=== PATIENT | female | born 1980 | race Caucasian/White ===

== ENCOUNTER 2021-11-05 00:31 | Day surgery (SDC) | payer BC, OTHER, SELFPAY ==
[2021-10-30 09:58] VITALS: BMI 38.4
--- NOTE | 2021-10-30 10:03 | PC.NURSE ---
Report to the Outpatient Waiting Room, entrance under the green pavilion located off [facility], at time 0700 on date 11/05/21. OR Time: 0900. - You and your visitor will be asked a series of questions to screen for COVID 19 for your protection. - A mask is required within the hospital. One visitor will be allowed to accompany the patient into the hospital. Patients visitor will be instructed to remain with patient at all times or leave the building. We will allow the visitor to come back to the postoperative area when patient is ready. Preoperative COVID Testing Requirements: No COVID Test needed if: (proof is required; if not received patient will have Rapid Test prior to entry) - Patient has received COVID Vaccine at least 14 days prior to procedure date or - Patient has positive COVID test result within last 90 days of surgery date. COVID Test needed if above criteria is not met Patients may have clear liquids (water, carbonated beverages, clear teas, apple juice) until 3 hours prior to surgery with a maximum of 20 ounces. - No food from midnight until time of surgery Take the following medications with a SIP of water the morning of surgery: CARVEDILOL Medications to discontinue per physician: N/A Date to take last dose: N/A Please no make-up, nail french, hairspray, perfume, deodorant, or body powder the day of surgery. No jewelry (including any body piercings) or valuables the day of surgery, leave them at home. Please take a shower or bath the night before, or the morning of, surgery with an antibacterial soap. Wear comfortable, loose fitting clothing. - Jewelry must be removed prior to entering the operating room. Rings and piercings that are not removed may be cut off. - The hospital will not accept responsibility for valuables. - Please leave all valuables, including medications, at home the day of surgery. If you are going home after surgery, a licensed coach driver must drive you home. - NO public transportation without another adult. - We recommend that an adult stay with you for 24 hours following discharge. - We also recommend that you do not drive, make important decision, drink alcoholic beverages, or take any drugs that were not prescribed by your health care provider for at least 24 hours after your discharge time. Follow any additional instructions given to you from your surgeon. Telephone instructions given to MICHAEL MILLER and asked if any additional questions and then verbalized understanding. Patient advised to call surgeon office or pre surgery nurse liaison [phone] if any additional questions.
[2021-11-05 07:15] VITALS: BP 144/86; PULSE 72; RESP 20; TEMP 36.4; O2SAT 98
--- NOTE | 2021-11-05 07:26 | PM.IMHP ---
H&P: HPI History of Present Illness Date/Time: 11/05/21 07:25 Winnie is a 41yo P0010, who presented for WWE in June; normal pap 02/2019. She is on BCP's and reports normal menses. She does have h/o HTN on meds and occasional tobacco use. She is sexually active (her has MS and is on meds that would be teratogenic). She has multiple cysts on her labia and even above her clitoris that are growing and becoming more annoying-- no infection/drainage/bleeding/pain, but presents for scheduled surgery to remove them. Chief Complaint: vulvar cysts Review of Systems Review of Systems: All systems reviewed & are unremarkable except as noted in HPI and below (HPI) [facility] Family History Family History Other Family history of alcoholism Family history of arthritis Family history of malignant neoplasm Social History Social History Smoking status: Current some day smoker Tobacco type: cigarettes Additional smoking assessment comments: OFF AND ON 15 YEARS Alcohol intake: never Substance use: never Substance use type: does not use Living arrangements: with family Spiritual care concerns: No Meds Home Medications and Allergies Home Medications Medication Instructions Recorded Confirmed Type carvedilol 12.5 mg PO BID 10/30/21 10/30/21 History norgestimate-ethinyl estradiol 1 tablet PO DAILY 10/30/21 10/30/21 History [Eeo-Ap-Tjqjfugi] Allergies Allergy/AdvReac Type Severity Reaction Status Date / Time No Known Allergies Allergy Unknown Unverified 10/30/21 09:54 Exam Const: General: cooperative, comfortable and no acute distress Resp: Effort & Inspection: normal respiratory effort Cardio: Rate: regular rate GI: GI Palp: No abdominal tenderness and Yes Soft to palpation : Other: large epidermoid cyst above clitorus, two cysts in the left labia, 1 in the right labia Skin: General skin exam: normal color Neuro: General: patient oriented x3 Extrem: General: normal to inspection Psych: Appearance: grossly normal Affect: normal affect Attitude: cooperative Assessment and Plan Assessment and plan (1) Labial cyst: Code(s): N90.7 - Vulvar cyst Status: Acute Additional Plan - Proceed with excision of vulvar/labial cysts in the OR - Risks/benefits explained in detail
--- NOTE | 2021-11-05 07:26 | WPDHPUPDATE1 ---
History and Physical Update Update Date/Time: 11/05/21 07:26 History and Physical has been reviewed, including an updated exam of the patient. There are NO changes in the patient's condition. Risks, benefits, and alternatives have been discussed and questions answered. Patient agrees to proceed with procedure.
[2021-11-05] MEDS: LACTATED RINGERS 1,000 ML 30 ML IV CONT ×2 (07:40→12:05)
--- NOTE | 2021-11-05 08:17 | WPDANESEPPF ---
Anes - Initial Pre Proc Eval Procedure: Operation Date: 11/05/21 09:00 Proposed Procedures p Excision of Vulvar Cyst Times Two - Heidy Orozco MD Date/Time: 11/05/21 08:17 Surgeon: Heidy Orozco MD Pre Op Diagnosis: vulvar cyst Patient Data Age: 41 Gender: F Height: 1.63 m Weight: 102.3 kg Last Vital Signs Temp 36.4 C L 11/05/21 07:15 Pulse 72 11/05/21 07:15 Resp 20 11/05/21 07:15 BP 144/86 H 11/05/21 07:15 Pulse Ox 98 11/05/21 07:15 Allergies Allergy/AdvReac Type Severity Reaction Status Date / Time No Known Allergies Allergy Unknown Unverified 11/05/21 07:34 Home Medications Medication Instructions Recorded Confirmed Type carvedilol 12.5 mg PO BID 10/30/21 11/05/21 History norgestimate-ethinyl estradiol 1 tablet PO DAILY 10/30/21 11/05/21 History [Mju-Im-Hxeezkoi] Patient hx anesthesia problems: none Family hx anesthesia problems: none Results Review: All pre-operative results and documents have been reviewed as part of the pre-operative evaluation. [facility] Past Medical History Medical History Asthma HTN (hypertension) Obesity Smoker Family History Family History Other Family history of alcoholism Family history of arthritis Family history of malignant neoplasm Social History Social History Smoking status: Current some day smoker Tobacco type: cigarettes Additional smoking assessment comments: OFF AND ON 15 YEARS Alcohol intake: never Substance use: never Substance use type: does not use Living arrangements: with family Spiritual care concerns: No Anes - Eval Final PreProcedure Day of Procedure 11/05/21 08:17 Patient weight: obese Heart: regular rate and rhythm Lungs: clear to auscultation and normal air movement Airway: Mallampati scale class II Neurological: alert and oriented Last oral intake: >/= 8 hours ASA classification: III Emergent: no Anesthetic plan: proceed Anesthesia type and monitoring: general GIVS and LMA Results Review: All pre-operative results and documents have been reviewed as part of the pre-operative evaluation. Informed Consent: The patient's anesthetic plan and its attendant risks and benefits were discussed with the patient/family/POA. Questions were solicited and answers provided to the satisfaction of the patient/family/POA.
--- NOTE | 2021-11-05 09:45 | SUR.PREOP ---
0940-PT AND FAMILY AWARE SURGEON DELAYS SELF ADDITIONAL 1HR FROM NOW.
[2021-11-05] MEDS: LIDO 1%/EPINEPHRINE 1:100,000 50 ML VIAL 10 ML INFILTRATE (11:13)
[2021-11-05 12:05] VITALS: BP 126/73; PULSE 78; RESP 16; O2SAT 100
--- NOTE | 2021-11-05 12:11 | W.PM.PROC2 ---
Procedure Note - Detailed Date of Procedure 11/05/21 Pre-op Diagnosis vulvar cysts Post-op Diagnosis Same Procedure Performed Vulvar cyst excision x4 Surgeon Heidy Orozco MD Anesthesia General and Local Indications Winnie is a 41 yo who has multiple vulvar/labial cysts that have been growing in size. They will get irritated, painful and swell. She has no signs of active infection. Findings 4 epidermoid cysts noted; one above the clitoris (largest in size), two in the left labia, one in the right labia; all removed w/o issue good hemostasis at end of case Description of Procedure Winnie was taken operating room where she was placed under anesthesia without complications. She was then prepped and draped in the usual sterile fashion in the dorsal lithotomy position with her legs in low Colby stirrups. A time-out was performed and no preoperative antibiotics were indicated. The overlying skin was then infiltrated with 0.25% xylocaine with epinephrine. The skin was then incised and the epidermoid cyst was removed in whole. Good hemostasis was noted. A deep stitch was placed to reapproximate the tissue, and the overlying skin was reapproximated using 4-0 Vicryl in a subcuticular fashion. This procedure was performed 3 other times on the other 3 cyst without any complications. Additional local anesthesia was used at the incision sites to allow for better pain control. Good hemostasis was noted and the procedure was complete. Sponge, lap, instrument, and needle counts were correct at the end the procedure. Patient was awoken from general anesthesia and taken recovery in a stable condition with plans of same-day discharge home. Estimated Blood Loss 10 Pathology Yes Complications No immediate complications Condition Stable Disposition Same day
[2021-11-05 12:35] VITALS: BP 126/73; PULSE 79; RESP 16; O2SAT 100
[2021-11-05 12:56] VITALS: BP 139/88; PULSE 83; RESP 16
== END 2021-11-05 13:00 | disposition home or self-care (01) ==
PROVIDERS: PCP Internal Medicine; Visit Provider Obstetrics & Gynecology
PROC: (CPT 11422; principal; 2021-11-05 09:00)
DX: N90.7 Vulvar cyst (principal); I10 Essential (primary) hypertension; F17.210 Nicotine dependence, cigarettes, uncomplicated; E66.9 Obesity, unspecified; Z68.38 Body mass index [BMI] 38.0-38.9, adult
CPT/HCPCS: 11422; 11420; 11421; 12042; 88305; J1100; J2250; J2405; J2704; J3010; J7120

== ENCOUNTER 2024-10-25 07:53 | Outpatient (CLI) | payer BC, OTHER, SELFPAY ==
--- NOTE | 2024-10-25 07:59 | ECG_ITS ---
Test Date: 2024-10-25 08:13:53 Measurements Intervals Christine Rate: 80 P: 27 OH: 148 QRS: 37 QRSD: 84 T: 46 QT: 362 QTc: 418 Interpretive Statements SINUS RHYTHM DELAYED PRECORDIAL R/S TRANSITION LOW QRS VOLTAGE IN PRECORDIAL LEADS BASELINE ARTIFACT- I, II, III, AVR, AVL, AVF, V1-V6 BORDERLINE ECG No previous ECG available for comparison Electronically Signed On 10-25-2024 08:15:31 CDT by hSekhar Esparza D.O.
--- OUTSIDE RECORDS SUMMARY | 2024-10-25 08:04 | XMS_ITS | Encounter Summary ---
Author Organization [facility] Address [address] [place] [address] Care Team Providers Care Respiratory Technician Name Role Phone Elli Stewart MD Primary Care Provider [phone] Encounter Details Date Type Department Care Team (Late st Contact Info) Description 11/06/2007 Outpatient Historical [address] [place] [address] Raúl Wright MD [address] [facility] [address] [place] [address] Social History Tobacco Use Types Packs/Day Years Used Date Smoking Tobacco: Never Assessed Comments Unknown Sex and Gender Information Value Date Recorded Sex Assigned at Not on file Legal 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 COLON AND RECTAL SURGEON Gender Identity Not on file Sexual Orientation Not on file documented as of this encounter Plan of Treatment Upcoming Encounters Date Type Department Care Team (Late st Contact Info) Description 12/29/2024 1:00 PM CDT Office Visit [facility] [address] [place] [address] [address] [place] [address] Elli Stewart MD [address] [place] [address] [address] [place] [address] 06/30/2025 9:00 AM COLON AND RECTAL SURGEON Office Visit [facility] [address] [place] [address] [address] [place] [address] Elli Stewart MD [address] [place] [address] documented as of this encounter Visit Diagnoses Not on filedocumented in this encounter Care Teams Respiratory Technician Relationship Specialty Start Date End Date Elli Stewart MD [address] [place] [address] PCP - General Internal Medicine 12/21/10 documented as of this encounter
--- OUTSIDE RECORDS SUMMARY | 2024-10-25 08:04 | XMS_ITS | Encounter Summary ---
Author Organization [facility] Address [address] [place] [address] Care Team Providers Care Senior Sas Programmer Name Role Phone Elli Stewart MD Primary Care Provider [phone] Encounter Details Date Type Department Care Team (Late st Contact Info) Description 11/25/2007 Orders Only [address] [place] [address] Raúl Wright MD [address] [facility] [address] [place] [address] Social History Tobacco Use Types Packs/Day Years Used Date Smoking Tobacco: Never Assessed Comments Unknown Sex and Gender Information Value Date Recorded Sex Assigned at Not on file Legal 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 TECHNOLOGY CONSULTANT Gender Identity Not on file Sexual Orientation Not on file documented as of this encounter Plan of Treatment Upcoming Encounters Date Type Department Care Team (Late st Contact Info) Description 12/29/2024 1:00 PM CDT Office Visit [facility] [address] [place] [address] [address] [place] [address] Elli Stewart MD [address] [place] [address] [address] [place] [address] 06/30/2025 9:00 AM TECHNOLOGY CONSULTANT Office Visit [facility] [address] [place] [address] [address] [place] [address] Elli Stewart MD [address] [place] [address] documented as of this encounter Visit Diagnoses Not on filedocumented in this encounter Care Teams Senior Sas Programmer Relationship Specialty Start Date End Date Elli Stewart MD [address] [place] [address] PCP - General Internal Medicine 12/21/10 documented as of this encounter
--- OUTSIDE RECORDS SUMMARY | 2024-10-25 08:04 | XMS_ITS | Clinical Summary ---
Author Organization [facility] Address [address] [place] [address] Care Team Providers Care Carbide Tool Die Maker Name Role Phone Elli Stewart MD Primary Care Provider [phone] Source Comments [facility],non-owned Affiliates and Associated Physician Practices is amultiple site organization consisting of ambulatory clinics and hospital sitesin [place], [place], [place] and [place]. This disclosure is being madepursuant to the Care Everywhere program and may not contain all information available regarding this patient. Last updated 18.[facility] Allergies No known active allergies Medications * Be aware that medications may not be up to date on this document. Alwaysverify current medications with the patient. Medication Sig Dispensed Refills Start Date End Date Status predniSONE (DELTASONE) 10 MG tablet 5 tabs po x2 days, 4 tabs po x2 days, 3 tabs po x2 days, 2 tabs po x2 days, 1 tab po x2 days 30 Tab 03/26/2017 Active Social History Tobacco Use Types Packs/Day Years Used Date Smoking Tobacco: Every Day Smokeless Tobacco: Never Sex and Gender Information Value Date Recorded Sex Assigned at Not on file Gender Identity Not on file Sexual Orientation Not on file Last Filed Vital Signs Vital Sign Reading Time Taken Comments Blood Pressure 114/78 03/26/2017 11:05 AM CDT Pulse 98 03/26/2017 11:05 AM CDT Temperature 36.9 C (98.4 F) 03/26/2017 11:05 AM CDT Respiratory Rate 16 03/26/2017 11:05 AM CDT Oxygen Saturation 98% 03/26/2017 11:05 AM CDT Inhaled Oxygen Concentration - - Weight 113.4 kg (250 lb) 03/26/2017 11:05 AM CDT Height 162.6 cm (5' 4 ) 03/26/2017 11:05 AM CDT Body Mass Index 42.91 03/26/2017 11:05 AM CDT Plan of Treatment Health Maintenance Due Date Last Done Comments LIPID TESTING 1981 MAMMOGRAM 1981 PAP SMEAR 1981 HIV SCREENING 02/06/1996 HEPATITIS C SCREENING 02/01/1999 DTAP/TDAP/TD VACCINES (1 - Tdap) 02/06/2000 HEPATITIS B VACCINE (1 of 3 - 19+ 3-dose series) 02/06/2000 PNEUMOCOCCAL VACCINE (1 of 2 - PCV) 02/06/2000 COVID-19 VACCINE (1 - 2023-2 5 season) 2024 DEPRESSION SCREENING 07/21/2024 INFLUENZA VACCINE (Season Ended) 2025 ZOSTER VACCINE (1 of 2) 2031 HIB VACCINE Aged Out No longer eligi ble based on patient's age to complete this topic HPV VACCINE Aged Out No longer eligi ble based on patient's age to complete this topic MENINGOCOCCAL (Group B) VACC INE SHARED DECISION-MAKING Aged Out No longer eligibl e based on patient's age to complete this topic MENINGOCOCCAL GROUPS A/C/Y/W VACCINE Aged Out No longer eligible b ased on patient's age to complete this topic Care Teams Carbide Tool Die Maker Relationship Specialty Start Date End Date Elli Stewart MD [address] [facility] [address] [place] [address] PCP - General 11/07/21
--- OUTSIDE RECORDS SUMMARY | 2024-10-25 08:04 | XMS_ITS | Encounter Summary ---
Author Organization [facility] Address [address] [place] [address] Care Team Providers Care Odd Job Worker Name Role Phone Elli Stewart MD Primary Care Provider [phone] Encounter Details Date Type Department Care Team (Late st Contact Info) Description 12/26/2005 Outpatient Historical [facility] - [address] [place] [address] Rogers Arnold MD [address] [facility] [address] [id number] Social History Tobacco Use Types Packs/Day Years Used Date Smoking Tobacco: Never Assessed Comments Unknown Sex and Gender Information Value Date Recorded Sex Assigned at Not on file Legal 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 CEO AND FOUNDER Gender Identity Not on file Sexual Orientation Not on file documented as of this encounter Last Filed Vital Signs Vital Sign Reading Time Taken Comments Blood Pressure 128/80 12/26/2005 11:30 AM CDT Pulse - - Temperature 36.4 C (97.5 F) 12/26/2005 11:30 AM CDT Respiratory Rate - - Oxygen Saturation - - Inhaled Oxygen Concentration - - Weight 78.9 kg (174 lb) 12/26/2005 11:30 AM CDT Height - - Body Mass Index - - documented in this encounter Plan of Treatment Upcoming Encounters Date Type Department Care Team (Late st Contact Info) Description 12/29/2024 1:00 PM CDT Office Visit [address] [place] [address] Elli Stewart MD [address] [place] [phone] 06/30/2025 9:00 AM CEO AND FOUNDER Office Visit [facility] Primary Care - [facility] [address] [place] [address] Elli Stewart MD [address] [place] [address] documented as of this encounter Visit Diagnoses Not on filedocumented in this encounter Care Teams Odd Job Worker Relationship Specialty Start Date End Date Elli Stewart MD [address] [place] [address] PCP - General Internal Medicine 12/21/10 documented as of this encounter
--- OUTSIDE RECORDS SUMMARY | 2024-10-25 08:04 | XMS_ITS | Encounter Summary ---
Author Organization [facility] Address [address] [place] [address] Care Team Providers Care Stump Shooter Name Role Phone Elli Stewart MD Primary Care Provider [phone] Encounter Details Date Type Department Care Team (Late st Contact Info) Description 08/29/2006 Orders Only [facility] Primary Care - [address] [place] [address] Raúl Wright MD [address] [facility] [address] [place] [address] Social History Tobacco Use Types Packs/Day Years Used Date Smoking Tobacco: Never Assessed Comments Unknown Sex and Gender Information Value Date Recorded Sex Assigned at Not on file Legal 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 ANNEALER HELPER Gender Identity Not on file Sexual Orientation Not on file documented as of this encounter Progress Notes * Raúl Wright MD - 12/11/2007 6:08 PM CDT WEIGHT: 187lbs BLOOD PRESSURE: 118/68 Right Arm Sitting TEMPERATURE: 97.6??f Oral NURSE NAME: Kenrick Rosales J ALLERGIES: No known drug allergies. MEDICATIONS: Medication list current. CHIEF COMPLAINT Patient complains of cough, chest congestion, chest pain, headache. HISTORY: HISTORY: 466.0-BRONCHITIS ACUTE The acute bronchitis has worsened. The patient has chest congestion, an increasing severity of cough, has nasal congestion, has nasal discharge, has sinus congestion, has an increase in shortness of breath, has had an increase in sputum production, has wheezing. PHYSICAL EXAMINATION: CONSTITUTIONAL: GENERAL APPEARANCE: MODERATELY DISTRESSED. NECK/THYROID: Trachea midline. No thyroid enlargement, tenderness, or mass. No supraclavicular or cervical adenopathy. RESPIRATORY: DECREASED BREATH SOUNDS BILATERALLY, MILD EXPIRATORY WHEEZE HEARD THROUGHOUT BOTH LUNGFIELDS. CARDIOVASCULAR: CARDIAC: Regular rhythm. No murmurs, rubs, or gallops. ARTERIAL: No aortic bruits. EDEMA/VARICOSITIES OF EXTREMITIES: No edema or varicosities. GASTROINTESTINAL: ABDOMEN: Soft, non-tender, without masses. Bowel sounds active. LIVER/SPLEEN/KIDNEY: No hepatosplenomegaly, tenderness or nodularity. Kidneys not palpable. ASSESSMENT/PLAN: 466.0-BRONCHITIS ACUTE ASSESSMENT: Will start medication for better control. MEDICATIONS: PREDNISONE ORAL TABLET 20 MG, 3 po qday for 4 days 2 po qday for 4 days 1 po qday for 4 days, 24 Dispensed, status: NEW PRESCRIPTION, 08/29/2006. ALBUTEROL SULFATE HFA INHALATION AEROSOL SOLUTION 108 MCG/ACT, 2-4 puffs qid prn for wheezing or shortness of breath or cough, 1 Dispensed, 11 Fills, status: NEW PRESCRIPTION, 08/29/2006. ZITHROMAX Z-FEMI ORAL TABLET 250 MG, DIRECTED, 1 Dispensed, status: CONTINUED, 08/29/2006. Electronically Signed by: Raúl Wright MD on Tuesday, August 29, 2006 documented in this encounter Plan of Treatment Upcoming Encounters Date Type Department Care Team (Late st Contact Info) Description 12/29/2024 1:00 PM CDT Office Visit [address] [place] [phone] [facility] [address] [place] [phone] 06/30/2025 9:00 AM ANNEALER HELPER Office Visit [address] [place] [phone] Elli Stewart MD [address] [place] [address] [address] [place] [phone] documented as of this encounter Visit Diagnoses Not on filedocumented in this encounter Care Teams Stump Shooter Relationship Specialty Start Date End Date Elli Stewart MD [address] [facility] [address] [place] [phone] PCP - General Internal Medicine 12/21/10 documented as of this encounter
--- OUTSIDE RECORDS SUMMARY | 2024-10-25 08:04 | XMS_ITS | Encounter Summary ---
Author Organization [facility] Address [address] [place] [address] Care Team Providers Care Novelty Chain Maker Name Role Phone Elli Stewart MD Primary Care Provider [phone] Encounter Details Date Type Department Care Team (Late st Contact Info) Description 12/26/2005 Orders Only [facility] Primary Care - [facility] [address] [place] [address] [address] [place] [address] Rogers Arnold MD [address] [facility] [address] [address] Social History Tobacco Use Types Packs/Day Years Used Date Smoking Tobacco: Never Assessed Comments Unknown Sex and Gender Information Value Date Recorded Sex Assigned at Not on file Legal 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 GRAVEL WEIGHER Gender Identity Not on file Sexual Orientation Not on file documented as of this encounter Progress Notes * Rogers Arnold MD - 04/29/2008 7:14 AM CDT TEMPERATURE: 97.5??f Oral WEIGHT: 174lbs BLOOD PRESSURE: 128/80 Right Arm Sitting NURSE NAME: Abby Boothe ALLERGIES: No known drug allergies. MEDICATIONS: Patient is taking no medications at present. CHIEF COMPLAINT Here for follow up evaluation. ER visit ([facility]) for chest pain. RC HISTORY: chest pain with deep breath, developed after rent URI ROS: RESPIRATORY: No shortness of breath, no wheezing. PHYSICAL EXAMINATION: RESPIRATORY: Clear to auscultation and percussion. Normal respiratory effort. CARDIOVASCULAR: CARDIAC: Regular rhythm. No murmurs, rubs, or gallops. ARTERIAL: Aortic pulses of normal amplitude with no bruits. EDEMA/VARICOSITIES OF EXTREMITIES: No edema or varicosities. ASSESSMENT/PLAN: 305.1-TOBACCO ABUSE ASSESSMENT: The patient continues to smoke and was strongly advised to discontinue tobacco productscompletely. 786.50-UNSPECIFIED CHEST PAIN ASSESSMENT: The chest pain has worsened. Will start medication for better control. No laboratory work is necessary at this time. STATUS: New. 511.0-PLEURISY ASSESSMENT: try meds, reassurance given, call for update as needed MEDICATIONS: MOBIC ORAL TABLET 7.5 MG, 1 Two Times A Day, 14 Dispensed, status: NEW PRESCRIPTION, 12/26/2005. VICODIN ORAL TABLET 5-500 MG, 1 Every Six Hours, As Needed, 20 Dispensed, status: NEW PRESCRIPTION,12/26/2005. RETURN VISIT : Patient instructed to call in 1 week if not improving. Electronically Signed by: Rogers Arnold MD on December documented in this encounter Plan of Treatment Upcoming Encounters Date Type Department Care Team (Late st Contact Info) Description 12/29/2024 1:00 PM CDT Office Visit [address] [place] [phone] Elli Stewart MD [address] [place] [address] [place] [phone] 06/30/2025 9:00 AM GRAVEL WEIGHER Office Visit [facility] [address] [facility] [address] [place] [phone] Elli Stewart MD [address] [place] [address] [place] [phone] documented as of this encounter Visit Diagnoses Not on filedocumented in this encounter Care Teams Novelty Chain Maker Relationship Specialty Start Date End Date Elli Stewart MD [address] [place] [address] [place] [phone] PCP - General Internal Medicine 12/21/10 documented as of this encounter
--- OUTSIDE RECORDS SUMMARY | 2024-10-25 08:04 | XMS_ITS | Clinical Summary ---
Author Organization [facility] Address [address] [place] [address] Care Team Providers Care Regulatory Compliance Specialist Name Role Phone Elli Stewart MD Primary Care Provider [phone] Allergies Active Allergy Reactions Criticality Noted Date Comments Tramadol Hcl Itching Low 12/09/2018 Medications norgestimate 0.18 mg/0.215 mg/0.25 mg-ethinyl estradioL 25 mcg tablet Ttq-Oa-Fxxcxrzk 0.18 mg/0.215 mg/0.25 mg-25 mcg tablet TK 1 T PO QD Active loratadine/pseu doephedrine (CLARITIN-D 12 HOUR ORAL) Active dicyclomine (BENTYL) 20 mg tablet dicyclomine 20 mg tablet TAKE 1 TABLET BY MOUTH EVERY 6 HOURS 07/12/20 21 Active cyclobenzaprine (FLEXERIL) 10 mg tabletIndicatio ns:Spasm of back muscles TAKE 1 TABLET(10 MG) BY MOUTH THREE TIMES DAILY NEEDED FOR SPASM 40 Tablet 11 03/23/20 24 Active tirzepatide, weight loss, (Zepbound) 2.5 mg/0.5 mL Pen InjectorIndicat ions:Severe obesity (BMI 35.0-39.9) with comorbidity (CMS/HCC),RAHUL (obstructive sleep apnea),Prediabe jose david,Benign hypertension,Mi ld intermittent asthma without complication Inject 2.5 mg by subcutaneous injection every 7 days. 2 mL 1 06/30/20 24 Active lisinopriL (PRINIVIL) 10 mg tabletIndicatio ns:Benign hypertension Take 1 Tablet (10 mg) by mouth daily. 100 Tablet 3 06/30/20 24 Active carvediloL (COREG) 12.5 mg tabletIndicatio ns:Benign hypertension TAKE 1 TABLET(12.5 MG) BY MOUTH TWICE DAILY WITH MEALS 180 Tablet 3 06/30/20 24 Active albuterol sulfate HFA 90 mcg/actuation aerosol inhalerIndicati ons:Mild intermittent asthma without complication Take 2 Puffs by inhalation every 6 hours as needed for Shortness of Breath. 8.5 Gram 11 06/30/20 24 Active diazePAM (VALIUM) 5 mg tabletIndicatio ns:Muscle cramping TAKE 1 TABLET(5 MG) BY MOUTH DAILY NEEDED FOR ANXIETY 30 Tablet 10/05/19 25 Active gabapentin (NEURONTIN) 100 mg capsuleIndicati ons:Neck pain,Radiculopa thy, cervical TAKE 1 TO 2 CAPSULES(100 TO 200 MG) BY MOUTH THREE TIMES DAILY 90 Capsule 1 10/05/19 25 Active diazePAM (VALIUM) 5 mg tabletIndicatio ns:Muscle cramping TAKE 1 TABLET(5 MG) BY MOUTH EVERY 6 HOURS NEEDED FOR ANXIETY 30 Tablet 10/05/19 25 Active gabapentin (NEURONTIN) 100 mg capsuleIndicati ons:Neck pain,Radiculopa thy, cervical Take 1-2 Capsules (100-200 mg) by mouth 3 times daily. 60 Capsule 11 06/25/20 23 2024 Discontinued diazePAM (VALIUM) 5 mg tabletIndicatio ns:Muscle cramping Take 1 Tablet (5 mg) by mouth 1 time daily as needed for Anxiety. 30 Tablet 08/30/19 25 2024 Discontinued Active Problems Patient Care Coordination No te Formatting of this note migh t be different from the original. District Administrator [facility] Problem Noted Date Diagnosed Date Anterolisthesis of lumbar spine 06/25/2023 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 06/25/2023 Benign hypertension 03/06/2020 Vitamin D deficiency 11/26/2015 RAHUL (obstructive sleep apnea) 06/28/2014 Overview (11/15/2015): Mild - on wt loss program Tension type headache 09/25/2012 Asthma 04/02/2012 Prediabetes 11/25/2007 Migraine with aura 05/30/2005 Resolved Problems Problem Noted Date Diagnosed Date Resolved Date Lymphocytosis 05/12/2021 12/05/2022 Neck pain on left side 05/01/202112/05 Left atrial mass 06/08/2020 05/01/2021 Tobacco abuse counseling 06/08/202006/2021 Sinus tachycardia 06/08/2020 05/01/2021 Morbid obesity with body mas s index of 40.0-49.9 12/09/2018 05/01/2021 Spasm of back muscles 09/25/20122022 Abnormal weight gain 11/06/2007 016 Chest pain, unspecified 12/26/200508/21 Pleurisy without mention of effusion or current tuberculosis 12/26/2005 09/08/2008 Acute bronchitis 12/12/2005 09/08/2008 Headache(784.0) 11/12/2005 09/08/2008 Cervicalgia 11/12/2005 09/08/2008 Routine general medical exam ination at a health care facility 05/30/2005 09/08/2008 Tobacco use disorder 05/30/2005 016 Sprain of deltoid (ligament), ankle 05/30/2005 09/08/2008 Encounters Date Type Department Care Team Description 10/19/2024 External Device Data ST[facility] ABSTRACTION Provider, Abstract 10/04/[address] [place] [address] Elli Stewart MD Muscle cramping 10/03/[address] [place] [address] Elli Stewart MD Neck pain; Radiculopathy, cervical 10/03/[address] [place] [address] Jai Bond MD Muscle cramping 09/08/2024 External Device Data [facility] ABSTRACTION Provider, Abstract 08/28/[address] [place] [address] Elli Stewart MD Muscle cramping 08/24/2024 External Device Data [facility] ABSTRACTION Provider, Abstract 08/11/2024 External Device Data ST[facility] ABSTRACTION Provider, Abstract from Last 3 Months Immunizations Immunization Administration Dates Next Due (ADACEL/BOOSTRIX)(10 YR UP) TDAP VACCINE, 0.5ML, IM 11/06/2010 (PFIZER)(12 YR UP) COVID-19 VACCINE - EMERGENCY USE AUTHORIZATION, MRNA, [id number](PF) 30 MCG/0.3 ML IM SUSP 04/20/2021,08/18/2020,07/30/2020,07/09 (PNEUMOVAX 23)(50 YRS UP) PN EUMOCOCCAL POLYSACCHARIDE (PPV23) 0.5 ML, IM 06/25/2023 (TDVAX)(7 YRS UP) TETANUS AN D DIPHTHERIA TOXOIDS, ADSORBED (2 LF OF TETANUS TOXOID AND 2 LF OF DIPHTHERIA TOXOID), 0.5ML (PF), IM 04/20/2004 INFLUENZA VACCINE QUADRIVALE NT 6 MOS UP PF IM 04/03/2023,05/07/2022,04/18/2019 Influenza Seasonal Unspecifi ed Formulation IM 04/19/2019,04/18/2014 Influenza Seasonal Unspecifi ed Formulation PF IM 04/25/2024 Skin Test TB 11/26/2011,11/20/2010,11/06/2010 Family History Medical History Relation Name Comments High Cholesterol Brother Hypertension Brother Other Brother SPINAL STENOSIS Other Father SPINAL STENOSIS Hypertension Maternal Aunt Cancer Maternal Grandfather Dionte Heart Disease Maternal Grandfather Dionte Heart Failure Maternal Grandfather Dionte Cancer Maternal Grandmother [place] Heart Disease Maternal Grandmother [place] Heart Failure Maternal Grandmother [place] Hypertension Maternal Grandmother [place] Blood Clots Mother Andreina Heart Disease Mother Andreina High Cholesterol Mother Andreina Hypertension Mother Andreina Osteoporosis Mother Andreina Other Mother Andreina SPINAL STENOSIS Cancer Paternal Grandfather Flavio Lung Cancer Paternal Grandfather Flavio Cancer Paternal Grandmother Asthma Neg Hx Bronchitis Neg Hx Diabetes Neg Hx Emphysema Neg Hx Mesothelioma Neg Hx Tuberculosis Neg Hx Relation Name Status Comments Brother Father Maternal Aunt Maternal Grandfather Dionte Maternal Grandmother [place] Mother Andreina Paternal Grandfather Flavio Paternal Grandmother Social History Tobacco Use Types Packs/Day Years Used Date Smoking Tobacco: Former Cigarettes Smokeless Tobacco: Never Tobacco Cessation:Counseling Given: No Alcohol Use Standard Drinks/Week Comments Yes 0 (1 standard drink = 0.6 oz pur e alcohol) Comments No Sex and Gender Information Value Date Recorded Sex Assigned at Not on file Legal 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 CORE ASSEMBLY SUPERVISOR Gender Identity Not on file Sexual Orientation Not on file Occupation Industry Job Start Date Job End Date Not on file Not on file Not on file Not on file Last Filed Vital Signs Vital Sign Reading Time Taken Comments Blood Pressure 124/82 06/30/2024 8:46 AM CORE ASSEMBLY SUPERVISOR Pulse 93 06/30/2024 8:46 AM CORE ASSEMBLY SUPERVISOR Temperature 36.5 C (97.7 F) 09/19/2023 2:29 PM CORE ASSEMBLY SUPERVISOR Respiratory Rate 18 06/30/2024 8:46 AM CORE ASSEMBLY SUPERVISOR Oxygen Saturation 97% 06/30/2024 8:46 AM CORE ASSEMBLY SUPERVISOR Inhaled Oxygen Concentration - - Weight 93.9 kg (207 lb) 06/30/2024 8:46 AM CORE ASSEMBLY SUPERVISOR Height 162.6 cm (5' 4 ) 06/30/2024 8:46 AM CORE ASSEMBLY SUPERVISOR Body Mass Index 35.53 06/30/2024 8:46 AM CORE ASSEMBLY SUPERVISOR Plan of Treatment Upcoming Encounters Date Type Department Care Team (Late st Contact Info) Description 12/29/2024 1:00 PM CDT Office Visit [address] [place] [phone] Elli Stewart MD [facility] [address] [place] [phone] 06/30/2025 9:00 AM CORE ASSEMBLY SUPERVISOR Office Visit [facility] [address] [place] [address] Elli Stewart MD [facility] [address] [place] [address] Health Maintenance Due Date Last Done Comments HEPATITIS B VACCINES (1 of 3 - 19+ 3-dose series) 02/06/2000 HPV/Cotest (21-29) 2002 HPV/Cotest (30-65) 2011 CERVICAL CANCER SCREENING 04/22/2014 PAP SMEAR 04/22/2014 04/22/2011, 02/18/2010 DTAP/TDAP/TD VACCINES (2 - Td or Tdap) 11/06/2020 11/06/2010, 04/20/2004 COVID-19 Vaccine ( season) 2024 04/20/2021, 08/18/2020, 07/30/2020, Additional history exists Preventative Visit- Commercial 07/21/2024 06/30/2024, 06/25/2023, 06/25/2022, Additional history exists BREAST CANCER SCREENING 07/22/2025 07/22/2024 Pre-Diabetes and Diabetes Screening 06/02/2027 06/02/2024, 07/18/2022, 05/09/2021, Additional history exists INFLUENZA VACCINE Completed 04/25/2024, , 05/07/2022, Additional history exists HPV VACCINES Aged Out No longer eligi ble based on patient's age to complete this topic Procedures Procedure Name Priority Date/Time Associated Diagnosis Comments MAMMO SCREENING BILAT Routine 07/22/2024 9:52 AM CORE ASSEMBLY SUPERVISOR HEMOGLOBIN A1C Routine 06/02/2024 8:13 AM CORE ASSEMBLY SUPERVISOR Wellness examination from Last 3 Months or Most Recently Relevant to Health Maintenance Results * MAMMO SCREENING BILAT (07/22/2024 9:52 AM CORE ASSEMBLY SUPERVISOR) Anatomical Region Laterality Modality Breast Bilateral Mammography us Abstract Provider MAMMO ORDERABLES Edited Result - Final * (ABNORMAL) HEMOGLOBIN A1C (06/02/2024 8:13 AM CORE ASSEMBLY SUPERVISOR) HEMOGLOBIN A1C 6.1(H) <5.7 % of total Hgb [facility] Comment: For someone without known diabetes, a hemoglobin A1c value between 5.7% and 6.4% is consistent with prediabetes and should be confirmed with a follow-up test. For someone with known diabetes, a value <7% indicates that their diabetes is well controlled. A1c targets should be individualized based on duration of diabetes, age, comorbid conditions, and other considerations. This assay result is consistent with an increased risk of diabetes. Currently, no consensus exists regarding use of hemoglobin A1c for diagnosis of diabetes for children. ESTIMATED AVERAGE GLUCOSE (MG/DL) 128 mg/dL [facility] Mike ESTIMATED AVERAGE GLUCOSE (MMOL/L) 7.1 mmol/L [facility] Comment: Test Performed at: [place] [address] [address] [place] [phone] Kendra Jin Blood 06/02/2024 8:13 AM CORE ASSEMBLY SUPERVISOR 06/02/2024 8:13 AM CORE ASSEMBLY SUPERVISOR us Elli Stweart MD CHEMISTRY ORDERABLES Final R esult [facility] [phone] [place] [address] [address] [place] [phone] from Last 3 Months or Most Recently Relevant to Health Maintenance Insurance [employer] BLUE PREFERRED Advance Directives For more information, please contact: [phone] * Full Code (Latest Code Status on File) Date Activated Date Inactivated Comments 08/01/2011 3:48 PM 08/01/2011 10:02 PM * Full Code Date Activated Date Inactivated Comments 08/01/2011 12:59 PM 08/01/2011 3:48 PM * Full Code Date Activated Date Inactivated Comments 08/01/2011 11:49 AM 08/01/2011 12:59 PM Care Teams Regulatory Compliance Specialist Relationship Specialty Start Date End Date Elli Stewart MD [address] [facility] [address] [place] [phone] PCP - General Internal Medicine 12/21/10
--- OUTSIDE RECORDS SUMMARY | 2024-10-25 08:04 | XMS_ITS | Encounter Summary ---
Author Organization [facility] Address [address] [place] [address] Care Team Providers Care Binding Stitcher Name Role Phone Elli Stewart MD Primary Care Provider [phone] Encounter Details Date Type Department Care Team (Late st Contact Info) Description 12/12/2005 Outpatient Historical [address] [place] [address] Raúl Wright MD [address] [facility] [address] [place] [address] Social History Tobacco Use Types Packs/Day Years Used Date Smoking Tobacco: Never Assessed Comments Unknown Sex and Gender Information Value Date Recorded Sex Assigned at Not on file Legal 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 PROGRAM ADMINISTRATOR Gender Identity Not on file Sexual Orientation Not on file documented as of this encounter Plan of Treatment Upcoming Encounters Date Type Department Care Team (Late st Contact Info) Description 12/29/2024 1:00 PM CDT Office Visit [facility] [address] [place] [address] [address] [place] [address] Elli Stewart MD [address] [place] [address] [address] [place] [address] 06/30/2025 9:00 AM PROGRAM ADMINISTRATOR Office Visit [facility] [address] [place] [address] [address] [place] [address] Elli Stewart MD [address] [place] [address] documented as of this encounter Visit Diagnoses Not on filedocumented in this encounter Care Teams Binding Stitcher Relationship Specialty Start Date End Date Elli Stewart MD [address] [place] [address] PCP - General Internal Medicine 12/21/10 documented as of this encounter
--- OUTSIDE RECORDS SUMMARY | 2024-10-25 08:04 | XMS_ITS | Encounter Summary ---
Author Organization [facility] Address [address] [place] [address] Care Team Providers Care Roping Machine Tender Name Role Phone Elli Stewart MD Primary Care Provider [phone] Encounter Details Date Type Department Care Team (Late st Contact Info) Description 12/12/[address] [facility] Primary Care - [facility] [address] [place] [address] Raúl Wright MD [address] [facility] [address] [place] [address] Social History Tobacco Use Types Packs/Day Years Used Date Smoking Tobacco: Never Assessed Comments Unknown Sex and Gender Information Value Date Recorded Sex Assigned at Not on file Legal 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 SENIOR SOLUTIONS CONSULTANT Gender Identity Not on file Sexual Orientation Not on file documented as of this encounter Progress Notes * Raúl Wright MD - 04/29/2008 5:35 AM CDT [facility] RAÚL WRIGHT MD [address] [place] [address] December 12, 2005 MICHAEL BAUMANN [address] [place] [address] MICHAEL IBIS has been under our care during the dates below: 12/11/05,12/12/05 May return to work: Sincerely yours, RAÚL WRIGHT MD * Raúl Wright MD - 04/29/2008 5:35 AM CDT [facility] RAÚL WRIGHT MD [address] [place] [address] December 12, 2005 MICHAEL BAUMANN [address] [place] [address] MICHAEL BAUMANN has been under our care during the dates below: 12-10-05 thru 12-13-05 May return to work: 12-14-05 Sincerely yours, RAÚL WRIGHT MD * Raúl Wright MD - 04/29/2008 5:35 AM CDT WEIGHT: 173lbs BLOOD PRESSURE: 110/64 Right Arm Sitting TEMPERATURE: 98.3??f Oral NURSE NAME: Denise Scruggs D ALLERGIES: Allergies were reviewed. MEDICATIONS: RN/MA reviewed medications. CHIEF COMPLAINT Patient complains of sinus congestion, head congestion, nasal congestion, chest congestion, cough. HISTORY: HISTORY: HISTORY OF PRESENT ILLNESS: UPPER RESPIRATORY: Symptoms include hacking cough, symptoms include nasal congestion, symptoms include nasal discharge, symptoms include sinus congestion, symptoms of sore throat, symptoms include generalized aches. PHYSICAL EXAMINATION: CONSTITUTIONAL: GENERAL APPEARANCE: In no acute distress. RESPIRATORY: EXPIRATORY WHEEZE HEARD POSTERIORLY IN BOTH LUNGS, EXPIRATORY WHEEZE HEARD THROUGHOUT BOTH LUNG MCCLURE. CARDIOVASCULAR: CARDIAC: Regular rhythm. No murmurs, rubs, or gallops. EDEMA/VARICOSITIES OF EXTREMITIES: No edema or varicosities. ASSESSMENT/PLAN: 466.0-BRONCHITIS ACUTE ASSESSMENT: The patient's acute bronchitis has worsened. Will start medication for better control. MEDICATIONS: PREDNISONE ORAL TABLET 20 MG, 3 po qday for 4 days 2 po qday for 4 days 1 po qday for 4 days, 24 Dispensed, status: NEW PRESCRIPTION, 12/12/2005. ALBUTEROL INHALATION AEROSOL SOLUTION 90 MCG/ACT, 2-4 puffs qid prn cough/wheezing, 1 Dispensed, 1 Fills, status: NEW PRESCRIPTION, 12/12/2005. LAB ORDERS: Order number: [id number] Test Ordered: NEBULIZER TREATMENT [id number] Order number: [id number] Test Ordered: PULSE OXIMETRY [id number] REPEAT VITAL SIGNS: Electronically Signed by: Raúl Wright MD on Friday, December 21, 2005 documented in this encounter Plan of Treatment Upcoming Encounters Date Type Department Care Team (Late st Contact Info) Description 12/29/2024 1:00 PM CDT Office Visit [facility] [address] [place] [address] Elli Stewart MD [address] [place] [address] 06/30/2025 9:00 AM SENIOR SOLUTIONS CONSULTANT Office Visit [facility] [address] [place] [address] Elli Stewart MD [address] [place] [address] documented as of this encounter Visit Diagnoses Not on filedocumented in this encounter Care Teams Roping Machine Tender Relationship Specialty Start Date End Date Elli Stewart MD [address] [place] [address] PCP - General Internal Medicine 12/21/10 documented as of this encounter
--- OUTSIDE RECORDS SUMMARY | 2024-10-25 08:04 | XMS_ITS | Encounter Summary ---
Author Organization [facility] Address [address] [place] [address] Care Team Providers Care Support Coordinator Name Role Phone Elli Stewart MD Primary Care Provider [phone] Encounter Details Date Type Department Care Team (Late st Contact Info) Description 11/23/2007 Outpatient Historical [facility] [address] [place] [address] [address] [place] [address] Raúl Wright MD [address] [address] [place] [address] Routine General Medical Examination at a Health Care Facility; Family History of Diabetes Mellitus Social History Tobacco Use Types Packs/Day Years Used Date Smoking Tobacco: Never Assessed Comments Unknown Sex and Gender Information Value Date Recorded Sex Assigned at Not on file Legal 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 RETURNS SUPERVISOR Gender Identity Not on file Sexual Orientation Not on file documented as of this encounter Plan of Treatment Upcoming Encounters Date Type Department Care Team (Late st Contact Info) Description 12/29/2024 1:00 PM CDT Office Visit [facility] [address] [facility] [address] [place] [address] Elli Stewart MD [address] [place] [address] [address] [place] [address] 06/30/2025 9:00 AM RETURNS SUPERVISOR Office Visit [facility] [address] [place] [address] Elli Stewart MD [address] [facility] [address] [place] [address] documented as of this encounter Procedures Procedure Name Priority Date/Time Associated Diagnosis Comments TSH REFLEXIVE Routine 11/23/2007 4:28 PM CDT CBC WITH DIFFERENTIAL Routine 11/23/2007 4:28 PM CDT INSULIN LEVEL Routine 11/23/2007 4:28 PM CDT HEMOGLOBIN A1C Routine 11/23/2007 4:28 PM CDT LIPID PANEL Routine 11/23/2007 4:28 PM CDT COMPREHENSIVE METABOLIC PANEL Routine 11/23/2007 4:28 PM CDT documented in this encounter Results * (ABNORMAL) LIPID PANEL (11/23/2007 4:28 PM CDT) HDL 64(H) 40 - 59 mg/dL [facility] CHOLESTEROL 223(H) 100 - 199 mg/dL [facility] CHOL/HDL RATIO 3.5 2.0 - 5.0 [facility] TRIGLYCERIDE 132 10 - 149 mg/dL [facility] LDL CALCULATED 133(H) <=99 mg/dL [facility] LIPID PANEL COMMENT See Below [facility] Comment: The adult ATP and pediatric NCEP classifications for lipids are available on the [facility] Intranet at: [email or web address] Select: Lab Policies and Procedures,Current Select: Lipid Panel Interpretation Blood specimen (specimen) 11/23/2007 4:28 PM CDT 11/23/2007 4:59 PM CDT us Raúl Wright MD CHEMISTRY ORDERABLES Edited [facility] [address] [place] [address] * (ABNORMAL) CBC WITH DIFFERENTIAL (11/23/2007 4:28 PM CDT) WBC 13.1(H) 4.0 - 9.8 K/uL [facility] MCH 29.9 27.2 - 32.6 pg [facility] PLATELETS 305 140 - 350 K/uL [facility] HEMATOCRIT 42.9 35.5 - 44.0 % [facility] RDW-STDEV 43.1 37.1 - 48.7 fL [facility] RBC 4.65 3.90 - 4.90 M/uL [facility] MCHC 32.4 31.5 - 35.5 % [facility] MPV 11.5 9.3 - 12.4 fL [facility] MCV 92.3 82.0 - 99.0 fL [facility] HEMOGLOBIN 13.9 11.8 - 14.8 g/dL [facility] RDW 12.9 11.5 - 14.5 % [facility] EOSINOPHILS 1 0 - 7 % [facility] EOSINOPHIL ABSOLUTE 0.06 0.00 - 0.70 K/uL [facility] LYMPHOCYTES 35 16 - 45 % [facility] LYMPHOCYTE ABSOLUTE 4.54(H) 0.70 - 4.50 K/uL [facility] BASOPHILS 0 0 - 2 % [facility] BASOPHILS ABSOLUTE 0.05 0.00 - 0.20 K/uL [facility] MONOCYTES 7 3 - 13 % [facility] MONOCYTE ABSOLUTE 0.87 0.10 - 1.30 K/uL [facility] NEUTROPHILS 58 45 - 70 % [facility] NEUTROPHIL ABSOLUTE 7.59(H) 1.90 - 7.00 K/uL [facility] Blood specimen (specimen) 11/23/2007 4:28 PM CDT 11/23/2007 4:58 PM CDT us Raúl Wright MD HEMATOLOGY ORDERABLES Edited Performing Organization Address [facility] de Phone Number INTERFACE SYSTEM Refer to clinic/hospital department [facility] [address] [place] [address] * HEMOGLOBIN A1C (11/23/2007 4:28 PM CDT) GLUCOSE, MEAN BLOOD 129 mg/dL [facility] HEMOGLOBIN A1C 5.8 4.1 - 6.1 % of Hgb [facility] Blood specimen (specimen) 11/23/2007 4:28 PM CDT 11/23/2007 4:59 PM CDT us Raúl Wright MD CHEMISTRY ORDERABLES Final Resul t Performing Organization Address [facility] de Phone Number [facility] [address] [place] [address] * (ABNORMAL) INSULIN LEVEL (11/23/2007 4:28 PM CDT) INSULIN LEVEL 32(H) <17 uIU/mL [facility] Comment: Lab test performed by: Neuralieve LORNA [address] [id number] MELODY GHOTRA MD Blood specimen (specimen) 11/23/2007 4:28 PM CDT 11/23/2007 4:59 PM CDT us Raúl Wright MD CHEMISTRY ORDERABLES Final Resul t Performing Organization Address [facility]/ZIP Co de Phone Number [facility] [address] [place] [address] * TSH WITH REFLEX FT4 (11/23/2007 4:28 PM CDT) TSH 1.64 0.27 - 4.20 uU/mL [facility] Blood specimen (specimen) 11/23/2007 4:28 PM CDT 11/23/2007 4:59 PM CDT Raúl Wright MD CHEMISTRY ORDERABLES Final Resul t [facility] [address], [place] [address] * (ABNORMAL) COMPREHENSIVE METABOLIC PANEL (11/23/2007 4:28 PM CDT) Pathologist [facility] POTASSIUM 3.9 3.5 - 4.9 mmol/L [facility] TOTAL PROTEIN 7.4 6.3 - 8.6 g/dL [facility] GLUCOSE 117(H) 65 - 99 mg/dL [facility] AST 21 12 - 32 U/L [facility] BUN 12 6 - 20 mg/dL [facility] CALCIUM 8.7 8.4 - 10.2 mg/dL [facility] ALBUMIN 4.4 3.4 - 4.8 g/dL [facility] CHLORIDE 102 96 - 108 mmol/L [facility] CREATININE 0.77 0.51 - 0.95 mg/dL [facility] ALT 21 0 - 31 U/L [facility] SODIUM 138 135 - 145 mmol/L [facility] ALKALINE PHOSPHATASE 65 35 - 104 U/L [facility] CO2 24 22 - 30 mmol/L [facility] BILIRUBIN TOTAL 0.4 0.2 - 1.0 mg/dL [facility] GFR, >60 >=60 mL/min/1. 7 sq meter [facility] GFR >60 >=60 mL/min/1. 7 sq meter [facility] Comment: Estimated GFR rate interpretative information for both Americans and non- Americans is available on the [facility] Intranet at: [email or web address] Select: Lab Policies and Procedures Select: Reference Ranges - GFR Blood specimen (specimen) 11/23/2007 4:28 PM CDT 11/23/2007 4:59 PM CDT Raúl Wright MD CHEMISTRY ORDERABLES Edited [facility] [address] [place] [address] documented in this encounter Visit Diagnoses Diagnosis Routine general medical examination at a health care facility Family history of diabetes mellitus documented in this encounter Care Teams Support Coordinator Relationship Specialty Start Date End Date Elli Stewart MD [address] [place] [address] PCP - General Internal Medicine 12/21/10 documented as of this encounter
--- OUTSIDE RECORDS SUMMARY | 2024-10-25 08:04 | XMS_ITS | Encounter Summary ---
Author Organization [facility] Address [address] [place] [address] Care Team Providers Care Road Test Examiner Name Role Phone Elli Stewart MD Primary Care Provider [phone] Encounter Details Date Type Department Care Team (Late st Contact Info) Description 12/12/2005 Outpatient Historical [address] [place] [address] Raúl Wright MD [address] [facility] [address] [place] [address] Social History Tobacco Use Types Packs/Day Years Used Date Smoking Tobacco: Never Assessed Comments Unknown Sex and Gender Information Value Date Recorded Sex Assigned at Not on file Legal 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 SUGAR SAMPLER Gender Identity Not on file Sexual Orientation Not on file documented as of this encounter Plan of Treatment Upcoming Encounters Date Type Department Care Team (Late st Contact Info) Description 12/29/2024 1:00 PM CDT Office Visit [facility] [address] [place] [address] [address] [place] [address] Elli Stewart MD [address] [place] [address] [address] [place] [address] 06/30/2025 9:00 AM SUGAR SAMPLER Office Visit [facility] [address] [place] [address] [address] [place] [address] Elli Stewart MD [address] [place] [address] documented as of this encounter Visit Diagnoses Not on filedocumented in this encounter Care Teams Road Test Examiner Relationship Specialty Start Date End Date Elli Stewart MD [address] [place] [address] PCP - General Internal Medicine 12/21/10 documented as of this encounter
--- OUTSIDE RECORDS SUMMARY | 2024-10-25 08:04 | XMS_ITS | Encounter Summary ---
Author Organization [facility] Address [address] [place] [address] Care Team Providers Care Traffic I Manager Name Role Phone Elli Stewart MD Primary Care Provider [phone] Encounter Details Date Type Department Care Team (Late st Contact Info) Description 08/29/2006 Outpatient Historical [facility] Care - [address] [place] [address] Raúl Wright MD [address] [facility] [address] [place] [address] Social History Tobacco Use Types Packs/Day Years Used Date Smoking Tobacco: Never Assessed Comments Unknown Sex and Gender Information Value Date Recorded Sex Assigned at Not on file Legal 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 SHIPPING CLERK Gender Identity Not on file Sexual Orientation Not on file documented as of this encounter Last Filed Vital Signs Vital Sign Reading Time Taken Comments Blood Pressure 118/68 08/29/2006 11:30 AM SHIPPING CLERK Pulse - - Temperature 36.4 C (97.6 F) 08/29/2006 11:30 AM SHIPPING CLERK Respiratory Rate - - Oxygen Saturation - - Inhaled Oxygen Concentration - - Weight 84.8 kg (187 lb) 08/29/2006 11:30 AM SHIPPING CLERK Height - - Body Mass Index - - documented in this encounter Plan of Treatment Upcoming Encounters Date Type Department Care Team (Late st Contact Info) Description 12/29/2024 1:00 PM CDT Office Visit [facility] - [address] [place] [address] Elli Stewart MD [address] [place] [address] 06/30/2025 9:00 AM SHIPPING CLERK Office Visit [facility] Primary Care - [facility] [address] [place] [address] Elli Stewart MD [address] [place] [address] documented as of this encounter Visit Diagnoses Not on filedocumented in this encounter Care Teams Traffic I Manager Relationship Specialty Start Date End Date Elli Stewart MD [address] [place] [address] PCP - General Internal Medicine 12/21/10 documented as of this encounter
--- OUTSIDE RECORDS SUMMARY | 2024-10-25 08:04 | XMS_ITS | Encounter Summary ---
Author Organization [facility] Address [address] [place] [address] Care Team Providers Care Mixing Plant Dumper Name Role Phone Elli Stewart MD Primary Care Provider [phone] Encounter Details Date Type Department Care Team (Late st Contact Info) Description 07/15/[address] [facility] Primary Care - [address] [place] [address] Raúl Wright MD [address] [facility] [address] [place] [address] Social History Tobacco Use Types Packs/Day Years Used Date Smoking Tobacco: Never Assessed Comments Unknown Sex and Gender Information Value Date Recorded Sex Assigned at Not on file Legal 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 WORM PICKER Gender Identity Not on file Sexual Orientation Not on file documented as of this encounter Progress Notes * Raúl Wright MD - 05/04/2008 4:57 AM CDT TIME:10:02 am PATIENT`S HOME PHONE: PATIENT`S WORK PHONE: PATIENT`S INSURANCE: [facility] WHO TOOK THE CALL: Arina Alfredo GENERAL INFORMATION PATIENT STATUS: Established Patient. PCP: dain. ALTERNATIVE PHONE NUMBER: [phone] WHO CALLED: Patient called. CURRENT ALLERGY LIST: [facility] PHARMACY NUMBER: [phone] PROBLEMS: URINATION: Patient complains of frequent urination, painful urination. The symptoms began approximately 3 days ago. very little at a time SECTION 1: REQUESTED ACTION raina 07/15/06 at 10:04 am: MEDICATION REQUEST: Patient wants medications and can not come in. WORK EXCUSE: Patient requests a work excuse out today and to return tomorrow---arina DOCTOR`S RESPONSE: jose g 07/15/06 at 10:13 am ok MEDICATIONS: Call in to Pharmacy BACTRIM DS ORAL TABLET 800-160 MG, 1 Two Times A Day, 6 Dispensed, status: NEW PRESCRIPTION, 07/15/2006. FINAL ACTION: yung 07/15/06 at 10:45 am Spoke with patient 07/15/06 at 10:45 am. arina Electronically Signed by: Arina Alfredo on Saturday, July 15, 2006 * Raúl Wright MD - 05/04/2008 4:56 AM CDT [facility] RAÚL WRIGHT MD [place] [address] July 15, 2006 MICHAEL BAUMANN [address] [place] [address] MICHAEL IBIS has been under our care during the dates below: 07/15/06 May return to work: 07/16/06 Sincerely yours, RAÚL WRIGHT MD documented in this encounter Plan of Treatment Upcoming Encounters Date Type Department Care Team (Late st Contact Info) Description 12/29/2024 1:00 PM CDT Office Visit [place] [address] [place] [address] Elli Stewart MD [facility] [address] [place] [phone] 06/30/2025 9:00 AM WORM PICKER Office Visit [place] [address] [place] [phone] Elli Stewart MD [facility] [address] [place] [address] documented as of this encounter Visit Diagnoses Not on filedocumented in this encounter Care Teams Mixing Plant Dumper Relationship Specialty Start Date End Date Elli Stewart MD [address] [place] [address] PCP - General Internal Medicine 12/21/10 documented as of this encounter
--- OUTSIDE RECORDS SUMMARY | 2024-10-25 08:04 | XMS_ITS | Encounter Summary ---
Author Organization [facility] Address [address] [place] [address] Care Team Providers Care Bucket Operator Name Role Phone Elli Stewart MD Primary Care Provider [phone] Encounter Details Date Type Department Care Team (Late st Contact Info) Description 11/06/2007 Outpatient Historical [address] [place] [address] Raúl Wright MD [address] [facility] [address] [place] [address] Social History Tobacco Use Types Packs/Day Years Used Date Smoking Tobacco: Never Assessed Comments Unknown Sex and Gender Information Value Date Recorded Sex Assigned at Not on file Legal 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 COPY MANAGER Gender Identity Not on file Sexual Orientation Not on file documented as of this encounter Plan of Treatment Upcoming Encounters Date Type Department Care Team (Late st Contact Info) Description 12/29/2024 1:00 PM CDT Office Visit [facility] [address] [place] [address] [address] [place] [address] Elli Stewart MD [address] [place] [address] [address] [place] [address] 06/30/2025 9:00 AM COPY MANAGER Office Visit [facility] [address] [place] [address] [address] [place] [address] Elli Stewart MD [address] [place] [address] documented as of this encounter Visit Diagnoses Not on filedocumented in this encounter Care Teams Bucket Operator Relationship Specialty Start Date End Date Elli Stewart MD [address] [place] [address] PCP - General Internal Medicine 12/21/10 documented as of this encounter
--- OUTSIDE RECORDS SUMMARY | 2024-10-25 08:04 | XMS_ITS | Encounter Summary ---
Author Organization [facility] Address [address] [place] [address] Care Team Providers Care Planning Feeder Name Role Phone Elli Stewart MD Primary Care Provider [phone] Encounter Details Date Type Department Care Team (Late st Contact Info) Description 09/08/2008 Outpatient Historical [facility], [address] Raúl Wright MD [address] [facility] [address] [place] [id number] Impaired Fasting Glucose Social History Tobacco Use Types Packs/Day Years Used Date Smoking Tobacco: Every Day Cigarettes Alcohol Use Standard Drinks/Week Comments Not Asked 0 (1 standard drink = 0.6 oz pur e alcohol) Comments No Sex and Gender Information Value Date Recorded Sex Assigned at Not on file Legal 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 MOTOR VEHICLE COMPLIANCE ANALYST Gender Identity Not on file Sexual Orientation Not on file documented as of this encounter Plan of Treatment Upcoming Encounters Date Type Department Care Team (Late Contact Info) Description 12/29/2024 1:00 PM CDT Office Visit [facility] [address] [facility] [address] [place] [address] Elli Stewart MD [address] [place] [address] [address] [place] [address] 06/30/2025 9:00 AM MOTOR VEHICLE COMPLIANCE ANALYST Office Visit [facility] [address] [facility] [address] [place] [address] Elli Stewart MD [address] [place] [address] documented as of this encounter Visit Diagnoses Diagnosis Impaired fasting glucose documented in this encounter Care Teams Planning Feeder Relationship Specialty Start Date End Date Elli Stewart MD [address] [place] [address] PCP - General Internal Medicine 12/21/10 documented as of this encounter
--- OUTSIDE RECORDS SUMMARY | 2024-10-25 08:05 | XMS_ITS | Encounter Summary ---
Author Organization [facility] Address [address] [place] [address] Care Team Providers Care Environmental Monitoring Specialist Name Role Phone Elli Stewart MD Primary Care Provider [phone] Encounter Details Date Type Department Care Team (Late st Contact Info) Description 05/30/2005 Outpatient Historical [facility] - [address] [place] [address] Raúl Wright MD [address] [facility] [address] [place] [address] Social History Tobacco Use Types Packs/Day Years Used Date Smoking Tobacco: Never Assessed Comments Unknown Sex and Gender Information Value Date Recorded Sex Assigned at Not on file Legal 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 SHANK TAPER Gender Identity Not on file Sexual Orientation Not on file documented as of this encounter Last Filed Vital Signs Vital Sign Reading Time Taken Comments Blood Pressure 110/80 05/30/2005 9:15 AM SHANK TAPER Pulse - - Temperature 36.5 C (97.7 F) 05/30/2005 9:15 AM SHANK TAPER Respiratory Rate - - Oxygen Saturation - - Inhaled Oxygen Concentration - - Weight 77.1 kg (170 lb) 05/30/2005 9:15 AM SHANK TAPER Height - - Body Mass Index - - documented in this encounter Plan of Treatment Upcoming Encounters Date Type Department Care Team (Late st Contact Info) Description 12/29/2024 1:00 PM CDT Office Visit [facility] - [address] [place] [address] Elli Stewart MD [address] [place] [address] 06/30/2025 9:00 AM SHANK TAPER Office Visit [facility] Primary Care - [facility] [address] [place] [address] Elli Stewart MD [address] [place] [address] documented as of this encounter Visit Diagnoses Not on filedocumented in this encounter Care Teams Environmental Monitoring Specialist Relationship Specialty Start Date End Date Elli Stewart MD [address] [place] [address] PCP - General Internal Medicine 12/21/10 documented as of this encounter
--- OUTSIDE RECORDS SUMMARY | 2024-10-25 08:05 | XMS_ITS | Encounter Summary ---
Author Organization [facility] Address [address] [place] [address] Care Team Providers Care Gill Box Operator Name Role Phone Elli Stewart MD Primary Care Provider [phone] Encounter Details Date Type Department Care Team (Late st Contact Info) Description 04/20/2004 Outpatient Historical [address] [place] [address] Raúl Wright MD [address] [facility] [address] [place] [address] Social History Tobacco Use Types Packs/Day Years Used Date Smoking Tobacco: Never Assessed Comments Unknown Sex and Gender Information Value Date Recorded Sex Assigned at Not on file Legal 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 DIRECTOR OF PERSONNEL Gender Identity Not on file Sexual Orientation Not on file documented as of this encounter Plan of Treatment Upcoming Encounters Date Type Department Care Team (Late st Contact Info) Description 12/29/2024 1:00 PM CDT Office Visit [facility] [address] [place] [address] [address] [place] [address] Elli Stewart MD [address] [place] [address] [address] [place] [address] 06/30/2025 9:00 AM DIRECTOR OF PERSONNEL Office Visit [facility] [address] [place] [address] [address] [place] [address] Elli Stewart MD [address] [place] [address] documented as of this encounter Visit Diagnoses Not on filedocumented in this encounter Care Teams Gill Box Operator Relationship Specialty Start Date End Date Elli Stewart MD [address] [place] [address] PCP - General Internal Medicine 12/21/10 documented as of this encounter
--- OUTSIDE RECORDS SUMMARY | 2024-10-25 08:05 | XMS_ITS | Patient Health Record ---
Author Organization [facility] Address [address] [facility] [address] [place], [place] [address] Care Team Providers Care Set Staff Fitter Name Role Phone RENATA AGUILAR, [facility] Primary Care Provider Angelica arenas Kaden Hays Unavailable [phone] ALLERGIES No Known Allergies REASON FOR REFERRAL No Information MEDICATIONS Medication SIG (Take, Route, Frequency, Duration) Notes Start Date End Date Status ergocalciferol 50,000 intl units 1 cap(s) orally once a week for 90 days 07/23/2021 Active Claritin-D 12 Hour A ctive hydroCHLOROthiazide 25 mg 1 tab(s) orall y once a day for 30 day(s) Active carvedilol 12.5 mg 1 tab(s) orally 2 times a day for 30 day(s) Active SOCIAL HISTORY Sex Assigned At : Social History Observation Description Sex Assigned At Unknown PROBLEMS Problem Type ICD Code Onset Dates Problem Status W/U Status Risk SNOMED Code Notes Problem Leukocytosis, unspecified type (D72.829) Active confirmed 114200146 Problem Polyarthralgia (M25.50) Active confirmed 36841619 Problem Low back pain at multiple sites (M54.50) Active confirmed 743995137 Problem Neck pain (M54.2) Active confirmed 8168 0005 Problem Vitamin D deficiency (E55.9) Active confirmed 81454305 PLAN OF TREATMENT Pending Test Test Name Order Date X ray : Spines, lumbar- outside order Complement C4, Serum 06/29/2021 Complement, Total (CH50) 06/29/2021 TSH 06/29/2021 CBC With Differential/Platelet Sed Rate - Westergren 06/29/2021 Complement C3, Serum 06/29/2021 Rheumatoid Arthritis Factor 06/29/2021 C-Reactive Protein, Quant 06/29/2021 HLA B 27 Disease Association 06/29/2021 CCP IgG Antibodies 06/29/2021 Comp. Metabolic Panel (14) 06/29/2021 JOYCE Panel (JOYCE+JOSE+Scl 70+SjoSSA+SjoSSB) 06/29/2021 URINALYSIS, COMPLETE 06/29/2021 VITAMIN D, 25-HYDROXY, LC/MS/MS 06/29/20 21 X ray : Hip, left- outside order 021 X ray : Hip, right- outside order 2020 DS DNA ANTIBODY, CRITHIDIA, IFA W/REFL Q UEST 06/29/2021 Insurance Providers Payer Name Payer Address Payer Phone Subscriber Number Group Number Insured Name Patient Relationship to Insured Coverage Start Date Coverage End Date [employer] [address] [address] [place] [address] [phone] [id number] Winnie Marcus Self - patient is the insured 1 [facility] [address] [place] [address] [id number] ALEM MARCUS Spouse - patient is the spouse of the insured 1 MEDICAL (GENERAL) HISTORY Medical History History ICD Code migraine headache tension headaches Ringing in ears sinus problems anxiety swelling of ankles/feet asthma indigestion high blood pressure rapid heartbeat varicose veins chronic cough bloating Surgical History Surgery Date(Month/Year)
--- OUTSIDE RECORDS SUMMARY | 2024-10-25 08:05 | XMS_ITS | Encounter Summary ---
Author Organization [facility] Address [address] [place] [address] Care Team Providers Care Harness Mender Name Role Phone Elli Stewart MD Primary Care Provider [phone] Encounter Details Date Type Department Care Team (Late st Contact Info) Description 11/12/2005 Outpatient Historical [facility] - [address] [place] [address] Raúl Wright MD [address] [facility] [address] [place] [address] Social History Tobacco Use Types Packs/Day Years Used Date Smoking Tobacco: Never Assessed Comments Unknown Sex and Gender Information Value Date Recorded Sex Assigned at Not on file Legal 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 MATERIALS MANAGEMENT SUPERVISOR Gender Identity Not on file Sexual Orientation Not on file documented as of this encounter Last Filed Vital Signs Vital Sign Reading Time Taken Comments Blood Pressure 110/60 11/12/2005 1:30 PM CDT Pulse - - Temperature 36.8 C (98.3 F) 11/12/2005 1:30 PM CDT Respiratory Rate - - Oxygen Saturation - - Inhaled Oxygen Concentration - - Weight 79.8 kg (176 lb) 11/12/2005 1:30 PM CDT Height - - Body Mass Index - - documented in this encounter Plan of Treatment Upcoming Encounters Date Type Department Care Team (Late st Contact Info) Description 12/29/2024 1:00 PM CDT Office Visit [address] [place] [address] Elli Stewart MD [address] [place] [address] 06/30/2025 9:00 AM MATERIALS MANAGEMENT SUPERVISOR Office Visit [facility] Primary Care - [facility] [address] [place] [address] Elli Stewart MD [address] [place] [address] documented as of this encounter Visit Diagnoses Not on filedocumented in this encounter Care Teams Harness Mender Relationship Specialty Start Date End Date Elli Stewart MD [address] [place] [phone] PCP - General Internal Medicine 12/21/10 documented as of this encounter
--- OUTSIDE RECORDS SUMMARY | 2024-10-25 08:05 | XMS_ITS ---
Author Organization [facility] Address [address] [address] Care Team Providers Care Principle Software Engineer Name Role Phone Pat AGUILAR, Elli Primary Care Provider DIOGENES Hirsch Unavailable [phone] Nolan Alamo MD Unavailable Unavailable Allergies No Known Allergies REASON FOR VISIT Lower back pain Medications Medication SIG (Take, Route, Fr equency, Duration) Notes Start Date End Date Status Lisinopril 10 MG 1 tablet Orally Once a day Active Carvedilol 12.5 MG 1 tablet with food O rally Twice a day Active Problems Problem Type SNOMED Code ICD Code Onset Dates Problem Status W/U Status Risk Notes Problem 950327332 Lumbar radiculop athy (M54.16) Active confirmed Problem 574405796 Lumbar spondylos is (M47.816) Active confirmed Problem 895160683 Spondylolisthesi s at L5-S1 level (M43.17) Active confirmed Vital Signs Blood pressure systolic 145 mm Hg 09/24/19 24 Blood pressure diastolic 85 mm Hg 024 Heart Rate 73 /min 09/24/2023 Temperature 98.6 degrees Fahrenheit 09/24/19 24 Weight 210.0 lbs 09/24/2023 Height 65 in 09/24/2023 BMI 34.94 kg/m2 09/24/2023 Encounters Encounter Location Date Provider Diagnosis [facility] [address] [address] 09/24/2023 DIOGENES AREVALO Lumbar radiculopathy M54.16 ; Lumbar spondylosis M47.816 and Spondylolisthesis at L5-S1 level M43.17 Assessments Encounter Date Diagnosis (ICD Code) Assessment Notes Treatment Notes Treatment Clinical Notes Section Notes 09/24/2023 Lumbar radiculopathy (ICD-10 - M54.16) The patient is a 43-year-old female who was evaluated in the office for low back pain radiating down the left leg in the L5 distribution. The MRI of the lumbar spine was reviewed. She has L5-S1 spondylosis is with L5 pars defect, moderate to severe bilateral foraminal stenosis. The patient has tried conservative treatment including physical therapy, chiropractic therapy, and medications including NSAIDs and Tylenol. The patient has tried heat and cold therapy and the symptoms have not resolved. The biomechanics of the lumbar spine was reviewed with the patient. The patient understands that to prevent further degeneration and worsening of the back pain symptoms, it is important to improve the biomechanics of the spine. Recommendations were given to avoid flexion and rotation of the spine, and to maintain good posture during activities. Also it was recommended to continue the home exercise program for core strengthening, back strengthening and stretching of the hamstrings, piriformis and ITB muscles. And the patient was also recommended to monitor their weight and waist size through physical exercises and diet control. The patient has persistant radicular pain caused by spinal stenosis, disc degeneration, or degenerative changes in the vertebrae that interfere with their ADL's and has been present greater than 3 months with a pain score 5/10. The patient has failed to respond to conservative therapy including > 6 weeks chiropractic, physical therapy or prescribed home exercise program. The patient has trialled NSAID's for >3 weeks without reduction of symptoms and has modified their activity for >6 weeks. The patient would benefit from a diagnostic and therapeutic LEFT L5-S1 TF epidural steroid injection. 09/24/2023 Lumbar spondylosis (ICD-10 - M47.816) The patient has low back pain over the lower lumbar facet joints as well. The pain is worse over the L5-S1 and possibly L4-L5 facet joints. Once her radicular pain symptoms resolve, we will consider lumbar facet joint injections with the consideration for a lumbar facet joint radiofrequency nerve ablation. 09/24/2023 Spondylolisthesis at L5-S1 level (ICD-10 - M43.17) We will recommend physical therapy for the patient, to improve the biomechanics, and to start a home exercise program for stretching and strengthening. The prescription for physical therapy was given to the patient. The patient was also recommended to avoid any activities that aggravate the symptoms, and to only do exercises as tolerated. Plan Of Treatment Treatment Notes Assessment Notes Lumbar radiculopathy The patient is a 43-year-old female who was evaluated in the office for low back pain radiating down the left leg in the L5 distribution. The MRI of the lumbar spine was reviewed. She has L5-S1 spondylosis is with L5 pars defect, moderate to severe bilateral foraminal stenosis. The patient has tried conservative treatment including physical therapy, chiropractic therapy, and medications including NSAIDs and Tylenol. The patient has tried heat and cold therapy and the symptoms have not resolved. The biomechanics of the lumbar spine was reviewed with the patient. The patient understands that to prevent further degeneration and worsening of the back pain symptoms, it is important to improve the biomechanics of the spine. Recommendations were given to avoid flexion and rotation of the spine, and to maintain good posture during activities. Also it was recommended to continue the home exercise program for core strengthening, back strengthening and stretching of the hamstrings, piriformis and ITB muscles. And the patient was also recommended to monitor their weight and waist size through physical exercises and diet control. The patient has persistant radicular pain caused by spinal stenosis, disc degeneration, or degenerative changes in the vertebrae that interfere with their ADL's and has been present greater than 3 months with a pain score 5/10. The patient has failed to respond to conservative therapy including > 6 weeks chiropractic, physical therapy or prescribed home exercise program. The patient has trialled NSAID's for >3 weeks without reduction of symptoms and has modified their activity for >6 weeks. The patient would benefit from a diagnostic and therapeutic LEFT L5-S1 TF epidural steroid injection. Lumbar spondylosis The patient has low back pain over the lower lumbar facet joints as well. The pain is worse over the L5-S1 and possibly L4-L5 facet joints. Once her radicular pain symptoms resolve, we will consider lumbar facet joint injections with the consideration for a lumbar facet joint radiofrequency nerve ablation. Spondylolisthesis at L5-S1 level We will recommend physical therapy for the patient, to improve the biomechanics, and to start a home exercise program for stretching and strengthening. The prescription for physical therapy was given to the patient. The patient was also recommended to avoid any activities that aggravate the symptoms, and to only do exercises as tolerated. Progress Notes * Winnie MARCUSDOB: 1 (43 yo F)Acc No.[id number]:09/24/2023 Progress Notes Patient: Winnie CHANCE Provider: Jag AREVALO M.D. :1980 A ge:43 Y S ex:Female Date:09/24/2023 Address:[facility] Pcp:Elli Stewart MD Subjective: * Chief Complaints: * L ower back pain * HPI: H ISTORY: Patient is a 43-year-old female who is presenting today for Chronic low back pain. Patient was referred by Dr. Alamo. S he has a history of low back pain for the last ten years ago and never did anything about it. But now her symptoms are gradually getting worse. She recently had a kidney stone in June and had imaging that showed back issues. S he has paresthesias in both legs and low back with episodic low back pain and goes to Posterior left lower thigh. P ain is worse with standing and better with sitting. P atient reports pain is worse in the left lower back. She has severe sharp pain that happens randomly. N othing helps with the pain and can not pinpoint how the pain is triggered. S he has tried Advil for the pain and was given Gabapentin but has not started that yet. H ad Physical therapy in the past with some relief. M RI of the lumbar spine from 02/21/23 was reviewed. She had L5-S1 anterolisthesis, L5 spondylolysis. Facet arthropathy with moderate to severe foraminal stenosis, worse on the right side. L4-L5 facet arthropathy. X ray of the lumbar spine showed the L5-S1 anterolisthesis of 5 mm. And bilateral L5 pars defect. V today is 10 P CP is Kasalojanay. N onsmoker. * ROS: G eneral/Constitutional: Overall health F air. C hange in appetite d enies.?Chills d enies. F atigue d enies. F ever d enies. W eight gain d enies. W eight loss d enies. E NT: Decreased hearing d enies. D ry mouth d enies. H earing problem d enies. E ndocrine: Diabetes d enies. T hyroid problems d enies. ? R espiratory: Breathing problems d enies. C hest pain d enies.? C ardiovascular: Chest pain d enies. F luid accumulation in the legs?denies. G astrointestinal: Abdominal pain d enies. C onstipation d enies. D iarrhea d enies. M usculoskeletal: Neck pain d enies. T horacic pain d enies. L ow back pain a dmits. P eripheral Vascular: Painful extremities d enies. U lceration of feet d enies. N eurologic: Gait abnormality d enies. H eadache d enies. M khoi loss d enies. S eizures d enies. S troke d enies. T ingling/Numbness?denies. T remor d enies. P sychiatric: Depressed mood d enies. D ifficulty sleeping d enies. S ubstance abuse d enies. * Medical History: * Surgical History: L eft ovary removed Cyst removal Left * Hospitalization/Major Diagno stic Procedure: D enies Past Hospitalization * Family History: N o Family History documented.. * Social History: S ocialHXC: S ocialHX: Nonsmoker. * Medications: T akingCarvedilol 12.5 MG Tablet 1 tablet with food Orally Twice a day Lisinopril 10 MG Tablet 1 tablet Orally Once a day Medication List reviewed and reconciled with the patientTaking Carvedilol 12.5 MG Tablet 1 tablet with food Orally Twice a day Taking Lisinopril 10 MG Tablet 1 tablet Orally Once a day Medication List reviewed and reconciled with the patient * Allergies: N .K.D.A.no[Allergies Verified] Objective: * Vitals: B P:145/85mm Hg, HR:73/min, Temp:98.6F, Wt:210.0lbs, Ht: 65 in, BMI:34.94Index, Ht-cm: 165.1 cm, Wt-k.25 kg. * Examination: G eneral Examination: GENERAL APPEARANCE: i n no acute distress, well developed, well nourished. HEAD: n ormocephalic, atraumatic. HEART: n o murmurs, regular rate and rhythm, S1, S2 normal.? LUNGS: c lear to auscultation bilaterally. ABDOMEN: n ormal, bowel sounds present, soft, nontender, nondistended. EXTREMITIES: n o clubbing, cyanosis, or edema. PSYCH: a lert, oriented, cognitive function intact, cooperative with exam, good eye contact. N eurological: CORTICAL FUNCTIONS: a lert and oriented X 3, speech fluent.? MOTOR STRENGTH: R IGHT UPPER EXTREMITY: deltoid abduction 5/5, biceps flexion 5/5, triceps extension 5/5, wrist extension 5/5, finger abduction 5/5. LEFT UPPER EXTREMITY:deltoid abduction 5/5, biceps flexion 5/5, triceps extension 5/5, wrist extension 5/5, finger abduction 5/5. RIGHT LOWER EXTREMITY: Hip Flexor 5/5, Quadriceps 5/5, Ankle DF 5/5, EHL 5/5. LEFT LOWER EXTREMITY: Hip Flexor 5/5, Quadriceps 5/5, Ankle DF 5/5, EHL 5/5.. SENSORY: R IGHT UPPER EXTREMITY; pinprick sensation intact. LEFT UPPER EXTREMITY; pinprick sensation intact. RIGHT LOWER EXTREMITY: pinprick sensation decreased L4-L5 . LEFT LOWER EXTREMITY: pinprick sensation intact.. REFLEXES: R IGHT UPPER EXTREMITY; BICEPS: 2+, TRICEPS: 2+, BRACHIORADIALIS: 2+. LEFT UPPER EXTREMITY; BICEPS: 2+, TRICEPS: 2+, BRACHIORADIALIS: 2+. RIGHT LOWER EXTREMITY: KNEE 2+, ANKLE 2+. LEFT LOWER EXTREMITY: KNEE 2+, ANKLE 2+. . CEREBELLAR SIGNS: a bsent. COORDINATION: n o ataxia. GAIT AND STATION: w ithin normal limits. SPEECH: n ormal. L umbar Spine/Lower back: LUMBOSACRAL EXAMINATION l eft, vertebral spine tenderness, sacroiliac joint tenderness. MALAIKA TEST Negative.. RANGE OF MOTION: p ain with extension, Pain on extremes of motion, to the left. Assessment: * Assessment: 1. L umbar radiculopathy - M54.16 (Primary) 2 . L umbar spondylosis - M47.816 3 .?Spondylolisthesis at L5-S1 level - M43.17 Plan: * Treatment: 2. L umbar spondylosis Notes: The patient has low back pain over the lower lumbar facet joints as well. The pain is worse over the L5-S1 and possibly L4-L5 facet joints. Once her radicular pain symptoms resolve, we will consider lumbar facet joint injections with the consideration for a lumbar facet joint radiofrequency nerve ablation. 3. S pondylolisthesis at L5-S1 level Notes: We will recommend physical therapy for the patient, to improve the biomechanics, and to start a home exercise program for stretching and strengthening. The prescription for physical therapy was given to the patient. The patient was also recommended to avoid any activities that aggravate the symptoms, and to only do exercises as tolerated. * Procedure Codes: * * TH CARE ASSISTANT Sign off status: Completed true * Provider: Jag AREVALO M.D. Date: 0 09/24/2023 Generated for Marck cuevas/Helga/Michaelaitting on: 0 10/25/2024 08:05 AM CDT
--- OUTSIDE RECORDS SUMMARY | 2024-10-25 08:05 | XMS_ITS | Clinical Summary ---
Author Organization [facility] Address [address] [place] [address] Phone Care Team Providers Care Outdoor Studies Director Name Role Phone Elli Stewart MD Primary Care Provider [phone] Allergies Active Allergy Reactions Criticality Noted Date Comments Tramadol Itching Low 12/09/2018 Medications TRI-SPRINTEC 0.18/0.215/0.25 MG-35 MCG Tablet TK 1 T PO QD 9 Active mupirocin (BACTROBAN) 2 % OintmentIndicat ions:Bartholin' s gland abscess Apply thin film to affected areas 3 times daily until healed. 22 g 1 0 Active Additional Information Patient not taking.Reported on 01/18/2022 ciprofloxacin-d examethasone (CIPRODEX) 0.3-0.1 % SuspensionIndic ations:Right ear pain Apply 4 drops to affected ear(s) BID x 7 days 1 Bottle 1 Active Additional Information Patient not taking.Reported on 01/18/2022 budesonide-form oterol fumarate (Symbicort) 80-4.5 MCG/ACT AerosolIndicati ons:Bronchitis take 2 Puffs by inhalation 2 times daily. 10.2 g 1 1 Active Additional Information Patient not taking.Reported on 01/18/2022 carvedilol (COREG) 25 MG Tablet Take 25 mg by mouth 2 times daily. Active metroNIDAZOLE (Flagyl) 500 MG Tablet Take 1 Tablet by mouth 3 times daily. 30 Tablet 1 Active Additional Information Patient not taking.Reported on 01/18/2022 dicyclomine (BENTYL) 20 MG Tablet Take 1 Tablet by mouth every 6 hours. 30 Tablet 1 Active Additional Information Patient not taking.Reported on 01/18/2022 hydroCHLOROthia zide 25 MG Tablet Take 25 mg by mouth. 1 Active metFORMIN (GLUCOPHAGE-XR) 500 MG TABLET SR 24 HR metformin ER 500 mg tablet,extended release 24 hr 1 Active HYDROcodone-edis taminophen (NORCO) 5-325 MG TabletIndicatio ns:Right ureteral stone Take 1 Tablet by mouth every 6 hours as needed for Moderate or more severe pain. 15 Tablet 3 Active ondansetron (ZOFRAN) 4 MG Tablet Take 1-2 Tablets by mouth every 8 hours as needed for Nausea - 1st line. 10 Tablet 3 Active Active Problems No known active problems Immunizations Immunization Administration Dates Next Due Covid-19, Mrna, Lnp-s, Pf, 3 0 Mcg/0.3 Ml Dose (Sr.Pago) 07/30/2020,07/09/2020 Influenza Vaccine, Quadrivalent, PF 03/21,05/07/2022,04/18/2019,2017 Influenza,Split Virus,Trivalent,Injectable,PF 04/25/2024 Social History Tobacco Use Types Packs/Day Years Used Date Smoking Tobacco: Some Days Smokeless Tobacco: Never Tobacco Cessation:Ready to Q uit: Not Asked; Counseling Given: Not Answered Alcohol Use Standard Drinks/Week Comments Yes 0 (1 standard drink = 0.6 oz pur e alcohol) occasionally AUDIT-C Answer Date Recorded Frequency of Alcohol Consumption Monthly or less 09/08/2019 Average Number of Drinks Not on file 020 Frequency of Binge Drinking Not on file 08/21 Comments No Sex and Gender Information Value Date Recorded Sex Assigned at Not on file Legal Sex Female 7:07 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 Gender Identity Not on file Sexual Orientation Not on file Last Filed Vital Signs Vital Sign Reading Time Taken Comments Blood Pressure 122/78 04/20/2024 3:59 PM CDT Pulse 78 04/20/2024 3:59 PM CDT Temperature 36.2 C (97.2 F) 04/20/2024 3:59 PM CDT Respiratory Rate 18 11/27/2022 9:07 AM CDT Oxygen Saturation 99% 04/20/2024 3:59 PM CDT Inhaled Oxygen Concentration - - Weight 98.4 kg (217 lb) 11/27/2022 9:07 AM CDT Height 162.6 cm (5' 4 ) 11/27/2022 9:07 AM CDT Body Mass Index 37.25 11/27/2022 9:07 AM CDT Plan of Treatment Health Maintenance Due Date Last Done Comments Hepatitis C Virus (HCV) Screening 1980 Hepatitis B Immunization (1 of 3 - 19+ 3-dose series) 02/06/2000 Pap Smear 2002 Cervical Cancer Screening (CCS) 2011 HPV/Cotest 2011 SARS-COV-2 Immunization ( season) 2024 06/11/2022, 04/20/2021, 08/18/2020, Additional history exists Pneumococcal Immunization Combined (2 of 2 - PCV) 06/25/2024 06/25/2023 Mammogram 07/22/2025 07/22/2024 Respiratory Syncytial Virus (RSV) Immunization (Adult) (1 - 1-dose 75+ series) 02/06/2056 DTaP/Tdap/Td Immunization Discontinued 11/06/2010, 07/2003 TdaP Immunization Completed 11/06/2010 Influenza Immunization Completed , 04/03/2023, 05/07/2022, Additional history exists Discussion re Starting/Frequency of Mammograms Completed 07/22/2024 Meningococcal Immunization (ACWY) Aged Out No longer eligible based on patient's age to complete this topic Rotavirus Immunization Aged Out No lo nger eligible based on patient's age to complete this topic Procedures Procedure Name Priority Date/Time Associated Diagnosis Comments TITUS SCREENING BILATERAL DIGITAL W CAD W BINDU Routine 07/22/2024 7:15 AM 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 WELL Visit for screening mammogram from Last 3 Months or Most Recently Relevant to Health Maintenance Results * TITUS SCREENING BILATERAL DIGITAL W CAD W BINDU (07/22/2024 7:15 AM FISHING TOOL 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 WELL) Anatomical Region Laterality Modality breast Bilateral Mammography 07/22/2024 7:45 AM FISHING TOOL 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 WELL Narrative 07/22/2024 3:46 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 - TITUS SCREENING BILATERAL DIGITAL W CAD W BINDU BILATERAL DIGITAL SCREENING MAMMOGRAM 3D/2D WITH CAD WITH MEDIOLATERAL OBLIQUE CRANIOCAUDAL: 07/22/2024 The study was acquired using digital technology and interpreted from soft copy. Current study was also evaluated with ICAD version 7.2. 2D digital mammographic views, as well as 3D digital tomosynthesis were performed in the CC and MLO projections. CLINICAL: Baseline screening. Patient has no complaints. No personal history of breast cancer. Maternal great grandmother had breast cancer. COMPARISONS: No prior exams were available for comparison. BREAST TISSUE:There are scattered areas of fibroglandular density. FINDINGS: No significant masses, calcifications, or other findings are seen in either breast. IMPRESSION: NEGATIVE There is no mammographic evidence of malignancy. A 1 year screening mammogram is recommended. A letter will be sent to the patient with these results. The patient will be entered into a reminder system with a target due date of 1 year for her next screening exam. Electronically signed by: Yoselyn Jennings M.D. ab/chichi:07/22/2024 13:45:57 Press Tender Long Goods(s): RT Heidi(Isaak)(M), [facility] letter sent: Normal Exam Reading location: [facility] Mammogram BI-RADS: Category 1: Negative Procedure Note Yoselyn Jennings MD - 07/22/2024 - TITUS SCREENING BILATERAL DIGITAL W CAD W BINDU BILATERAL DIGITAL SCREENING MAMMOGRAM 3D/2D WITH CAD WITH MEDIOLATERAL OBLIQUE CRANIOCAUDAL: 07/22/2024 The study was acquired using digital technology and interpreted from soft copy. Current study was also evaluated with ICAD version 7.2. 2D digital mammographic views, as well as 3D digital tomosynthesis were performed in the CC and MLO projections. CLINICAL: Baseline screening. Patient has no complaints. No personal history of breast cancer. Maternal great grandmother had breast cancer. COMPARISONS: No prior exams were available for comparison. BREAST TISSUE:There are scattered areas of fibroglandular density. FINDINGS: No significant masses, calcifications, or other findings are seen in either breast. IMPRESSION: NEGATIVE There is no mammographic evidence of malignancy. A 1 year screening mammogram is recommended. A letter will be sent to the patient with these results. The patient will be entered into a reminder system with a target due date of 1 year for her next screening exam. Electronically signed by: Yoselyn Jennings M.D. ab/bradrad:07/22/2024 13:45:57 Press Tender Long Goods(s): RT Heidi(R)(M), [facility] letter sent: Normal Exam Reading location: [facility] Mammogram BI-RADS: Category 1: Negative Elli Stewart MD IMG MAMMO ORDERABLES Final R esult from Last 3 Months or Most Recently Relevant to Health Maintenance Insurance [employer] [facility] * Guarantor: [facility] Account Type Relation to Patient Date of Phone Billing Address Institutional Other [address] [place] [address] Care Teams Outdoor Studies Director Relationship Specialty Start Date End Date Elli Stewart MD [address] [place] [address] PCP - General Internal Medicine 09/16/17
--- OUTSIDE RECORDS SUMMARY | 2024-10-25 08:05 | XMS_ITS ---
Author Organization [facility] Address [address] [address] Care Team Providers Care Over The Horizon Targeting Supervisor Name Role Phone Pat AGUILAR, Elli Primary Care Provider DIOGENES Hirsch Unavailable [phone] Cally AGUILAR, Nolan Unavailable Unavailable Encounters Encounter Location Date Provider Diagnosis [facility] [address] [address] 10/23/2023 DIOGENES AREVALO Plan Of Treatment No Information Progress Notes * Winnie MARCUSDOB: 1 (44 yo F)Acc No.[id number]:10/23/2023 Progress Note Patient: Winnie CHANCE Provider: Jag AREVALO M.D. :1980 A ge:43 Y S ex:Female Date:10/23/2023 [facility] Pcp:Elli Stewart MD Subjective: * Chief Complaints: * * Medical History: Objective: * Vitals: Assessment: Plan: * Treatment: * * Electronic signature of MANUELITO AREVALO MD on 10/25/2024 at 08:05 AM CDT Sign off status: Pending * Provider: Jag AREVALO M.D. Date: 10/23/2023 Generated for Jeremiahi faith/Faissac/eTransmitting on: 10/25/2024 08:05 AM CDT
--- OUTSIDE RECORDS SUMMARY | 2024-10-25 08:05 | XMS_ITS | Patient Health Record ---
Author Organization [facility] Address [address] [address] Care Team Providers Care Heel Seat Sander Name Role Phone Pat AGUILAR, Elli Primary Care Provider DIOGENES Hirsch Unavailable [phone] Nolan Alamo MD Unavailable Unavailable Allergies No Known Allergies Reason For Referral No Information Medications Medication SIG (Take, Route, Fr equency, Duration) Notes Start Date End Date Status Lisinopril 10 MG 1 tablet Orally Once a day Active Carvedilol 12.5 MG 1 tablet with food O rally Twice a day Active Problems Problem Type SNOMED Code ICD Code Onset Dates Problem Status W/U Status Risk Notes Problem 764603243 Lumbar radiculop athy (M54.16) Active confirmed Problem 788003004 Lumbar spondylos is (M47.816) Active confirmed Problem [id number] Spondylolisthesi s at L5-S1 level (M43.17) Active confirmed Plan Of Treatment No Information Insurance Providers Payer Name Payer Address Payer Phone Subscriber Number Group Number Insured Name Patient Relationship to Insured Coverage Start Date Coverage End Date [employer] [address] [place] [address] [id number] Winnie Marcus Self - patient is the insured [facility] [address] [place] [id number] Winnie Marcus Self - patient is the insured Medical (General) History Medical History History ICD Code High blood pressure Surgical History Surgery Date(Month/Year) Left ovary removed Cyst removal Left
--- OUTSIDE RECORDS SUMMARY | 2024-10-25 08:05 | XMS_ITS | Encounter Summary ---
Author Organization [facility] Address [address] [place] [address] Care Team Providers Care Machine I Engraver Name Role Phone Elli Stewart MD Primary Care Provider [phone] Encounter Details Date Type Department Care Team (Latest Contact Info) Description 03/15/2005 Outpatient Historical HIS PATIENT IN A BED Nolna Alvarado MD NO ADDRESS ON FILE BENIGN NEOPLASM OVARY (Primary Dx) Social History Tobacco Use Types Packs/Day Years Used Date Smoking Tobacco: Never Assessed Comments Unknown Sex and Gender Information Value Date Recorded Sex Assigned at Not on file Legal 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 REGISTERED DIETITIAN Gender Identity Not on file Sexual Orientation Not on file documented as of this encounter Plan of Treatment Upcoming Encounters Date Type Department Care Team (Late st Contact Info) Description 12/29/2024 1:00 PM CDT Office Visit [address] [place] [address] Elli Stewart MD [address] [place] [address] [place] [address] 06/30/2025 9:00 AM REGISTERED DIETITIAN Office Visit [address] [place] [address] Elli Stewart MD [address] [place] [address] [place] [phone] documented as of this encounter Procedures Procedure Name Priority Date/Time Associated Diagnosis Comments HEMOGLOBIN AND HEMATOCRIT Routine 03/15/2005 10:15 AM CDT HCG QUANTITATIVE, BLOOD Routine 03/15/2005 10:15 AM CDT documented in this encounter Results * HCG QUANTITATIVE, BLOOD (03/15/2005 10:15 AM CDT) HCG QUANT, BLOOD <5 0 - 5 mIU/mL INTERFACE SYSTEM Comment: Result of 5 - 25 mIU/mL is indeterminant for , repeat of test recommemded in 48 hours. Reference Range: Gestational Age: 3 Weeks 5.8 - 71.2 mIU/mL 4 Weeks 9.5 - 750 mIU/mL 5 Weeks 217 - 7138 mIU/mL 6 Weeks 158 - 31,795 mIU/mL 7 Weeks 3697 - 163,563 mIU/mL 8 Weeks 32,065 - 149,571 mIU/mL 9 Weeks 63,803 - 151,410 mIU/mL 10 Weeks 46,509 - 186,977 mIU/mL 12 Weeks 27,832 - 210,612 mIU/mL 14 Weeks 13,950 - 62,530 mIU/mL 15 Weeks 12,039 - 70,971 mIU/mL 16 Weeks 9040 - 56,451 mIU/mL 17 Weeks 8175 - 55,868 mIU/mL 18 Weeks 8099 - 58,176 mIU/mL Heterophile antibodies and other interfering substances in the serum of some patients may cause a false-positive result in this assay. Before making a diagnosis of malignancy or ectopic ,the result of thi s test should be confirmed with a urine HCG test and correlated with other clinical evidence. 03/15/2005 10:1 5 AM CDT us Nolan Alvarado MD CHEMISTRY ORDERABLES Final Result INTERFACE SYSTEM Refer to clinic/hospital department * HEMOGLOBIN AND HEMATOCRIT (03/15/2005 10:15 AM CDT) HEMOGLOBIN 13.6 11.8 - 14.8 g/dL INTERFACE SYSTEM HEMATOCRIT 40.6 35.5 - 44.0 % INTERFACE SYSTEM 03/15/2005 10:1 5 AM CDT us Nolan Alvarado MD HEMATOLOGY ORDERABLES Final Result INTERFACE SYSTEM Refer to clinic/hospital department documented in this encounter Visit Diagnoses Diagnosis Benign neoplasm of ovary- Primary documented in this encounter Care Teams Machine I Engraver Relationship Specialty Start Date End Date Elli Stewart MD [address] [facility] [address] [place] [address] PCP - General Internal Medicine 12/21/10 documented as of this encounter
--- OUTSIDE RECORDS SUMMARY | 2024-10-25 08:05 | XMS_ITS | Encounter Summary ---
Author Organization [facility] Address [address] [place] [address] Care Team Providers Care Flight Operations Coordinator Name Role Phone Elli Stewart MD Primary Care Provider [phone] Encounter Details Date Type Department Care Team (Late st Contact Info) Description 11/12/2005 Orders Only [facility] Primary Care - [address] [place] [address] Raúl Wright MD [address] [facility] [address] [place] [address] Social History Tobacco Use Types Packs/Day Years Used Date Smoking Tobacco: Never Assessed Comments Unknown Sex and Gender Information Value Date Recorded Sex Assigned at Not on file Legal 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 FAMILY PRACTICE MD Gender Identity Not on file Sexual Orientation Not on file documented as of this encounter Progress Notes * Raúl Wright MD - 04/29/2008 2:33 AM CDT TIME:11:25 am PATIENT`S HOME PHONE: PATIENT`S WORK PHONE: PATIENT`S INSURANCE: [facility] WHO TOOK THE CALL: Minoo Brown M GENERAL INFORMATION PATIENT STATUS: Established Patient. LAST VISIT: 05/30/05 PCP: dain. ALTERNATIVE PHONE NUMBER: [phone] WHO CALLED: Patient`s friend called.kendrick effinger PROBLEMS: swollen glands. Pt cant turn head.x 2days Pt doesnt want to take abx because effects control pills HEADACHE: Patient complains of headache. PAIN: Patient complains of pain. back of head. Pt did have fever but not now. /minoo SECTION 1: REQUESTED ACTION sage 11/12/05 at 11:27 am: APPOINTMENT REQUEST: Patient wants an appointment today with PCP only, no appointments available. /minoo DOCTOR`S RESPONSE: jose g 11/12/05 at 11:55 am 1:30 or 2:30 if OPEN FINAL ACTION: bettie 11/12/05 at 12:00 pm Spoke with patient 11/12/05 at 12:00 pm. Booked appointment: 11-12 1:30p.........Fawn Electronically Signed by: Fawn White on Saturday, November 12, 2005 * Raúl Wright MD - 04/29/2008 2:32 AM CDT TEMPERATURE: 98.3??f Oral WEIGHT: 176lbs BLOOD PRESSURE: 110/60 Right Arm Sitting NURSE NAME: Denise Scruggs D ALLERGIES: Allergies were reviewed. MEDICATIONS: RN/MA reviewed medications. CHIEF COMPLAINT headache,stuffy nose,neck stiffness HISTORY: HISTORY: 723.1-NECK PAIN The neck pain has worsened. The patient has had a recent flare, notes a limitation of motion, notes pain radiation, notes stiffness. Currently the patient is off all medication. PHYSICAL EXAMINATION: CONSTITUTIONAL: GENERAL APPEARANCE: MILDLY DISTRESSED. VERY tender musculature NECK/THYROID: Trachea midline. No thyroid enlargement, tenderness, or mass. No supraclavicular or cervical adenopathy. RESPIRATORY: Clear to auscultation and percussion. Normal respiratory effort. CARDIOVASCULAR: CARDIAC: Regular rhythm. No murmurs, rubs, or gallops. EDEMA/VARICOSITIES OF EXTREMITIES: No edema or varicosities. ASSESSMENT/PLAN: 784.0-HEADACHE start naproxen, 723.1-NECK PAIN try muscle relaxant, gave instruction on stretching and gave handouts MEDICATIONS: FLEXERIL ORAL TABLET 10 MG, 1/2 to 1 po tid prn for neck pain, 30 Dispensed, status: NEW PRESCRIPTION, 11/12/2005. Electronically Signed by: Raúl Wright MD on Saturday, November 12, 2005 documented in this encounter Plan of Treatment Upcoming Encounters Date Type Department Care Team (Late st Contact Info) Description 12/29/2024 1:00 PM CDT Office Visit [facility] [address] [facility] [address] [place] [address] Elli Stewart MD [address] [place] [address] [place] [phone] 06/30/2025 9:00 AM FAMILY PRACTICE MD Office Visit [facility] [address] [facility] [address] [place] [address] Elli Stewart MD [address] [place] [address] [place] [address] documented as of this encounter Visit Diagnoses Not on filedocumented in this encounter Care Teams Flight Operations Coordinator Relationship Specialty Start Date End Date Elli Stewart MD [address] [facility] [address] [place] [phone] PCP - General Internal Medicine 12/21/10 documented as of this encounter
--- OUTSIDE RECORDS SUMMARY | 2024-10-25 08:05 | XMS_ITS | Encounter Summary ---
Author Organization [facility] Address [address] [place] [address] Care Team Providers Care Director Transportation Name Role Phone Elli Stewart MD Primary Care Provider [phone] Encounter Details Date Type Department Care Team (Latest Contact Info) Description 02/15/2005 Outpatient Historical [facility] Alvarado, Nolan Shi MD NO ADDRESS ON FILE OVARIAN CYST NEC/NOS (Primary Dx) Social History Tobacco Use Types Packs/Day Years Used Date Smoking Tobacco: Never Assessed Comments Unknown Sex and Gender Information Value Date Recorded Sex Assigned at Not on file Legal 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 SOLDER MAKING LABORER Gender Identity Not on file Sexual Orientation Not on file documented as of this encounter Plan of Treatment Upcoming Encounters Date Type Department Care Team (Late st Contact Info) Description 12/29/2024 1:00 PM CDT Office Visit [address] [place] [phone] Elli Stewart MD [facility] [address] [place] [phone] 06/30/2025 9:00 AM SOLDER MAKING LABORER Office Visit [facility] [address] [place] [address] [address] [place] [address] Elli Stewart MD [address] [place] [address] Rd [address] [place] [address] documented as of this encounter Visit Diagnoses Diagnosis Other and unspecified ovarian cyst- Primary documented in this encounter Care Teams Director Transportation Relationship Specialty Start Date End Date Elli Stewart MD [address] [facility] [address] [place] [phone] PCP - General Internal Medicine 12/21/10 documented as of this encounter
--- OUTSIDE RECORDS SUMMARY | 2024-10-25 08:05 | XMS_ITS | Encounter Summary ---
Author Organization [facility] Address [address] [place] [address] Care Team Providers Care Floor Runner Name Role Phone Elli Stewart MD Primary Care Provider [phone] Encounter Details Date Type Department Care Team (Late st Contact Info) Description 05/09/2004 Outpatient Historical [facility] Yanelis Vivar MD [address] [place] [address] [address] [address] LIPOMA NEC (Primary Dx) Social History Tobacco Use Types Packs/Day Years Used Date Smoking Tobacco: Never Assessed Comments Unknown Sex and Gender Information Value Date Recorded Sex Assigned at Not on file Legal 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 SHIP ENGINES OPERATING ENGINEER Gender Identity Not on file Sexual Orientation Not on file documented as of this encounter Plan of Treatment Upcoming Encounters Date Type Department Care Team (Late st Contact Info) Description 12/29/2024 1:00 PM CDT Office Visit [facility] [address] [place] [address] Elli Stewart MD [address] [place] [address] 06/30/2025 9:00 AM SHIP ENGINES OPERATING ENGINEER Office Visit [facility] [address] [place] [address] Elli Stewart MD [address] [place] [address] documented as of this encounter Visit Diagnoses Diagnosis Lipoma of other specified sites- Primary documented in this encounter Care Teams Floor Runner Relationship Specialty Start Date End Date Elli Stewart MD [address] [place] [address] PCP - General Internal Medicine 12/21/10 documented as of this encounter
--- OUTSIDE RECORDS SUMMARY | 2024-10-25 08:05 | XMS_ITS | Encounter Summary ---
Author Organization [facility] Address [address] [place] [address] Care Team Providers Care Granulating Machine Operator Name Role Phone Elli Stewart MD Primary Care Provider [phone] Encounter Details Date Type Department Care Team (Late st Contact Info) Description 12/10/2005 Orders Only [facility] Primary Care - [address] [place] [address] Raúl Wright MD [address] [facility] [address] [place] [address] Social History Tobacco Use Types Packs/Day Years Used Date Smoking Tobacco: Never Assessed Comments Unknown Sex and Gender Information Value Date Recorded Sex Assigned at Not on file Legal 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 NURSE TECH Gender Identity Not on file Sexual Orientation Not on file documented as of this encounter Progress Notes * Raúl Wright MD - 04/29/2008 5:20 AM CDT TIME:11:14 am PATIENT`S HOME PHONE: PATIENT`S WORK PHONE: PATIENT`S INSURANCE: [facility] WHO TOOK THE CALL: Kathrine Bradley M GENERAL INFORMATION PATIENT STATUS: Established Patient. PCP: dain. ALTERNATIVE PHONE NUMBER: [phone] WHO CALLED: Patient called. PHARMACY NUMBER: [phone] PROBLEMS: CONGESTION: Patient complains of sinus congestion, complains of chest congestion. COUGH:The symptoms began approximately 2 days ago. pt. has a loose cough, pt. is coughing up a green phlegm pt. denies fever SORE THROAT: . SECTION 1: REQUESTED ACTION sasha 12/10/05 at 11:17 am: MEDICATION REQUEST: Patient wants medications and can not come in. nk DOCTOR`S RESPONSE: jose g 12/10/05 at 11:49 am MEDICATIONS: Call in to Pharmacy ZITHROMAX Z-FEMI ORAL TABLET 250 MG, DIRECTED, 1 Dispensed, status: NEW PRESCRIPTION, 12/10/2005. FINAL ACTION: sasha 12/10/05 at 12:40 pm Spoke with patient 12/10/05 at 12:40 pm. Called pharmacy at 12/10/05 at 12:40 pm. nk Electronically Signed by: Kathrine Bradley on Saturday, December 10, 2005 documented in this encounter Plan of Treatment Upcoming Encounters Date Type Department Care Team (Late st Contact Info) Description 12/29/2024 1:00 PM CDT Office Visit [address] [place] [phone] Elli Stewart MD [address] [place] [address] [place] [phone] 06/30/2025 9:00 AM NURSE TECH Office Visit [facility] [address] [place] [address] [place] [phone] Elli Stewart MD [address] [place] [address] [place] [phone] documented as of this encounter Visit Diagnoses Not on filedocumented in this encounter Care Teams Granulating Machine Operator Relationship Specialty Start Date End Date Elli Stewart MD [address] [place] [address] [place] [phone] PCP - General Internal Medicine 12/21/10 documented as of this encounter
--- OUTSIDE RECORDS SUMMARY | 2024-10-25 08:05 | XMS_ITS | Encounter Summary ---
Author Organization [facility] Address [address] [place] [address] Care Team Providers Care Supervisor Scenic Arts Name Role Phone Elli Stewart MD Primary Care Provider [phone] Encounter Details Date Type Department Care Team (Late st Contact Info) Description 04/20/2004 Outpatient Historical [address] [place] [address] Raúl Wright MD [address] [facility] [address] [place] [address] Social History Tobacco Use Types Packs/Day Years Used Date Smoking Tobacco: Never Assessed Comments Unknown Sex and Gender Information Value Date Recorded Sex Assigned at Not on file Legal 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 CUMULATIVE EFFECTS ANALYST Gender Identity Not on file Sexual Orientation Not on file documented as of this encounter Plan of Treatment Upcoming Encounters Date Type Department Care Team (Late st Contact Info) Description 12/29/2024 1:00 PM CDT Office Visit [facility] [address] [place] [address] [address] [place] [address] Elli Stewart MD [address] [place] [address] [address] [place] [address] 06/30/2025 9:00 AM CUMULATIVE EFFECTS ANALYST Office Visit [facility] [address] [place] [address] [address] [place] [address] Elli Stewart MD [address] [place] [address] documented as of this encounter Visit Diagnoses Not on filedocumented in this encounter Care Teams Supervisor Scenic Arts Relationship Specialty Start Date End Date Elli Stewart MD [address] [place] [address] PCP - General Internal Medicine 12/21/10 documented as of this encounter
--- OUTSIDE RECORDS SUMMARY | 2024-10-25 08:05 | XMS_ITS | Encounter Summary ---
Author Organization [facility] Address [address] [place] [address] Phone Care Team Providers Care Sap Hana Developer Name Role Phone Elli Stewart MD Primary Care Provider [phone] Encounter Details Date Type Department Care Team (Late st Contact Info) Description 11/20/2021 Lab Requisition [facility] Services 1 [place] [address] Jeni Ramirez APRN, SEAMER OPERATOR [address] [place] [address] Encounter for screening for other viral diseases; Encounter for antibody response examination Social History Tobacco Use Types Packs/Day Years Used Date Smoking Tobacco: Some Days Smokeless Tobacco: Never Alcohol Use Standard Drinks/Week Comments Yes 0 [...] on file Legal Sex Female 7:07 PM MACHINIST MECHANIC Gender Identity Not on file Sexual Orientation Not on file COVID-19 Exposure Response Date Recorded In the last 10 days, have yo u been in contact with someone who was confirmed or suspected to have Coronavirus/COVID-19? No / Unsure 11/20/2021 10:11 AM CDT documented as of this encounter Progress Notes * Jeni Ramirez APRN, CNP - 11/20/2021 12:51 PM CDT Lab results documented in this encounter Plan of Treatment Not on file documented as of this encounter Procedures Procedure Name Priority Date/Time Associated Diagnosis Comments MUMPS IGG Routine 11/20/2021 10:05 AM CDT Encounter for screening for other viral diseases Encounter for antibody response examination HERPES ZOSTER (VARICELLA) IGG Routine 11/20/2021 10:05 AM CDT Encounter for screening for other viral diseases Encounter for antibody response examination documented in this encounter Results * MUMPS IGG (11/20/2021 10:05 AM CDT) Mumps Ab IgG 1.4 >=1.1 AI 11/20/2021 10:52 PM CDT [facility] Blood No Phlebotomy Charged / Unknown 11/20/2021 10:05 AM CDT 11/20/2021 12:51 PM CDT Narrative [facility] - 11/20/2021 10:52 PM CDT <= 0.8 Negative. No detectable Mumps IgG antibody. 0.9 - 1.0 Equivocal >=1.1 Positive Antibody testing was performed by multiplex flow immunoassay on the [employer] platform. Jeni Ramirez APRN, CNP IMMUNOLOGY ORDERA BLES Final Result [facility] [address] [place] [address], * HERPES ZOSTER (VARICELLA) IGG (11/20/2021 10:05 AM CDT) VARICELLA ZOSTER IGG 7.2 >=1.1 AI 11/20/2021 10:52 PM CDT [facility] Blood No Phlebotomy Charged / Unknown 11/20/2021 10:05 AM CDT 11/20/2021 12:51 PM CDT Narrative [facility] - 11/20/2021 10:52 PM CDT <= 0.8 Negative. No detectable VZV IgG antibody. 0.9 - 1.0 Equivocal >=1.1 Positive Antibody testing was performed by multiplex flow immunoassay on the [employer] platform. us Jeni Ramirez SHEAR HELPER, SEAMER OPERATOR IMMUNOLOGY ORDERA BLES Final Result [facility] [address] [place] [address], documented in this encounter Visit Diagnoses Diagnosis Encounter for screening for other viral diseases Encounter for antibody response examination Antibody response examination documented in this encounter Additional Health Concerns Infection Onset Date Last Indicated Resolved Time COVID - 19 02/18/2022 02/18/2022 02/19/2022 12:0 0 AM CDT COVID - 19 Confirmed 02/18/2022 02/18/2022 022 12:16 AM CDT Respiratory Rule-Out 04/14/2024 04/14/2024 024 8:18 AM CDT COVID - 19 04/14/2024 04/14/2024 04/14/2024 8:11 AM CDT COVID - 19 Confirmed 04/14/2024 04/20/2024 024 12:16 AM CDT COVID - 19 04/20/2024 04/20/2024 04/20/2024 4:14 PM CDT Assessment Noted Time PHQ-9 Depression Total Score: 0 09/16/19 18 7:00 PM MACHINIST MECHANIC documented as of this encounter Care Teams Sap Hana Developer Relationship Specialty Start Date End Date Elli tSewart MD [address] [facility] [address] [place] [address] PCP - General Internal Medicine 09/16/17 documented as of this encounter
--- OUTSIDE RECORDS SUMMARY | 2024-10-25 08:05 | XMS_ITS | Encounter Summary ---
Author Organization [facility] Address [address] [place] [address] Care Team Providers Care Skin Fitter Name Role Phone Elli Stewart MD Primary Care Provider [phone] Encounter Details Date Type Department Care Team (Late st Contact Info) Description 11/11/2005 Orders Only [address] [place] [phone] Bridger Gerber MD NO ADDRESS ON FILE Social History Tobacco Use Types Packs/Day Years Used Date Smoking Tobacco: Never Assessed Comments Unknown Sex and Gender Information Value Date Recorded Sex Assigned at Not on file Legal 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 RN MEDICATION Gender Identity Not on file Sexual Orientation Not on file documented as of this encounter Plan of Treatment Upcoming Encounters Date Type Department Care Team (Late st Contact Info) Description 12/29/2024 1:00 PM CDT Office Visit [facility] [address] [place] [address] Elli Stewart MD [address] [place] [address] [address] [place] [address] 06/30/2025 9:00 AM RN MEDICATION Office Visit [facility] [address] [place] [address] [address] [place] [address] Elli Stewart MD [address] [place] [address] Rd [address] [place] [address] documented as of this encounter Visit Diagnoses Not on filedocumented in this encounter Care Teams Skin Fitter Relationship Specialty Start Date End Date Elli Stewart MD [address] [place] [address] PCP - General Internal Medicine 12/21/10 documented as of this encounter
--- OUTSIDE RECORDS SUMMARY | 2024-10-25 08:05 | XMS_ITS | Encounter Summary ---
Author Organization [facility] Address [address] [place] [address] Phone Care Team Providers Care Mentally Retarded Teacher Name Role Phone Elli Stewart MD Primary Care Provider [phone] Encounter Details Date Type Department Care Team (Late st Contact Info) Description 11/20/2021 Lab Requisition [facility] Services [address] [place] [address] Jeni Ramirez APRN, DIRECTOR EMPLOYEE SAFETY AND HEALTH [address] [place] [address] Encounter for antibody response examination; Encounter for screening for other viral diseases Social History Tobacco Use Types Packs/Day Years [...] on file Legal Sex Female 7:07 PM CYLINDER GRINDER Gender Identity Not on file Sexual Orientation Not on file COVID-19 Exposure Response Date Recorded In the last 10 days, have yo u been in contact with someone who was confirmed or suspected to have Coronavirus/COVID-19? No / Unsure 11/20/2021 10:11 AM CDT documented as of this encounter Progress Notes * Jeni Ramirez APRN, CNP - 11/20/2021 12:48 PM CDT Lab results documented in this encounter Plan of Treatment Not on file documented as of this encounter Procedures Procedure Name Priority Date/Time Associated Diagnosis Comments RUBEOLA (MEASLES) IGG Routine 11/20/2021 10:05 AM CDT Encounter for antibody response examination Encounter for screening for other viral diseases RUBELLA IMMUNITY IGG Routine 11/20/2021 10:05 AM CDT Encounter for antibody response examination Encounter for screening for other viral diseases documented in this encounter Results * RUBEOLA (MEASLES) IGG (11/20/2021 10:05 AM CDT) MEASLES AB IGG 2.5 >=1.1 AI 11/20/2021 10:44 PM CDT [facility] Blood No Phlebotomy Charged / Unknown 11/20/2021 10:05 AM CDT 11/20/2021 12:49 PM CDT Narrative [facility] - 11/20/2021 10:44 PM CDT <= 0.8 Negative. No detectable Measles IgG antibody. 0.9 - 1.0 Equivocal >=1.1 Positive Antibody testing was performed by multiplex flow immunoassay on the [employer] platform. us Jeni Ramirez APRN, CNP IMMUNOLOGY ORDERA BLES Final Result [facility] [address] [place] [address], * RUBELLA IMMUNITY IGG (11/20/2021 10:05 AM CDT) RUBELLA IMMUNITY Immune Immune, Invalid 11/20/2021 10:44 PM CDT [facility] Blood No Phlebotomy Charged / Unknown 11/20/2021 10:05 AM CDT 11/20/2021 12:49 PM CDT Narrative [facility] - 11/20/2021 10:44 PM CDT Antibody testing was performed by multiplex flow immunoassay on the [employer] platform. us Jeni Ramirez AIRCRAFT SERVICER, DIRECTOR EMPLOYEE SAFETY AND HEALTH CHEMISTRY ORDERAB LES Final Result [facility] [address] [place] [address], documented in this encounter Visit Diagnoses Diagnosis Encounter for antibody response examination Antibody response examination Encounter for screening for other viral diseases documented in this encounter Additional Health Concerns [...] Total Score: 0 09/16/19 18 7:00 PM CYLINDER GRINDER documented as of this encounter Care Teams Mentally Retarded Teacher Relationship Specialty Start Date End Date Elli Stewart MD [address] [facility] [address] [place] [address] PCP - General Internal Medicine 09/16/17 documented as of this encounter
--- OUTSIDE RECORDS SUMMARY | 2024-10-25 08:05 | XMS_ITS | Encounter Summary ---
Author Organization [facility] Address [address] [place] [address] Care Team Providers Care Pct Name Role Phone Elli Stewart MD Primary Care Provider [phone] Reason for Visit * Reason Onset Date Comments PEER to PEER 07/04/2023 Encounter Details Date Type Department Care Team (Late st Contact Info) Description 07/04/2023 Telephone [facility] Primary Care - [address] [place] [address] Elli Stewart MD [address] [place] [address] [place] [address] PEER to PEER Social History Tobacco Use Types Packs/Day Years Used Date Smoking Tobacco: Former Cigarettes Smokeless Tobacco: Never Alcohol Use Standard Drinks/Week Comments Yes 0 (1 standard drink = 0.6 oz pur e alcohol) Comments No Sex and Gender Information Value Date Recorded Sex Assigned at Not on file Legal 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 STAPLE SHEAR OPERATOR Gender Identity Not on file Sexual Orientation Not on file Occupation Industry Job Start Date Job End Date Not on file Not on file Not on file Not on file documented as of this encounter Miscellaneous Notes * Telephone Encounter - Kathrine Pate - 07/07/2023 9:10 AM CST Should be ok for MAC OPERATOR to do the PEER to PEER in PCP. Have a message in with Pre Cert to double check. LE SHEAR OPERATOR * Telephone Encounter - Elli Stewart MD - 07/04/2023 4:50 PM CST I am sorry I just got this message about a peer to peer Friday late afternoon can MAC OPERATOR do that since I am not going to be here next week MRI lumbar Severe neural foraminal narrowing on the right at L5-S1, likely impinging the exiting L5 nerve. LE SHEAR OPERATOR * Telephone Encounter - Rio Butt - 07/04/2023 10:01 AM CST Provider: Elli Stewart MD Next office visit: Visit date not found Caller: [id number] Dept Message: She is getting a MRI on 07/11/23 and her primary coverage approved but the secondary is wanting to do a peer to peer sharing. They only have 3 days to complete the peer to peer sharing. When they call to get schedule please call [phone]. Case number for this issue is - [id number]. Also have faxed clinical paperwork to the office Also sent in basket info as well. Please advise Call-back Number: [phone] LE SHEAR OPERATOR documented in this encounter Plan of Treatment Upcoming Encounters Date Type Department Care Team (Late st Contact Info) Description 12/29/2024 1:00 PM CDT Office Visit [address] [place] [address] Elli Stewart MD [address] [place] [address] Rd [address] [place] [address] 06/30/2025 9:00 AM STAPLE SHEAR OPERATOR Office Visit [facility] [address] [place] [address] [address] [place] [address] Elli Stewart MD [address] [place] [address] [address] [place] [address] documented as of this encounter Visit Diagnoses Not on filedocumented in this encounter Care Teams Pct Relationship Specialty Start Date End Date Elli Stewart MD [address] [place] [address] PCP - General Internal Medicine 12/21/10 documented as of this encounter
--- OUTSIDE RECORDS SUMMARY | 2024-10-25 08:05 | XMS_ITS | Encounter Summary ---
Author Organization [facility] Address [address] [place] [address] Care Team Providers Care Elementary Ell Teacher Name Role Phone Elli Stewart MD Primary Care Provider [phone] Encounter Details Date Type Department Care Team (Late st Contact Info) Description 05/27/2012 Chart Note [facility] Services [address] [address] Ariadna Salas Physical Therapist Social History Tobacco Use Types Packs/Day Years Used Date Smoking Tobacco: Former Cigarettes Smokeless Tobacco: Never Alcohol Use Standard Drinks/Week Comments Yes 0 (1 standard drink = 0.6 oz pur e alcohol) Comments No Sex and Gender Information Value Date Recorded Sex Assigned at Not on file Legal 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 ACCOUNT EXECUTIVE AGRIBUSINESS Gender Identity Not on file Sexual Orientation Not on file Occupation Industry Job Start Date Job End Date Not on file Not on file Not on file Not on file documented as of this encounter Progress Notes * Ariadna Salas Physical Therapist - 05/27/2012 11:27 AM CST Images from the original note were not included. Physical Therapy Discharge Summary Patient: Winnie Marcus Date: 05/27/2012 Date of : 1980 Physician: No ref. provider found Diagnosis: Low back pain Winnie Marcus was seen on 03/09/12 for 1 visit. This patient did not return for further therapy visits following the last session noted above, therefore a complete re-evaluation of status was not completed. Treatments consisted of: HEP Instruction and Posture/Body Mechanics Objective Measurements: see initial evaluation The patient discharged from therapy secondary to noncompliance. Please contact me if you have any questions. Thank you for this referral. GIANFRANCO Villalta [facility], [place] [id number] UNT EXECUTIVE AGRIBUSINESS documented in this encounter Plan of Treatment Upcoming Encounters Date Type Department Care Team (Late st Contact Info) Description 12/29/2024 1:00 PM CDT Office Visit [address] [address] Elli Stewart MD [address] [place] [address] 06/30/2025 9:00 AM ACCOUNT EXECUTIVE AGRIBUSINESS Office Visit [address] [address] Elli Stewart MD [address] [place] [address] documented as of this encounter Visit Diagnoses Not on filedocumented in this encounter Care Teams Elementary Ell Teacher Relationship Specialty Start Date End Date Elli Stewart MD [address] [place] [address] PCP - General Internal Medicine 12/21/10 documented as of this encounter
== END 2024-10-25 07:54 | disposition home or self-care (01) ==
LOC: ANHSURGERY 07:58
PROVIDERS: Visit Provider Obstetrics & Gynecology
DX: D25.9 Leiomyoma of uterus, unspecified (principal); I10 Essential (primary) hypertension; Z01.818 Encounter for other preprocedural examination; R94.31 Abnormal electrocardiogram [ECG] [EKG]
CPT/HCPCS: 36415; 86850; 86900; 86901; 93005

== ENCOUNTER 2024-11-01 01:02 | Day surgery (SDC) | payer BC, OTHER, SELFPAY ==
[2024-10-21 11:47] VITALS: BMI 35.2
--- NOTE | 2024-10-21 11:48 | PC.NURSE ---
Report to the Outpatient Waiting Room, entrance under the green pavilion located off [facility], at time _0800_ on date _[id number]_. Planned Procedure Time: _1000_.? Time changes happen often and if your time is changed the preop area will call you the afternoon before. - You and your visitor will be asked to self-screen and do not enter if you have any COVID symptoms. Please call surgeon if you need to reschedule. - A mask is optional within the hospital at this time. Patients may have clear liquids (water, carbonated beverages, clear teas, apple juice) until 3 hours prior to surgery with a maximum of 20 ounces. - No food from midnight until time of surgery and no smoking, or chewing tobacco (or any form of nicotine). No chewing gum, candy or mints. Take only the following medications with a SIP of water on the morning of surgery: ___Carvidilol____ DO NOT STOP ANY OF YOUR OTHER PRESCRIPTION MEDICATIONS PRIOR TO SURGERY EXCEPT THE FOLLOWING Hold all vitamins and supplements for 3 days per anesthesiologist. Medications to discontinue per physician Date to take last dose Please no make-up, nail faroese, hairspray, perfume, deodorant, or body powder the day of surgery.? No jewelry (including any body piercings) or valuables the day of surgery, leave them at home.? Please take a shower or bath the night before, or the morning of, surgery with an antibacterial soap.? Wear comfortable, loose fitting clothing.? - Jewelry must be removed prior to entering the operating room.? Rings and piercings that are not removed may be cut off. - The hospital will not accept responsibility for valuables.? - Please leave all valuables, including medications, at home the day of surgery. If you are going home after surgery, a licensed hazmat cdl driver must drive you home.? - NO public transportation without another adult if you receive anesthesia. - We recommend that an adult stay with you for 24 hours following discharge. - We also recommend that you do not drive, make important decision, drink alcoholic beverages, or take any drugs that were not prescribed by your health care provider for at least 24 hours after your discharge time. Follow any additional instructions given to you from your surgeon. Telephone instructions given to __Winnie___and asked if any additional questions and then verbalized understanding. Patient advised to call surgeon office or pre surgery nurse liaison [phone] if any additional questions.
[2024-11-01] VITALS (11 sets, daily range): BP systolic 115–149; BP diastolic 71–94; PULSE 65–92; RESP 14–18; TEMP 33.9–36.9; O2SAT 96–100
--- OUTSIDE RECORDS SUMMARY | 2024-11-01 01:05 | XMS_ITS | Encounter Summary ---
Author Organization [facility] Address [address] [place] [address] Care Team Providers Care Job Superintendent Name Role Phone Elli Stewart MD Primary Care Provider [phone] Encounter Details Date Type Department Care Team (Late st Contact Info) Description 11/25/2007 Orders Only [address] [place] [address] Raúl Wright MD [address] [facility] [address] [place] [address] Social History Tobacco Use Types Packs/Day Years Used Date Smoking Tobacco: Never Assessed Comments Unknown Sex and Gender Information Value Date Recorded Sex Assigned at Not on file Legal 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 PROFESSOR OF GEOLOGY Gender Identity Not on file Sexual Orientation Not on file documented as of this encounter Plan of Treatment Upcoming Encounters Date Type Department Care Team (Late st Contact Info) Description 12/29/2024 1:00 PM CDT Office Visit [facility] [address] [place] [address] [address] [place] [address] Elli Stewart MD [address] [place] [address] [address] [place] [address] 06/30/2025 9:00 AM PROFESSOR OF GEOLOGY Office Visit [facility] [address] [place] [address] [address] [place] [address] Elli Stewart MD [address] [place] [address] documented as of this encounter Visit Diagnoses Not on filedocumented in this encounter Care Teams Job Superintendent Relationship Specialty Start Date End Date Elli Stewart MD [address] [place] [address] PCP - General Internal Medicine 12/21/10 documented as of this encounter
--- OUTSIDE RECORDS SUMMARY | 2024-11-01 01:05 | XMS_ITS | Encounter Summary ---
Author Organization [facility] Address [address] [place] [address] Care Team Providers Care Ncqa Specialist Name Role Phone Elli Stewart MD Primary Care Provider [phone] Encounter Details Date Type Department Care Team (Late st Contact Info) Description 05/30/[address] [facility] Care - [address] [place] [address] Raúl Wright MD [address] [facility] [address] [place] [address] Social History Tobacco Use Types Packs/Day Years Used Date Smoking Tobacco: Never Assessed Comments Unknown Sex and Gender Information Value Date Recorded Sex Assigned at Not on file Legal 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 CENTRIFUGAL CHILLER TECHNICIAN Gender Identity Not on file Sexual Orientation Not on file documented as of this encounter Last Filed Vital Signs Vital Sign Reading Time Taken Comments Blood Pressure 110/80 05/30/2005 9:15 AM CENTRIFUGAL CHILLER TECHNICIAN Pulse - - Temperature 36.5 C (97.7 F) 05/30/2005 9:15 AM CENTRIFUGAL CHILLER TECHNICIAN Respiratory Rate - - Oxygen Saturation - - Inhaled Oxygen Concentration - - Weight 77.1 kg (170 lb) 05/30/2005 9:15 AM CENTRIFUGAL CHILLER TECHNICIAN Height - - Body Mass Index - - documented in this encounter Plan of Treatment Upcoming Encounters Date Type Department Care Team (Late st Contact Info) Description 12/29/2024 1:00 PM CDT Office Visit [facility] - [address] [place] [phone] Elli Stewart MD [address] [place] [phone] 06/30/2025 9:00 AM CENTRIFUGAL CHILLER TECHNICIAN Office Visit [facility] Primary Care - [facility] [address] [place] [phone] Elli Stewart MD [address] [place] [address] documented as of this encounter Visit Diagnoses Not on filedocumented in this encounter Care Teams Ncqa Specialist Relationship Specialty Start Date End Date Elli Stewart MD [address] [place] [phone] PCP - General Internal Medicine 12/21/10 documented as of this encounter
--- OUTSIDE RECORDS SUMMARY | 2024-11-01 01:05 | XMS_ITS | Encounter Summary ---
Author Organization [facility] Address [address] [place] [address] Care Team Providers Care Handling Tech Name Role Phone Elli Stewart MD Primary Care Provider [phone] Encounter Details Date Type Department Care Team (Late st Contact Info) Description 11/06/2007 Outpatient Historical [address] [place] [address] Raúl Wright MD [address] [facility] [address] [place] [address] Social History Tobacco Use Types Packs/Day Years Used Date Smoking Tobacco: Never Assessed Comments Unknown Sex and Gender Information Value Date Recorded Sex Assigned at Not on file Legal 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 RIVET HOLE PUNCHER Gender Identity Not on file Sexual Orientation Not on file documented as of this encounter Plan of Treatment Upcoming Encounters Date Type Department Care Team (Late st Contact Info) Description 12/29/2024 1:00 PM CDT Office Visit [facility] [address] [place] [address] [address] [place] [address] Elli Stewart MD [address] [place] [address] [address] [place] [address] 06/30/2025 9:00 AM RIVET HOLE PUNCHER Office Visit [facility] [address] [place] [address] [address] [place] [address] Elli Stewart MD [address] [place] [address] documented as of this encounter Visit Diagnoses Not on filedocumented in this encounter Care Teams Handling Tech Relationship Specialty Start Date End Date Elli Stewart MD [address] [place] [address] PCP - General Internal Medicine 12/21/10 documented as of this encounter
--- OUTSIDE RECORDS SUMMARY | 2024-11-01 01:05 | XMS_ITS | Encounter Summary ---
Author Organization [facility] Address [address] [place] [address] Care Team Providers Care Society Reporter Name Role Phone Elli Stewart MD Primary Care Provider [phone] Encounter Details Date Type Department Care Team (Late st Contact Info) Description 11/11/2005 Orders Only [address] [place] [address] Bridger Gerber MD NO ADDRESS ON FILE Social History Tobacco Use Types Packs/Day Years Used Date Smoking Tobacco: Never Assessed Comments Unknown Sex and Gender Information Value Date Recorded Sex Assigned at Not on file Legal 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 FISHER REEF NET Gender Identity Not on file Sexual Orientation Not on file documented as of this encounter Plan of Treatment Upcoming Encounters Date Type Department Care Team (Late st Contact Info) Description 12/29/2024 1:00 PM CDT Office Visit [facility] [address] [place] [address] Elli Stewart MD [address] [place] [address] [address] [place] [address] 06/30/2025 9:00 AM FISHER REEF NET Office Visit [facility] [address] [place] [address] [address] [place] [address] Elli Stewart MD [address] [place] [address] [address] [place] [address] documented as of this encounter Visit Diagnoses Not on filedocumented in this encounter Care Teams Society Reporter Relationship Specialty Start Date End Date Elli Stewart MD [address] [place] [address] PCP - General Internal Medicine 12/21/10 documented as of this encounter
--- OUTSIDE RECORDS SUMMARY | 2024-11-01 01:05 | XMS_ITS | Clinical Summary ---
Author Organization [facility] [employer] Address [address] [place] [address] Care Team Providers Care Resourcing Advisor Name Role Phone Elli Stewart MD Primary Care Provider [phone] Source Comments [facility] [employer],non-owned Affiliates and Associated Physician Practices is amultiple site organization consisting of ambulatory clinics and hospital sitesin [place], [place], [place] and [place]. This disclosure is being madepursuant to the Care Everywhere program and may not contain all information available regarding this patient. Last updated 18.[facility] [employer] Allergies No known active allergies Medications * Be aware that medications may not be up to date on this document. Alwaysverify current medications with the patient. predniSONE (DELTASONE) 10 MG tablet 5 tabs po x2 days, 4 tabs po x2 days, 3 tabs po x2 days, 2 tabs po x2 days, 1 tab po x2 days 30 Tab 03/26/2017 Active Social History Tobacco Use Types Packs/Day Years Used Date Smoking Tobacco: Every Day Smokeless Tobacco: Never Comments Unknown Sex and Gender Information Value Date Recorded Sex Assigned at Not on file Legal Sex Female 6:27 PM CDT Gender Identity Not on file Sexual Orientation [...] on patient's age to complete this topic Insurance [facility] Care Teams Resourcing Advisor Relationship Specialty Start Date End Date Elli Stewart MD [address] [place] [address] PCP - General 11/07/21
--- OUTSIDE RECORDS SUMMARY | 2024-11-01 01:05 | XMS_ITS | Encounter Summary ---
Author Organization [facility] Address [address] [place] [address] Care Team Providers Care Cancer Registrar Name Role Phone Elli Stewart MD Primary Care Provider [phone] Encounter Details Date Type Department Care Team (Late st Contact Info) Description 11/06/2007 Outpatient Historical [address] [place] [address] Raúl Wright MD [address] [facility] [address] [place] [address] Social History Tobacco Use Types Packs/Day Years Used Date Smoking Tobacco: Never Assessed Comments Unknown Sex and Gender Information Value Date Recorded Sex Assigned at Not on file Legal 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 JAZZ SINGER Gender Identity Not on file Sexual Orientation Not on file documented as of this encounter Plan of Treatment Upcoming Encounters Date Type Department Care Team (Late st Contact Info) Description 12/29/2024 1:00 PM CDT Office Visit [facility] [address] [place] [address] [address] [place] [address] Elli Stewart MD [address] [place] [address] [address] [place] [address] 06/30/2025 9:00 AM JAZZ SINGER Office Visit [facility] [address] [place] [address] [address] [place] [address] Elli Stewart MD [address] [place] [address] documented as of this encounter Visit Diagnoses Not on filedocumented in this encounter Care Teams Cancer Registrar Relationship Specialty Start Date End Date Elli Stewart MD [address] [place] [address] PCP - General Internal Medicine 12/21/10 documented as of this encounter
--- OUTSIDE RECORDS SUMMARY | 2024-11-01 01:05 | XMS_ITS | Encounter Summary ---
Author Organization [facility] Address [address] [place] [address] Care Team Providers Care Bologna Maker Name Role Phone Elli Stewart MD Primary Care Provider [phone] Encounter Details Date Type Department Care Team (Late st Contact Info) Description 07/15/2006 Orders Only [facility] Primary Care - [address] [place] [address] Raúl Wright MD [address] [facility] [address] [place] [address] Social History Tobacco Use Types Packs/Day Years Used Date Smoking Tobacco: Never Assessed Comments Unknown Sex and Gender Information Value Date Recorded Sex Assigned at Not on file Legal 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 SEAM STAYER Gender Identity Not on file Sexual Orientation Not on file documented as of this encounter Progress Notes * aRúl Wright MD - 05/04/2008 4:57 AM CDT TIME:10:02 am PATIENT`S HOME PHONE: PATIENT`S WORK PHONE: PATIENT`S INSURANCE: [facility] [employer] [employer] WHO TOOK THE CALL: Arina Alfredo GENERAL INFORMATION PATIENT STATUS: Established Patient. PCP: dain. ALTERNATIVE PHONE NUMBER: [phone] WHO CALLED: Patient called. CURRENT ALLERGY LIST: [facility] PHARMACY NUMBER: [phone] PROBLEMS: URINATION: Patient complains of frequent urination, [...] MD - 05/04/2008 4:56 AM CDT [facility] RAÚL RWIGHT MD [facility] [place] [address] July 15, 2006 MICHAEL BAUMANN [address] [place] [address] MICHAEL IBIS has been under our care during the dates below: 07/15/06 May return to work: 07/16/06 Sincerely yours, RAÚL WRIGHT MD documented in this encounter Plan of Treatment Upcoming Encounters Date Type Department Care Team (Late st Contact Info) Description 12/29/2024 1:00 PM CDT Office Visit [place] [address] [place] [address] Elli Stewart MD [facility] [address] [place] [phone] 06/30/2025 9:00 AM SEAM STAYER Office Visit [place] [address] [address] [place] [phone] Elli Stewart MD [facility] [address] [place] [address] documented as of this encounter Visit Diagnoses Not on filedocumented in this encounter Care Teams Bologna Maker Relationship Specialty Start Date End Date Elli Stewart MD [address] [facility] [address] [place] [address] PCP - General Internal Medicine 12/21/10 documented as of this encounter
--- OUTSIDE RECORDS SUMMARY | 2024-11-01 01:05 | XMS_ITS | Encounter Summary ---
Author Organization [facility] Address [address] [place] [address] Care Team Providers Care Manager E Commerce Name Role Phone Elli Stewart MD Primary Care Provider [phone] Encounter Details Date Type Department Care Team (Late st Contact Info) Description 12/10/2005 Orders Only [facility] Primary Care - [address] [place] [address] Raúl Wright MD [address] [facility] [address] [place] [address] Social History Tobacco Use Types Packs/Day Years Used Date Smoking Tobacco: Never Assessed Comments Unknown Sex and Gender Information Value Date Recorded Sex Assigned at Not on file Legal 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 AMMUNITION ASSEMBLY II LABORER Gender Identity Not on file Sexual Orientation Not on file documented as of this encounter Progress Notes * Raúl Wright MD - 04/29/2008 5:20 AM CDT TIME:11:14 am PATIENT`S HOME PHONE: PATIENT`S WORK PHONE: PATIENT`S INSURANCE: [facility] WHO TOOK THE CALL: Kathrine Bradley M GENERAL INFORMATION PATIENT STATUS: Established Patient. PCP: dain. ALTERNATIVE PHONE NUMBER: [phone] WHO CALLED: Patient called. PHARMACY NUMBER: [phone] PROBLEMS: CONGESTION: Patient complains of sinus congestion, [...] Description 12/29/2024 1:00 PM CDT Office Visit [address] [place] [phone] Elli Stewart MD [address] [place] [address] [place] [phone] 06/30/2025 9:00 AM AMMUNITION ASSEMBLY II LABORER Office Visit [facility] [address] [place] [address] [place] [phone] Elli Stewart MD [address] [place] [address] [place] [phone] documented as of this encounter Visit Diagnoses Not on filedocumented in this encounter Care Teams Manager E Commerce Relationship Specialty Start Date End Date Elli Stewart MD [address] [place] [address] [place] [phone] PCP - General Internal Medicine 12/21/10 documented as of this encounter
--- OUTSIDE RECORDS SUMMARY | 2024-11-01 01:05 | XMS_ITS | Encounter Summary ---
Author Organization [facility] Address [address] [place] [address] Care Team Providers Care Lapel Padder Blindstitch Name Role Phone Elli Stewart MD Primary Care Provider [phone] Encounter Details Date Type Department Care Team (Late st Contact Info) Description 11/12/2005 Outpatient Historical [facility] - [address] [place] [address] Raúl Wright MD [address] [facility] [place] [facility] [address] [place] [address] Social History Tobacco Use Types Packs/Day Years Used Date Smoking Tobacco: Never Assessed Comments Unknown Sex and Gender Information Value Date Recorded Sex Assigned at Not on file Legal 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 FISH NET STRINGER Gender Identity Not on file Sexual Orientation [...] Description 12/29/2024 1:00 PM CDT Office Visit [address] [place] [phone] Elli Stewart MD [address] [place] [phone] 06/30/2025 9:00 AM FISH NET STRINGER Office Visit [facility] Primary Care - [facility] [address] [place] [phone] Elli Stewart MD [address] [place] [address] documented as of this encounter Visit Diagnoses Not on filedocumented in this encounter Care Teams Lapel Padder Blindstitch Relationship Specialty Start Date End Date Elli Stewart MD [address] [place] [phone] PCP - General Internal Medicine 12/21/10 documented as of this encounter
--- OUTSIDE RECORDS SUMMARY | 2024-11-01 01:05 | XMS_ITS | Encounter Summary ---
Author Organization [facility] Address [address] [place] [address] Care Team Providers Care Custodial Maintenance Worker Name Role Phone Elli Stewart MD Primary Care Provider [phone] Encounter Details Date Type Department Care Team (Late st Contact Info) Description 11/12/2005 Orders Only [facility] Primary Care - [address] [place] [address] Raúl Wright MD [address] [facility] [address] [place] [address] Social History Tobacco Use Types Packs/Day Years Used Date Smoking Tobacco: Never Assessed Comments Unknown Sex and Gender Information Value Date Recorded Sex Assigned at Not on file Legal 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 HEBREW TEACHER Gender Identity Not on file Sexual Orientation Not on file documented as of this encounter Progress Notes * Raúl Wright MD - 04/29/2008 2:33 AM CDT TIME:11:25 am PATIENT`S HOME PHONE: PATIENT`S WORK PHONE: PATIENT`S INSURANCE: [facility] WHO TOOK THE CALL: Minoo Brown M GENERAL INFORMATION PATIENT STATUS: Established Patient. LAST VISIT: 05/30/05 PCP: dain. ALTERNATIVE PHONE NUMBER: [phone] WHO CALLED: Patient`s friend called.kendrick effinger PROBLEMS: [...] PRESSURE: 110/60 Right Arm Sitting NURSE NAME: eDnise Scruggs D ALLERGIES: Allergies were reviewed. MEDICATIONS: [...] CDT Office Visit [facility] [address] [facility] [address] [place] [address] Elli Stewart MD [address] [place] [address] [place] [address] 06/30/2025 9:00 AM HEBREW TEACHER Office Visit [facility] [address] [facility] [address] [place] [address] Elli Stewart MD [address] [place] [address] [place] [address] documented as of this encounter Visit Diagnoses Not on filedocumented in this encounter Care Teams Custodial Maintenance Worker Relationship Specialty Start Date End Date Elli Stewart MD [address] [facility] [address] [place] [address] PCP - General Internal Medicine 12/21/10 documented as of this encounter
--- OUTSIDE RECORDS SUMMARY | 2024-11-01 01:05 | XMS_ITS | Encounter Summary ---
Author Organization [facility] Address [address] [place] [address] Care Team Providers Care Director Of Intercollegiate Athletics Name Role Phone Elli Stewart MD Primary Care Provider [phone] Encounter Details Date Type Department Care Team (Late st Contact Info) Description 08/29/2006 Outpatient Historical [facility] Care - [address] [place] [address] Raúl Wright MD [address] [facility] [address] [place] [address] Social History Tobacco Use Types Packs/Day Years Used Date Smoking Tobacco: Never Assessed Comments Unknown Sex and Gender Information Value Date Recorded Sex Assigned at Not on file Legal 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 LIMEHOUSE WORKER Gender Identity Not on file Sexual Orientation Not on file documented as of this encounter Last Filed Vital Signs Vital Sign Reading Time Taken Comments Blood Pressure 118/68 08/29/2006 11:30 AM LIMEHOUSE WORKER Pulse - - Temperature 36.4 C (97.6 F) 08/29/2006 11:30 AM LIMEHOUSE WORKER Respiratory Rate - - Oxygen Saturation - - Inhaled Oxygen Concentration - - Weight 84.8 kg (187 lb) 08/29/2006 11:30 AM LIMEHOUSE WORKER Height - - Body Mass Index - - documented in this encounter Plan of Treatment Upcoming Encounters Date Type Department Care Team (Late st Contact Info) Description 12/29/2024 1:00 PM CDT Office Visit [facility] - [address] [place] [phone] Elli Stewart MD [address] [place] [phone] 06/30/2025 9:00 AM LIMEHOUSE WORKER Office Visit [facility] Primary Care - [facility] [address] [place] [phone] Elli Stewart MD [address] [place] [address] documented as of this encounter Visit Diagnoses Not on filedocumented in this encounter Care Teams Director Of Intercollegiate Athletics Relationship Specialty Start Date End Date Elli Stewart MD [address] [place] [phone] PCP - General Internal Medicine 12/21/10 documented as of this encounter
--- OUTSIDE RECORDS SUMMARY | 2024-11-01 01:05 | XMS_ITS | Encounter Summary ---
Author Organization [facility] Address [address] [place] [address] Phone Care Team Providers Care Brass Buffer Name Role Phone Elli Stewart MD Primary Care Provider [phone] Encounter Details Date Type Department Care Team (Late st Contact Info) Description 11/20/2021 Lab Requisition [facility] [address] [place] [address] Jeni Ramirez APRN, SOLUTION DEVELOPER [address] [place] [address] Encounter for screening for other viral diseases; [...] on file Legal Sex Female 7:07 PM VENEER STOCK LAYER Gender Identity Not on file Sexual Orientation [...] 1.4 >=1.1 AI 11/20/2021 10:52 PM CDT [facility] Blood No Phlebotomy Charged / Unknown 11/20/2021 10:05 AM CDT 11/20/2021 12:51 PM CDT Narrative [facility] - 11/20/2021 10:52 PM CDT <= 0.8 Negative. No detectable Mumps IgG antibody. 0.9 - 1.0 Equivocal >=1.1 Positive Antibody testing was performed by multiplex flow immunoassay on the [employer] platform. Jeni Ramirez APRN, CNP IMMUNOLOGY ORDERA BLES Final Result [facility] [address] [place] [address], * HERPES ZOSTER (VARICELLA) IGG (11/20/2021 10:05 AM CDT) VARICELLA ZOSTER IGG 7.2 >=1.1 AI 11/20/2021 10:52 PM CDT [facility] Blood No Phlebotomy Charged / Unknown 11/20/2021 10:05 AM CDT 11/20/2021 12:51 PM CDT Narrative [facility] - 11/20/2021 10:52 PM CDT <= 0.8 Negative. No detectable VZV IgG antibody. 0.9 - 1.0 Equivocal >=1.1 Positive Antibody testing was performed by multiplex flow immunoassay on the [employer] platform. us Jeni Ramirez LAWN SPRINKLER INSTALLER, SOLUTION DEVELOPER IMMUNOLOGY ORDERA BLES Final Result [facility] [address] [place] [address], documented in this encounter Visit Diagnoses Diagnosis [...] Total Score: 0 09/16/19 18 7:00 PM VENEER STOCK LAYER documented as of this encounter Care Teams Brass Buffer Relationship Specialty Start Date End Date Elli Stewart MD [address] [facility] [address] [place] [phone] PCP - General Internal Medicine 09/16/17 documented as of this encounter
--- OUTSIDE RECORDS SUMMARY | 2024-11-01 01:05 | XMS_ITS | Clinical Summary ---
Author Organization [facility] Address [address] [place] [address] Care Team Providers Care Snow Plow Operator Name Role Phone Elli Stewart MD Primary Care Provider [phone] Allergies Active Allergy Reactions Criticality Noted Date Comments Tramadol Hcl Itching Low 12/09/2018 Medications norgestimate 0.18 mg/0.215 mg/0.25 mg-ethinyl estradioL 25 mcg tablet Ylg-Bd-Paipourx 0.18 mg/0.215 mg/0.25 mg-25 mcg tablet TK [...] migh t be different from the original. Liability Claims Examiner [facility] @ [facility] Problem Noted Date Diagnosed Date [...] Device Data STL ABSTRACTION Provider, Abstract 10/04/[address] [place] [address] Elli Stewart MD Muscle cramping 10/03/[address] [place] [address] Elli Stewart MD Neck pain; Radiculopathy, cervical 10/03/[address] [place] [address] Jai Bond MD Muscle cramping 09/08/2024 External Device Data STL ABSTRACTION Provider, Abstract 08/28/[address] [place] [address] Elli Stewart MD Muscle cramping 08/24/2024 External Device Data STL ABSTRACTION Provider, Abstract 08/11/2024 External Device Data STL ABSTRACTION Provider, Abstract from Last 3 Months Immunizations Immunization Administration Dates Next Due (ADACEL/BOOSTRIX)(10 YR UP) TDAP VACCINE, 0.5ML, IM 11/06/2010 (PFIZER)(12 YR UP) COVID-19 VACCINE - EMERGENCY USE AUTHORIZATION, MRNA, [id number](PF) 30 MCG/0.3 ML IM SUSP 04/20/2021,08/18/2020,07/30/2020,07/09 (PNEUMOVAX [...] Failure Maternal Grandfather Dionte Cancer Maternal Grandmother Cleveland Heart Disease Maternal Grandmother [place] Heart Failure Maternal Grandmother [place] Hypertension Maternal Grandmother [place] Blood Clots Mother Andreina Heart Disease Mother [...] Maternal Aunt Maternal Grandfather Dionte Maternal Grandmother [place] Mother Andreina Paternal Grandfather Flavio Paternal Grandmother Social History Tobacco Use Types Packs/Day Years Used Date Smoking Tobacco: Former Cigarettes Smokeless Tobacco: Never Tobacco Cessation:Counseling Given: No Alcohol Use Standard Drinks/Week Comments Yes 0 (1 standard drink = 0.6 oz pur e alcohol) Comments No Sex and Gender Information Value Date Recorded Sex Assigned at Not on file Legal 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 POWER BRAKE REBUILDER Gender Identity Not on file Sexual Orientation Not on file Occupation Industry Job Start Date Job End Date Not on file Not on file Not on file Not on file Last Filed Vital Signs Vital Sign Reading Time Taken Comments Blood Pressure 124/82 06/30/2024 8:46 AM POWER BRAKE REBUILDER Pulse 93 06/30/2024 8:46 AM POWER BRAKE REBUILDER Temperature 36.5 C (97.7 F) 09/19/2023 2:29 PM POWER BRAKE REBUILDER Respiratory Rate 18 06/30/2024 8:46 AM POWER BRAKE REBUILDER Oxygen Saturation 97% 06/30/2024 8:46 AM POWER BRAKE REBUILDER Inhaled Oxygen Concentration - - Weight 93.9 kg (207 lb) 06/30/2024 8:46 AM POWER BRAKE REBUILDER Height 162.6 cm (5' 4 ) 06/30/2024 8:46 AM POWER BRAKE REBUILDER Body Mass Index 35.53 06/30/2024 8:46 AM POWER BRAKE REBUILDER Plan of Treatment Upcoming Encounters Date Type Department Care Team (Late st Contact Info) Description 12/29/2024 1:00 PM CDT Office Visit [address] [place] [phone] Elli Stewart MD [facility] [address] [place] [address] 06/30/2025 9:00 AM POWER BRAKE REBUILDER Office Visit [facility] [address] [place] [address] Elli Stewart MD [facility] [address] [place] [address] Health Maintenance Due Date Last [...] MAMMO SCREENING BILAT Routine 07/22/2024 9:52 AM POWER BRAKE REBUILDER HEMOGLOBIN A1C Routine 06/02/2024 8:13 AM POWER BRAKE REBUILDER Wellness examination from Last 3 Months or Most Recently Relevant to Health Maintenance Results * MAMMO SCREENING BILAT (07/22/2024 9:52 AM POWER BRAKE REBUILDER) Anatomical Region Laterality Modality Breast Bilateral Mammography us Abstract Provider MAMMO ORDERABLES Edited Result - Final * (ABNORMAL) HEMOGLOBIN A1C (06/02/2024 8:13 AM POWER BRAKE REBUILDER) HEMOGLOBIN A1C 6.1(H) <5.7 % of total Hgb [facility] Comment: For someone without known [...] children. ESTIMATED AVERAGE GLUCOSE (MG/DL) 128 mg/dL [employer] [employer]i Mike ESTIMATED AVERAGE GLUCOSE (MMOL/L) 7.1 mmol/L [employer] [facility] Mckeon Comment: Test Performed at: [place] [address] [address] [place] [address] Kendra Jin Blood 06/02/2024 8:13 AM POWER BRAKE REBUILDER 06/02/2024 8:13 AM POWER BRAKE REBUILDER us Elli Stewart MD CHEMISTRY ORDERABLES Final R esult [facility] [phone] [place] [address] [address] [place] [phone] from Last 3 Months or Most Recently Relevant to Health Maintenance Insurance [employer] BLUE PREFERRED Advance Directives For more information, please contact: [phone] * Full Code (Latest Code Status on File) Date Activated Date Inactivated Comments 08/01/2011 3:48 PM 08/01/2011 10:02 PM * Full Code Date Activated Date Inactivated Comments 08/01/2011 12:59 PM 08/01/2011 3:48 PM * Full Code Date Activated Date Inactivated Comments 08/01/2011 11:49 AM 08/01/2011 12:59 PM Care Teams Snow Plow Operator Relationship Specialty Start Date End Date Elli Stewart MD [address] [facility] [address] [place] [address] PCP - General Internal Medicine 12/21/10
--- OUTSIDE RECORDS SUMMARY | 2024-11-01 01:05 | XMS_ITS | Encounter Summary ---
Author Organization [facility] Address [address] [place] [address] Care Team Providers Care Youth Court Judge Name Role Phone Elli Stewart MD Primary Care Provider [phone] Encounter Details Date Type Department Care Team (Late st Contact Info) Description 08/29/2006 Orders Only [facility] Primary Care - [address] [place] [address] Raúl Wright MD [address] [facility] [address] [place] [address] Social History Tobacco Use Types Packs/Day Years Used Date Smoking Tobacco: Never Assessed Comments Unknown Sex and Gender Information Value Date Recorded Sex Assigned at Not on file Legal 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 CLEANER TOUCH UP WORKER Gender Identity Not on file Sexual [...] Description 12/29/2024 1:00 PM CDT Office Visit [address] [place] [phone] Elli Stewart MD [facility] [address] [place] [phone] 06/30/2025 9:00 AM CLEANER TOUCH UP WORKER Office Visit [address] [place] [phone] Elli Stewart MD [address] [place] [address] [address] [place] [phone] documented as of this encounter Visit Diagnoses Not on filedocumented in this encounter Care Teams Youth Court Judge Relationship Specialty Start Date End Date Elli Stewart MD [address] [facility] [address] [place] [address] PCP - General Internal Medicine 12/21/10 documented as of this encounter
--- OUTSIDE RECORDS SUMMARY | 2024-11-01 01:05 | XMS_ITS | Encounter Summary ---
Author Organization [facility] Address [address] [place] [address] Care Team Providers Care Professor Of Environmental Studies Name Role Phone Elli Stewart MD Primary Care Provider [phone] Encounter Details Date Type Department Care Team (Late st Contact Info) Description 04/20/2004 Outpatient Historical [address] [place] [address] Raúl Wright MD [address] [facility] [address] [place] [address] Social History Tobacco Use Types Packs/Day Years Used Date Smoking Tobacco: Never Assessed Comments Unknown Sex and Gender Information Value Date Recorded Sex Assigned at Not on file Legal 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 FRONT LOADER RESIDENTIAL DRIVER Gender Identity Not on file Sexual Orientation Not on file documented as of this encounter Plan of Treatment Upcoming Encounters Date Type Department Care Team (Late st Contact Info) Description 12/29/2024 1:00 PM CDT Office Visit [facility] [address] [place] [address] [address] [place] [address] Elli Stewart MD [address] [place] [address] [address] [place] [address] 06/30/2025 9:00 AM FRONT LOADER RESIDENTIAL DRIVER Office Visit [facility] [address] [place] [address] [address] [place] [address] Elli Stewart MD [address] [place] [address] documented as of this encounter Visit Diagnoses Not on filedocumented in this encounter Care Teams Professor Of Environmental Studies Relationship Specialty Start Date End Date Elli Steawrt MD [address] [place] [address] PCP - General Internal Medicine 12/21/10 documented as of this encounter
--- OUTSIDE RECORDS SUMMARY | 2024-11-01 01:05 | XMS_ITS | Encounter Summary ---
Author Organization [facility] Address [address] [place] [address] Care Team Providers Care Mine Deputy Name Role Phone Elli Stewart MD Primary Care Provider [phone] Encounter Details Date Type Department Care Team (Late st Contact Info) Description 05/09/2004 Outpatient Historical [facility] Yanelis Vivar MD [address] [place] [address] [address] [address] LIPOMA NEC (Primary Dx) Social History Tobacco Use Types Packs/Day Years Used Date Smoking Tobacco: Never Assessed Comments Unknown Sex and Gender Information Value Date Recorded Sex Assigned at Not on file Legal 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 PATTERN KEEPER Gender Identity Not on file Sexual Orientation Not on file documented as of this encounter Plan of Treatment Upcoming Encounters Date Type Department Care Team (Late st Contact Info) Description 12/29/2024 1:00 PM CDT Office Visit [facility] [address] [place] [address] Elli Stewart MD [address] [place] [address] 06/30/2025 9:00 AM PATTERN KEEPER Office Visit [facility] [address] [place] [address] Elli Stewart MD [address] [place] [address] documented as of this encounter Visit Diagnoses Diagnosis Lipoma of other specified sites- Primary documented in this encounter Care Teams Mine Deputy Relationship Specialty Start Date End Date Elli Stewart MD [address] [place] [address] PCP - General Internal Medicine 12/21/10 documented as of this encounter
--- OUTSIDE RECORDS SUMMARY | 2024-11-01 01:05 | XMS_ITS | Encounter Summary ---
Author Organization [facility] Address [address] [place] [address] Care Team Providers Care Forge Shop Machine Repairer Name Role Phone Elli Stewart MD Primary Care Provider [phone] Reason for Visit * Reason Onset Date Comments PEER to PEER 07/04/2023 Encounter Details Date Type Department Care Team (Late st Contact Info) Description 07/04/2023 Telephone [facility] Primary Care - [address] [place] [address] Elli Stewart MD [address] [place] [address] [place] [address] PEER to PEER Social History Tobacco Use Types Packs/Day Years Used Date Smoking Tobacco: Former Cigarettes Smokeless Tobacco: Never Alcohol Use Standard Drinks/Week Comments Yes 0 (1 standard drink = 0.6 oz pur e alcohol) Comments No Sex and Gender Information Value Date Recorded Sex Assigned at Not on file Legal 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 CORPORATE PLANNER Gender Identity Not on file Sexual Orientation Not on file Occupation Industry Job Start Date Job End Date Not on file Not on file Not on file Not on file documented as of this encounter Miscellaneous Notes * Telephone Encounter - Kathrine Pate - 07/07/2023 9:10 AM CST Should be ok for MENTAL TELEPATHIST to do the PEER to PEER in PCP. Have a message in with Pre Cert to double check. ORATE PLANNER * Telephone Encounter - Elli Stewart MD - 07/04/2023 4:50 PM CST I am sorry I just got this message about a peer to peer Friday late afternoon can MENTAL TELEPATHIST do that since I am not going to be here next week MRI lumbar Severe neural foraminal narrowing on the right at L5-S1, likely impinging the exiting L5 nerve. ORATE PLANNER * Telephone Encounter - Rio Butt - 07/04/2023 10:01 AM CST Provider: Elli Stewart MD Next office visit: Visit date not found Caller: [id number] Dept Message: She is getting a MRI on 07/11/23 and her primary coverage approved but the secondary is wanting to do a peer to peer sharing. They only have 3 days to complete the peer to peer sharing. When they call to get schedule please call [phone]. Case number for this issue is - [id number]. Also have faxed clinical paperwork to the office Also sent in basket info as well. Please advise Call-back Number: [phone] ORATE PLANNER documented in this encounter Plan of Treatment Upcoming Encounters Date Type Department Care Team (Late st Contact Info) Description 12/29/2024 1:00 PM CDT Office Visit [address] [place] [phone] Elli Stewart MD [address] [place] [address] Rd [address] [place] [address] 06/30/2025 9:00 AM CORPORATE PLANNER Office Visit [facility] [address] [place] [address] [address] [place] [address] Elli Stewart MD [address] [place] [address] [address] [place] [address] documented as of this encounter Visit Diagnoses Not on filedocumented in this encounter Care Teams Forge Shop Machine Repairer Relationship Specialty Start Date End Date Elli Stewart MD [address] [place] [address] PCP - General Internal Medicine 12/21/10 documented as of this encounter
--- OUTSIDE RECORDS SUMMARY | 2024-11-01 01:05 | XMS_ITS | Encounter Summary ---
Author Organization [facility] Address [address] [place] [address] Care Team Providers Care City Solicitor Name Role Phone Elli Stewart MD Primary Care Provider [phone] Encounter Details Date Type Department Care Team (Late st Contact Info) Description 12/12/2005 Orders Only [facility] - [facility] [address] [facility] [address] [place] [address] Raúl [place] MD [address] [facility] [address] [place] [address] Social History Tobacco Use Types Packs/Day Years Used Date Smoking Tobacco: Never Assessed Comments Unknown Sex and Gender Information Value Date Recorded Sex Assigned at Not on file Legal 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 CAR SHAKEOUT OPERATOR Gender Identity Not on file Sexual Orientation Not on file documented as of this encounter Progress Notes * Raúl [place] MD - 04/29/2008 5:35 AM CDT [facility] RAÚL [place] MD [address] [place] [address] December 12, 2005 MICHAEL [address] [place] [address] MICHAEL IBIS has been under our care during the dates below: 12/11/05,12/12/05 May return to work: Sincerely yours, RAÚL [place] MD * Raúl [place] MD - 04/29/2008 5:35 AM CDT [facility] RAÚL [place] MD [address] [place] [address] December 12, 2005 MICHAEL [address] [place] [address] MICHAEL BAUMANN has been under our care [...] NEW PRESCRIPTION, 12/12/2005. LAB ORDERS: Order number: [id number] Test Ordered: NEBULIZER TREATMENT [id number] Order number: [id number] Test Ordered: PULSE OXIMETRY [id number] REPEAT VITAL SIGNS: Electronically Signed by: Raúl [place] MD on Friday, December 21, 2005 documented in this encounter Plan of Treatment Upcoming Encounters Date Type Department Care Team (Late st Contact Info) Description 12/29/2024 1:00 PM CDT Office Visit [facility] [address] [place] [address] Elli Stewart MD [address] [place] [address] 06/30/2025 9:00 AM CAR SHAKEOUT OPERATOR Office Visit [facility] [address] [place] [address] Elli Stewart MD [address] [place] [address] documented as of this encounter Visit Diagnoses Not on filedocumented in this encounter Care Teams City Solicitor Relationship Specialty Start Date End Date Elli Stewart MD [address] [facility] [address] [place] [address] PCP - General Internal Medicine 12/21/10 documented as of this encounter
--- OUTSIDE RECORDS SUMMARY | 2024-11-01 01:05 | XMS_ITS | Encounter Summary ---
Author Organization [facility] Address [address] [place] [address] Care Team Providers Care Ingredient Scaler Helper Name Role Phone Elli Stewart MD Primary Care Provider [phone] Encounter Details Date Type Department Care Team (Latest Contact Info) Description 03/15/2005 Outpatient Historical [facility] PATIENT IN A BED Nolan Alvarado MD NO ADDRESS ON FILE BENIGN NEOPLASM OVARY (Primary Dx) Social History Tobacco Use Types Packs/Day Years Used Date Smoking Tobacco: Never Assessed Comments Unknown Sex and Gender Information Value Date Recorded Sex Assigned at Not on file Legal 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 FLOATING OPERATOR Gender Identity Not on file Sexual Orientation Not on file documented as of this encounter Plan of Treatment Upcoming Encounters Date Type Department Care Team (Late st Contact Info) Description 12/29/2024 1:00 PM CDT Office Visit [address] [place] [address] Elli Stewart MD [address] [place] [address] [place] [address] 06/30/2025 9:00 AM FLOATING OPERATOR Office Visit [address] [place] [address] Elli Stewart MD [address] [place] [address] [place] [address] documented as of this encounter Procedures [...] Primary documented in this encounter Care Teams Ingredient Scaler Helper Relationship Specialty Start Date End Date Elli Stewart MD [address] [facility] [address] [place] [address] PCP - General Internal Medicine 12/21/10 documented as of this encounter
--- OUTSIDE RECORDS SUMMARY | 2024-11-01 01:05 | XMS_ITS | Clinical Summary ---
Author Organization [facility] Address [address] [place] [address] Phone Care Team Providers Care Graphic Artist Name Role Phone Elli Stewart MD Primary Care Provider [phone] Allergies Active Allergy Reactions Criticality Noted Date [...] Lnp-s, Pf, 3 0 Mcg/0.3 Ml Dose (InfoBasis) 07/30/2020,07/09/2020 Influenza Vaccine, Quadrivalent, PF 03/21,05/07/2022,04/18/2019,2017 Influenza,Split [...] on file Legal Sex Female 7:07 PM TIPPLE REPAIRER Gender Identity Not on file Sexual Orientation [...] CAD W BINDU Routine 07/22/2024 7:15 AM TIPPLE REPAIRER Visit for screening mammogram from Last 3 Months or Most Recently Relevant to Health Maintenance Results * TITUS SCREENING BILATERAL DIGITAL W CAD W BINDU (07/22/2024 7:15 AM TIPPLE REPAIRER) Anatomical Region Laterality Modality breast Bilateral Mammography 07/22/2024 7:45 AM TIPPLE REPAIRER Narrative 07/22/2024 3:46 PM TIPPLE REPAIRER - TITUS SCREENING BILATERAL DIGITAL W CAD [...] signed by: Yoselyn Jennings M.D. ab/chichi:07/22/2024 13:45:57 Lead Person(s): RT Heidi(Isaak)(M), [facility] letter sent: Normal Exam Reading location: [facility] Mammogram BI-RADS: Category 1: Negative Procedure Note [...] signed by: Yoselyn Jennings M.D. ab/bradrad:07/22/2024 13:45:57 Lead Person(s): RT Heidi(R)(M), [facility] letter sent: Normal Exam Reading location: [facility] Mammogram BI-RADS: Category 1: Negative Elli Stewart MD IMG MAMMO ORDERABLES Final R esult from Last 3 Months or Most Recently Relevant to Health Maintenance Insurance [facility] [employer] [facility] * Guarantor: [employer] [facility] Account Type Relation to Patient Date of Phone Billing Address Institutional Other [address] [place] [address] Care Teams Graphic Artist Relationship Specialty Start Date End Date Elli Stewart MD [address] [place] [address] PCP - General Internal Medicine 09/16/17
--- OUTSIDE RECORDS SUMMARY | 2024-11-01 01:05 | XMS_ITS | Encounter Summary ---
Author Organization [facility] Address [address] [place] [address] Care Team Providers Care Community Health Advocate Name Role Phone Elli Stewart MD Primary Care Provider [phone] Encounter Details Date Type Department Care Team (Late st Contact Info) Description 09/08/2008 Outpatient Historical [facility], [address] Raúl [place] MD [address] [facility] [address] [place] [address] [id number] Impaired Fasting Glucose Social History Tobacco Use Types Packs/Day Years Used Date Smoking Tobacco: Every Day Cigarettes Alcohol Use Standard Drinks/Week Comments Not Asked 0 (1 standard drink = 0.6 oz pur e alcohol) Comments No Sex and Gender Information Value Date Recorded Sex Assigned at Not on file Legal 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 GASTROENTEROLOGY PHYSICIAN Gender Identity Not on file Sexual Orientation Not on file documented as of this encounter Plan of Treatment Upcoming Encounters Date Type Department Care Team (Late Contact Info) Description 12/29/2024 1:00 PM CDT Office Visit [facility] [address] [place] [address] [address] [place] [address] Elli Stewart MD [address] [place] [address] [address] [place] [address] 06/30/2025 9:00 AM GASTROENTEROLOGY PHYSICIAN Office Visit [facility] [address] [facility] [address] [place] [address] Elli Stewart MD [address] [place] [address] documented as of this encounter Visit Diagnoses Diagnosis Impaired fasting glucose documented in this encounter Care Teams Community Health Advocate Relationship Specialty Start Date End Date Elli Stewart MD [address] [place] [address] PCP - General Internal Medicine 12/21/10 documented as of this encounter
--- OUTSIDE RECORDS SUMMARY | 2024-11-01 01:05 | XMS_ITS | Encounter Summary ---
Author Organization [facility] Address [address] [place] [address] Care Team Providers Care Naprapath Name Role Phone Elli Stewart MD Primary Care Provider [phone] Encounter Details Date Type Department Care Team (Late st Contact Info) Description 12/26/2005 Orders Only [facility] Primary Care - [facility] [address] [place] [address] [address] [place] [address] Rogers Arnold MD [address] [facility] [address] [address] Social History Tobacco Use Types Packs/Day Years Used Date Smoking Tobacco: Never Assessed Comments Unknown Sex and Gender Information Value Date Recorded Sex Assigned at Not on file Legal 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 SUPPLY ANALYST Gender Identity Not on file Sexual [...] Here for follow up evaluation. ER visit ([facility]) for chest pain. RC HISTORY: chest [...] Description 12/29/2024 1:00 PM CDT Office Visit [address] [place] [address] Elli Stewart MD [address] [place] [address] [place] [address] 06/30/2025 9:00 AM SUPPLY ANALYST Office Visit [facility] [address] [facility] [address] [place] [address] Elli Stewart MD [address] [place] [address] [place] [address] documented as of this encounter Visit Diagnoses Not on filedocumented in this encounter Care Teams Naprapath Relationship Specialty Start Date End Date Elli Stewart MD [address] [place] [address] [place] [address] PCP - General Internal Medicine 12/21/10 documented as of this encounter
--- OUTSIDE RECORDS SUMMARY | 2024-11-01 01:05 | XMS_ITS | Encounter Summary ---
Author Organization [facility] Address [address] [place] [address] Care Team Providers Care Director Emergency Name Role Phone Elli Stewart MD Primary Care Provider [phone] Encounter Details Date Type Department Care Team (Late st Contact Info) Description 12/26/2005 Outpatient Historical [facility] - [address] [place] [address] Rogers Arnold MD [address] [facility] [address] [id number] Social History Tobacco Use Types Packs/Day Years Used Date Smoking Tobacco: Never Assessed Comments Unknown Sex and Gender Information Value Date Recorded Sex Assigned at Not on file Legal 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 REHABILITATION CONSULTANT Gender Identity Not on file Sexual [...] Description 12/29/2024 1:00 PM CDT Office Visit [address] [place] [address] Elli Stewart MD [address] [place] [address] 06/30/2025 9:00 AM REHABILITATION CONSULTANT Office Visit [facility] Primary Care - [facility] [address] [place] [phone] Elli Stewart MD [address] [place] [address] documented as of this encounter Visit Diagnoses Not on filedocumented in this encounter Care Teams Director Emergency Relationship Specialty Start Date End Date Elli Stewart MD [address] [place] [address] PCP - General Internal Medicine 12/21/10 documented as of this encounter
--- OUTSIDE RECORDS SUMMARY | 2024-11-01 01:05 | XMS_ITS | Encounter Summary ---
Author Organization [facility] Address [address] [place] [address] Care Team Providers Care Biomass Technician Name Role Phone Elli Stewart MD Primary Care Provider [phone] Encounter Details Date Type Department Care Team (Late st Contact Info) Description 05/27/2012 Chart Note [facility] [address] [address] Ariadna Salas Physical Therapist Social History Tobacco Use Types Packs/Day Years Used Date Smoking Tobacco: Former Cigarettes Smokeless Tobacco: Never Alcohol Use Standard Drinks/Week Comments Yes 0 (1 standard drink = 0.6 oz pur e alcohol) Comments No Sex and Gender Information Value Date Recorded Sex Assigned at Not on file Legal 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 PROCESS ANALYST Gender Identity Not on file Sexual [...] Thank you for this referral. GIANFRANCO [facility], [place] [id number] ESS ANALYST documented in this encounter Plan of Treatment Upcoming Encounters Date Type Department Care Team (Late st Contact Info) Description 12/29/2024 1:00 PM CDT Office Visit [address] [address] Elli Stewart MD [address] [place] [address] 06/30/2025 9:00 AM PROCESS ANALYST Office Visit [address] [address] Elli Stewart MD [address] [place] [address] documented as of this encounter Visit Diagnoses Not on filedocumented in this encounter Care Teams Biomass Technician Relationship Specialty Start Date End Date Elli Stewart MD [address] [place] [address] PCP - General Internal Medicine 12/21/10 documented as of this encounter
--- OUTSIDE RECORDS SUMMARY | 2024-11-01 01:05 | XMS_ITS | Continuity of Care Document ---
Author Organization [facility] Address [address] [place] [address] [address] [place] [address] Phone Care Team Providers Care Hand Washer Name Role Phone Aydin PT,MPT,ATC, Kyle Unavailable Sofía vela Procedures Procedure Date Therapeutic Activities Neuromuscular Re-Ed Therapeutic Exercise Therapeutic Activities Neuromuscular Re-Ed Therapeutic Exercise Therapeutic Activities Neuromuscular Re-Ed Therapeutic Exercise Therapeutic Activities Neuromuscular Re-Ed Therapeutic Exercise Therapeutic Activities Neuromuscular Re-Ed Therapeutic Exercise Therapeutic Activities Neuromuscular Re-Ed Therapeutic Exercise Therapeutic Activities Neuromuscular Re-Ed Therapeutic Exercise Therapeutic Activities Therapeutic Exercise Neuromuscular Re-Ed Therapeutic Activities Neuromuscular Re-Ed Therapeutic Exercise Therapeutic Activities Neuromuscular Re-Ed Therapeutic Exercise Therapeutic Activities Neuromuscular Re-Ed Therapeutic Exercise Therapeutic Activities Therapeutic Exercise Neuromuscular Re-Ed Therapeutic Activities Neuromuscular Re-Ed Therapeutic Exercise Therapeutic Activities Neuromuscular Re-Ed Therapeutic Exercise Therapeutic Activities Neuromuscular Re-Ed Therapeutic Exercise Therapeutic Activities Therapeutic Exercise Neuromuscular Re-Ed Therapeutic Activities Neuromuscular Re-Ed Therapeutic Exercise Therapeutic Activities Neuromuscular Re-Ed Therapeutic Exercise Therapeutic Activities Neuromuscular Re-Ed Therapeutic Exercise Therapeutic Activities Neuromuscular Re-Ed Therapeutic Exercise Therapeutic Activities Neuromuscular Re-Ed Therapeutic Exercise Therapeutic Activities Neuromuscular Re-Ed Therapeutic Exercise Therapeutic Activities Neuromuscular Re-Ed Therapeutic Exercise Therapeutic Activities Neuromuscular Re-Ed Therapeutic Exercise PT Evaluation Moderate Complexity Therapeutic Activities Neuromuscular Re-Ed Therapeutic Exercise Advance Directives Directive Yes / No Effective Date File Name No Information Encounters Encounter Description Practice Location Reason(s) For Visit Diagnoses Date Provider Providers Copied on Encounter [facility], [place], [place], [id number], [place] tel:[phone] [employer] No Information 4 ROMAN Deluna, [place]. [facility], [place], [place], [id number], tel:[phone] [employer] No Information 4 Bahrati Gerard. . Referring Provider: Nolan Alamo, [address], [place], [address]. tel:[phone] [address], [place], [place], [id number], [place] tel:[phone] [place] No Information 0- 4 [place] Moustapha. . Referring Provider: Nolan Alamo [facility] [address], [place], [address]. tel:[phone] [address], [place], [place], [id number], [place] tel:[phone] [place] No Information 4 [place] Moustapha. . Referring Provider: Nolan Alamo [facility] [address], [place], [address]. tel:[phone] [place] [address], [place], [place], [id number], [place] tel:[phone] [place] No Information 4 [place] Moustapha. . Referring Provider: Nolan Alamo [facility] [address], [place], [address]. tel:[phone], [place], [place], [id number], tel:[phone] [place] No Information 4 [place] Moustapha. . Referring Provider: Nolan Alamo [address], [place], [address]. tel:[phone] [address], [place], [place], [id number], [place] tel:[phone] [place] No Information 3- 4 [place], [place], [place]. Referring Provider: Nolan Alamo [address], [place], [address]. tel:[phone] [address], [place], [place], [id number], [place] tel:[phone] [place] No Information Reid-1 2-202 4 [place] Moustapha. . Referring Provider: Nolan Alamo [address], [place], [address]. tel:[phone], [place], [place], [id number], [place] tel:[phone] [place] No Information Reid-0 4-202 4 [place] Moustapha. . Referring Provider: Nolan Alamo [address], [place], [address]. tel:[phone] [place] [address], [place], [place], [id number], [place] tel:[phone] [place] No Information May-3 0-202 4 Mireyan Dillon. . Referring Provider: Harvinder Gilmore[address], [place], [address]. tel:[phone], [place], [place], [id number], [place] tel:[phone] [place] No Information May-2 9-202 4 [place] Moustapha. . Referring Provider: Harvinder Gilmore[address], [place], [address]. tel:[phone], [id number], [place] tel:[phone] [place] No Information May-2 4-202 4 [place], [place], [place]. Referring Provider: Nolan Alamo [address], [place], [address]. tel:[phone] [address], [place], [place], [id number], [place] tel:[phone] [place] No Information May-2 0-202 4 [place] Moustapha. . Referring Provider: Yessi Gilmore [address], [place], [address]. tel:[phone] [address], [place], [place], [id number], [place] tel:[phone] [place] No Information November- 6-202 4 [place] Moustapha. . Referring Provider: Nolan Alamo [address], [place], [address]. tel:[phone] [address], [place], [place], [id number], [place] tel:[phone] [place] No Information 5- 4 [place] Moustapha. . Referring Provider: Nolan Alamo [facility] [address], [place], [address]. tel:[phone] [place] [address], [place], [place], [id number], tel:[phone] [place] No Information November-1 0-202 4 Perrin Kyle. , [place], [place]. Referring Provider: Nolan Alamo [facility] [address], [place], [address]. tel:[phone], [place], [place], [id number], tel:[phone] [place] No Information November-0 7-202 4 [place] Moustapha. . Referring Provider: Nolan Alamo [address], [place], [address]. tel:[phone] [address], [place], [id number], [place] tel:[phone] [place] No Information Oct-2 3-202 4 [place] Ted. . Referring Provider: Nolan Alamo [address] [place] [address], [place], [address]. tel:[phone] [address], [place], [place], [id number], [place] tel:[phone] [place] No Information Apr-1 8-202 4 [place] Ted. . Referring Provider: Nolan Alamo [address], [place], [address]. tel:[phone], [place], [place], [id number], tel:[phone] [place] No Information Apr-1 6-202 4 [place] Ted. . Referring Provider: Nolan Alamo [address], [place], [address]. tel:[phone] [place] [address], [place], [place], [id number], [place] tel:[phone] [place] No Information Apr-1 1-202 4 [place] Ted. . Referring Provider: Harvinder Gilmore[address], [place], [address]. tel:[phone], [id number], [place] tel:[phone] [place] No Information Apr-0 9-202 4 [place] Ted. . Referring Provider: Nolan Alamo [address], [place], [address]. tel:[phone], [id number], [place] tel:[phone] [place] No Information Apr-0 4-202 4 [place] Ted. . Referring Provider: Nolan Alamo [address], [place], [address]. tel:[phone], [place], [place], [id number], [place] tel:[phone] [place] No Information Sep-2 8-202 4 [place] Ted. . Referring Provider: Harvinder Gilmore[address], [place], [address]. tel:[phone] [id number] [facility], [address] [place] [address], [place], [place], [id number], tel:[phone] [place] No Information Sep-2 4 [place] Ted. . Referring Provider: Nolan Alamo, [address], [place], [address]. tel:[phone], [place], [place], [id number], tel:[phone] [place] No Information Sep-2 4 [place] Ted. . Referring Provider: Nolan Alamo, [address], [place], [address]. tel:[phone] Family History Family Member Type Diagnosis Age At Onset No Information Payers Payer name Insurance type Covered libertarian ID Pricila albayeni(s) [facility] [id number] [facility] CI [id number] Social History Type Description Quantity Date Captured Comments Sex Female Smoking Status No Information Chief Complaint And Reason For Visit No Information Reason For Referral Reason For Referral No Information History Of Present Illness Encounter Date Complaint History Of Prese nt Illness No Information Functional Status Date Functional Assessmen t No Information Instructions Date Instruction Additional Infor mation No Information Assessments Type Assessment Date No Information Patient Care Teams Name Effective Dates (start - stop) Status Members No Information
--- OUTSIDE RECORDS SUMMARY | 2024-11-01 01:05 | XMS_ITS | Encounter Summary ---
Author Organization [facility] Address [address] [place] [address] Care Team Providers Care Property Field Inspector Name Role Phone Elli Stewart MD Primary Care Provider [phone] Encounter Details Date Type Department Care Team (Late st Contact Info) Description 12/12/2005 Outpatient Historical [address] [place] [address] Raúl Wright MD [address] [facility] [address] [place] [address] Social History Tobacco Use Types Packs/Day Years Used Date Smoking Tobacco: Never Assessed Comments Unknown Sex and Gender Information Value Date Recorded Sex Assigned at Not on file Legal 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 HEATING AND VENTILATION ENGINEER Gender Identity Not on file Sexual Orientation Not on file documented as of this encounter Plan of Treatment Upcoming Encounters Date Type Department Care Team (Late st Contact Info) Description 12/29/2024 1:00 PM CDT Office Visit [facility] [address] [place] [address] [address] [place] [address] Elli Stewart MD [address] [place] [address] [address] [place] [address] 06/30/2025 9:00 AM HEATING AND VENTILATION ENGINEER Office Visit [facility] [address] [place] [address] [address] [place] [address] Elli Stewart MD [address] [place] [address] documented as of this encounter Visit Diagnoses Not on filedocumented in this encounter Care Teams Property Field Inspector Relationship Specialty Start Date End Date Elli Stewart MD [address] [place] [address] PCP - General Internal Medicine 12/21/10 documented as of this encounter
--- OUTSIDE RECORDS SUMMARY | 2024-11-01 01:05 | XMS_ITS | Encounter Summary ---
Author Organization [facility] Address [address] [place] [address] Care Team Providers Care Furniture Mover Driver Name Role Phone Elli Stewart MD Primary Care Provider [phone] Encounter Details Date Type Department Care Team (Late st Contact Info) Description 04/20/2004 Outpatient Historical [address] [place] [address] Raúl Wright MD [address] [facility] [address] [place] [address] Social History Tobacco Use Types Packs/Day Years Used Date Smoking Tobacco: Never Assessed Comments Unknown Sex and Gender Information Value Date Recorded Sex Assigned at Not on file Legal 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 AIR TWISTER WINDER Gender Identity Not on file Sexual Orientation Not on file documented as of this encounter Plan of Treatment Upcoming Encounters Date Type Department Care Team (Late st Contact Info) Description 12/29/2024 1:00 PM CDT Office Visit [facility] [address] [place] [address] [address] [place] [address] Elli Stewart MD [address] [place] [address] [address] [place] [address] 06/30/2025 9:00 AM AIR TWISTER WINDER Office Visit [facility] [address] [place] [address] [address] [place] [address] Elli Stewart MD [address] [place] [address] documented as of this encounter Visit Diagnoses Not on filedocumented in this encounter Care Teams Furniture Mover Driver Relationship Specialty Start Date End Date Elli Stewart MD [address] [place] [address] PCP - General Internal Medicine 12/21/10 documented as of this encounter
--- OUTSIDE RECORDS SUMMARY | 2024-11-01 01:05 | XMS_ITS | Encounter Summary ---
Author Organization [facility] Address [address] [place] [address] Care Team Providers Care Clinical Application Specialist Name Role Phone Elli Stewart MD Primary Care Provider [phone] Encounter Details Date Type Department Care Team (Late st Contact Info) Description 11/23/2007 Outpatient Historical [facility] [address] [place] [address] [address] [place] [address] Raúl Wright MD [address] [facility] [address] [place] [address] Routine General Medical Examination at a Health Care Facility; Family History of Diabetes Mellitus Social History Tobacco Use Types Packs/Day Years Used Date Smoking Tobacco: Never Assessed Comments Unknown Sex and Gender Information Value Date Recorded Sex Assigned at Not on file Legal 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 ELECTRIC MOTOR REPAIRER Gender Identity Not on file Sexual Orientation Not on file documented as of this encounter Plan of Treatment Upcoming Encounters Date Type Department Care Team (Late st Contact Info) Description 12/29/2024 1:00 PM CDT Office Visit [facility] [address] [facility] [address] [place] [address] Elli Stewart MD [address] [place] [address] [address] [place] [address] 06/30/2025 9:00 AM ELECTRIC MOTOR REPAIRER Office Visit [facility] [address] [place] [address] Elli Stewart MD [address] [facility] [address] [place] [address] documented as of this encounter [...] CDT) HDL 64(H) 40 - 59 mg/dL [facility] CHOLESTEROL 223(H) 100 - 199 mg/dL [facility] CHOL/HDL RATIO 3.5 2.0 - 5.0 [facility] TRIGLYCERIDE 132 10 - 149 mg/dL [facility] LDL CALCULATED 133(H) <=99 mg/dL [facility] LIPID PANEL COMMENT See Below [facility] Comment: The adult ATP and pediatric NCEP classifications for lipids are available on the [facility] Intranet at: [email or web address] Select: Lab Policies and Procedures,Current Select: Lipid Panel Interpretation Blood specimen (specimen) 11/23/2007 4:28 PM CDT 11/23/2007 4:59 PM CDT us Raúl Wright MD CHEMISTRY ORDERABLES Edited [facility] [address] [place] [address] * (ABNORMAL) CBC WITH DIFFERENTIAL (11/23/2007 4:28 PM CDT) WBC 13.1(H) 4.0 - 9.8 K/uL [facility] MCH 29.9 27.2 - 32.6 pg [facility] PLATELETS 305 140 - 350 K/uL [facility] HEMATOCRIT 42.9 35.5 - 44.0 % [facility] RDW-STDEV 43.1 37.1 - 48.7 fL [facility] RBC 4.65 3.90 - 4.90 M/uL [facility] MCHC 32.4 31.5 - 35.5 % [facility] MPV 11.5 9.3 - 12.4 fL [facility] MCV 92.3 82.0 - 99.0 fL [facility] HEMOGLOBIN 13.9 11.8 - 14.8 g/dL [facility] RDW 12.9 11.5 - 14.5 % [facility] EOSINOPHILS 1 0 - 7 % [facility] EOSINOPHIL ABSOLUTE 0.06 0.00 - 0.70 K/uL [facility] LYMPHOCYTES 35 16 - 45 % [facility] LYMPHOCYTE ABSOLUTE 4.54(H) 0.70 - 4.50 K/uL [facility] BASOPHILS 0 0 - 2 % [facility] BASOPHILS ABSOLUTE 0.05 0.00 - 0.20 K/uL [facility] MONOCYTES 7 3 - 13 % [facility] MONOCYTE ABSOLUTE 0.87 0.10 - 1.30 K/uL [facility] NEUTROPHILS 58 45 - 70 % [facility] NEUTROPHIL ABSOLUTE 7.59(H) 1.90 - 7.00 K/uL [facility] Blood specimen (specimen) 11/23/2007 4:28 PM CDT 11/23/2007 4:58 PM CDT us Raúl Wright MD HEMATOLOGY ORDERABLES Edited Performing Organization Address [facility] de Phone Number INTERFACE SYSTEM Refer to clinic/hospital department [facility] [address] [place] [address] * HEMOGLOBIN A1C (11/23/2007 4:28 PM CDT) GLUCOSE, MEAN BLOOD 129 mg/dL [facility] HEMOGLOBIN A1C 5.8 4.1 - 6.1 % of Hgb [facility] Blood specimen (specimen) 11/23/2007 4:28 PM CDT 11/23/2007 4:59 PM CDT us Raúl Wright MD CHEMISTRY ORDERABLES Final Resul t Performing Organization Address [facility] de Phone Number [facility] [address] [place] [address] * (ABNORMAL) INSULIN LEVEL (11/23/2007 4:28 PM CDT) INSULIN LEVEL 32(H) <17 uIU/mL [facility] Comment: Lab test performed by: [employer] [place] [id number] [address] [id number] MELODY GHOTRA MD Blood specimen (specimen) 11/23/2007 4:28 PM CDT 11/23/2007 4:59 PM CDT us Raúl Wright MD CHEMISTRY ORDERABLES Final Resul t Performing Organization Address [facility]/ZIP Co de Phone Number [facility] [address] [place] [address] * TSH WITH REFLEX FT4 (11/23/2007 4:28 PM CDT) TSH 1.64 0.27 - 4.20 uU/mL [facility] Blood specimen (specimen) 11/23/2007 4:28 PM CDT 11/23/2007 4:59 PM CDT Raúl Wright MD CHEMISTRY ORDERABLES Final Resul t [facility] [address], [place] [address] * (ABNORMAL) COMPREHENSIVE METABOLIC PANEL (11/23/2007 4:28 PM CDT) Pathologist [facility] POTASSIUM 3.9 3.5 - 4.9 mmol/L [facility] TOTAL PROTEIN 7.4 6.3 - 8.6 g/dL [facility] GLUCOSE 117(H) 65 - 99 mg/dL [facility] AST 21 12 - 32 U/L [facility] BUN 12 6 - 20 mg/dL [facility] CALCIUM 8.7 8.4 - 10.2 mg/dL [facility] ALBUMIN 4.4 3.4 - 4.8 g/dL [facility] CHLORIDE 102 96 - 108 mmol/L [facility] CREATININE 0.77 0.51 - 0.95 mg/dL [facility] ALT 21 0 - 31 U/L [facility] SODIUM 138 135 - 145 mmol/L [facility] ALKALINE PHOSPHATASE 65 35 - 104 U/L [facility] CO2 24 22 - 30 mmol/L [facility] BILIRUBIN TOTAL 0.4 0.2 - 1.0 mg/dL [facility] GFR, >60 >=60 mL/min/1. 7 sq meter [facility] GFR >60 >=60 mL/min/1. 7 sq meter [facility] Comment: Estimated GFR rate interpretative information for both Americans and non- Americans is available on the [facility] Intranet at: [email or web address] Select: Lab Policies and Procedures Select: Reference Ranges - GFR Blood specimen (specimen) 11/23/2007 4:28 PM CDT 11/23/2007 4:59 PM CDT Raúl Wright MD CHEMISTRY ORDERABLES Edited [facility] [address] [place] [address] documented in this encounter Visit Diagnoses Diagnosis Routine general medical examination at a health care facility Family history of diabetes mellitus documented in this encounter Care Teams Clinical Application Specialist Relationship Specialty Start Date End Date Elli Stewart MD [address] [place] [address] PCP - General Internal Medicine 12/21/10 documented as of this encounter
--- OUTSIDE RECORDS SUMMARY | 2024-11-01 01:05 | XMS_ITS | Encounter Summary ---
Author Organization [facility] Address [address] [place] [address] Care Team Providers Care Grocery Checker Name Role Phone Elli Stewart MD Primary Care Provider [phone] Encounter Details Date Type Department Care Team (Latest Contact Info) Description 02/15/2005 Outpatient Historical [facility] Alvarado, Nolan Shi MD NO ADDRESS ON FILE OVARIAN CYST NEC/NOS (Primary Dx) Social History Tobacco Use Types Packs/Day Years Used Date Smoking Tobacco: Never Assessed Comments Unknown Sex and Gender Information Value Date Recorded Sex Assigned at Not on file Legal 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 EMPLOYEE BENEFITS ATTORNEY Gender Identity Not on file Sexual Orientation Not on file documented as of this encounter Plan of Treatment Upcoming Encounters Date Type Department Care Team (Late st Contact Info) Description 12/29/2024 1:00 PM CDT Office Visit [address] [place] [address] Elli Stewart MD [facility] [address] [place] [address] 06/30/2025 9:00 AM EMPLOYEE BENEFITS ATTORNEY Office Visit [facility] [address] [place] [address] [address] [place] [address] Elli Stewart MD [address] [place] [address] Rd [address] [place] [address] documented as of this encounter Visit Diagnoses Diagnosis Other and unspecified ovarian cyst- Primary documented in this encounter Care Teams Grocery Checker Relationship Specialty Start Date End Date Elli Stewart MD [address] [facility] [address] [place] [address] PCP - General Internal Medicine 12/21/10 documented as of this encounter
--- OUTSIDE RECORDS SUMMARY | 2024-11-01 01:05 | XMS_ITS | Encounter Summary ---
Author Organization [facility] Address [address] [place] [address] Phone Care Team Providers Care Manager Endoscopy Name Role Phone Elli Stewart MD Primary Care Provider [phone] Encounter Details Date Type Department Care Team (Late st Contact Info) Description 11/20[facility] [address] [place] [address] Jeni Ramirez APRN, CREDIT INTERVIEWER [address] [place] [address] Encounter for antibody response examination; Encounter for [...] on file Legal Sex Female 7:07 PM QUANTITATIVE STRATEGY ANALYST Gender Identity Not on file Sexual [...] 2.5 >=1.1 AI 11/20/2021 10:44 PM CDT [facility] Blood No Phlebotomy Charged / Unknown 11/20/2021 10:05 AM CDT 11/20/2021 12:49 PM CDT Narrative [facility] - 11/20/2021 10:44 PM CDT <= 0.8 Negative. No detectable Measles IgG antibody. 0.9 - 1.0 Equivocal >=1.1 Positive Antibody testing was performed by multiplex flow immunoassay on the FastCAP platform. us Jeni Ramirez APRN, CNP IMMUNOLOGY ORDERA BLES Final Result [facility] [address] [place] [address], * [facility] IGG (11/20/2021 10:05 AM CDT) [facility] Immune Immune, Invalid 11/20/2021 10:44 PM CDT [facility] Blood No Phlebotomy Charged / Unknown 11/20/2021 10:05 AM CDT 11/20/2021 12:49 PM CDT Narrative [facility] - 11/20/2021 10:44 PM CDT Antibody testing was performed by multiplex flow immunoassay on the Fast[employer] platform. us Jeni Ramirez STRAND AND BINDER CONTROLLER, CREDIT INTERVIEWER CHEMISTRY ORDERAB LES Final Result [facility] [address] [place] [address], documented in this encounter Visit Diagnoses Diagnosis [...] Total Score: 0 09/16/19 18 7:00 PM QUANTITATIVE STRATEGY ANALYST documented as of this encounter Care Teams Manager Endoscopy Relationship Specialty Start Date End Date Elli Stewart MD [address] [facility] [address] [place] [address] PCP - General Internal Medicine 09/16/17 documented as of this encounter
--- OUTSIDE RECORDS SUMMARY | 2024-11-01 01:05 | XMS_ITS | Encounter Summary ---
Author Organization [facility] Address [address] [place] [address] Care Team Providers Care Coconut Jelly Roller Name Role Phone Elli Stewart MD Primary Care Provider [phone] Encounter Details Date Type Department Care Team (Late st Contact Info) Description 12/12/2005 Outpatient Historical [address] [place] [address] Raúl Wright MD [address] [facility] [address] [place] [address] Social History Tobacco Use Types Packs/Day Years Used Date Smoking Tobacco: Never Assessed Comments Unknown Sex and Gender Information Value Date Recorded Sex Assigned at Not on file Legal 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 Gender Identity Not on file Sexual Orientation Not on file documented as of this encounter Plan of Treatment Upcoming Encounters Date Type Department Care Team (Late st Contact Info) Description 12/29/2024 1:00 PM CDT Office Visit [facility] [address] [place] [address] [address] [place] [address] Elli Stewart MD [address] [place] [address] [address] [place] [address] 06/30/2025 9:00 AM NUCLEAR FUEL PROCESSING TECHNICIAN Office Visit [facility] [address] [place] [address] [address] [place] [address] Elli Stewart MD [address] [place] [address] documented as of this encounter Visit Diagnoses Not on filedocumented in this encounter Care Teams Coconut Jelly Roller Relationship Specialty Start Date End Date Elli Stewart MD [address] [place] [address] PCP - General Internal Medicine 12/21/10 documented as of this encounter
--- NOTE | 2024-11-01 07:26 | WPDHPUPDATE1 ---
History and Physical Update Update Date/Time: 11/01/24 07:26 History and Physical has been reviewed, including an updated exam of the patient. There are NO changes in the patient's condition. Risks, benefits, and alternatives have been discussed and questions answered. Patient agrees to proceed with robotic assisted total laparoscopic hysterectomy with bilateral salpingectomy and cystoscopy.
[2024-11-01] MEDS: LACTATED RINGERS 1,000 ML 30 ML IV CONT ×2 (08:30→12:20)
--- NOTE | 2024-11-01 08:55 | P.PNAN_ITS ---
Anes - Initial Pre Proc Eval Procedure: Operation Date: 11/01/24 10:00 Proposed Procedures p Robotic Assisted Total Laparoscopic Hysterectomy with Bilateral Salpingectomy - Heidy Orozco MD Date/Time: 11/01/24 08:55 Surgeon: Heidy Orozco MD Pre Op Diagnosis: uterine fibroids Patient Data Age: 44 Gender: F Height: 1.63 m Weight: 93.2 kg Allergies Allergy/AdvReac Type Severity Reaction Status Date / Time No Known Allergies Allergy Unknown Verified 10/21/24 11:39 Home Medications ?Medication ?Instructions ?Recorded ?Confirmed ?Type carvedilol 12.5 mg tablet 12.5 mg PO BID 10/30/21 10/21/24 History lisinopril 10 mg tablet 10 mg PO DAILY 07/29/24 10/21/24 History Patient hx anesthesia problems: none Family hx anesthesia problems: none Results Review: All pre-operative results and documents have been reviewed as part of the pre- operative evaluation. [facility] Past Medical History Medical History Screening mammogram for breast cancer Smoker Obesity Asthma HTN (hypertension) Surgical History Surgical History H/O oophorectomy right H/O unilateral salpingectomy right Family History Family History Other Family history of alcoholism Family history of arthritis Family history of malignant neoplasm Social History Social History (Updated 10/06/24 @ 17:57 by Heidy Orozco MD) Smoking packs per day: 0.5 Smoking cigarettes per day: 10.0 Years smoked: 25 Smoking pack-years: 12.50 Smoking status: Former smoker Tobacco type: cigarettes Second hand tobacco smoke exposure: Yes Smoking end date: 08/20/23 Additional smoking assessment comments: OFF AND ON 15 YEARS Alcohol intake: current Alcohol use details: occasionally Substance use: never Substance use type: does not use Do You Feel Safe in your Home?: Yes Lack of Transportation: No Lack of Food: Never True Current Housing: I Have Housing Concerned About Future Housing: No Difficulty Paying Gas/Electric Bills: No Difficulty Paying for Meds: No Currently Unemployed: No Education: Associate Degree Difficulty w/ Childcare or Family Care: No Living arrangements: with family Additional living arrangements comments: Occupation/Education: 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 Gender identity (if verbalized by the patient): Female Sexual Orientation (if Verbalized by the Patient): Straight or Heterosexual Spiritual care concerns: No Anes - Eval Final PreProcedure Day of Procedure 11/01/24 08:55 Patient weight: obese Heart: regular rate and rhythm Lungs: clear to auscultation Airway: Mallampati scale class II Neurological: alert and oriented Last oral intake: >/= 8 hours ASA classification: III Emergent: no Anesthetic plan: proceed Anesthesia type and monitoring: general ETT and standard monitoring Results Review: All pre-operative results and documents have been reviewed as part of the pre- operative evaluation. Informed Consent: The patient's anesthetic plan and its attendant risks and benefits were discussed with the patient/family/POA. Questions were solicited and answers provided to the satisfaction of the patient/family/POA.
[2024-11-01] MEDS: KETOROLAC 15 MG/ML VIAL (*BKC) IV PUSH (09:04)
[2024-11-01] MEDS: ACETAMINOPHEN 500 MG TABLET 1000 MG PO ×3 (09:04→20:33)
[2024-11-01] MEDS: metroNIDAZOLE 500 MG/ISO 100ML 500 MG/100 ML BAG 100 MG IVPB (10:42)
[2024-11-01] MEDS: ceFAZolin 2 GM/D5W 50 ML 2 GM/50 ML BAG IVPB (10:55)
[2024-11-01] MEDS: BUPIVACAINE/EPINEPHRINE 0.5% 50 ML VIAL 30 ML INFILTRATE (11:29)
--- NOTE | 2024-11-01 12:14 | W.PM.PROC2 ---
Procedure Note - Detailed Date of Procedure 11/01/24 Pre-op Diagnosis uterine fibroids Post-op Diagnosis Same Procedure Performed Robotic assisted total laparoscopic hysterectomy, left salpingectomy, and cystoscopy Surgeon Heidy Orozco MD Fish Dressing Machine Feeder Sascha Anesthesia General and Local (30cc of 0.5% Marcaine w/ epi) Findings Uterus sounded to 9cm, cervix 3cm. History of right salpingo-oophorectomy. Descending colon adhered to pelvic side wall and adnexa; taken down. Normal appearing left ovarian cyst (~3cm, simple). Normal left fallopian tube. Fibroid uterus (multiple, largest anterior, ~2-3cm, 1cm posterior x2). Good hemostasis at end of case. Normal bladder without defects/masses; bilateral ureteral efflux. Description of Procedure Winnie was taken to the operating room where she was placed under general anesthesia without issues. She received 2 g Ancef and 500mg Metronidazole. She was then prepped and draped in the usual sterile fashion in the dorsal lithotomy position with her legs in low Colby stirrups, her arms tucked at her side, with a strap over her chest. An oral gastric tube was placed. A time-out was performed. My attention was turned down below where a Giang catheter was placed. A bivalve speculum was placed within the vagina. The cervix was easily identified and the anterior lip of the cervix was grasped with single-tooth tenaculum. The uterus was then sounded to 9cm. The cervix was serially dilated to allow for the JENN uterine manipulator; which was placed w/o issue (8cm tip with 3cm cervical ring). My gloves were changed and attention was then turned to the abdomen. A 5 mm trocar was placed under direct visualization at Du's point without issue. Once intra-abdominal placement was confirmed, the abdomen was insufflated with carbon dioxide gas. An abdominal survey was performed and the above findings were noted. Two additional ports were placed on the right and left side and the camera port was placed supraumbilical under direct visualization without issues. The 5mm port was switched out for the accessory port under direct visualization. The patient was then placed in deep Trendelenburg, with the legs slightly lowered. The robot was then docked. The instruments were placed intra-abdominally under direct visualization. I then un-scrubbed and went to the robotic console. The colon adhesions to the pelvic side wall and left adnexa were slowly and carefully taken down. I then started my hysterectomy on the left side. The ureter was easily identified transperitoneally and well out of the surgical field. The fallopian tube was elevated and the mesosalpinx was coagulated and transected. The round ligament was clamped, coagulated, and transected. The uterine ovarian artery was then serially clamped, coagulated, and transected with good hemostasis. The broad ligament was then dissected anteriorly and posteriorly skeletonizing the uterine artery. The bladder flap was then developed on the left side and carried around the right, anteriorly. The uterine artery was then serially clamped and coagulated. Once the vessel was adequately coagulated, it was then transected with good hemostasis. The right round ligament was clamped, coagulated, and transected. The broad ligament was then dissected anteriorly and posteriorly skeletonizing the uterine artery. The bladder flap was then finalized. The uterine artery was then serially clamped and coagulated. Once the vessel was adequately coagulated, it was then transected with good hemostasis. The uterus was noted to be devascularized. The bladder flap was verified out of the surgical field and the colpotomy was started anteriorly and continued in a clockwise fashion until the uterus was released. The uterus was removed from the abdomen via the vagina without complications. The vaginal cuff had small bleeders that were made hemostatic without complications. The vaginal cuff was then reapproximated using a 0 V lock suture. The pelvis was then irrigated and suctioned free of all clots and debris. The pneumoperitoneal pressure was decreased to 6 and good hemostasis was noted. All instruments were removed from the abdomen and the robot was undocked. I then scrubbed back in and verified that the cuff was intact without any defects. The Giang catheter was then removed. The cystoscope was placed within the bladder, which filled without difficulty. Bilateral ureteral efflux was noted. The bladder was examined and no defects or abnormalities were visualized. The bladder was drained. The cystoscope was removed. The Giang catheter was replaced under aseptic technique. The 4 laparoscopic incisions were reapproximated using 4-0 Monocryl and covered with Dermabond. The laparoscopic incisions were infiltrated with local anesthesia for better pain control. Sponge, lap, instrument, and needle counts were correct at the end the procedure. Patient was awoken from general anesthesia and taken to recovery in a stable conditions with plans of overnight stay. Estimated Blood Loss 10 IV Fluids 1,200 Urine Output 100 Pathology Yes (uterus, cervix, left fallopian tube) Complications No immediate complications Condition Stable Disposition Same day [facility] Billing Surgery - Charge Forward: Surgery Billing
[2024-11-01] MEDS: fentaNYL CITRATE INJ (*CRX) 100 MCG/2 ML VIAL 25 MCG IV PUSH ×5 (12:30→13:07)
--- NOTE | 2024-11-01 13:24 | OBPPTRN ---
Patient transferred to post room #289 via bed. Oriented to unit, room, information board, and admission packet. Patient verbalizes understanding.
[2024-11-01] MEDS: DEXTROSE 5%/LACTATED RINGERS 1,000 ML 125 ML IV CONT (13:56)
[2024-11-01] MEDS: KETOROLAC 30 MG/ML VIAL (*BKC) IV PUSH ×2 (15:04→20:33)
[2024-11-01] MEDS: carvediloL 12.5 MG TABLET PO (17:21)
[2024-11-01] MEDS: SIMETHICONE 80 MG TAB.CHEW PO (17:21)
[2024-11-01] MEDS: DOCUSATE SODIUM 100 MG CAPSULE PO (17:21)
[2024-11-01] MEDS: oxyCODONE HCL (*CRX) 5 MG TAB IR PO (19:08)
[2024-11-02 00:21] VITALS: BP 100/61; PULSE 82; RESP 18; TEMP 36.3; O2SAT 99
[2024-11-02 03:00] VITALS: BP 148/80; PULSE 67; RESP 18; TEMP 36.4; O2SAT 98
[2024-11-02] MEDS: ACETAMINOPHEN 500 MG TABLET 1000 MG PO (03:00)
[2024-11-02] MEDS: KETOROLAC 30 MG/ML VIAL (*BKC) IV PUSH (03:00)
[2024-11-02 03:15] LABS: Basophils Percent Auto 0.2 % (0.2-1.2); Hematocrit 39.8 % (37.0-47.0); Immature Granulocyte Absolute 0.07 K/mm3 (0.00-0.031); Immature Granulocyte Percent A 0.4 % (0-0.5); Lymphocytes Absolute Auto 2.15 K/mm3 (0.9-3.2); Lymphocytes Percent Auto 12.4 % (18.3-44.2); Mean Corpuscular HGB Conc 32.7 g/dl (32-36); Mean Corpuscular Hemoglobin 30.6 pg (26-34); Mean Corpuscular Volume 93.6 fl (80-100); Mean Platelet Volume 10.6 fl (7.4-10.4); Monocytes Absolute Auto 0.9 K/mm3 (0.1-0.6); Monocytes Percent Auto 5.1 % (2.6-8.5); Neutrophils Absolute Auto 14.2 K/mm3 (1.3-6.7); Neutrophils Percent Auto 81.9 % (45.5-73.1); Platelet Count Result 257 k/mm3 (150-375); Red Blood Count 4.25 M/mm3 (4.2-5.4); Red Cell Distribution Width 13.1 % (11.5-14.5); White Blood Count 17.3 K/mm3 (4.5-10.0)
[2024-11-02 03:24] LABS: Anion Gap 8 mmol/L (4-12); Blood Urea Nitrogen 15 mg/dL (7-17); Calcium 8.7 mg/dL (8.4-10.2); Carbon Dioxide 21 mmol/L (22-30); Chloride 106 mmol/L (98-107); Estimated CRCL calculation 106 ml/min; Estimated Glomerular Filt Rate > 60; Glucose 129 mg/dL (65-110); Potassium 4.1 mmol/L (3.4-5.0); Sodium 135 mmol/L (137-145)
--- NOTE | 2024-11-02 07:25 | PM.GYNPNOP ---
PAINTINGS RESTORER - A/P Assessment and plan (1) S/P laparoscopic hysterectomy: Code(s): Z90.710 - Acquired absence of both cervix and uterus Status: Acute Postoperative Procedures: Procedures Operation Date: 11/01/24 10:00 Actual Procedure Side Surgeon p Robotic Assisted Total Laparoscopic Hysterectomy with Left Salpingectomy, Cystoscopy Left Heidy Orozco MD Postoperative day: 1 Postoperative status: doing well Postoperative plan: routine post-op care and discharge Time Spent With Patient Time: Total time spent is greater than 50% in coordination of care (as documented) at patient's floor/unit and/or counseling patient: Time with patient: less than 15 minutes PAINTINGS RESTORER- PN:Subj Post-Op Subjective Date/time seen: 11/02/24 07:15 Interval history: POD#1 Winnie reports doing well today. No issues overnight. Her pain is controlled with PO meds. She has tolerated regular diet. She denies any vaginal bleeding. She has voided. She has passed flatus. She has ambulated and denies any symptoms of anemia. Review of Systems Review of Systems: All systems reviewed & are unremarkable except as noted in HPI and below (HPI) Constitutional: Constitutional: Denies chills, Denies fever(s) and Denies headache(s) Eyes: Eyes: Denies change in vision ENT: Denies dizziness and Denies headache(s) Cardiovascular: Cardiovascular: Denies chest pain and Denies rapid heart rate Respiratory: Respiratory: Denies cough Genitourinary: Genitourinary: Denies abnormal vaginal bleeding Neurologic: Denies dizziness and Denies headache(s) Exam Const: General: cooperative, healthy appearing, comfortable and no acute distress Orientation/consciousness: patient oriented x3 Resp: Effort & Inspection: normal respiratory effort Auscultation: clear to auscultation bilaterally Cardio: Rate: regular rate GI: Inspection: normal to inspection and incision ( LSC incisions c/d/i) GI Palp: Yes abdominal tenderness (appropriate) and Yes Soft to palpation Auscultation: normal bowel sounds : Other: normal bleeding on pad Skin: General skin exam: normal color Neuro: General: patient oriented x3 Psych: Appearance: grossly normal Affect: normal affect Attitude: cooperative PAINTINGS RESTORER - PN: Obj Data Vital Signs Vital Signs: Vital Signs - 24 hr 11/01/24 08:30 11/01/24 12:20 11/01/24 12:30 Temperature 93.1 F L 97.0 F L Pulse Rate 79 85 70 Respiratory Rate 18 16 15 Blood Pressure 140/85 138/89 123/71 Pulse Oximetry 98 99 100 Oxygen Delivery Room Air Simple Face Mask Simple Face Mask Oxygen Flow Rate 8 8 11/01/24 12:45 11/01/24 13:00 11/01/24 13:10 Temperature Pulse Rate 72 65 75 Respiratory Rate 15 14 15 Blood Pressure 115/75 117/84 118/76 Pulse Oximetry 100 100 98 Oxygen Delivery Simple Face Mask Room Air Room Air Oxygen Flow Rate 8 11/01/24 13:20 11/01/24 13:25 Temperature 97.3 F L Pulse Rate 75 Respiratory Rate 16 Blood Pressure 129/94 H Pulse Oximetry 99 Oxygen Delivery Room Air Room Air Oxygen Flow Rate Intake/Output Intake/Output: Intake & Output 10/29/24 10/30/24 10/31/24 11/01/24 23:59 23:59 23:59 23:59 Intake Total 2050 Output Total 260 Balance 1790 Meds/Results Medications: Active Medications Generic Name Dose Route Start Last Admin Trade Name Freq PRN Reason Stop Dose Admin Acetaminophen 1,000 mg 11/01/24 18:00 Acetaminophen 500 Mg Tablet PO Q6HR [facility] Carvedilol 12.5 mg 11/01/24 17:00 Carvedilol 12.5 Mg Tablet PO BID [facility] Docusate Sodium 100 mg 11/01/24 17:00 Docusate Sodium 100 Mg Capsule PO BID [facility] Hydromorphone HCl 0.5 mg 11/01/24 13:23 Hydromorphone Hcl Inj (*Crx) 1 Mg/Ml Syr IV PUSH Q2H PRN Breakthrough Pain Rated 4-6 or NPO Dextrose/Lactated Ringer's 1,000 mls @ 125 mls/hr 11/01/24 13:23 Dextrose 5%/Lactated Ringers IV CONT .Q8H [facility] Ibuprofen 600 mg 11/02/24 12:00 Ibuprofen 600 Mg Tablet PO Q6HR [facility] Ketorolac Tromethamine 30 mg 11/01/24 18:00 Ketorolac 30 Mg/Ml Vial (*Bkc) IV PUSH 11/02/24 06:01 Q6HR [facility] Lisinopril 10 mg 11/02/24 09:00 Lisinopril 10 Mg Tablet PO DAILY [facility] Naloxone HCl 0.1 mg 11/01/24 13:23 Naloxone Hcl 0.4 Mg/Ml Vial IV PUSH Q2M PRN Respiratory rate less than 10 Ondansetron HCl 4 mg 11/01/24 13:23 Ondansetron Inj 4 Mg/2 Ml Vial IV PUSH Q6H PRN Nausea And Vomiting Oxycodone HCl 5 mg 11/01/24 13:23 Oxycodone Hcl (*Crx) 5 Mg Tab Ir PO Q4H PRN Pain Rated 4-6 Oxycodone HCl 10 mg 11/01/24 13:23 Oxycodone Hcl (*Crx) 5 Mg Tab Ir PO Q6H PRN Pain Rated 7-10 Simethicone 80 mg 11/01/24 17:00 Simethicone 80 Mg Tab.Chew PO TIDWM [facility] Labs 11/02/24 03:05 11/02/24 03:05
[2024-11-02 08:00] VITALS: BP 134/85; PULSE 72; RESP 16; TEMP 36.8; O2SAT 98
[2024-11-02] MEDS: lisinopriL 10 MG TABLET PO (08:03)
[2024-11-02] MEDS: DOCUSATE SODIUM 100 MG CAPSULE PO (08:03)
[2024-11-02] MEDS: SIMETHICONE 80 MG TAB.CHEW PO (08:04)
[2024-11-02] MEDS: carvediloL 12.5 MG TABLET PO (08:04)
== END 2024-11-02 08:51 | disposition home or self-care (01) ==
LOC: ANHSURGERY 12:28 → ANHOB2 13:25
PROVIDERS: Visit Provider Obstetrics & Gynecology
PROC: (CPT 58571; principal; 2024-11-01 10:00)
DX: D25.2 Subserosal leiomyoma of uterus (principal); N88.8 Other specified noninflammatory disorders of cervix uteri; N80.03 Adenomyosis of the uterus; N80.00 Endometriosis of the uterus, unspecified; N73.6 Female pelvic peritoneal adhesions (postinfective); I10 Essential (primary) hypertension; J45.909 Unspecified asthma, uncomplicated; E66.9 Obesity, unspecified; Z68.35 Body mass index [BMI] 35.0-35.9, adult; Z98.890 Other specified postprocedural states; Z87.891 Personal history of nicotine dependence; Z80.9 Family history of malignant neoplasm, unspecified
CPT/HCPCS: 58571; S2900; 36415; 80048; 85025; 88307; 99199; A9270; J0690; J1100; J1171; J1836; J1885; J2003; J2250; J2405; J2704; J3010; J7030; J7120; J7121

== ENCOUNTER 2025-01-28 13:22 | Emergency (ER) | payer BC, OTHER, SELFPAY ==
[2025-01-28] VITALS (9 sets, daily range): BP systolic 137–171; BP diastolic 94–110; PULSE 71–98; RESP 11–32; TEMP 36.4–36.7; O2SAT 96–100
--- NOTE | ~2025-01-28 | CT_ITS ---
CT diagnostic chest wo [facility] Ordering provider: Joseph Villagran MD History: 44 years Female with . Dyspnea x9 days . Comparison: None. Technique: CT chest without IV contrast. Radiation reduction technique utilized. The dose-length prod uct was 293.90 mGy-cm. FINDINGS: VISUALIZED THORACIC INLET: Normal. MEDIASTINUM: Aorta/coronary arteries: The thoracic aorta is normal. Heart/other: The heart is not enlarged. Lymph nodes: No mediastinal or hilar adenopathy. LUNGS: Focal atelectasis versus early pneumonia is seen in the lingula. No pulmonary nodules or ruslan s. No effusions. No pneumothorax. VISUALIZED UPPER ABDOMEN: the visualized upper abdomen is normal. MUSCULOSKELETAL: Soft tissues: The superficial soft tissues are normal. Bones: normal spine. IMPRESSION: 1. Focal atelectasis versus early pneumonia in the lingula. Otherwise, no definite abnormality seen. Reviewed, dictated and finalized at location A. IMPRESSION: 1. Focal atelectasis versus early pneumonia in the lingula. Otherwise, no defi nite abnormality seen.
--- NOTE | ~2025-01-28 | XR_ITS ---
EXAM/PROCEDURE: XR chest 1V portable - 01/28/2025 14:11 CDT HISTORY: 44 years old Female with Dyspnea/wheezing TECHNIQUE: AP view(s) of the chest. COMPARISON: None available. FINDINGS: LUNGS/ PLEURA: No focal consolidation. No appreciable pneumothorax or large pleural effusion. HEART/ MEDIASTINUM: Heart appears normal in size. BONES: No acute osseous abnormality. OTHER: Visualized upper abdomen is unremarkable. IMPRESSION: No acute process. Reviewed, dictated and finalized at location A. IMPRESSION: No acute process.
--- OUTSIDE RECORDS SUMMARY | 2025-01-28 13:25 | XMS_ITS | Encounter Summary ---
Author Organization [facility] Address [address] [place] [address] Care Team Providers Care Signs Cleaner Name Role Phone Elli Stewart MD Primary Care Provider [phone] Encounter Details Date Type Department Care Team (Late st Contact Info) Description 12/26/2005 Outpatient Historical [facility] - [address] [place] [address] Rogers Arnold MD [address] 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 Gender Identity Not on file Sexual [...] Care Team (Late st Contact Info) Description 02/09/2025 1:40 PM CDT Office Visit [address] [place] [phone] Elli Stewart MD [address] [place] [phone] 06/30/2025 9:00 AM ROUTE SALESMAN AND DRIVER Office Visit [facility] Primary Care - [facility] [address] [place] [phone] Elli Stewart MD [address] [place] [address] documented as of this encounter Visit Diagnoses Not on filedocumented in this encounter Care Teams Signs Cleaner Relationship Specialty Start Date End Date Elli Stewart MD [address] [place] [phone] PCP - General Internal Medicine 12/21/10 documented as of this encounter
--- OUTSIDE RECORDS SUMMARY | 2025-01-28 13:25 | XMS_ITS | Encounter Summary ---
Author Organization [facility] Address 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 Gender Identity Not on file Sexual Orientation Not on file documented as of this encounter Plan of Treatment Upcoming Encounters Date Type Department Care Team (Late st Contact Info) Description 02/09/2025 1:40 PM CDT Office Visit [facility] [address] [place] [address] [address] [place] [address] Elli Stewart MD [address] [place] [address] [address] [place] [address] 06/30/2025 9:00 AM BALE BREAKER OPERATOR Office Visit [facility] [address] [place] [address] [address] [place] [address] Elli Stewart MD [address] [place] [address] documented as of this encounter Visit Diagnoses Not on filedocumented in this encounter Care Teams Sea Air Land Officer Relationship Specialty Start Date End Date Elli Stewart MD [address] [place] [address] PCP - General Internal Medicine 12/21/10 documented as of this encounter
--- OUTSIDE RECORDS SUMMARY | 2025-01-28 13:25 | XMS_ITS | Clinical Summary ---
Author Organization [email or web address] Address [address] [place] [address] Care Team Providers Care Railroad Surveyor Name Role Phone Elli Stewart MD Primary Care Provider [phone] Source Comments [email or web address],non-owned Affiliates and Associated Physician Practices is amultiple site organization consisting of ambulatory clinics and hospital sitesin [place], [place], [place] and [place]. This disclosure is being madepursuant to the Care Everywhere program and may not contain all information available regarding this patient. Last updated 18.[email or web address] Allergies No known active allergies Medications * [...] 11:05 AM CDT Height 162.6 cm (5' 4) 03/26/2017 11:05 AM CDT Body Mass Index 42.91 03/26/2017 11:05 AM CDT Plan of Treatment Health Maintenance Due Date Last Done Comments LIPID TESTING 1981 MAMMOGRAM 1981 HIV SCREENING 02/06/1996 HEPATITIS C SCREENING 02/01/1999 DTAP/TDAP/TD VACCINES (1 - Tdap) 02/06/2000 HEPATITIS B VACCINE (1 of 3 - 19+ 3-dose series) 02/06/2000 PNEUMOCOCCAL VACCINE (1 of 2 - PCV) 02/06/2000 PAP SMEAR 2002 HPV VACCINE (1 - 3-dose SCDM series) 02/06/2008 COVID-19 VACCINE (1 - 2023-2 5 season) 2024 DEPRESSION SCREENING 07/21/2024 INFLUENZA VACCINE (#1) 2025 ZOSTER VACCINE (1 of 2) 2031 HIB VACCINE Aged Out No longer eligi ble based on patient's age to complete this topic MENINGOCOCCAL (Group B) VACC INE SHARED DECISION-MAKING Aged Out No longer eligibl e based on patient's age to complete this topic MENINGOCOCCAL GROUPS A/C/Y/W VACCINE Aged Out No longer eligible b ased on patient's age to complete this topic Insurance SELF PAY NO INSURANCE Member Subscriber Plan / Payer (Ef fective for All Dates) Name:Michael Marcus Member ID:Not on file Relation to Subscriber:Not on file Name:MICHAEL MARCUS Subscriber ID:Not on file (Home) Address: [address] [place], [place] [address] [address] Payer ID:Not on file Group ID:Not on file Type:Self Pay Address: [facility] Care Teams Railroad Surveyor Relationship Specialty Start Date End Date Elli Stewart MD [address] [place] [address] PCP - General 11/07/21
--- OUTSIDE RECORDS SUMMARY | 2025-01-28 13:25 | XMS_ITS | Encounter Summary ---
Author Organization [facility] Address [address] [place] [address] Care Team Providers Care Double Backer Name Role Phone Elli Stewart MD Primary Care Provider [phone] Encounter Details Date Type Department Care Team (Late st Contact Info) Description 08/29/2006 Orders Only [facility] Primary Care - [address] [place] [address] Raúl Wright MD [address] [facility] [address] [place] [address] Social History Tobacco Use Types Packs/Day Years Used Date Smoking Tobacco: Never Assessed Comments Unknown Sex and Gender Information Value Date Recorded Sex Assigned at Not on file Legal 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 Gender Identity Not on file Sexual Orientation [...] Description 02/09/2025 1:40 PM CDT Office Visit [address] [place] [phone] Elli Stewart MD [facility] [address] [place] [phone] 06/30/2025 9:00 AM MINERAL RESOURCES INSPECTOR Office Visit [address] [place] [phone] Elli Stewart MD [address] [place] [address] [address] [place] [address] documented as of this encounter Visit Diagnoses Not on filedocumented in this encounter Care Teams Double Backer Relationship Specialty Start Date End Date Elli Stewart MD [address] [facility] [address] [place] [address] PCP - General Internal Medicine 12/21/10 documented as of this encounter
--- OUTSIDE RECORDS SUMMARY | 2025-01-28 13:25 | XMS_ITS | Encounter Summary ---
Author Organization [facility] Address [address] [place] [address] Care Team Providers Care Ambulance Mechanic Name Role Phone Elli Stewart MD Primary Care Provider [phone] Encounter Details Date Type Department Care Team (Late st Contact Info) Description 08/29/2006 Outpatient Historical [facility] Care - [address] [place] [address] Raúl Wright MD [address] [facility] [address] [place] [address] Social History Tobacco Use Types Packs/Day Years Used Date Smoking Tobacco: Never Assessed Comments Unknown Sex and Gender Information Value Date Recorded Sex Assigned at Not on file Legal 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 WELL SERVICE 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 Gender Identity Not on file Sexual Orientation Not on file documented as of this encounter Last Filed Vital Signs Vital Sign Reading Time Taken Comments Blood Pressure 118/68 08/29/2006 11:30 AM WELL SERVICE 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 Pulse - - Temperature 36.4 C (97.6 F) 08/29/2006 11:30 AM WELL SERVICE 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 Respiratory Rate - - Oxygen Saturation - - Inhaled Oxygen Concentration - - Weight 84.8 kg (187 lb) 08/29/2006 11:30 AM WELL SERVICE 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 Height - - Body Mass Index - - documented in this encounter Plan of Treatment Upcoming Encounters Date Type Department Care Team (Late st Contact Info) Description 02/09/2025 1:40 PM CDT Office Visit [facility] - [address] [place] [phone] Elli Stewart MD [address] [place] [phone] 06/30/2025 9:00 AM WELL SERVICE 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 Office Visit [facility] Primary Care - [facility] [address] [place] [phone] Elli Stewart MD [address] [place] [address] documented as of this encounter Visit Diagnoses Not on filedocumented in this encounter Care Teams Ambulance Mechanic Relationship Specialty Start Date End Date Elli Stewart MD [address] [place] [phone] PCP - General Internal Medicine 12/21/10 documented as of this encounter
--- OUTSIDE RECORDS SUMMARY | 2025-01-28 13:25 | XMS_ITS | Encounter Summary ---
Author Organization [facility] Address [address] [place] [address] Care Team Providers Care Java Enterprise Architect Name Role Phone Elli Stewart MD Primary Care Provider [phone] Encounter Details Date Type Department Care Team (Late st Contact Info) Description 11/06/2007 Outpatient Historical [address] [place] [address] Raúl Wright MD [address] [facility] [address] [place] [address] Social History Tobacco Use Types Packs/Day Years Used Date Smoking Tobacco: Never Assessed Comments Unknown Sex and Gender Information Value Date Recorded Sex Assigned at Not on file Legal 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 BUS MONITOR Gender Identity Not on file Sexual Orientation Not on file documented as of this encounter Plan of Treatment Upcoming Encounters Date Type Department Care Team (Late st Contact Info) Description 02/09/2025 1:40 PM CDT Office Visit [facility] [address] [place] [address] [address] [place] [address] Elli Stewart MD [address] [place] [address] [address] [place] [address] 06/30/2025 9:00 AM BUS MONITOR Office Visit [facility] [address] [place] [address] [address] [place] [address] Elli Stewart MD [address] [place] [address] documented as of this encounter Visit Diagnoses Not on filedocumented in this encounter Care Teams Java Enterprise Architect Relationship Specialty Start Date End Date Elli Stewart MD [address] [place] [address] PCP - General Internal Medicine 12/21/10 documented as of this encounter
--- OUTSIDE RECORDS SUMMARY | 2025-01-28 13:25 | XMS_ITS | Encounter Summary ---
Author Organization [facility] Address [address] [place] [address] Care Team Providers Care Commodity Loan Clerk Name Role Phone Elli Stewart MD Primary Care Provider [phone] Encounter Details Date Type Department Care Team (Late st Contact Info) Description 07/15/2006 Orders Only [facility] Primary Care - [address] [place] [address] Raúl Wright MD [address] [facility] [address] [place] [address] Social History Tobacco Use Types Packs/Day Years Used Date Smoking Tobacco: Never Assessed Comments Unknown Sex and Gender Information Value Date Recorded Sex Assigned at Not on file Legal 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 FLOOR TECH Gender Identity Not on file Sexual Orientation Not on file documented as of this encounter Progress Notes * Raúl Wright MD - 05/04/2008 4:57 AM CDT TIME:10:02 am PATIENT`S HOME PHONE: PATIENT`S WORK PHONE: PATIENT`S INSURANCE: [facility] WHO TOOK THE CALL: Arina Alfredo GENERAL INFORMATION PATIENT STATUS: Established Patient. PCP: dain. ALTERNATIVE PHONE NUMBER: [phone] WHO CALLED: Patient called. CURRENT ALLERGY LIST: [facility] NUMBER: [phone] PROBLEMS: URINATION: Patient complains of frequent urination, [...] Wright MD - 05/04/2008 4:56 AM CDT [facility] RAÚL WRIGHT MD [facility] [place] [address] July 15, 2006 MICHAEL BAUMANN [address] [place] [address] MICHAEL IBIS has been under our care during the dates below: 07/15/06 May return to work: 07/16/06 Sincerely yours, RAÚL WRIGHT MD documented in this encounter Plan of Treatment Upcoming Encounters Date Type Department Care Team (Late st Contact Info) Description 02/09/2025 1:40 PM CDT Office Visit [place] [address] [place] [address] Elli Stewart MD [facility] [address] [place] [phone] 06/30/2025 9:00 AM FLOOR TECH Office Visit [place] [address] [address] [place] [address] Elli Stewart MD [facility] [address] [place] [address] documented as of this encounter Visit Diagnoses Not on filedocumented in this encounter Care Teams Commodity Loan Clerk Relationship Specialty Start Date End Date Elli Stewart MD [address] [facility] [address] [place] [address] PCP - General Internal Medicine 12/21/10 documented as of this encounter
--- OUTSIDE RECORDS SUMMARY | 2025-01-28 13:25 | XMS_ITS | Encounter Summary ---
Author Organization [facility] Address [address] [place] [address] Care Team Providers Care Center Mgr Name Role Phone Elli Stewart MD Primary Care Provider [phone] Encounter Details Date Type Department Care Team (Late st Contact Info) Description 12/12/2005 Outpatient Historical [address] [place] [address] Raúl Wright MD [address] [facility] [address] [place] [address] Social History Tobacco Use Types Packs/Day Years Used Date Smoking Tobacco: Never Assessed Comments Unknown Sex and Gender Information Value Date Recorded Sex Assigned at Not on file Legal 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 IN HOME CAREGIVER Gender Identity Not on file Sexual Orientation Not on file documented as of this encounter Plan of Treatment Upcoming Encounters Date Type Department Care Team (Late st Contact Info) Description 02/09/2025 1:40 PM CDT Office Visit [facility] [address] [place] [address] [address] [place] [address] Elli Stewart MD [address] [place] [address] [address] [place] [address] 06/30/2025 9:00 AM IN HOME CAREGIVER Office Visit [facility] [address] [place] [address] [address] [place] [address] Elli Stewart MD [address] [place] [address] documented as of this encounter Visit Diagnoses Not on filedocumented in this encounter Care Teams Center Mgr Relationship Specialty Start Date End Date Elli Stewart MD [address] [place] [address] PCP - General Internal Medicine 12/21/10 documented as of this encounter
--- OUTSIDE RECORDS SUMMARY | 2025-01-28 13:25 | XMS_ITS | Encounter Summary ---
Author Organization [facility] Address [address] [place] [address] Care Team Providers Care Health Companion Name Role Phone Elli Stewart MD Primary Care Provider [phone] Encounter Details Date Type Department Care Team (Late st Contact Info) Description 12/12/2005 Outpatient Historical [address] [place] [address] Raúl Wright MD [address] [facility] [address] [place] [address] Social History Tobacco Use Types Packs/Day Years Used Date Smoking Tobacco: Never Assessed Comments Unknown Sex and Gender Information Value Date Recorded Sex Assigned at Not on file Legal 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 GOLF SHOE SPIKE ASSEMBLER Gender Identity Not on file Sexual Orientation Not on file documented as of this encounter Plan of Treatment Upcoming Encounters Date Type Department Care Team (Late st Contact Info) Description 02/09/2025 1:40 PM CDT Office Visit [facility] [address] [place] [address] [address] [place] [address] Elli Stewart MD [address] [place] [address] [address] [place] [address] 06/30/2025 9:00 AM GOLF SHOE SPIKE ASSEMBLER Office Visit [facility] [address] [place] [address] [address] [place] [address] Elli Stewart MD [address] [place] [address] documented as of this encounter Visit Diagnoses Not on filedocumented in this encounter Care Teams Health Companion Relationship Specialty Start Date End Date Elli Stewart MD [address] [place] [address] PCP - General Internal Medicine 12/21/10 documented as of this encounter
--- OUTSIDE RECORDS SUMMARY | 2025-01-28 13:25 | XMS_ITS | Encounter Summary ---
Author Organization [facility] Address [address] [place] [address] Care Team Providers Care Pan Helper Name Role Phone Elli Stewart MD Primary Care Provider [phone] Encounter Details Date Type Department Care Team (Late st Contact Info) Description 12/26/2005 Orders Only [facility] Primary Care - [facility] [address] [place] [address] [address] [place] [address] Rogers Arnold MD [address] [facility] [address] [address] Social History Tobacco Use Types Packs/Day Years Used Date Smoking Tobacco: Never Assessed Comments Unknown Sex and Gender Information Value Date Recorded Sex Assigned at Not on file Legal 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 TAIL DOGGER Gender Identity Not on file Sexual Orientation Not on file documented as of this encounter Progress Notes * Rogers Arnold MD - 04/29/2008 7:14 AM CDT TEMPERATURE: 97.5??f Oral WEIGHT: 174lbs BLOOD PRESSURE: 128/80 Right Arm Sitting NURSE NAME: Abby Boothe ALLERGIES: No known drug allergies. MEDICATIONS: Patient is taking no medications at present. CHIEF COMPLAINT Here for follow up evaluation. ER visit ([facility]) for chest pain. RC HISTORY: chest pain [...] Description 02/09/2025 1:40 PM CDT Office Visit [address] [place] [address] Elli Stewart MD [address] [place] [address] [place] [address] 06/30/2025 9:00 AM TAIL DOGGER Office Visit [facility] [address] [place] [address] [place] [address] Elli Stewart MD [address] [place] [address] [place] [address] documented as of this encounter Visit Diagnoses Not on filedocumented in this encounter Care Teams Pan Helper Relationship Specialty Start Date End Date Elli Stewart MD [address] [place] [address] [place] [address] PCP - General Internal Medicine 12/21/10 documented as of this encounter
--- OUTSIDE RECORDS SUMMARY | 2025-01-28 13:25 | XMS_ITS | Encounter Summary ---
Author Organization [facility] Address [address] [place] [address] Care Team Providers Care State Patrol Officer Name Role Phone Elli Stewart MD Primary Care Provider [phone] Encounter Details Date Type Department Care Team (Late st Contact Info) Description 12/12/2005 Orders Only [facility] Primary Care - [facility] [address] [facility] [address] [place] [address] Raúl Wright MD [address] [facility] [address] [place] [address] Social History Tobacco Use Types Packs/Day Years Used Date Smoking Tobacco: Never Assessed Comments Unknown Sex and Gender Information Value Date Recorded Sex Assigned at Not on file Legal 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 SQUAD LEADER Gender Identity Not on file Sexual Orientation Not on file documented as of this encounter Progress Notes * Raúl Wright MD - 04/29/2008 5:35 AM CDT [facility] RAÚL WRIGHT MD [address] [place] [address] December 12, 2005 MICHAEL BAUMANN [address] [place] [address] MICHAEL IBIS has been under our care during the dates below: 12/11/05,12/12/05 May return to work: Sincerely yours, RAÚL WRIGHT MD * Raúl Wright MD - 04/29/2008 5:35 AM CDT [facility] RAÚL WRIGHT MD [address] [place] [address] December 12, 2005 MICHAEL BAUMANN [address] [place] [address] MICHAEL BAUMANN has been under our care [...] NEW PRESCRIPTION, 12/12/2005. LAB ORDERS: Order number: [id number] Test Ordered: NEBULIZER TREATMENT [id number] Order number: [id number] Test Ordered: PULSE OXIMETRY [id number] REPEAT VITAL SIGNS: Electronically Signed by: Raúl Wright MD on Friday, December 21, 2005 documented in this encounter Plan of Treatment Upcoming Encounters Date Type Department Care Team (Late st Contact Info) Description 02/09/2025 1:40 PM CDT Office Visit [facility] [address] [place] [address] Elli Stewart MD [address] [place] [address] 06/30/2025 9:00 AM SQUAD LEADER Office Visit [facility] [address] [place] [address] Elli Stewart MD [address] [facility] [address] [place] [address] documented as of this encounter Visit Diagnoses Not on filedocumented in this encounter Care Teams State Patrol Officer Relationship Specialty Start Date End Date Elli Stewart MD [address] [place] [address] PCP - General Internal Medicine 12/21/10 documented as of this encounter
--- OUTSIDE RECORDS SUMMARY | 2025-01-28 13:25 | XMS_ITS | Encounter Summary ---
Author Organization [facility] Address [address] [place] [address] Care Team Providers Care Engagement Specialist Name Role Phone Elli Stewart MD Primary Care Provider [phone] Encounter Details Date Type Department Care Team (Late st Contact Info) Description 11/06/2007 Outpatient Historical [address] [place] [address] Raúl Wright MD [address] [facility] [address] [place] [address] Social History Tobacco Use Types Packs/Day Years Used Date Smoking Tobacco: Never Assessed Comments Unknown Sex and Gender Information Value Date Recorded Sex Assigned at Not on file Legal 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 GRASSLAND CONSERVATIONIST Gender Identity Not on file Sexual Orientation Not on file documented as of this encounter Plan of Treatment Upcoming Encounters Date Type Department Care Team (Late st Contact Info) Description 02/09/2025 1:40 PM CDT Office Visit [facility] [address] [place] [address] [address] [place] [address] Elli Stewart MD [address] [place] [address] [address] [place] [address] 06/30/2025 9:00 AM GRASSLAND CONSERVATIONIST Office Visit [facility] [address] [place] [address] [address] [place] [address] Elli Stewart MD [address] [place] [address] documented as of this encounter Visit Diagnoses Not on filedocumented in this encounter Care Teams Engagement Specialist Relationship Specialty Start Date End Date Elli Stewart MD [address] [place] [address] PCP - General Internal Medicine 12/21/10 documented as of this encounter
--- OUTSIDE RECORDS SUMMARY | 2025-01-28 13:25 | XMS_ITS | Encounter Summary ---
Author Organization [facility] Address [address] [place] [address] Care Team Providers Care Domestic Laundry Worker Name Role Phone Elli Stewart MD Primary Care Provider [phone] Encounter Details Date Type Department Care Team (Late st Contact Info) Description 11/23/2007 Outpatient Historical [facility] [address] [place] [address] [address] [place] [address] Raúl Wright MD [address] [facility] [address] [place] [address] Routine General Medical Examination at a Health Care Facility; Family History of Diabetes Mellitus Social History Tobacco Use Types Packs/Day Years Used Date Smoking Tobacco: Never Assessed Comments Unknown Sex and Gender Information Value Date Recorded Sex Assigned at Not on file Legal 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 TURF SALES PERSON Gender Identity Not on file Sexual Orientation Not on file documented as of this encounter Plan of Treatment Upcoming Encounters Date Type Department Care Team (Late st Contact Info) Description 02/09/2025 1:40 PM CDT Office Visit [facility] [address] [facility] [address] [place] [address] Elli Stewart MD [address] [place] [address] [address] [place] [address] 06/30/2025 9:00 AM TURF SALES PERSON Office Visit [facility] [address] [place] [address] Elli Stewart MD [address] [facility] [address] [place] [address] documented as of this encounter [...] CDT) HDL 64(H) 40 - 59 mg/dL [facility] CHOLESTEROL 223(H) 100 - 199 mg/dL [facility] CHOL/HDL RATIO 3.5 2.0 - 5.0 [facility] TRIGLYCERIDE 132 10 - 149 mg/dL [facility] LDL CALCULATED 133(H) <=99 mg/dL [facility] LIPID PANEL COMMENT See Below [facility] Comment: The adult ATP and pediatric NCEP classifications for lipids are available on the [facility] Intranet at: [email or web address] Select: Lab Policies and Procedures,Current Select: Lipid Panel Interpretation Blood specimen (specimen) 11/23/2007 4:28 PM CDT 11/23/2007 4:59 PM CDT us Raúl Wright MD CHEMISTRY ORDERABLES Edited [facility] [address] [place] [address] * (ABNORMAL) CBC WITH DIFFERENTIAL (11/23/2007 4:28 PM CDT) WBC 13.1(H) 4.0 - 9.8 K/uL [facility] MCH 29.9 27.2 - 32.6 pg [facility] PLATELETS 305 140 - 350 K/uL [facility] HEMATOCRIT 42.9 35.5 - 44.0 % [facility] RDW-STDEV 43.1 37.1 - 48.7 fL [facility] RBC 4.65 3.90 - 4.90 M/uL [facility] MCHC 32.4 31.5 - 35.5 % [facility] MPV 11.5 9.3 - 12.4 fL [facility] MCV 92.3 82.0 - 99.0 fL [facility] HEMOGLOBIN 13.9 11.8 - 14.8 g/dL [facility] RDW 12.9 11.5 - 14.5 % [facility] EOSINOPHILS 1 0 - 7 % [facility] EOSINOPHIL ABSOLUTE 0.06 0.00 - 0.70 K/uL [facility] LYMPHOCYTES 35 16 - 45 % [facility] LYMPHOCYTE ABSOLUTE 4.54(H) 0.70 - 4.50 K/uL [facility] BASOPHILS 0 0 - 2 % [facility] BASOPHILS ABSOLUTE 0.05 0.00 - 0.20 K/uL [facility] MONOCYTES 7 3 - 13 % [facility] MONOCYTE ABSOLUTE 0.87 0.10 - 1.30 K/uL [facility] NEUTROPHILS 58 45 - 70 % [facility] NEUTROPHIL ABSOLUTE 7.59(H) 1.90 - 7.00 K/uL [facility] Blood specimen (specimen) 11/23/2007 4:28 PM CDT 11/23/2007 4:58 PM CDT us Raúl Wright MD HEMATOLOGY ORDERABLES Edited Performing Organization Address [facility] de Phone Number INTERFACE SYSTEM Refer to clinic/hospital department [facility] [address] [place] [address] * HEMOGLOBIN A1C (11/23/2007 4:28 PM CDT) GLUCOSE, MEAN BLOOD 129 mg/dL [facility] HEMOGLOBIN A1C 5.8 4.1 - 6.1 % of Hgb [facility] Blood specimen (specimen) 11/23/2007 4:28 PM CDT 11/23/2007 4:59 PM CDT us Raúl Wright MD CHEMISTRY ORDERABLES Final Resul t Performing Organization Address [facility] de Phone Number [facility] [address] [place] [address] * (ABNORMAL) INSULIN LEVEL (11/23/2007 4:28 PM CDT) INSULIN LEVEL 32(H) <17 uIU/mL [facility] Comment: Lab test performed by: [employer] [place] [address] [address] [address] MELODY GHOTRA MD Blood specimen (specimen) 11/23/2007 4:28 PM CDT 11/23/2007 4:59 PM CDT us Raúl Wright MD CHEMISTRY ORDERABLES Final Resul t Performing Organization Address [facility]/ZIP Co de Phone Number [facility] [address] [place] [address] * TSH WITH REFLEX FT4 (11/23/2007 4:28 PM CDT) TSH 1.64 0.27 - 4.20 uU/mL [facility] Blood specimen (specimen) 11/23/2007 4:28 PM CDT 11/23/2007 4:59 PM CDT Raúl Wright MD CHEMISTRY ORDERABLES Final Resul t [facility] [address] [place] [address] * (ABNORMAL) COMPREHENSIVE METABOLIC PANEL (11/23/2007 4:28 PM CDT) Pathologist [facility] POTASSIUM 3.9 3.5 - 4.9 mmol/L [facility] TOTAL PROTEIN 7.4 6.3 - 8.6 g/dL [facility] GLUCOSE 117(H) 65 - 99 mg/dL [facility] AST 21 12 - 32 U/L [facility] BUN 12 6 - 20 mg/dL [facility] CALCIUM 8.7 8.4 - 10.2 mg/dL [facility] ALBUMIN 4.4 3.4 - 4.8 g/dL [facility] CHLORIDE 102 96 - 108 mmol/L [facility] CREATININE 0.77 0.51 - 0.95 mg/dL [facility] ALT 21 0 - 31 U/L [facility] SODIUM 138 135 - 145 mmol/L [facility] ALKALINE PHOSPHATASE 65 35 - 104 U/L [facility] CO2 24 22 - 30 mmol/L [facility] BILIRUBIN TOTAL 0.4 0.2 - 1.0 mg/dL [facility] GFR, >60 >=60 mL/min/1. 7 sq meter [facility] GFR >60 >=60 mL/min/1. 7 sq meter [facility] Comment: Estimated GFR rate interpretative information for both Americans and non- Americans is available on the [facility] Intranet at: [email or web address] Select: Lab Policies and Procedures Select: Reference Ranges - GFR Blood specimen (specimen) 11/23/2007 4:28 PM CDT 11/23/2007 4:59 PM CDT Raúl Wright MD CHEMISTRY ORDERABLES Edited [facility] [address] [place] [address] documented in this encounter Visit Diagnoses Diagnosis Routine general medical examination at a health care facility Family history of diabetes mellitus documented in this encounter Care Teams Domestic Laundry Worker Relationship Specialty Start Date End Date Elli Stewart MD [address] [place] [address] PCP - General Internal Medicine 12/21/10 documented as of this encounter
--- OUTSIDE RECORDS SUMMARY | 2025-01-28 13:25 | XMS_ITS | Encounter Summary ---
Author Organization [facility] Address [address] [place] [address] Care Team Providers Care Chemical Processor Name Role Phone Elli Stewart MD Primary Care Provider [phone] Encounter Details Date Type Department Care Team (Late st Contact Info) Description 09/08/2008 Outpatient Historical [facility] [address] Raúl Wright MD [address] [facility] [address] [place] [address] [id number] Impaired Fasting Glucose Social History Tobacco Use Types Packs/Day Years Used Date Smoking Tobacco: Every Day Cigarettes Alcohol Use Standard Drinks/Week Comments Not Asked 0 (1 standard drink = 0.6 oz pur e alcohol) Comments No Sex and Gender Information Value Date Recorded Sex Assigned at Not on file Legal 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 WEIGHMASTER Gender Identity Not on file Sexual Orientation Not on file documented as of this encounter Plan of Treatment Upcoming Encounters Date Type Department Care Team (Late Contact Info) Description 02/09/2025 1:40 PM CDT Office Visit [facility] [address] [facility] [address] [place] [address] Elli Stewart MD [address] [place] [address] [address] [place] [address] 06/30/2025 9:00 AM WEIGHMASTER Office Visit [facility] [address] [facility] [address] [place] [address] Elli Stewart MD [address] [place] [address] documented as of this encounter Visit Diagnoses Diagnosis Impaired fasting glucose documented in this encounter Care Teams Chemical Processor Relationship Specialty Start Date End Date Elli Stewart MD [address] [place] [address] PCP - General Internal Medicine 12/21/10 documented as of this encounter
--- OUTSIDE RECORDS SUMMARY | 2025-01-28 13:26 | XMS_ITS | Encounter Summary ---
Author Organization [facility] Address [address] [place] [address] Phone Care Team Providers Care Head Of Mathematics Name Role Phone Elli Stewart MD Primary Care Provider [phone] Encounter Details Date Type Department Care Team (Late st Contact Info) Description 11/20/2021 Lab Requisition [facility] [address] [place] [address] Jeni Ramirez APRN, CLINICAL REHAB SPECIALIST [address] [place] [address] Encounter for screening for other viral diseases; [...] on file Legal Sex Female 7:07 PM LITHOGRAPHIC PLATEMAKER Gender Identity Not on file Sexual Orientation [...] 1.4 >=1.1 AI 11/20/2021 10:52 PM CDT [facility] Blood No Phlebotomy Charged / Unknown 11/20/2021 10:05 AM CDT 11/20/2021 12:51 PM CDT Narrative [facility] - 11/20/2021 10:52 PM CDT <= 0.8 Negative. No detectable Mumps IgG antibody. 0.9 - 1.0 Equivocal >=1.1 Positive Antibody testing was performed by multiplex flow immunoassay on the [employer] platform. Jeni Ramirez APRN, CNP IMMUNOLOGY ORDERA BLES Final Result [facility] [address] [place] [address], * HERPES ZOSTER (VARICELLA) IGG (11/20/2021 10:05 AM CDT) VARICELLA ZOSTER IGG 7.2 >=1.1 AI 11/20/2021 10:52 PM CDT [facility] Blood No Phlebotomy Charged / Unknown 11/20/2021 10:05 AM CDT 11/20/2021 12:51 PM CDT Narrative [facility] - 11/20/2021 10:52 PM CDT <= 0.8 Negative. No detectable VZV IgG antibody. 0.9 - 1.0 Equivocal >=1.1 Positive Antibody testing was performed by multiplex flow immunoassay on the [employer]une platform. us Jeni Ramirez FASHION DESIGNER, CLINICAL REHAB SPECIALIST IMMUNOLOGY ORDERA BLES Final Result [facility] [address] [place] [address], documented in this encounter Visit Diagnoses Diagnosis [...] Total Score: 0 09/16/19 18 7:00 PM LITHOGRAPHIC PLATEMAKER documented as of this encounter Care Teams Head Of Mathematics Relationship Specialty Start Date End Date Elli Stewart MD [address] [facility] [address] [place] [address] PCP - General Internal Medicine 09/16/17 documented as of this encounter
--- OUTSIDE RECORDS SUMMARY | 2025-01-28 13:26 | XMS_ITS | Encounter Summary ---
Author Organization [facility] Address [address] [place] [address] Care Team Providers Care Chairman Name Role Phone Elli Stewart MD Primary Care Provider [phone] Encounter Details Date Type Department Care Team (Late st Contact Info) Description 11/11/2005 Orders Only [address] [place] [address] Bridger Gerber MD NO ADDRESS ON FILE Social History Tobacco Use Types Packs/Day Years Used Date Smoking Tobacco: Never Assessed Comments Unknown Sex and Gender Information Value Date Recorded Sex Assigned at Not on file Legal 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 NURSING HOME ADMISSIONS DIRECTOR Gender Identity Not on file Sexual Orientation Not on file documented as of this encounter Plan of Treatment Upcoming Encounters Date Type Department Care Team (Late st Contact Info) Description 02/09/2025 1:40 PM CDT Office Visit [address] [place] [address] Elli Stewart MD [address] [place] [address] [address] [place] [address] 06/30/2025 9:00 AM NURSING HOME ADMISSIONS DIRECTOR Office Visit [facility] [address] [place] [address] [address] [place] [address] Elli Stewart MD [address] [place] [address] Rd [address] [place] [address] documented as of this encounter Visit Diagnoses Not on filedocumented in this encounter Care Teams Chairman Relationship Specialty Start Date End Date Elli Stewart MD [address] [place] [address] PCP - General Internal Medicine 12/21/10 documented as of this encounter
--- OUTSIDE RECORDS SUMMARY | 2025-01-28 13:26 | XMS_ITS | Encounter Summary ---
Author Organization [facility] Address [address] [place] [address] Care Team Providers Care Wild Life Manager Name Role Phone Elli Stewart MD Primary Care Provider [phone] Reason for Visit * Reason Onset Date Comments PEER to PEER 07/04/2023 Encounter Details Date Type Department Care Team (Late st Contact Info) Description 07/04/2023 Telephone [facility] Primary Care - [address] [place] [address] Elli Stewart MD [address] [place] [address] [place] [address] PEER to PEER Social History Tobacco Use Types Packs/Day Years Used Date Smoking Tobacco: Former Cigarettes Smokeless Tobacco: Never Alcohol Use Standard Drinks/Week Comments Yes 0 (1 standard drink = 0.6 oz pur e alcohol) Comments No Sex and Gender Information Value Date Recorded Sex Assigned at Not on file Legal 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 PROOF INSPECTOR Gender Identity Not on file Sexual Orientation Not on file Occupation Industry Job Start Date Job End Date Not on file Not on file Not on file Not on file documented as of this encounter Miscellaneous Notes * Telephone Encounter - Kathrine Pate - 07/07/2023 9:10 AM CST Should be ok for CAFETERIA TABLE ATTENDANT to do the PEER to PEER in PCP. Have a message in with Pre Cert to double check. F INSPECTOR * Telephone Encounter - Elli Stewart MD - 07/04/2023 4:50 PM CST I am sorry I just got this message about a peer to peer Friday late afternoon can CAFETERIA TABLE ATTENDANT do that since I am not going to be here next week MRI lumbar Severe neural foraminal narrowing on the right at L5-S1, likely impinging the exiting L5 nerve. F INSPECTOR * Telephone Encounter - Rio Butt - 07/04/2023 10:01 AM CST Provider: Elli Stewart MD Next office visit: Visit date not found Caller: [id number] Dept Message: She is getting a MRI on 07/11/23 and her primary coverage approved but the secondary is wanting to do a peer to peer sharing. They only have 3 days to complete the peer to peer sharing. When they call to get schedule please call [phone]. Case number for this issue is - [id number]. Also have faxed clinical paperwork to the office Also sent in basket info as well. Please advise Call-back Number: [phone] F INSPECTOR documented in this encounter Plan of Treatment Upcoming Encounters Date Type Department Care Team (Late st Contact Info) Description 02/09/2025 1:40 PM CDT Office Visit [address] [place] [address] Elli Stewart MD [address] [place] [address] Rd [address] [place] [address] 06/30/2025 9:00 AM PROOF INSPECTOR Office Visit [facility] [address] [place] [address] [address] [place] [address] Elli Stewart MD [address] [place] [address] [address] [place] [address] documented as of this encounter Visit Diagnoses Not on filedocumented in this encounter Care Teams Wild Life Manager Relationship Specialty Start Date End Date Elli Stewart MD [address] [place] [address] PCP - General Internal Medicine 12/21/10 documented as of this encounter
--- OUTSIDE RECORDS SUMMARY | 2025-01-28 13:26 | XMS_ITS | Encounter Summary ---
Author Organization [facility] Address [address] [place] [address] Care Team Providers Care Numerical Control Drill Press Operator Name Role Phone Elli Stewart MD Primary Care Provider [phone] Encounter Details Date Type Department Care Team (Late st Contact Info) Description 01/26/2025 Results Follow-Up [address] [place] [address] Elli Stewart MD [address] [place] [address] [address] [place] [address] XR CHEST PA AND LATERAL 2 VW Social History Tobacco Use Types Packs/Day Years Used Date Smoking Tobacco: Former Cigarettes Smokeless Tobacco: Never Alcohol Use Standard Drinks/Week Comments Yes 0 (1 standard drink = 0.6 oz pur e alcohol) Comments No Sex and Gender Information Value Date Recorded Sex Assigned at Not on file Legal 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 AIR TRAFFIC COORDINATOR Gender Identity Not on file Sexual Orientation Not on file Occupation Industry Job Start Date Job End Date Not on file Not on file Not on file Not on file documented as of this encounter Plan of Treatment Upcoming Encounters Date Type Department Care Team (Late Contact Info) Description 02/09/2025 1:40 PM CDT Office Visit [address] [place] [address] Elli Stewart MD [address] [place] [address] [address] [place] [address] 06/30/2025 9:00 AM AIR TRAFFIC COORDINATOR Office Visit [facility] Primary Care - [facility] [address] [place] [address] Elli Stewart MD [address] [place] [address] documented as of this encounter Visit Diagnoses Not on filedocumented in this encounter Care Teams Numerical Control Drill Press Operator Relationship Specialty Start Date End Date Elli Stewart MD [address] [place] [address] PCP - General Internal Medicine 12/21/10 documented as of this encounter
--- OUTSIDE RECORDS SUMMARY | 2025-01-28 13:26 | XMS_ITS | Encounter Summary ---
Author Organization [facility] Address [address] [place] [address] Care Team Providers Care Pullman Clerk Name Role Phone Elli Stewart MD Primary Care Provider [phone] Encounter Details Date Type Department Care Team [...] on file Legal 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 BANK APPRAISER Gender Identity Not on file Sexual Orientation Not on file documented as of this encounter Plan of Treatment Upcoming Encounters Date Type Department Care Team (Late st Contact Info) Description 02/09/2025 1:40 PM CDT Office Visit [address] [place] [address] Elli Stewart MD [address] [place] [address] [place] [address] 06/30/2025 9:00 AM BANK APPRAISER Office Visit [address] [place] [address] Elli Stewart MD [address] [place] [address] [place] [address] documented as of this encounter Procedures [...] Primary documented in this encounter Care Teams Pullman Clerk Relationship Specialty Start Date End Date Elli Stewart MD [address] [facility] [address] [place] [address] PCP - General Internal Medicine 12/21/10 documented as of this encounter
--- OUTSIDE RECORDS SUMMARY | 2025-01-28 13:26 | XMS_ITS | Encounter Summary ---
Author Organization [facility] Address [address] [place] [address] Care Team Providers Care Account Engineer Name Role Phone Elli Stewart MD Primary Care Provider [phone] Encounter Details Date Type Department Care Team (Late st Contact Info) Description 05/09/2004 Outpatient Historical [facility] Yanelis Vivar MD [address] [place] [address] [address] [address] LIPOMA NEC (Primary Dx) Social History Tobacco Use Types Packs/Day Years Used Date Smoking Tobacco: Never Assessed Comments Unknown Sex and Gender Information Value Date Recorded Sex Assigned at Not on file Legal 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 IT SENIOR SOFTWARE ENGINEER JAVA Gender Identity Not on file Sexual Orientation Not on file documented as of this encounter Plan of Treatment Upcoming Encounters Date Type Department Care Team (Late st Contact Info) Description 02/09/2025 1:40 PM CDT Office Visit [facility] [address] [place] [address] Elli Stewart MD [address] [place] [address] 06/30/2025 9:00 AM IT SENIOR SOFTWARE ENGINEER JAVA Office Visit [facility] [address] [place] [address] Elli Stewart MD [address] [place] [address] documented as of this encounter Visit Diagnoses Diagnosis Lipoma of other specified sites- Primary documented in this encounter Care Teams Account Engineer Relationship Specialty Start Date End Date Elli Stewart MD [address] [place] [address] PCP - General Internal Medicine 12/21/10 documented as of this encounter
--- OUTSIDE RECORDS SUMMARY | 2025-01-28 13:26 | XMS_ITS | Clinical Summary ---
Author Organization [facility] Address [address] [place] [address] Care Team Providers Care Floor Hand Name Role Phone Elli Stewart MD Primary Care Provider [phone] Allergies Active Allergy Reactions Criticality Noted Date Comments Tramadol Hcl Itching Low 12/09/2018 Medications norgestimate 0.18 mg/0.215 mg/0.25 mg-ethinyl estradioL 25 mcg tablet Tsx-Dz-Nmhxlsru 0.18 mg/0.215 mg/0.25 mg-25 mcg tablet TK 1 T PO QD Active loratadine/pseud oephedrine (CLARITIN-D 12 HOUR ORAL) Active dicyclomine (BENTYL) 20 mg tablet dicyclomine 20 mg tablet TAKE 1 TABLET BY MOUTH EVERY 6 HOURS 1 Active cyclobenzaprine (FLEXERIL) 10 mg tabletIndication s:Spasm of back muscles TAKE 1 TABLET(10 MG) BY MOUTH THREE TIMES DAILY NEEDED FOR SPASM 40 Tablet 11 4 Active tirzepatide, weight loss, (Zepbound) 2.5 mg/0.5 mL Pen InjectorIndicati ons:Severe obesity (BMI 35.0-39.9) with comorbidity (CMS/HCC),RAHUL (obstructive sleep apnea),Prediabet es,Benign hypertension,Mil d intermittent asthma without complication Inject 2.5 mg by subcutaneous injection every 7 days. 2 mL 1 4 Active lisinopriL (PRINIVIL) 10 mg tabletIndication s:Benign hypertension Take 1 Tablet (10 mg) by mouth daily. 100 Tablet 3 4 Active carvediloL (COREG) 12.5 mg tabletIndication s:Benign hypertension TAKE 1 TABLET(12.5 MG) BY MOUTH TWICE DAILY WITH MEALS 180 Tablet 3 4 Active albuterol sulfate HFA 90 mcg/actuation aerosol inhalerIndicatio ns:Mild intermittent asthma without complication Take 2 Puffs by inhalation every 6 hours as needed for Shortness of Breath. 8.5 Gram 11 4 Active diazePAM (VALIUM) 5 mg tabletIndication s:Muscle cramping TAKE 1 TABLET(5 MG) BY MOUTH DAILY NEEDED FOR ANXIETY 30 Tablet 5 Active gabapentin (NEURONTIN) 100 mg capsuleIndicatio ns:Neck pain,Radiculopat hy, cervical TAKE 1 TO 2 CAPSULES(100 TO 200 MG) BY MOUTH THREE TIMES DAILY 90 Capsule 1 5 Active diazePAM (VALIUM) 5 mg tabletIndication s:Muscle cramping TAKE 1 TABLET(5 MG) BY MOUTH EVERY 6 HOURS NEEDED FOR ANXIETY 30 Tablet 5 Active albuterol (PROVENTIL,CHRISTIE MEAGAN) 2.5 mg /3 mL (0.083 %) Solution for NebulizationIndi cations:Severe persistent asthma with acute exacerbation (CMS/HCC) Take 3 mL (2.5 mg) by inhalation every 4 hours as needed for Shortness of Breath. 50 Each 5 Active doxycycline hyclate (VIBRAMYCIN) 100 mg tabletIndication s:Severe persistent asthma with acute exacerbation (CMS/HCC) Take 1 Tablet (100 mg) by mouth 2 times daily for 10 days. 20 Tablet 5 025 Active Hospital, Clinic, or Other Facility Administered Medication Ordered Dose Route Frequency Start Date End Date Status methylPREDNISolone sodium succinate PF (SOLU-Medrol PF) injection 80 mgIndications:Severe persistent asthma with acute exacerbation (CMS/HCC) 80 mg IM ONE TIME ONLY 01/24/2025 01/25/2025 Ended Active Problems Patient Care Coordination No te Formatting of this note migh t be different from the original. Emergency Department Coordinator [facility] Problem Noted Date Diagnosed Date Family history of ischemic heart disease before age 50 12/29/2024 Anterolisthesis of lumbar spine 06/25/2023 Neural foraminal [...] Encounters Date Type Department Care Team Description 01/26/2025 10:57 AM CDT - 01/26/2025 11:59 PM CDT Hospital Encounter [facility] [address] [place] [address] Elli Stewart MD Arrived Discharge Disposition: Home or Self Care 01/26/2025 Results Follow-Up [facility] Primary Care - [address] [place] [address] Elli Stewart MD XR CHEST PA AND LATERAL 2 VW 01/24/2025 3:20 PM CDT Office Visit [facility] [address] [place] [phone] Elli Stewart MD Severe persistent asthma with acute exacerbation (CMS/HCC) (Primary Dx) 01/04/2025 External Device Data STL ABSTRACTION Provider, Abstract 12/29/2024 1:00 PM CDT Office Visit [facility] [address] [place] [address] Elli Stewart MD 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 (Primary Dx); Prediabetes; Severe obesity (BMI 35.0-39.9) with comorbidity (CMS/HCC); Hypercholesteremia; Family history of ischemic heart disease before age 50 12/09/2024 External Device Data STL ABSTRACTION Provider, Abstract 11/30/[address] [place] [address] Elli Stewart MD 11/12/2024 Abstract [facility] [address] [place] [phone] Elli Stewart MD 11/02/2024 External Device Data STL ABSTRACTION Provider, Abstract from Last 3 Months Immunizations Immunization Administration Dates Next Due (ADACEL/BOOSTRIX)(10 YR UP) TDAP VACCINE, 0.5ML, IM 11/06/2010 (PFIZER)(12 YR UP) COVID-19 VACCINE - EMERGENCY USE AUTHORIZATION, MRNA, [id number](PF) 30 MCG/0.3 ML IM SUSP 04/20/2021,08/18/2020,07/30/2020,07/09 (PNEUMOVAX [...] Failure Maternal Grandfather Dionte Cancer Maternal Grandmother [place] Heart Disease Maternal Grandmother [place] Heart Failure Maternal Grandmother [place] Hypertension Maternal Grandmother [place] Blood Clots Mother Andreina Heart Disease Mother [...] Maternal Aunt Maternal Grandfather Dionte Maternal Grandmother [place] Mother Andreina Paternal Grandfather Flavio Paternal Grandmother Social History Tobacco Use Types Packs/Day Years Used Date Smoking Tobacco: Former Cigarettes Smokeless Tobacco: Never Tobacco Cessation:Counseling Given: No Alcohol Use Standard Drinks/Week Comments Yes 0 (1 standard drink = 0.6 oz pur e alcohol) Comments No Sex and Gender Information Value Date Recorded Sex Assigned at Not on file Legal 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 CHART CALCULATOR Gender Identity Not on file Sexual Orientation Not on file Occupation Industry Job Start Date Job End Date Not on file Not on file Not on file Not on file Last Filed Vital Signs Vital Sign Reading Time Taken Comments Blood Pressure 122/80 01/24/2025 3:29 PM CDT Pulse 89 01/24/2025 3:29 PM CDT Temperature 36.5 C (97.7 F) 01/24/2025 3:29 PM CDT Respiratory Rate 16 01/24/2025 3:29 PM CDT Oxygen Saturation 96% 01/24/2025 3:29 PM CDT Inhaled Oxygen Concentration - - Weight 92.5 kg (204 lb) 01/24/2025 3:29 PM CDT Height 162.6 cm (5' 4) 01/24/2025 3:29 PM CDT Body Mass Index 35.02 01/24/2025 3:29 PM CDT Plan of Treatment Upcoming Encounters Date Type Department Care Team (Late st Contact Info) Description 02/09/2025 1:40 PM CDT Office Visit [facility] [address] [place] [address] Elli Stewart MD [address] [place] [address] 06/30/2025 9:00 AM CHART CALCULATOR Office Visit [facility] [address] [place] [address] Elli Stewart MD [address] [place] [address] Health Maintenance Due Date Last [...] 07/21/2024 06/30/2024, 06/25/2023, 06/25/2022, Additional history exists INFLUENZA VACCINE (#1) 2025 , 04/03/2023, 05/07/2022, Additional history exists BREAST CANCER SCREENING 07/22/2025 07/22/19, 07/22/2024, 07/22/2024 Pre-Diabetes and Diabetes Screening 12/30/2027 12/29/2024, 06/02/2024, 07/18/2022, Additional history exists HPV VACCINES Aged Out No longer eligi ble based on patient's age to complete this topic Procedures Procedure Name Priority Date/Time Associated Diagnosis Comments XR CHEST PA AND LATERAL 2 VW Routine 01/26/2025 11:05 AM CDT Severe persistent asthma with acute exacerbation (CMS/HCC) POC HEMOGLOBIN A1C Routine 12/29/2024 1: 00 PM CDT Prediabetes MAMMO SCREENING BILAT Routine 07/22/2024 9:52 AM CHART CALCULATOR from Last 3 Months or Most Recently Relevant to Health Maintenance Results * XR CHEST PA AND LATERAL 2 VW (01/26/2025 11:05 AM CDT) Anatomical Region Laterality Modality Chest Computed Radiogr aphy 01/26/2025 11:0 5 AM CDT Impressions 01/26/2025 4:06 PM CDT IMPRESSION: 1. No acute cardiopulmonary disease process identified. DICTATION LOCATION: [facility] Ciara Brianna Rosa Narrative 01/26/2025 4:06 PM CDT XR CHEST PA AND LATERAL 2 VW DATE: 01/26/2025 11:05 AM HISTORY: Persistent asthma with acute exacerbation TECHNIQUE: Two views of the chest were obtained. COMPARISON: None FINDINGS: The lungs are well expanded and clear with no concerning focal pulmonary opacities. No pneumothorax or pleural effusion. The cardiac and mediastinal contours are unremarkable. No acute osseous abnormality identified. The upper abdomen is unremarkable. Procedure Note Noel Stanford MD - 01/26/2025 XR CHEST PA AND LATERAL 2 VW DATE: 01/26/2025 11:05 AM HISTORY: Persistent asthma with acute exacerbation TECHNIQUE: Two views of the chest were obtained. COMPARISON: None FINDINGS: The lungs are well expanded and clear with no concerning focal pulmonary opacities. No pneumothorax or pleural effusion. The cardiac and mediastinal contours are unremarkable. No acute osseous abnormality identified. The upper abdomen is unremarkable. IMPRESSION: 1. No acute cardiopulmonary disease process identified. DICTATION LOCATION: [facility] Ciara Brianna Rosa us Elli Stewart MD DIAGNOSTIC IMAGING ORDERABLE S Final Result * POC HEMOGLOBIN A1C (12/29/2024 1:00 PM CDT) HGB A1C POC 5.3 4.0 - 6.0 % [facility] KIT LOT NUMBER POC 3,737 [facility] KIT EXP DATE POC 02/17/25 [facility] Blood, capillary 12/29/2024 1:00 PM CDT Elli Stewart MD POINT OF CARE TESTING Final Result [facility] CLIA# [id number] [address] [place] [address] * MAMMO SCREENING BILAT (07/22/2024 9:52 AM CHART CALCULATOR) Anatomical Region Laterality Modality Breast Bilateral Mammography Abstract Provider MAMMO ORDERABLES Edited Result - Final from Last 3 Months or Most Recently Relevant to Health Maintenance Insurance [employer] BLUE PREFERRED Advance Directives For more information, please contact: [phone] * Full Code (Latest Code Status on File) Date Activated Date Inactivated Comments 08/01/2011 3:48 PM 08/01/2011 10:02 PM * Full Code Date Activated Date Inactivated Comments 08/01/2011 12:59 PM 08/01/2011 3:48 PM * Full Code Date Activated Date Inactivated Comments 08/01/2011 11:49 AM 08/01/2011 12:59 PM Care Teams Floor Hand Relationship Specialty Start Date End Date Elli Stewart MD [address] [address] PCP - General Internal Medicine 12/21/10
--- OUTSIDE RECORDS SUMMARY | 2025-01-28 13:26 | XMS_ITS | Encounter Summary ---
Author Organization [facility] Address [address] [place] [address] Care Team Providers Care Scientific Glass Blower Name Role Phone Elli Stewart MD Primary Care Provider [phone] Encounter Details Date Type Department Care Team (Late st Contact Info) Description 04/20/2004 Outpatient Historical [address] [place] [address] Raúl Wright MD [address] [facility] [address] [place] [address] Social History Tobacco Use Types Packs/Day Years Used Date Smoking Tobacco: Never Assessed Comments Unknown Sex and Gender Information Value Date Recorded Sex Assigned at Not on file Legal 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 SKIMMER SCOOP OPERATOR Gender Identity Not on file Sexual Orientation Not on file documented as of this encounter Plan of Treatment Upcoming Encounters Date Type Department Care Team (Late st Contact Info) Description 02/09/2025 1:40 PM CDT Office Visit [facility] [address] [place] [address] [address] [place] [address] Elli Stewart MD [address] [place] [address] [address] [place] [address] 06/30/2025 9:00 AM SKIMMER SCOOP OPERATOR Office Visit [facility] [address] [place] [address] [address] [place] [address] Elli Stewart MD [address] [place] [address] documented as of this encounter Visit Diagnoses Not on filedocumented in this encounter Care Teams Scientific Glass Blower Relationship Specialty Start Date End Date Elli Stewart MD [address] [place] [address] PCP - General Internal Medicine 12/21/10 documented as of this encounter
--- OUTSIDE RECORDS SUMMARY | 2025-01-28 13:26 | XMS_ITS | Encounter Summary ---
Author Organization [facility] Address [address] [place] [address] Care Team Providers Care Tie Sawyer Name Role Phone Elli Stewart MD Primary Care Provider [phone] Encounter Details Date Type Department Care Team (Late st Contact Info) Description 11/12/2005 Outpatient Historical [facility] - [address] [place] [address] Raúl Wright MD [address] [facility] [address] [place] [address] Social History Tobacco Use Types Packs/Day Years Used Date Smoking Tobacco: Never Assessed Comments Unknown Sex and Gender Information Value Date Recorded Sex Assigned at Not on file Legal 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 ART INSTALLER Gender Identity Not on file Sexual Orientation [...] Description 02/09/2025 1:40 PM CDT Office Visit [address] [place] [address] Elli Stewart MD [address] [place] [phone] 06/30/2025 9:00 AM ART INSTALLER Office Visit [facility] Primary Care - [facility] [address] [place] [phone] Elli Stewart MD [address] [place] [address] documented as of this encounter Visit Diagnoses Not on filedocumented in this encounter Care Teams Tie Sawyer Relationship Specialty Start Date End Date Elli Stewart MD [address] [place] [phone] PCP - General Internal Medicine 12/21/10 documented as of this encounter
--- OUTSIDE RECORDS SUMMARY | 2025-01-28 13:26 | XMS_ITS | Encounter Summary ---
Author Organization [facility] Address [address] [place] [address] Care Team Providers Care Mens Locker Room Attendant Name Role Phone Elli Stewart MD Primary Care Provider [phone] Encounter Details Date Type Department Care Team (Late st Contact Info) Description 12/10/2005 Orders Only [facility] Primary Care - [address] [place] [address] Raúl Wrgiht MD [address] [facility] [address] [place] [address] Social History Tobacco Use Types Packs/Day Years Used Date Smoking Tobacco: Never Assessed Comments Unknown Sex and Gender Information Value Date Recorded Sex Assigned at Not on file Legal 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 SENIOR DESIGN ENGINEERING SPECIALIST Gender Identity Not on file Sexual Orientation Not on file documented as of this encounter Progress Notes * Raúl Wright MD - 04/29/2008 5:20 AM CDT TIME:11:14 am PATIENT`S HOME PHONE: PATIENT`S WORK PHONE: PATIENT`S INSURANCE: [facility] WHO TOOK THE CALL: Kathrine Bradley M GENERAL INFORMATION PATIENT STATUS: Established Patient. PCP: dain. ALTERNATIVE PHONE NUMBER: [phone] WHO CALLED: Patient called. PHARMACY NUMBER: [phone] PROBLEMS: CONGESTION: Patient complains of sinus congestion, [...] Description 02/09/2025 1:40 PM CDT Office Visit [address] [place] [phone] Elli Stewart MD [address] [place] [address] [place] [phone] 06/30/2025 9:00 AM SENIOR DESIGN ENGINEERING SPECIALIST Office Visit [facility] [address] [place] [address] [place] [phone] Elli Stewart MD [address] [place] [address] [place] [phone] documented as of this encounter Visit Diagnoses Not on filedocumented in this encounter Care Teams Mens Locker Room Attendant Relationship Specialty Start Date End Date Elli Stewart MD [address] [place] [address] [place] [phone] PCP - General Internal Medicine 12/21/10 documented as of this encounter
--- OUTSIDE RECORDS SUMMARY | 2025-01-28 13:26 | XMS_ITS | Encounter Summary ---
Author Organization [facility] Address [address] [place] [address] Care Team Providers Care Credentialing Manager Name Role Phone Elli Stewart MD Primary Care Provider [phone] Encounter Details Date Type Department Care Team (Late st Contact Info) Description 04/20/2004 Outpatient Historical [address] [place] [address] Raúl Wright MD [address] [facility] [address] [place] [address] Social History Tobacco Use Types Packs/Day Years Used Date Smoking Tobacco: Never Assessed Comments Unknown Sex and Gender Information Value Date Recorded Sex Assigned at Not on file Legal 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 PURSE MAKER Gender Identity Not on file Sexual Orientation Not on file documented as of this encounter Plan of Treatment Upcoming Encounters Date Type Department Care Team (Late st Contact Info) Description 02/09/2025 1:40 PM CDT Office Visit [facility] [address] [place] [address] [address] [place] [address] Elli Stewart MD [address] [place] [address] [address] [place] [address] 06/30/2025 9:00 AM PURSE MAKER Office Visit [facility] [address] [place] [address] [address] [place] [address] Elli Stewart MD [address] [place] [address] documented as of this encounter Visit Diagnoses Not on filedocumented in this encounter Care Teams Credentialing Manager Relationship Specialty Start Date End Date Elli Stewart MD [address] [place] [address] PCP - General Internal Medicine 12/21/10 documented as of this encounter
--- OUTSIDE RECORDS SUMMARY | 2025-01-28 13:26 | XMS_ITS | Encounter Summary ---
Author Organization [facility] Address [address] [place] [address] Care Team Providers Care Compliance Representative Dealer Name Role Phone Elli Stewart MD Primary Care Provider [phone] Encounter Details Date Type Department Care Team (Late st Contact Info) Description 11/12/2005 Orders Only [facility] Primary Care - [address] [place] [address] Raúl Wright MD [address] [facility] [address] [place] [address] Social History Tobacco Use Types Packs/Day Years Used Date Smoking Tobacco: Never Assessed Comments Unknown Sex and Gender Information Value Date Recorded Sex Assigned at Not on file Legal 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 BULL LADLE TENDER Gender Identity Not on file Sexual Orientation Not on file documented as of this encounter Progress Notes * Raúl Wright MD - 04/29/2008 2:33 AM CDT TIME:11:25 am PATIENT`S HOME PHONE: PATIENT`S WORK PHONE: PATIENT`S INSURANCE: [facility] WHO TOOK THE CALL: Minoo Brown M GENERAL INFORMATION PATIENT STATUS: Established Patient. LAST VISIT: 05/30/05 PCP: dain. ALTERNATIVE PHONE NUMBER: [phone] WHO CALLED: Patient`s friend called.kendrick effinger PROBLEMS: [...] 11/12/05 at 12:00 pm. Booked appointment: 11-12 1:30p.........Fanw Electronically Signed by: Fawn White on Saturday, [...] PM CDT Office Visit [facility] [address] [facility] [address] [place] [address] Elli Stewart MD [address] [place] [address] [place] [address] 06/30/2025 9:00 AM BULL LADLE TENDER Office Visit [facility] [address] [facility] [address] [place] [address] Elli Stewart MD [address] [place] [address] [place] [address] documented as of this encounter Visit Diagnoses Not on filedocumented in this encounter Care Teams Compliance Representative Dealer Relationship Specialty Start Date End Date Elli Stewart MD [address] [facility] [address] [place] [address] PCP - General Internal Medicine 12/21/10 documented as of this encounter
--- OUTSIDE RECORDS SUMMARY | 2025-01-28 13:26 | XMS_ITS | Encounter Summary ---
Author Organization [facility] Address [address] [place] [address] Care Team Providers Care C Web Developer Name Role Phone Elli Stewart MD Primary Care Provider [phone] Encounter Details Date Type Department Care Team (Latest Contact Info) Description 01/26/2025 10:57 AM CDT - 01/26/2025 11:59 PM T Hospital Encounter [facility] [address] [place] [address] Elli Stewart MD [address] [facility] [address] [place] [address] Arrived Discharge Disposition: Home or Self Care Social History Tobacco Use Types Packs/Day Years Used Date Smoking Tobacco: Former Cigarettes Smokeless Tobacco: Never Alcohol Use Standard Drinks/Week Comments Yes 0 (1 standard drink = 0.6 oz pur e alcohol) Comments No Sex and Gender Information Value Date Recorded Sex Assigned at Not on file Legal 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 MANAGER DENTAL Gender Identity Not on file Sexual Orientation Not on file Occupation Industry Job Start Date Job End Date Not on file Not on file Not on file Not on file documented as of this encounter Medications at Time of Discharge albuterol (PROVENTIL,VENTOL IN) 2.5 mg /3 mL (0.083 %) Solution for NebulizationIndic ations:Severe persistent asthma with acute exacerbation ([facility]) Take 3 mL (2.5 mg) by inhalation every 4 hours as needed for Shortness of Breath. 50 Each 01/24/2025 doxycycline hyclate (VIBRAMYCIN) 100 mg tabletIndications :Severe persistent asthma with acute exacerbation (CMS/HCC) Take 1 Tablet (100 mg) by mouth 2 times daily for 10 days. 20 Tablet 01/24/2025 diazePAM (VALIUM) 5 mg tabletIndications :Muscle cramping TAKE 1 TABLET(5 MG) BY MOUTH DAILY NEEDED FOR ANXIETY 30 Tablet 10/04/2024 gabapentin (NEURONTIN) 100 mg capsuleIndication s:Neck pain,Radiculopath y, cervical TAKE 1 TO 2 CAPSULES(100 TO 200 MG) BY MOUTH THREE TIMES DAILY 90 Capsule 1 10/04/2024 diazePAM (VALIUM) 5 mg tabletIndications :Muscle cramping TAKE 1 TABLET(5 MG) BY MOUTH EVERY 6 HOURS NEEDED FOR ANXIETY 30 Tablet 10/04/2024 tirzepatide, weight loss, (Zepbound) 2.5 mg/0.5 mL Pen InjectorIndicatio ns:Severe obesity (BMI 35.0-39.9) with comorbidity (CMS/HCC),RAHUL (obstructive sleep apnea),Prediabete s,Benign hypertension,Mild intermittent asthma without complication Inject 2.5 mg by subcutaneous injection every 7 days. 2 mL 1 06/30/2024 lisinopriL (PRINIVIL) 10 mg tabletIndications :Benign hypertension Take 1 Tablet (10 mg) by mouth daily. 100 Tablet 3 06/30/2024 carvediloL (COREG) 12.5 mg tabletIndications :Benign hypertension TAKE 1 TABLET(12.5 MG) BY MOUTH TWICE DAILY WITH MEALS 180 Tablet 3 06/30/2024 albuterol sulfate HFA 90 mcg/actuation aerosol inhalerIndication s:Mild intermittent asthma without complication Take 2 Puffs by inhalation every 6 hours as needed for Shortness of Breath. 8.5 Gram 11 06/30/2024 cyclobenzaprine (FLEXERIL) 10 mg tabletIndications :Spasm of back muscles TAKE 1 TABLET(10 MG) BY MOUTH THREE TIMES DAILY NEEDED FOR SPASM 40 Tablet 11 03/23/2024 loratadine/pseudo ephedrine (CLARITIN-D 12 HOUR ORAL) dicyclomine (BENTYL) 20 mg tablet dicyclomine 20 mg tablet TAKE 1 TABLET BY MOUTH EVERY 6 HOURS 07/12/2021 norgestimate 0.18 mg/0.215 mg/0.25 mg-ethinyl estradioL 25 mcg tablet Dko-Dn-Buqmfqul 0.18 mg/0.215 mg/0.25 mg-25 mcg tablet TK 1 T PO QD documented as of this encounter Plan of Treatment Upcoming Encounters Date Type Department Care Team (Late st Contact Info) Description 02/09/2025 1:40 PM CDT Office Visit [address] [place] [phone] Elli Stewart MD [address] [place] [address] [place] [address] 06/30/2025 9:00 AM MANAGER DENTAL Office Visit [address] [place] [address] Elli Stewart MD [address] [place] [address] Rd [address] [place] [address] documented as of this encounter Procedures Procedure Name Priority Date/Time Associated Diagnosis Comments XR CHEST PA AND LATERAL 2 VW Routine 01/26/2025 11:05 AM CDT Severe persistent asthma with acute exacerbation ([facility]) documented in this encounter Results * XR CHEST PA AND LATERAL 2 VW (01/26/2025 11:05 AM CDT) Anatomical Region Laterality Modality Chest Computed Radiogr aphy 01/26/2025 11:0 5 AM CDT Impressions 01/26/2025 4:06 PM CDT IMPRESSION: 1. No acute cardiopulmonary disease process identified. DICTATION LOCATION: Location 3 - [facility] Narrative 01/26/2025 4:06 PM CDT XR CHEST [...] acute cardiopulmonary disease process identified. DICTATION LOCATION: [address] Elli Stewart MD DIAGNOSTIC IMAGING ORDERABLE S Final Result documented in this encounter Visit Diagnoses Diagnosis Severe persistent asthma with acute exacerbation (CMS/[facility]) Unspecified asthma, with exacerbation documented in this encounter Care Teams C Web Developer Relationship Specialty Start Date End Date Elli Stewart MD [facility] [address] [place] [address] PCP - General Internal Medicine 12/21/10 documented as of this encounter
--- OUTSIDE RECORDS SUMMARY | 2025-01-28 13:26 | XMS_ITS | Encounter Summary ---
Author Organization [facility] Address [address] [place] [address] Care Team Providers Care Medical Records Receptionist Name Role Phone Elli Stewart MD Primary Care Provider [phone] Encounter Details Date Type Department Care Team (Late st Contact Info) Description 05/30/2005 Outpatient Historical [facility] Care - [address] [place] [address] Raúl Wright MD [address] [facility] [address] [place] [address] Social History Tobacco Use Types Packs/Day Years Used Date Smoking Tobacco: Never Assessed Comments Unknown Sex and Gender Information Value Date Recorded Sex Assigned at Not on file Legal 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 BUDGET DIRECTOR Gender Identity Not on file Sexual Orientation Not on file documented as of this encounter Last Filed Vital Signs Vital Sign Reading Time Taken Comments Blood Pressure 110/80 05/30/2005 9:15 AM BUDGET DIRECTOR Pulse - - Temperature 36.5 C (97.7 F) 05/30/2005 9:15 AM BUDGET DIRECTOR Respiratory Rate - - Oxygen Saturation - - Inhaled Oxygen Concentration - - Weight 77.1 kg (170 lb) 05/30/2005 9:15 AM BUDGET DIRECTOR Height - - Body Mass Index - - documented in this encounter Plan of Treatment Upcoming Encounters Date Type Department Care Team (Late st Contact Info) Description 02/09/2025 1:40 PM CDT Office Visit [facility] - [address] [place] [phone] Elli Stewart MD [address] [place] [phone] 06/30/2025 9:00 AM BUDGET DIRECTOR Office Visit [facility] Primary Care - [facility] [address] [place] [phone] Elli Stewart MD [address] [place] [address] documented as of this encounter Visit Diagnoses Not on filedocumented in this encounter Care Teams Medical Records Receptionist Relationship Specialty Start Date End Date Elli Stewart MD [address] [place] [phone] PCP - General Internal Medicine 12/21/10 documented as of this encounter
--- OUTSIDE RECORDS SUMMARY | 2025-01-28 13:26 | XMS_ITS | Encounter Summary ---
Author Organization [facility] Address [address] [place] [address] Care Team Providers Care Media Theorist And Author Of Name Role Phone Elli Stewart MD Primary Care Provider [phone] Encounter Details Date Type Department Care Team (Latest Contact Info) Description 02/15/2005 Outpatient Historical [facility] Alvarado, Nolan Shi MD NO ADDRESS ON FILE OVARIAN CYST NEC/NOS (Primary Dx) Social History Tobacco Use Types Packs/Day Years Used Date Smoking Tobacco: Never Assessed Comments Unknown Sex and Gender Information Value Date Recorded Sex Assigned at Not on file Legal 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 MATE RELIEF Gender Identity Not on file Sexual Orientation Not on file documented as of this encounter Plan of Treatment Upcoming Encounters Date Type Department Care Team (Late st Contact Info) Description 02/09/2025 1:40 PM CDT Office Visit [address] [place] [address] Elli Stewart MD [facility] [address] [place] [address] 06/30/2025 9:00 AM MATE RELIEF Office Visit [facility] [address] [place] [address] Elli Stewart MD [address] [place] [address] Rd [address] [place] [address] documented as of this encounter Visit Diagnoses Diagnosis Other and unspecified ovarian cyst- Primary documented in this encounter Care Teams Media Theorist And Author Of Relationship Specialty Start Date End Date Elli Stewart MD [address] [facility] [address] [place] [address] PCP - General Internal Medicine 12/21/10 documented as of this encounter
--- OUTSIDE RECORDS SUMMARY | 2025-01-28 13:26 | XMS_ITS | Encounter Summary ---
Author Organization [facility] Address [address] [place] [address] Phone Care Team Providers Care X Ray Technician Name Role Phone Elli Stewart MD Primary Care Provider [phone] Encounter Details Date Type Department Care Team (Late st Contact Info) Description 11/20/2021 [facility] [address] [place] [address] Jeni Ramirez APRN, HOLDER PILE DRIVING [address] [place] [address] Encounter for antibody response examination; Encounter for [...] on file Legal Sex Female 7:07 PM HAMMER ADJUSTER Gender Identity Not on file Sexual Orientation [...] 2.5 >=1.1 AI 11/20/2021 10:44 PM CDT [facility] Blood No Phlebotomy Charged / Unknown 11/20/2021 10:05 AM CDT 11/20/2021 12:49 PM CDT Narrative [facility] - 11/20/2021 10:44 PM CDT <= 0.8 Negative. No detectable Measles IgG antibody. 0.9 - 1.0 Equivocal >=1.1 Positive Antibody testing was performed by multiplex flow immunoassay on the [employer]_ [employer] platform. us Jeni Ramirez APRN, CNP IMMUNOLOGY ORDERA BLES Final Result [facility] [address] [place] [address], * [facility] IGG (11/20/2021 10:05 AM CDT) [facility] Immune Immune, Invalid 11/20/2021 10:44 PM CDT [facility] Blood No Phlebotomy Charged / Unknown 11/20/2021 10:05 AM CDT 11/20/2021 12:49 PM CDT Narrative [facility] - 11/20/2021 10:44 PM CDT Antibody testing was performed by multiplex flow immunoassay on the [employer]_ [employer] platform. us Jeni Ramirez GEOCHEMISTRY TEACHER, HOLDER PILE DRIVING CHEMISTRY ORDERAB LES Final Result [facility] [address] [place] [address], documented in this encounter Visit Diagnoses Diagnosis [...] Total Score: 0 09/16/19 18 7:00 PM HAMMER ADJUSTER documented as of this encounter Care Teams X Ray Technician Relationship Specialty Start Date End Date Elli Stewart MD [address] [facility] [address] [place] [address] PCP - General Internal Medicine 09/16/17 documented as of this encounter
--- OUTSIDE RECORDS SUMMARY | 2025-01-28 13:26 | XMS_ITS ---
Author Organization [facility] Address [address] [address] Care Team Providers Care X Ray Service Engineer Name Role Phone Pat AGUILAR, Elli Primary Care Provider DIOGENES Hirsch Unavailable [phone] Cally AGUILAR, Nolan Unavailable Unavailable Encounters Encounter Location Date Provider Diagnosis [facility] [address] [address] 10/23/2023 DIOGENES AREVALO Plan Of Treatment No Information Progress Notes * Winnie MARCUSDOB: 1 (44 yo F)Acc No.[id number]:10/23/2023 Progress Note Patient: Winnie CHANCE Provider: Jag AREVALO M.D. :1980 A ge:43 Y S ex:Female Date:10/23/2023 [facility] Pcp:Elli Stewart MD Subjective: * Chief Complaints: * * Medical History: Objective: * Vitals: Assessment: Plan: * Treatment: * * Electronic signature of MANUELITO AREVALO MD on 01/28/2025 at 01:26 PM CDT Sign off status: Pending * Provider: Jag AREVALO M.D. Date: 10/23/2023 Generated for Jeremiahi faith/Farachelleg/eTransmitting on: 01/28/2025 01:26 PM CDT
--- OUTSIDE RECORDS SUMMARY | 2025-01-28 13:26 | XMS_ITS | Clinical Summary ---
Author Organization [facility] Address [address] [place] [address] Phone Care Team Providers Care Real Estate Transaction Manager Name Role Phone Elli Stewart MD Primary Care Provider [phone] Allergies Active Allergy Reactions Criticality Noted Date Comments Tramadol Itching Low 12/09/2018 Medications TRI-SPRINTEC 0.18/0.215/0.25 MG-35 MCG Tablet TK 1 T PO QD 9 Active mupirocin (BACTROBAN) 2 % OintmentIndicat ions:Bartholin' s gland abscess Apply thin film to affected areas 3 times daily until healed. 22 g 1 0 Active Additional Information Patient not taking.Reported on 01/21/2025 ciprofloxacin-d examethasone (CIPRODEX) 0.3-0.1 % SuspensionIndic ations:Right ear pain Apply 4 drops to affected ear(s) BID x 7 days 1 Bottle 1 Active Additional Information Patient not taking.Reported on 01/21/2025 budesonide-form oterol fumarate (Symbicort) 80-4.5 MCG/ACT AerosolIndicati ons:Bronchitis take 2 Puffs by inhalation 2 times daily. 10.2 g 1 1 Active Additional Information Patient not taking.Reported on 01/21/2025 carvedilol (COREG) 25 MG Tablet Take 25 mg by mouth 2 times daily. Active metroNIDAZOLE (Flagyl) 500 MG Tablet Take 1 Tablet by mouth 3 times daily. 30 Tablet 1 Active Additional Information Patient not taking.Reported on 01/21/2025 dicyclomine (BENTYL) 20 MG Tablet Take 1 Tablet by mouth every 6 hours. 30 Tablet 1 Active Additional Information Patient not taking.Reported on 01/21/2025 hydroCHLOROthia zide 25 MG Tablet Take 25 mg by mouth. 1 Active metFORMIN (GLUCOPHAGE-XR) 500 MG TABLET SR 24 HR metformin ER 500 mg tablet,extended release 24 hr 1 Active HYDROcodone-edis taminophen (NORCO) 5-325 MG TabletIndicatio ns:Right ureteral stone Take 1 Tablet by mouth every 6 hours as needed for Moderate or more severe pain. 15 Tablet 3 Active Additional Information Patient not taking.Reported on 01/21/2025 ondansetron (ZOFRAN) 4 MG Tablet Take 1-2 Tablets by mouth every 8 hours as needed for Nausea - 1st line. 10 Tablet 3 Active Additional Information Patient not taking.Reported on 01/21/2025 cyclobenzaprine (FLEXERIL) 10 MG Tablet TAKE 1 TABLET(10 MG) BY MOUTH THREE TIMES DAILY NEEDED FOR SPASM 4 Active diazePAM (VALIUM) 5 MG Tablet TAKE 1 TABLET(5 MG) BY MOUTH DAILY NEEDED FOR ANXIETY 5 Active lisinopril (PRINIVIL, ZESTRIL) 10 MG Tablet Take 10 mg by mouth daily. 4 Active methylPREDNISol one (MEDROL) 4 MG Tablet 6 tabs day 1, 5 tabs day 2, 4 tabs day 3, 3 tabs day 4, 2 tabs day 5, 1 tab day 6 21 Tablet 5 Active Hospital, Clinic, or Other Facility Administered Medication Ordered Dose Route Frequency Start Date End Date Status methylPREDNISolone acetate (DEPO-MEDROL) injection 60 mgIndications:Bronchitis 60 mg IM ONCE 01/21/2025 01/21/2025 Ended Active Problems No known active problems Encounters Date Type Department Care Team Description 01/21/2025 8:35 AM CDT [facility] [address] [place] [address] Mary Hernandez, HEALTHCARE FACILITY ADMINISTRATOR, CONTROLLED ATMOSPHERIC FURNACE BRAZER Bronchitis (Primary Dx) Discharge Disposition: Discharged to home or Selfcare 01/21/2025 Travel from Last 3 Months Immunizations Immunization Administration Dates Next Due Covid-19, Mrna, Lnp-s, Pf, 3 0 Mcg/0.3 Ml Dose (TagSeats) 07/30/2020,07/09/2020 Influenza Vaccine, Quadrivalent, PF 03/21,05/07/2022,04/18/2019,2017 Influenza,Split [...] on file Legal Sex Female 7:07 PM STEAM SHOVEL OPERATOR Gender Identity Not on file Sexual Orientation Not on file Last Filed Vital Signs Vital Sign Reading Time Taken Comments Blood Pressure 138/90 01/21/2025 8:30 AM CDT Pulse 78 04/20/2024 3:59 PM CDT Temperature 36.6 C (97.8 F) 01/21/2025 8:30 AM CDT Respiratory Rate 18 01/21/2025 8:30 AM CDT Oxygen Saturation 97% 01/21/2025 8:30 AM CDT Inhaled Oxygen Concentration - - Weight 98.4 kg (217 lb) 11/27/2022 9:07 AM CDT Height 162.6 cm (5' 4) 11/27/2022 9:07 AM CDT Body Mass Index 37.25 11/27/2022 9:07 AM CDT Plan of Treatment Health Maintenance Due Date Last Done Comments Hepatitis C Virus (HCV) Screening 1980 Human Papillomavirus (HPV) Immunization (1 - 3-dose series) 02/06/1996 Hepatitis B Immunization (1 of 3 - 19+ 3-dose series) 02/06/2000 Pneumococcal Immunization Combined (1 of 2 - PCV) 02/06/2000 SARS-COV-2 Immunization ( season) 2024 06/11/2022, 04/20/2021, 08/18/2020, Additional history exists Influenza Immunization (#1) 2025 10/0 12/2023, 04/03/2023, 05/07/2022, Additional history exists Mammogram 07/22/2025 07/22/2024 Respiratory Syncytial Virus (RSV) Immunization (Adult) (1 - 1-dose 75+ series) 02/06/2056 DTaP/Tdap/Td Immunization Discontinued 11/06/2010, 07/2003 TdaP Immunization Completed 11/06/2010 Discussion re Starting/Frequency of Mammograms Completed 07/22/2024 Meningococcal Immunization (ACWY) Aged Out No longer eligible based on patient's age to complete this topic Rotavirus Immunization Aged Out No lo nger eligible based on patient's age to complete this topic Procedures Procedure Name Priority Date/Time Associated Diagnosis Comments TITUS SCREENING BILATERAL DIGITAL W CAD W BINDU Routine 07/22/2024 7:15 AM STEAM SHOVEL OPERATOR Visit for screening mammogram from Last 3 Months or Most Recently Relevant to Health Maintenance Results * TITUS SCREENING BILATERAL DIGITAL W CAD W BINDU (07/22/2024 7:15 AM STEAM SHOVEL OPERATOR) Anatomical Region Laterality Modality breast Bilateral Mammography 07/22/2024 7:45 AM STEAM SHOVEL OPERATOR Narrative 07/22/2024 3:46 PM STEAM SHOVEL OPERATOR - TITUS SCREENING BILATERAL DIGITAL W CAD [...] next screening exam. Electronically signed by: Yoselyn mcconnell/penrad:07/22/2024 13:45:57 Medical Economics Consultant(s): LYNETTE Gordon)(M), [facility]: Normal Exam Reading location: [place] Mammogram BI-RADS: Category 1: Negative Procedure Note Yoeslyn Jennings MD - 07/22/2024 - TITUS SCREENING [...] next screening exam. Electronically signed by: Yoselyn mcconnell/penrad:07/22/2024 13:45:57 Medical Economics Consultant(s): IVY GordonR)(M), [facility] letter sent: Normal Exam Reading location: [place] Mammogram BI-RADS: Category 1: Negative Elli Stewart MD G MAMMO ORDERABLES Final R esult from Last 3 Months or Most Recently Relevant to Health Maintenance Insurance [facility] [employer] [facility] * Guarantor: [employer] Account Type Relation to Patient Date of Phone Billing Address Institutional Other [address] [place] [address] Care Teams Real Estate Transaction Manager Relationship Specialty Start Date End Date Elli Stewart MD [address] [place] [address] PCP - General Internal Medicine 09/16/17
--- OUTSIDE RECORDS SUMMARY | 2025-01-28 13:26 | XMS_ITS | Patient Health Record ---
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
--- OUTSIDE RECORDS SUMMARY | 2025-01-28 13:26 | XMS_ITS | Patient Health Record ---
Author Organization [facility] Address [address] [facility] [address] [place], [place] [address] Care Team Providers Care Shooting Gallery Operator Name Role Phone RENATA AGUILAR, [facility] Primary Care Provider Angelica arenas Kaden Hays Unavailable [phone] ALLERGIES No Known Allergies REASON FOR REFERRAL [...] times a day for 30 day(s) Active PROBLEMS Problem Type ICD Code Onset Dates Problem Status W/U Status Risk SNOMED Code Notes Problem Leukocytosis, unspecified type (D72.829) Active confirmed 355027605 Problem Polyarthralgia (M25.50) Active confirmed 36316269 Problem Low back pain at multiple sites (M54.50) Active confirmed 288680061 Problem Neck pain (M54.2) Active confirmed 8168 0005 Problem Vitamin D deficiency (E55.9) Active confirmed 94397815 PLAN OF TREATMENT Pending Test Test Name [...] Date Coverage End Date [employer] [address] [address] [place] [address] 4601 [id number] Winnie Marcus Self - patient is the insured 1 [facility] - CHOICE PLUS [address] [place] [address] [id number] ALEM MARCUS Spouse - patient is the spouse of the insured 1 MEDICAL (GENERAL) HISTORY Medical History History ICD Code migraine headache tension headaches Ringing in ears sinus problems anxiety swelling of ankles/feet asthma indigestion high blood pressure rapid heartbeat varicose veins chronic cough bloating Surgical History Surgery Date(Month/Year)
--- OUTSIDE RECORDS SUMMARY | 2025-01-28 13:26 | XMS_ITS | Encounter Summary ---
Author Organization [facility] Address [address] [place] [address] Care Team Providers Care Archeology Faculty Member Name Role Phone Elli Stewart MD Primary Care Provider [phone] Encounter Details Date Type Department Care Team (Late st Contact Info) Description 05/27/2012 Chart Note [facility] [address] [address] Ariadna Salas Physical Therapist Social History Tobacco Use Types Packs/Day Years Used Date Smoking Tobacco: Former Cigarettes Smokeless Tobacco: Never Alcohol Use Standard Drinks/Week Comments Yes 0 (1 standard drink = 0.6 oz pur e alcohol) Comments No Sex and Gender Information Value Date Recorded Sex Assigned at Not on file Legal 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 RN OFFICE Gender Identity Not on file Sexual Orientation [...] Thank you for this referral. GIANFRANCO [facility], [place] [phone] OFFICE documented in this encounter Plan of Treatment Upcoming Encounters Date Type Department Care Team (Late st Contact Info) Description 02/09/2025 1:40 PM CDT Office Visit [address] [address] Elli Stewart MD [address] [place] [phone] 06/30/2025 9:00 AM RN OFFICE Office Visit [address] [address] Elli Stewart MD [address] [place] [phone] documented as of this encounter Visit Diagnoses Not on filedocumented in this encounter Care Teams Archeology Faculty Member Relationship Specialty Start Date End Date Elli Stewart MD [address] [place] [phone] PCP - General Internal Medicine 12/21/10 documented as of this encounter
[2025-01-28] MEDS: IPRATROPIUM 0.5 MG/ALBUTEROL SULFATE 2.5 MG AMPUL.NEB 3 ML 12 ML INHALATION (14:01)
[2025-01-28 14:09] LABS: Fractional Inspired Oxygen 21 %; HCO3 VBG 22.7 mEq/l (24.0-30.0); PO2 FiO2 Ratio Arterial Blood 2.23 %; PO2 VBG 46.8 mmHg (35.0-45.0)
[2025-01-28 14:13] LABS: PCO2 VBG 30.1 mmHg (42.0-48.0)
--- NOTE | 2025-01-28 14:16 | PCRCNOTE ---
Venous Gas drawn only per Dr Joseph Villagran
[2025-01-28] MEDS: MAGNESIUM SULF 2 GM/WATER 50ML 2 GM/50 ML BAG IVPB (14:17)
[2025-01-28 14:18] LABS: Hematocrit 44.5 % (37.0-47.0); Hemoglobin 14.9 g/dL (12.0-15.0); Immature Granulocyte Percent A 0.6 % (0-0.5); Immature Platelet Fraction Pct 3.8 % (0.9-11.2); Lymphocytes Absolute Auto 4.65 K/mm3 (0.9-3.2); Mean Corpuscular HGB Conc 33.5 g/dl (32-36); Mean Corpuscular Hemoglobin 30.0 pg (26-34); Mean Corpuscular Volume 89.7 fl (80-100); Nucleated Red Blood Cells Absolute Auto 0.000 K/mm3 (0.0-0.012); Nucleated Red Blood Cells Perc 0.0 % (0.0-0.2); Platelet Count Result 381 k/mm3 (150-375); Red Blood Count 4.96 M/mm3 (4.2-5.4); White Blood Count 13.9 K/mm3 (4.5-10.0)
[2025-01-28] MEDS: SODIUM CHLORIDE 0.9% IV 1,000 ML 999 ML IV CONT ×2 (14:18)
[2025-01-28] MEDS: dexAMETHasone SOD PHOS INJ 10 MG/ML 1 ML VIAL IV PUSH (14:28)
--- OUTSIDE RECORDS SUMMARY | 2025-01-28 14:29 | XMS_ITS | Encounter Summary ---
Author Organization [facility] Address [address] [place] [address] Care Team Providers Care Wind Farm Designer Name Role Phone Elli Stewart MD Primary Care Provider [phone] Encounter Details Date Type Department Care Team (Late st Contact Info) Description 12/26/2005 Orders Only [facility] Primary Care - [facility] [address] [place] [address] [address] [place] [address] Rogers Arnold MD [address] [facility] [address] [address] Social History Tobacco Use Types Packs/Day Years Used Date Smoking Tobacco: Never Assessed Comments Unknown Sex and Gender Information Value Date Recorded Sex Assigned at Not on file Legal 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 ANIMAL NUTRITION TEACHER Gender Identity Not on file Sexual [...] Here for follow up evaluation. ER visit ([facility]) for chest pain. RC HISTORY: [...] Description 02/09/2025 1:40 PM CDT Office Visit [address] [place] [phone] Elli Stewart MD [address] [place] [address] [place] [phone] 06/30/2025 9:00 AM ANIMAL NUTRITION TEACHER Office Visit [facility] [address] [place] [address] [place] [phone] Elli Stewart MD [address] [place] [address] [place] [phone] documented as of this encounter Visit Diagnoses Not on filedocumented in this encounter Care Teams Wind Farm Designer Relationship Specialty Start Date End Date Elli Stewart MD [address] [place] [address] [place] [phone] PCP - General Internal Medicine 12/21/10 documented as of this encounter
--- OUTSIDE RECORDS SUMMARY | 2025-01-28 14:30 | XMS_ITS | Encounter Summary ---
Author Organization [facility] Address [address] [place] [address] Care Team Providers Care Dermatologist Name Role Phone Elli Stewart MD Primary Care Provider [phone] Encounter Details Date Type Department Care Team (Late st Contact Info) Description 12/26/2005 Outpatient Historical [facility] - [address] [place] [address] Rogers Arnold MD [address] [facility] [address] [phone] Social History Tobacco Use Types Packs/Day Years Used Date Smoking Tobacco: Never Assessed Comments Unknown Sex and Gender Information Value Date Recorded Sex Assigned at Not on file Legal 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 WEB RETAILER Gender Identity Not on file Sexual Orientation [...] 02/09/2025 1:40 PM CDT Office Visit [address] [place] [phone] Elli Stewart MD [address] [place] [phone] 06/30/2025 9:00 AM WEB RETAILER Office Visit [facility] Primary Care - [facility] [address] [place] [phone] Elli Stewart MD [address] [place] [address] documented as of this encounter Visit Diagnoses Not on filedocumented in this encounter Care Teams Dermatologist Relationship Specialty Start Date End Date Elli Stewart MD [address] [place] [phone] PCP - General Internal Medicine 12/21/10 documented as of this encounter
--- OUTSIDE RECORDS SUMMARY | 2025-01-28 14:30 | XMS_ITS | Encounter Summary ---
Author Organization [facility] Address [address] [place] [address] Care Team Providers Care Rope Twisting Machine Operator Name Role Phone Elli Stewart MD Primary Care Provider [phone] Encounter Details Date Type Department Care Team (Late st Contact Info) Description 11/23/2007 Outpatient Historical [facility] [address] [place] [address] [address] [place] [address] Raúl Wright MD [address] [facility] [address] [place] [address] Routine General Medical Examination at a Health Care Facility; Family History of Diabetes Mellitus Social History Tobacco Use Types Packs/Day Years Used Date Smoking Tobacco: Never Assessed Comments Unknown Sex and Gender Information Value Date Recorded Sex Assigned at Not on file Legal 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 FIRE CREW SPECIALIST Gender Identity Not on file Sexual Orientation Not on file documented as of this encounter Plan of Treatment Upcoming Encounters Date Type Department Care Team (Late st Contact Info) Description 02/09/2025 1:40 PM CDT Office Visit [facility] [address] [facility] [address] [place] [address] Elli Stewart MD [address] [place] [address] [address] [place] [address] 06/30/2025 9:00 AM FIRE CREW SPECIALIST Office Visit [facility] [address] [place] [address] Elli Stewart MD [address] [facility] [address] [place] [address] documented as of this encounter [...] CDT) HDL 64(H) 40 - 59 mg/dL [facility] CHOLESTEROL 223(H) 100 - 199 mg/dL [facility] CHOL/HDL RATIO 3.5 2.0 - 5.0 [facility] TRIGLYCERIDE 132 10 - 149 mg/dL [facility] LDL CALCULATED 133(H) <=99 mg/dL [facility] LIPID PANEL COMMENT See Below [facility] Comment: The adult ATP and pediatric NCEP classifications for lipids are available on the [facility]an[facility] at: [email or web address] Select: Lab Policies and Procedures,Current Select: Lipid Panel Interpretation Blood specimen (specimen) 11/23/2007 4:28 PM CDT 11/23/2007 4:59 PM CDT us Raúl Wright MD CHEMISTRY ORDERABLES Edited [facility] [address] [place] [address] * (ABNORMAL) CBC WITH DIFFERENTIAL (11/23/2007 4:28 PM CDT) WBC 13.1(H) 4.0 - 9.8 K/uL [facility] MCH 29.9 27.2 - 32.6 pg [facility] PLATELETS 305 140 - 350 K/uL [facility] HEMATOCRIT 42.9 35.5 - 44.0 % [facility] RDW-STDEV 43.1 37.1 - 48.7 fL [facility] RBC 4.65 3.90 - 4.90 M/uL [facility] MCHC 32.4 31.5 - 35.5 % [facility] MPV 11.5 9.3 - 12.4 fL [facility] MCV 92.3 82.0 - 99.0 fL [facility] HEMOGLOBIN 13.9 11.8 - 14.8 g/dL [facility] RDW 12.9 11.5 - 14.5 % [facility] EOSINOPHILS 1 0 - 7 % [facility] EOSINOPHIL ABSOLUTE 0.06 0.00 - 0.70 K/uL [facility] LYMPHOCYTES 35 16 - 45 % [facility] LYMPHOCYTE ABSOLUTE 4.54(H) 0.70 - 4.50 K/uL [facility] BASOPHILS 0 0 - 2 % [facility] BASOPHILS ABSOLUTE 0.05 0.00 - 0.20 K/uL [facility] MONOCYTES 7 3 - 13 % [facility] MONOCYTE ABSOLUTE 0.87 0.10 - 1.30 K/uL [facility] NEUTROPHILS 58 45 - 70 % [facility] NEUTROPHIL ABSOLUTE 7.59(H) 1.90 - 7.00 K/uL [facility] Blood specimen (specimen) 11/23/2007 4:28 PM CDT 11/23/2007 4:58 PM CDT us Raúl Wright MD HEMATOLOGY ORDERABLES Edited Performing Organization Address [facility] de Phone Number INTERFACE SYSTEM Refer to clinic/hospital department [facility] [address] [place] [address] * HEMOGLOBIN A1C (11/23/2007 4:28 PM CDT) GLUCOSE, MEAN BLOOD 129 mg/dL [facility] HEMOGLOBIN A1C 5.8 4.1 - 6.1 % of Hgb [facility] Blood specimen (specimen) 11/23/2007 4:28 PM CDT 11/23/2007 4:59 PM CDT us Raúl Wright MD CHEMISTRY ORDERABLES Final Resul t Performing Organization Address [facility] de Phone Number [facility] [address] [place] [address] * (ABNORMAL) INSULIN LEVEL (11/23/2007 4:28 PM CDT) INSULIN LEVEL 32(H) <17 uIU/mL [facility] Comment: Lab test performed by: [employer] [place] [address] [address] [address] MELODY GHOTRA MD Blood specimen (specimen) 11/23/2007 4:28 PM CDT 11/23/2007 4:59 PM CDT us Raúl Wright MD CHEMISTRY ORDERABLES Final Resul t Performing Organization Address [facility]/ZIP Co de Phone Number [facility] [address], [place] [address] * TSH WITH REFLEX FT4 (11/23/2007 4:28 PM CDT) TSH 1.64 0.27 - 4.20 uU/mL [facility] Blood specimen (specimen) 11/23/2007 4:28 PM CDT 11/23/2007 4:59 PM CDT Raúl Wright MD CHEMISTRY ORDERABLES Final Resul t [facility] [address], [place] [address] * (ABNORMAL) COMPREHENSIVE METABOLIC PANEL (11/23/2007 4:28 PM CDT) Pathologist [facility] POTASSIUM 3.9 3.5 - 4.9 mmol/L [facility] TOTAL PROTEIN 7.4 6.3 - 8.6 g/dL [facility] GLUCOSE 117(H) 65 - 99 mg/dL [facility] AST 21 12 - 32 U/L [facility] BUN 12 6 - 20 mg/dL [facility] CALCIUM 8.7 8.4 - 10.2 mg/dL [facility] ALBUMIN 4.4 3.4 - 4.8 g/dL [facility] CHLORIDE 102 96 - 108 mmol/L [facility] CREATININE 0.77 0.51 - 0.95 mg/dL [facility] ALT 21 0 - 31 U/L [facility] SODIUM 138 135 - 145 mmol/L [facility] ALKALINE PHOSPHATASE 65 35 - 104 U/L [facility] CO2 24 22 - 30 mmol/L [facility] BILIRUBIN TOTAL 0.4 0.2 - 1.0 mg/dL [facility] GFR, >60 >=60 mL/min/1. 7 sq meter [facility] GFR >60 >=60 mL/min/1. 7 sq meter [facility] Comment: Estimated GFR rate interpretative information for both Americans and non- Americans is available on the [facility] Intran[facility] at: [email or web address] Select: Lab Policies and Procedures Select: Reference Ranges - GFR Blood specimen (specimen) 11/23/2007 4:28 PM CDT 11/23/2007 4:59 PM CDT Raúl Wright MD CHEMISTRY ORDERABLES Edited [facility] [address] [place] [address] documented in this encounter Visit Diagnoses Diagnosis Routine general medical examination at a health care facility Family history of diabetes mellitus documented in this encounter Care Teams Rope Twisting Machine Operator Relationship Specialty Start Date End Date Elli Stewart MD [address] [place] [address] PCP - General Internal Medicine 12/21/10 documented as of this encounter
--- OUTSIDE RECORDS SUMMARY | 2025-01-28 14:30 | XMS_ITS | Encounter Summary ---
Author Organization [facility] Address [address] [place] [address] Care Team Providers Care Respiratory Therapy Aide Name Role Phone Elli Stewart MD Primary Care Provider [phone] Encounter Details Date Type Department Care Team (Late st Contact Info) Description 11/12/2005 Orders Only [facility] Primary Care - [address] [place] [address] Raúl Wright MD [address] [facility] [address] [place] [address] Social History Tobacco Use Types Packs/Day Years Used Date Smoking Tobacco: Never Assessed Comments Unknown Sex and Gender Information Value Date Recorded Sex Assigned at Not on file Legal 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 COMMUNITY REPRESENTATIVE Gender Identity Not on file Sexual Orientation Not on file documented as of this encounter Progress Notes * Raúl Wright MD - 04/29/2008 2:33 AM CDT TIME:11:25 am PATIENT`S HOME PHONE: PATIENT`S WORK PHONE: PATIENT`S INSURANCE: [facility] WHO TOOK THE CALL: Minoo Brown M GENERAL INFORMATION PATIENT STATUS: Established Patient. LAST VISIT: 05/30/05 PCP: dain. ALTERNATIVE PHONE NUMBER: [phone] WHO CALLED: Patient`s friend called.kendrick effinger PROBLEMS: [...] CDT Office Visit [facility] [address] [facility] [address] [place] [phone] Elli Stewart MD [address] [place] [address] [place] [phone] 06/30/2025 9:00 AM COMMUNITY REPRESENTATIVE Office Visit [facility] [address] [facility] [address] [place] [address] Elli Stewart MD [address] [place] [address] [place] [phone] documented as of this encounter Visit Diagnoses Not on filedocumented in this encounter Care Teams Respiratory Therapy Aide Relationship Specialty Start Date End Date Elli Stewart MD [address] [facility] [address] [place] [phone] PCP - General Internal Medicine 12/21/10 documented as of this encounter
--- OUTSIDE RECORDS SUMMARY | 2025-01-28 14:30 | XMS_ITS | Encounter Summary ---
Author Organization [facility] Address [address] [place] [address] Care Team Providers Care Aircraft Designer Name Role Phone Elli Stewart MD Primary Care Provider [phone] Encounter Details Date Type Department Care Team (Late st Contact Info) Description 07/15/2006 Orders Only [facility] Primary Care - [address] [place] [address] Raúl Wright MD [address] [facility] [address] [place] [address] Social History Tobacco Use Types Packs/Day Years Used Date Smoking Tobacco: Never Assessed Comments Unknown Sex and Gender Information Value Date Recorded Sex Assigned at Not on file Legal 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 HIGH SCHOOL ADMISSIONS REPRESENTATIVE Gender Identity Not on file Sexual Orientation Not on file documented as of this encounter Progress Notes * Raúl Wright MD - 05/04/2008 4:57 AM CDT TIME:10:02 am PATIENT`S HOME PHONE: PATIENT`S WORK PHONE: PATIENT`S INSURANCE: [facility] WHO TOOK THE CALL: Arina Alfredo GENERAL INFORMATION PATIENT STATUS: Established Patient. PCP: dain. ALTERNATIVE PHONE NUMBER: [phone] WHO CALLED: Patient called. CURRENT ALLERGY LIST: [facility] PHARMACY NUMBER: [phone] PROBLEMS: URINATION: Patient complains of frequent urination, [...] Wright MD - 05/04/2008 4:56 AM CDT [facility] RAÚL WRIGHT MD [facility] [place] [address] July 15, 2006 MICHAEL BAUMANN [address] [place] [address] MICHAEL IBIS has been under our care during the dates below: 07/15/06 May return to work: 07/16/06 Sincerely yours, RAÚL WRIGHT MD documented in this encounter Plan of Treatment Upcoming Encounters Date Type Department Care Team (Late st Contact Info) Description 02/09/2025 1:40 PM CDT Office Visit [place] [address] [address] [place] [address] Elli Stewart MD [facility] [address] [place] [phone] 06/30/2025 9:00 AM HIGH SCHOOL ADMISSIONS REPRESENTATIVE Office Visit [place] [address] [address] [place] [phone] Elli Stewart MD [facility] [address] [place] [phone] documented as of this encounter Visit Diagnoses Not on filedocumented in this encounter Care Teams Aircraft Designer Relationship Specialty Start Date End Date Elli Stewart MD [address] [place] [address] PCP - General Internal Medicine 12/21/10 documented as of this encounter
--- OUTSIDE RECORDS SUMMARY | 2025-01-28 14:30 | XMS_ITS | Encounter Summary ---
Author Organization [facility] Address [address] [place] [address] Care Team Providers Care Wealth Management Manager Name Role Phone Elli Stewart MD Primary Care Provider [phone] Encounter Details Date Type Department Care Team (Late st Contact Info) Description 08/29/[address] [facility] Primary Care - [address] [place] [address] Raúl Wright MD [address] [facility] [address] [place] [address] Social History Tobacco Use Types Packs/Day Years Used Date Smoking Tobacco: Never Assessed Comments Unknown Sex and Gender Information Value Date Recorded Sex Assigned at Not on file Legal 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 LOADER ENGINEER Gender Identity Not on file Sexual [...] status: CONTINUED, 08/29/2006. Electronically Signed by: Raúl Wrgiht MD on Tuesday, August 29, 2006 documented in this encounter Plan of Treatment Upcoming Encounters Date Type Department Care Team (Late st Contact Info) Description 02/09/2025 1:40 PM CDT Office Visit [address] [place] [phone] Elli Stewart MD [facility] [address] [place] [phone] 06/30/2025 9:00 AM LOADER ENGINEER Office Visit [address] [place] [phone] Elli Stewart MD [address] [place] [address] [address] [place] [address] documented as of this encounter Visit Diagnoses Not on filedocumented in this encounter Care Teams Wealth Management Manager Relationship Specialty Start Date End Date Elli Stewart MD [address] [facility] [address] [place] [phone] PCP - General Internal Medicine 12/21/10 documented as of this encounter
--- OUTSIDE RECORDS SUMMARY | 2025-01-28 14:30 | XMS_ITS | Encounter Summary ---
Author Organization [facility] Address [address] [place] [address] Care Team Providers Care Ward Assistant Name Role Phone Elli Stewart MD Primary Care Provider [phone] Encounter Details Date Type Department Care Team (Late st Contact Info) Description 12/10/2005 Orders Only [facility] Primary Care - [address] [place] [address] Raúl Wright MD [address] [facility] [address] [place] [address] Social History Tobacco Use Types Packs/Day Years Used Date Smoking Tobacco: Never Assessed Comments Unknown Sex and Gender Information Value Date Recorded Sex Assigned at Not on file Legal 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 DIGITAL COMMUNICATIONS MANAGER Gender Identity Not on file Sexual Orientation Not on file documented as of this encounter Progress Notes * Raúl Wright MD - 04/29/2008 5:20 AM CDT TIME:11:14 am PATIENT`S HOME PHONE: PATIENT`S WORK PHONE: PATIENT`S INSURANCE: [facility] WHO TOOK THE CALL: Kathrine Bradley M GENERAL INFORMATION PATIENT STATUS: Established Patient. PCP: dain. ALTERNATIVE PHONE NUMBER: [phone] WHO CALLED: Patient called. PHARMACY NUMBER: [phone] PROBLEMS: CONGESTION: Patient complains of sinus congestion, [...] Description 02/09/2025 1:40 PM CDT Office Visit [address] [place] [phone] Elli Stweart MD [address] [place] [address] [place] [phone] 06/30/2025 9:00 AM DIGITAL COMMUNICATIONS MANAGER Office Visit [facility] [address] [place] [address] [place] [phone] Elli Stewart MD [address] [place] [address] [place] [phone] documented as of this encounter Visit Diagnoses Not on filedocumented in this encounter Care Teams Ward Assistant Relationship Specialty Start Date End Date Elli Stewart MD [address] [place] [address] [place] [phone] PCP - General Internal Medicine 12/21/10 documented as of this encounter
--- OUTSIDE RECORDS SUMMARY | 2025-01-28 14:30 | XMS_ITS | Encounter Summary ---
Author Organization [facility] Address [address] [place] [address] Care Team Providers Care Psychology Instructor Name Role Phone Elli Stewart MD Primary Care Provider [phone] Encounter Details Date Type Department Care Team (Late st Contact Info) Description 11/06/2007 Outpatient Historical [address] [place] [address] Raúl Wright MD [address] [facility] [address] [place] [address] Social History Tobacco Use Types Packs/Day Years Used Date Smoking Tobacco: Never Assessed Comments Unknown Sex and Gender Information Value Date Recorded Sex Assigned at Not on file Legal 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 DOUGH SHEETER Gender Identity Not on file Sexual Orientation Not on file documented as of this encounter Plan of Treatment Upcoming Encounters Date Type Department Care Team (Late st Contact Info) Description 02/09/2025 1:40 PM CDT Office Visit [facility] [address] [place] [address] [address] [place] [address] Elli Stewart MD [address] [place] [address] [address] [place] [address] 06/30/2025 9:00 AM DOUGH SHEETER Office Visit [facility] [address] [place] [address] [address] [place] [address] Elli Stewart MD [address] [place] [address] documented as of this encounter Visit Diagnoses Not on filedocumented in this encounter Care Teams Psychology Instructor Relationship Specialty Start Date End Date Elli Stewart MD [address] [place] [address] PCP - General Internal Medicine 12/21/10 documented as of this encounter
--- OUTSIDE RECORDS SUMMARY | 2025-01-28 14:30 | XMS_ITS | Encounter Summary ---
Author Organization [facility] Address [address] [place] [address] Care Team Providers Care Reporter Anchor Name Role Phone Elli Stewart MD Primary Care Provider [phone] Encounter Details Date Type Department Care Team (Late st Contact Info) Description 04/20/2004 Outpatient Historical [address] [place] [address] Raúl [place] MD [address] [facility] [address] [place] [address] Social History Tobacco Use Types Packs/Day Years Used Date Smoking Tobacco: Never Assessed Comments Unknown Sex and Gender Information Value Date Recorded Sex Assigned at Not on file Legal 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 BARREL LATHE OPERATOR INSIDE Gender Identity Not on file Sexual Orientation Not on file documented as of this encounter Plan of Treatment Upcoming Encounters Date Type Department Care Team (Late st Contact Info) Description 02/09/2025 1:40 PM CDT Office Visit [facility] [address] [place] [address] [address] [place] [address] Elli Stewart MD [address] [place] [address] [address] [place] [address] 06/30/2025 9:00 AM BARREL LATHE OPERATOR INSIDE Office Visit [facility] [address] [place] [address] [address] [place] [address] Elli Stewart MD [address] [place] [address] documented as of this encounter Visit Diagnoses Not on filedocumented in this encounter Care Teams Reporter Anchor Relationship Specialty Start Date End Date Elli Stewart MD [address] [place] [address] PCP - General Internal Medicine 12/21/10 documented as of this encounter
--- OUTSIDE RECORDS SUMMARY | 2025-01-28 14:30 | XMS_ITS | Encounter Summary ---
Author Organization [facility] Address [address] [place] [address] Care Team Providers Care Mis Director Name Role Phone Elli Stewart MD Primary Care Provider [phone] Encounter Details Date Type Department Care Team (Late st Contact Info) Description 08/29/2006 Outpatient Historical [facility] Care - [address] [place] [address] Raúl [place] MD [address] [facility] [address] [place] [address] Social History Tobacco Use Types Packs/Day Years Used Date Smoking Tobacco: Never Assessed Comments Unknown Sex and Gender Information Value Date Recorded Sex Assigned at Not on file Legal 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 GREASE WORKER Gender Identity Not on file Sexual Orientation Not on file documented as of this encounter Last Filed Vital Signs Vital Sign Reading Time Taken Comments Blood Pressure 118/68 08/29/2006 11:30 AM GREASE WORKER Pulse - - Temperature 36.4 C (97.6 F) 08/29/2006 11:30 AM GREASE WORKER Respiratory Rate - - Oxygen Saturation - - Inhaled Oxygen Concentration - - Weight 84.8 kg (187 lb) 08/29/2006 11:30 AM GREASE WORKER Height - - Body Mass Index - - documented in this encounter Plan of Treatment Upcoming Encounters Date Type Department Care Team (Late st Contact Info) Description 02/09/2025 1:40 PM CDT Office Visit [facility] - [address] [place] [address] Elli Stewart MD [address] [place] [address] 06/30/2025 9:00 AM GREASE WORKER Office Visit [facility] Primary Care - [facility] [address] [place] [address] Elli [place] MD [address] [place] [address] documented as of this encounter Visit Diagnoses Not on filedocumented in this encounter Care Teams Mis Director Relationship Specialty Start Date End Date Elli Stewart MD [address] [place] [address] PCP - General Internal Medicine 12/21/10 documented as of this encounter
--- OUTSIDE RECORDS SUMMARY | 2025-01-28 14:30 | XMS_ITS | Encounter Summary ---
Author Organization [facility] Address [address] [place] [address] Care Team Providers Care Receiving Weigher Name Role Phone Elli Stewart MD Primary Care Provider [phone] Encounter Details Date Type Department Care Team (Late st Contact Info) Description 09/08/2008 Outpatient Historical [facility], [address] Raúl [place] MD [address] [facility] [address] [place] [id number] Impaired Fasting Glucose Social History Tobacco Use Types Packs/Day Years Used Date Smoking Tobacco: Every Day Cigarettes Alcohol Use Standard Drinks/Week Comments Not Asked 0 (1 standard drink = 0.6 oz pur e alcohol) Comments No Sex and Gender Information Value Date Recorded Sex Assigned at Not on file Legal 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 ROUTE SALESMAN Gender Identity Not on file Sexual Orientation Not on file documented as of this encounter Plan of Treatment Upcoming Encounters Date Type Department Care Team (Late Contact Info) Description 02/09/2025 1:40 PM CDT Office Visit [facility] [address] [facility] [address] [place] [address] Elli [place] MD [address] [place] [address] [address] [place] [address] 06/30/2025 9:00 AM ROUTE SALESMAN Office Visit [facility] [address] [facility] [address] [place] [address] Elli Stewart MD [address] [place] [address] documented as of this encounter Visit Diagnoses Diagnosis Impaired fasting glucose documented in this encounter Care Teams Receiving Weigher Relationship Specialty Start Date End Date Elli Stewart MD [address] [place] [address] PCP - General Internal Medicine 12/21/10 documented as of this encounter
--- OUTSIDE RECORDS SUMMARY | 2025-01-28 14:30 | XMS_ITS | Encounter Summary ---
Author Organization [facility] Address [address] [place] [address] Care Team Providers Care Mailing Jogger Name Role Phone Elli Stewart MD Primary Care Provider [phone] Encounter Details Date Type Department Care Team (Latest Contact Info) Description 02/15/2005 Outpatient Historical [facility] Alvarado, Nolan Shi MD NO ADDRESS ON FILE OVARIAN CYST NEC/NOS (Primary Dx) Social History Tobacco Use Types Packs/Day Years Used Date Smoking Tobacco: Never Assessed Comments Unknown Sex and Gender Information Value Date Recorded Sex Assigned at Not on file Legal 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 CHEMICALS DISTILLER Gender Identity Not on file Sexual Orientation Not on file documented as of this encounter Plan of Treatment Upcoming Encounters Date Type Department Care Team (Late st Contact Info) Description 02/09/2025 1:40 PM CDT Office Visit [address] [place] [address] Elli Stewart MD [facility] [address] [place] [address] 06/30/2025 9:00 AM CHEMICALS DISTILLER Office Visit [facility] [address] [place] [address] Elli Stewart MD [address] [place] [address] Rd [address] [place] [address] documented as of this encounter Visit Diagnoses Diagnosis Other and unspecified ovarian cyst- Primary documented in this encounter Care Teams Mailing Jogger Relationship Specialty Start Date End Date Elli Stewart MD [address] [facility] [address] [place] [address] PCP - General Internal Medicine 12/21/10 documented as of this encounter
--- OUTSIDE RECORDS SUMMARY | 2025-01-28 14:30 | XMS_ITS | Clinical Summary ---
Author Organization [facility] Address [address] [place] [address] Phone Care Team Providers Care Corporate Banking Officer Name Role Phone Elli Stewart MD Primary Care Provider [phone] Allergies Active Allergy Reactions Criticality Noted Date [...] 01/21/2025 8:35 AM CDT [facility] [address] [place] [address] Mary Hernandez, AREA FIELD PERSON, FRIT COATER Bronchitis (Primary Dx) Discharge Disposition: Discharged to home or Selfcare 01/21/2025 Travel from Last 3 Months Immunizations Immunization Administration Dates Next Due Covid-19, Mrna, Lnp-s, Pf, 3 0 Mcg/0.3 Ml Dose ([facility]) 07/30/2020,07/09/2020 Influenza Vaccine, Quadrivalent, PF 03/21,05/07/2022,04/18/2019,2017 Influenza,Split [...] on file Legal Sex Female 7:07 PM MODEL MAKING SUPERVISOR Gender Identity Not on file Sexual [...] CAD W BINDU Routine 07/22/2024 7:15 AM MODEL MAKING SUPERVISOR Visit for screening mammogram from Last 3 Months or Most Recently Relevant to Health Maintenance Results * TITUS SCREENING BILATERAL DIGITAL W CAD W BINDU (07/22/2024 7:15 AM MODEL MAKING SUPERVISOR) Anatomical Region Laterality Modality breast Bilateral Mammography 07/22/2024 7:45 AM MODEL MAKING SUPERVISOR Narrative 07/22/2024 3:46 PM MODEL MAKING SUPERVISOR - TITUS SCREENING BILATERAL DIGITAL W CAD [...] exam. Electronically signed by: Yoselyn [email or web address]:07/22/2024 13:45:57 Supervisor Evaporator(s): LYNETTE Gordon)(M), [facility]: Normal Exam Reading location: [...] exam. Electronically signed by: Yoselyn [email or web address]:07/22/2024 13:45:57 Supervisor Evaporator(s): IVY GordonR)(M), [facility] letter sent: Normal Exam Reading location: [place] Mammogram BI-RADS: Category 1: Negative Elli Stewart MD G MAMMO ORDERABLES Final R esult from Last 3 Months or Most Recently Relevant to Health Maintenance Insurance [facility] [employer] [facility] * Guarantor: [employer] Account Type Relation to Patient Date of Phone Billing Address Institutional Other [address] [place] [address] Care Teams Corporate Banking Officer Relationship Specialty Start Date End Date Elli Stewart MD [address] [place] [address] PCP - General Internal Medicine 09/16/17
--- OUTSIDE RECORDS SUMMARY | 2025-01-28 14:30 | XMS_ITS | Encounter Summary ---
Author Organization [facility] Address [address] [place] [address] Phone Care Team Providers Care Electrical Foreman Name Role Phone Elli Stewart MD Primary Care Provider [phone] Encounter Details Date Type Department Care Team (Late st Contact Info) Description 11/20/2021 [facility] [address] [place] [address] Jeni Ramirez APRN, MICROWAVE REMOTE SENSING SCIENTIST #[address] [place] [address] Encounter for screening for other viral diseases; [...] on file Legal Sex Female 7:07 PM AUTOMOTIVE DESIGN LAYOUT DRAFTER Gender Identity Not on file Sexual Orientation [...] 1.4 >=1.1 AI 11/20/2021 10:52 PM CDT [facility] Blood No Phlebotomy Charged / Unknown 11/20/2021 10:05 AM CDT 11/20/2021 12:51 PM CDT Narrative [facility] - 11/20/2021 10:52 PM CDT <= 0.8 Negative. No detectable Mumps IgG antibody. 0.9 - 1.0 Equivocal >=1.1 Positive Antibody testing was performed by multiplex flow immunoassay on the Chatosity platform. Jeni Ramirez APRN, CNP IMMUNOLOGY ORDERA BLES Final Result [facility] [address] [place] [address], * HERPES ZOSTER (VARICELLA) IGG (11/20/2021 10:05 AM CDT) VARICELLA ZOSTER IGG 7.2 >=1.1 AI 11/20/2021 10:52 PM CDT [facility] Blood No Phlebotomy Charged / Unknown 11/20/2021 10:05 AM CDT 11/20/2021 12:51 PM CDT Narrative [facility] - 11/20/2021 10:52 PM CDT <= 0.8 Negative. No detectable VZV IgG antibody. 0.9 - 1.0 Equivocal >=1.1 Positive Antibody testing was performed by multiplex flow immunoassay on the Chatosity platform. us Jeni Ramirez FINANCIAL SERVICES AUDITOR, MICROWAVE REMOTE SENSING SCIENTIST IMMUNOLOGY ORDERA BLES Final Result [facility] [address] [place] [address], documented in this encounter Visit Diagnoses Diagnosis [...] Total Score: 0 09/16/19 18 7:00 PM AUTOMOTIVE DESIGN LAYOUT DRAFTER documented as of this encounter Care Teams Electrical Foreman Relationship Specialty Start Date End Date Elli Stewart MD [address] [facility] [address] [place] [address] PCP - General Internal Medicine 09/16/17 documented as of this encounter
--- OUTSIDE RECORDS SUMMARY | 2025-01-28 14:30 | XMS_ITS | Encounter Summary ---
Author Organization [facility] Address [address] [place] [address] Phone Care Team Providers Care Economics Consultant Name Role Phone Elli Stewart MD Primary Care Provider [phone] Encounter Details Date Type Department Care Team (Late st Contact Info) Description 11/20/2021 [facility] 1 [place] [address] Jeni Ramirez APRN, AUTO TRANSMISSION MECHANIC #[address] [place] [address] Encounter for antibody response examination; Encounter for [...] on file Legal Sex Female 7:07 PM HEALTH AND WELLNESS INSTRUCTOR Gender Identity Not on file Sexual Orientation [...] 2.5 >=1.1 AI 11/20/2021 10:44 PM CDT [facility] Blood No Phlebotomy Charged / Unknown 11/20/2021 10:05 AM CDT 11/20/2021 12:49 PM CDT Narrative [facility] - 11/20/2021 10:44 PM CDT <= 0.8 Negative. No detectable Measles IgG antibody. 0.9 - 1.0 Equivocal >=1.1 Positive Antibody testing was performed by multiplex flow immunoassay on the Call Britannia platform. us Jeni Ramirez APRN, CNP IMMUNOLOGY ORDERA BLES Final Result [facility] [address] [place] [address], * RUBELLA I[facility]UNITY IGG (11/20/2021 10:05 AM CDT) [facility] Immune Immune, Invalid 11/20/2021 10:44 PM CDT [facility] Blood No Phlebotomy Charged / Unknown 11/20/2021 10:05 AM CDT 11/20/2021 12:49 PM CDT Narrative [facility] - 11/20/2021 10:44 PM CDT Antibody testing was performed by multiplex flow immunoassay on the Call Britannia platform. us Jeni Ramirez SCREEN PRINTING PASTER, AUTO TRANSMISSION MECHANIC CHEMISTRY ORDERAB LES Final Result [facility] [address] [place] [address], documented in this encounter Visit Diagnoses Diagnosis [...] Total Score: 0 09/16/19 18 7:00 PM HEALTH AND WELLNESS INSTRUCTOR documented as of this encounter Care Teams Economics Consultant Relationship Specialty Start Date End Date Elli Stewart MD [address] [facility] [address] [place] [address] PCP - General Internal Medicine 09/16/17 documented as of this encounter
--- OUTSIDE RECORDS SUMMARY | 2025-01-28 14:30 | XMS_ITS | Encounter Summary ---
Author Organization [facility] Address [address] [place] [address] Care Team Providers Care Discharge Coordinator Name Role Phone Elli Stewart MD Primary Care Provider [phone] Encounter Details Date Type Department Care Team (Late st Contact Info) Description 05/27/2012 Chart Note [facility] [address] [address] Ariadna Salas Physical Therapist Social History Tobacco Use Types Packs/Day Years Used Date Smoking Tobacco: Former Cigarettes Smokeless Tobacco: Never Alcohol Use Standard Drinks/Week Comments Yes 0 (1 standard drink = 0.6 oz pur e alcohol) Comments No Sex and Gender Information Value Date Recorded Sex Assigned at Not on file Legal 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 VENDOR MANAGEMENT CONSULTANT Gender Identity Not on file Sexual [...] Thank you for this referral. GIANFRANCO [facility] [place] [phone] OR MANAGEMENT CONSULTANT documented in this encounter Plan of Treatment Upcoming Encounters Date Type Department Care Team (Late st Contact Info) Description 02/09/2025 1:40 PM CDT Office Visit [address] [address] Elli Stewart MD [address] [place] [address] 06/30/2025 9:00 AM VENDOR MANAGEMENT CONSULTANT Office Visit [address] [address] Elli Stewart MD [address] [place] [address] documented as of this encounter Visit Diagnoses Not on filedocumented in this encounter Care Teams Discharge Coordinator Relationship Specialty Start Date End Date Elli Stewart MD [address] [place] [address] PCP - General Internal Medicine 12/21/10 documented as of this encounter
--- OUTSIDE RECORDS SUMMARY | 2025-01-28 14:30 | XMS_ITS | Encounter Summary ---
Author Organization [facility] Address [address] [place] [address] Care Team Providers Care Wrapper Counter Name Role Phone Elli Stewart MD Primary Care Provider [phone] Encounter Details Date Type Department Care Team (Late st Contact Info) Description 11/06/2007 Outpatient Historical [address] [place] [address] Raúl [place] MD [address] [facility] [address] [place] [address] Social History Tobacco Use Types Packs/Day Years Used Date Smoking Tobacco: Never Assessed Comments Unknown Sex and Gender Information Value Date Recorded Sex Assigned at Not on file Legal 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 HAM FACER Gender Identity Not on file Sexual Orientation Not on file documented as of this encounter Plan of Treatment Upcoming Encounters Date Type Department Care Team (Late st Contact Info) Description 02/09/2025 1:40 PM CDT Office Visit [facility] [address] [place] [address] [address] [place] [address] Elli Stewart MD [address] [place] [address] [address] [place] [address] 06/30/2025 9:00 AM HAM FACER Office Visit [facility] [address] [place] [address] [address] [place] [address] Elli Stewart MD [address] [place] [address] documented as of this encounter Visit Diagnoses Not on filedocumented in this encounter Care Teams Wrapper Counter Relationship Specialty Start Date End Date Elli Stewart MD [address] [place] [address] PCP - General Internal Medicine 12/21/10 documented as of this encounter
--- OUTSIDE RECORDS SUMMARY | 2025-01-28 14:30 | XMS_ITS | Encounter Summary ---
Author Organization [facility] Address [address] [place] [address] Care Team Providers Care Trailhead Maintenance Worker Name Role Phone Elli Stewart MD Primary Care Provider [phone] Encounter Details Date Type Department Care Team (Late st Contact Info) Description 12/12/2005 Outpatient Historical [address] [place] [address] Raúl [place] MD [address] [facility] [address] [place] [address] Social History Tobacco Use Types Packs/Day Years Used Date Smoking Tobacco: Never Assessed Comments Unknown Sex and Gender Information Value Date Recorded Sex Assigned at Not on file Legal 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 REAL ESTATE COORDINATOR Gender Identity Not on file Sexual Orientation Not on file documented as of this encounter Plan of Treatment Upcoming Encounters Date Type Department Care Team (Late st Contact Info) Description 02/09/2025 1:40 PM CDT Office Visit [facility] [address] [place] [address] [address] [place] [address] Elli Stewart MD [address] [place] [address] [address] [place] [address] 06/30/2025 9:00 AM REAL ESTATE COORDINATOR Office Visit [facility] [address] [place] [address] [address] [place] [address] Elli Stewart MD [address] [place] [address] documented as of this encounter Visit Diagnoses Not on filedocumented in this encounter Care Teams Trailhead Maintenance Worker Relationship Specialty Start Date End Date Elli Stewart MD [address] [place] [address] PCP - General Internal Medicine 12/21/10 documented as of this encounter
--- OUTSIDE RECORDS SUMMARY | 2025-01-28 14:30 | XMS_ITS | Encounter Summary ---
Author Organization [facility] Address [address] [place] [address] Care Team Providers Care Pleater Hand Name Role Phone Elli Stewart MD Primary Care Provider [phone] Encounter Details Date Type Department Care Team (Late st Contact Info) Description 05/30/2005 Outpatient Historical [facility] Care - [address] [place] [address] Raúl [place] MD [address] [facility] [address] [place] [address] Social History Tobacco Use Types Packs/Day Years Used Date Smoking Tobacco: Never Assessed Comments Unknown Sex and Gender Information Value Date Recorded Sex Assigned at Not on file Legal 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 HEAT TRANSFER TECHNICIAN Gender Identity Not on file Sexual Orientation Not on file documented as of this encounter Last Filed Vital Signs Vital Sign Reading Time Taken Comments Blood Pressure 110/80 05/30/2005 9:15 AM HEAT TRANSFER TECHNICIAN Pulse - - Temperature 36.5 C (97.7 F) 05/30/2005 9:15 AM HEAT TRANSFER TECHNICIAN Respiratory Rate - - Oxygen Saturation - - Inhaled Oxygen Concentration - - Weight 77.1 kg (170 lb) 05/30/2005 9:15 AM HEAT TRANSFER TECHNICIAN Height - - Body Mass Index - - documented in this encounter Plan of Treatment Upcoming Encounters Date Type Department Care Team (Late st Contact Info) Description 02/09/2025 1:40 PM CDT Office Visit [facility] - [address] [place] [address] Elli Stewart MD [address] [place] [address] 06/30/2025 9:00 AM HEAT TRANSFER TECHNICIAN Office [facility] Primary Care - [facility] [address] [place] [address] Elli Stewart MD [address] [place] [address] documented as of this encounter Visit Diagnoses Not on filedocumented in this encounter Care Teams Pleater Hand Relationship Specialty Start Date End Date Elli Stewart MD [address] [place] [address] PCP - General Internal Medicine 12/21/10 documented as of this encounter
--- OUTSIDE RECORDS SUMMARY | 2025-01-28 14:30 | XMS_ITS | Encounter Summary ---
Author Organization [facility] Address [address] [place] [address] Care Team Providers Care Garment Fitter Name Role Phone Elli Stewart MD Primary Care Provider [phone] Encounter Details Date Type Department Care Team (Latest Contact Info) Description 01/26/2025 10:57 AM CDT - 01/26/2025 11:59 PM T Hospital Encounter [facility] [address] [place] [address] Elli Stewart MD [address] [facility] [address] [place] [address] Arrived Discharge Disposition: Home or Self Care Social History Tobacco Use Types Packs/Day Years Used Date Smoking Tobacco: Former Cigarettes Smokeless Tobacco: Never Alcohol Use Standard Drinks/Week Comments Yes 0 (1 standard drink = 0.6 oz pur e alcohol) Comments No Sex and Gender Information Value Date Recorded Sex Assigned at Not on file Legal 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 CATTLE DIPPER Gender Identity Not on file Sexual Orientation Not on file Occupation Industry Job Start Date Job End Date Not on file Not on file Not on file Not on file documented as of this encounter Medications at Time of Discharge albuterol (PROVENTIL,VENTOL IN) 2.5 mg /3 mL (0.083 %) Solution for NebulizationIndic ations:Severe persistent asthma with acute exacerbation ([facility]) Take 3 mL (2.5 mg) by inhalation [...] mg/0.215 mg/0.25 mg-ethinyl estradioL 25 mcg tablet Ybn-Tg-Faymknff 0.18 mg/0.215 mg/0.25 mg-25 mcg tablet TK 1 T PO QD documented as of this encounter Plan of Treatment Upcoming Encounters Date Type Department Care Team (Late st Contact Info) Description 02/09/2025 1:40 PM CDT Office Visit [address] [place] [phone] Elli Stewart MD [address] [place] [address] [place] [address] 06/30/2025 9:00 AM CATTLE DIPPER Office Visit [address] [place] [address] Elli Stewart MD [address] [place] [address] Rd [address] [place] [address] documented as of this encounter Procedures Procedure Name Priority Date/Time Associated Diagnosis Comments XR CHEST PA AND LATERAL 2 VW Routine 01/26/2025 11:05 AM CDT Severe persistent asthma with acute exacerbation ([facility]) documented in this encounter Results * XR [...] acute cardiopulmonary disease process identified. DICTATION LOCATION: [address] Elli Stewart MD DIAGNOSTIC IMAGING ORDERABLE S Final Result documented in this encounter Visit Diagnoses Diagnosis Severe persistent asthma with acute exacerbation ([facility]) Unspecified asthma, with exacerbation documented in this encounter Care Teams Garment Fitter Relationship Specialty Start Date End Date Elli Stewart MD [facility] [address] [place] [address] PCP - General Internal Medicine 12/21/10 documented as of this encounter
--- OUTSIDE RECORDS SUMMARY | 2025-01-28 14:30 | XMS_ITS | Encounter Summary ---
Author Organization [facility] Address [address] [place] [address] Care Team Providers Care Pattern Wheel Maker Name Role Phone Elli Stewart MD Primary Care Provider [phone] Encounter Details Date Type Department Care Team (Late st Contact Info) Description 11/12/2005 Outpatient Historical [facility] - [address] [place] [address] Raúl Wright MD [address] [facility] [address] [place] [address] Social History Tobacco Use Types Packs/Day Years Used Date Smoking Tobacco: Never Assessed Comments Unknown Sex and Gender Information Value Date Recorded Sex Assigned at Not on file Legal 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 DOUBLE NEEDLE OPERATOR LOCKSTITCH Gender Identity Not on file Sexual Orientation [...] Description 02/09/2025 1:40 PM CDT Office Visit [address] [place] [phone] Elli Stewart MD [address] [place] [phone] 06/30/2025 9:00 AM DOUBLE NEEDLE OPERATOR LOCKSTITCH Office Visit [facility] - [facility] [address] [place] [phone] Elli Stewart MD [address] [place] [address] documented as of this encounter Visit Diagnoses Not on filedocumented in this encounter Care Teams Pattern Wheel Maker Relationship Specialty Start Date End Date Elli Stewart MD [address] [place] [phone] PCP - General Internal Medicine 12/21/10 documented as of this encounter
--- OUTSIDE RECORDS SUMMARY | 2025-01-28 14:30 | XMS_ITS | Encounter Summary ---
Author Organization [facility] Address [address] [place] [address] Care Team Providers Care Coordinator Of Genetic Services Name Role Phone lEli Stewart MD Primary Care Provider [phone] Encounter Details Date Type Department Care Team (Late st Contact Info) Description 05/09/2004 Outpatient Historical [facility] Yanelis Vivar MD [address] [place] [address] [address] [address] LIPOMA NEC (Primary Dx) Social History Tobacco Use Types Packs/Day Years Used Date Smoking Tobacco: Never Assessed Comments Unknown Sex and Gender Information Value Date Recorded Sex Assigned at Not on file Legal 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 DIRECTOR OF BUSINESS APPLICATIONS Gender Identity Not on file Sexual Orientation Not on file documented as of this encounter Plan of Treatment Upcoming Encounters Date Type Department Care Team (Late st Contact Info) Description 02/09/2025 1:40 PM CDT Office Visit [facility] [address] [place] [address] Elli Stewart MD [address] [place] [address] 06/30/2025 9:00 AM DIRECTOR OF BUSINESS APPLICATIONS Office Visit [facility] [address] [place] [address] Elli Stewart MD [address] [place] [address] documented as of this encounter Visit Diagnoses Diagnosis Lipoma of other specified sites- Primary documented in this encounter Care Teams Coordinator Of Genetic Services Relationship Specialty Start Date End Date Elli Stewart MD [address] [place] [address] PCP - General Internal Medicine 12/21/10 documented as of this encounter
--- OUTSIDE RECORDS SUMMARY | 2025-01-28 14:30 | XMS_ITS | Clinical Summary ---
Author Organization [facility] Address [address] [place] [address] Care Team Providers Care Sorting Machine Attendant Name Role Phone Elli Stewart MD Primary Care Provider [phone] Allergies Active Allergy Reactions Criticality Noted Date Comments Tramadol Hcl Itching Low 12/09/2018 Medications norgestimate 0.18 mg/0.215 mg/0.25 mg-ethinyl estradioL 25 mcg tablet Wwm-Xa-Vghdwrsc 0.18 mg/0.215 mg/0.25 mg-25 mcg tablet TK [...] migh t be different from the original. 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 [facility] Problem Noted Date Diagnosed Date Family [...] - 01/26/2025 11:59 PM CDT Hospital Encounter [facility] [address] [place] [address] Elli Stewart MD Arrived Discharge Disposition: Home or Self Care 01/26/2025 Results Follow-Up [facility] Primary Care - [address] [place] [address] Elli Stewart MD XR CHEST PA AND LATERAL 2 VW 01/24/2025 3:20 PM CDT Office Visit [facility] [address] [place] [address] Elli Stewart MD Severe persistent asthma with acute exacerbation (CMS/HCC) (Primary Dx) 01/04/2025 External Device Data STL ABSTRACTION Provider, Abstract 12/29/2024 1:00 PM CDT Office Visit [facility] [address] [place] [address] Elli Stewart MD 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 (Primary Dx); Prediabetes; Severe obesity (BMI 35.0-39.9) with comorbidity (CMS/HCC); Hypercholesteremia; Family history of ischemic heart disease before age 50 12/09/2024 External Device Data STL ABSTRACTION Provider, Abstract 11/30/[address] [place] [phone] Elli Stewart MD 11/12/2024 Abstract [facility] [address] [place] [phone] Elli Stewart MD 11/02/2024 External Device Data STL ABSTRACTION Provider, Abstract from Last 3 Months Immunizations Immunization Administration Dates Next Due (ADACEL/BOOSTRIX)(10 YR UP) TDAP VACCINE, 0.5ML, IM 11/06/2010 (PFIZER)(12 YR UP) COVID-19 VACCINE - EMERGENCY USE AUTHORIZATION, MRNA, [id number]) 30 MCG/0.3 ML IM SUSP 04/20/2021,08/18/2020,07/30/2020,07/09 (PNEUMOVAX [...] Failure Maternal Grandfather Dionte Cancer Maternal Grandmother Cord Heart Disease Maternal Grandmother Cord Heart Failure Maternal Grandmother Cord Hypertension Maternal Grandmother Cord Blood Clots Mother Andreina Heart Disease Mother [...] Maternal Aunt Maternal Grandfather Dionte Maternal Grandmother Cord Mother Andreina Paternal Grandfather Flavio Paternal Grandmother Social History Tobacco Use Types Packs/Day Years Used Date Smoking Tobacco: Former Cigarettes Smokeless Tobacco: Never Tobacco Cessation:Counseling Given: No Alcohol Use Standard Drinks/Week Comments Yes 0 (1 standard drink = 0.6 oz pur e alcohol) Comments No Sex and Gender Information Value Date Recorded Sex Assigned at Not on file Legal 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 TRANSIT PROOF MACHINE OPERATOR Gender Identity Not on file Sexual [...] Description 02/09/2025 1:40 PM CDT Office Visit [facility] [address] [place] [address] Elli Stewart MD [address] [place] [address] 06/30/2025 9:00 AM TRANSIT PROOF MACHINE OPERATOR Office Visit [facility] [address] [place] [address] Elli Stewart MD [address] [place] [address] Health Maintenance Due Date Last [...] MAMMO SCREENING BILAT Routine 07/22/2024 9:52 AM TRANSIT PROOF MACHINE OPERATOR from Last 3 Months or Most Recently Relevant to Health Maintenance Results * XR CHEST PA AND LATERAL 2 VW (01/26/2025 11:05 AM CDT) Anatomical Region Laterality Modality Chest Computed Radiogr aphy 01/26/2025 11:0 5 AM CDT Impressions 01/26/2025 4:06 PM CDT IMPRESSION: 1. No acute cardiopulmonary disease process identified. DICTATION LOCATION: [facility] Brianna Rosa Narrative 01/26/2025 4:06 PM [...] acute cardiopulmonary disease process identified. DICTATION LOCATION: [facility] Rosa us Elli Stewart MD DIAGNOSTIC IMAGING ORDERABLE S Final Result * POC HEMOGLOBIN A1C (12/29/2024 1:00 PM CDT) HGB A1C POC 5.3 4.0 - 6.0 % [facility] KIT LOT NUMBER POC 3,737 [facility] KIT EXP DATE POC 02/17/25 [facility] Blood, capillary 12/29/2024 1:00 PM CDT Elli Stewart MD POINT OF CARE TESTING Final Result [facility] CLIA# [id number] [address] [place] [address] * MAMMO SCREENING BILAT (07/22/2024 9:52 AM TRANSIT PROOF MACHINE OPERATOR) Anatomical Region Laterality Modality Breast Bilateral Mammography Abstract Provider MAMMO ORDERABLES Edited Result - Final from Last 3 Months or Most Recently Relevant to Health Maintenance Insurance [employer] BLUE PREFERRED Advance Directives For more information, please contact: [phone] * Full Code (Latest Code Status on File) Date Activated Date Inactivated Comments 08/01/2011 3:48 PM 08/01/2011 10:02 PM * Full Code Date Activated Date Inactivated Comments 08/01/2011 12:59 PM 08/01/2011 3:48 PM * Full Code Date Activated Date Inactivated Comments 08/01/2011 11:49 AM 08/01/2011 12:59 PM Care Teams Sorting Machine Attendant Relationship Specialty Start Date End Date Elli Stewart MD [address] [address] PCP - General Internal Medicine 12/21/10
--- OUTSIDE RECORDS SUMMARY | 2025-01-28 14:30 | XMS_ITS | Encounter Summary ---
Author Organization [facility] Address [address] [place] [address] Care Team Providers Care Account Assistant Name Role Phone Elli Stewart MD Primary Care Provider [phone] Reason for Visit * Reason Onset Date Comments PEER to PEER 07/04/2023 Encounter Details Date Type Department Care Team (Late st Contact Info) Description 07/04/2023 Telephone [facility] Primary Care - [address] [place] [address] Elli Stewart MD [address] [place] [address] [place] [address] PEER to PEER Social History Tobacco Use Types Packs/Day Years Used Date Smoking Tobacco: Former Cigarettes Smokeless Tobacco: Never Alcohol Use Standard Drinks/Week Comments Yes 0 (1 standard drink = 0.6 oz pur e alcohol) Comments No Sex and Gender Information Value Date Recorded Sex Assigned at Not on file Legal 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 PLANER OFFBEARER Gender Identity Not on file Sexual Orientation Not on file Occupation Industry Job Start Date Job End Date Not on file Not on file Not on file Not on file documented as of this encounter Miscellaneous Notes * Telephone Encounter - Kathrine Pate - 07/07/2023 9:10 AM CST Should be ok for [employer] to do the PEER to PEER in PCP. Have a message in with Pre Cert to double check. ER OFFBEARER * Telephone Encounter - Elli Stewart MD - 07/04/2023 4:50 PM CST I am sorry I just got this message about a peer to peer Friday late afternoon can [employer] PASSENGER [employer] do that since I am not going to be here next week MRI lumbar Severe neural foraminal narrowing on the right at L5-S1, likely impinging the exiting L5 nerve. ER OFFBEARER * Telephone Encounter - Rio Butt - 07/04/2023 10:01 AM CST Provider: Elli Stewart MD Next office visit: Visit date not found Caller: [facility] Dept Message: She is getting a MRI on 07/11/23 and her primary coverage approved but the secondary is wanting to do a peer to peer sharing. They only have 3 days to complete the peer to peer sharing. When they call to get schedule please call [phone]. Case number for this issue is - [id number]. Also have faxed clinical paperwork to the office Also sent in basket info as well. Please advise Call-back Number: [phone] ER OFFBEARER documented in this encounter Plan of Treatment Upcoming Encounters Date Type Department Care Team (Late st Contact Info) Description 02/09/2025 1:40 PM CDT Office Visit [address] [place] [address] Elli Stewart MD [address] [place] [address] Rd [address] [place] [address] 06/30/2025 9:00 AM PLANER OFFBEARER Office Visit [facility] [address] [place] [address] [address] [place] [address] Elli Stewart MD [address] [place] [address] [address] [place] [address] documented as of this encounter Visit Diagnoses Not on filedocumented in this encounter Care Teams Account Assistant Relationship Specialty Start Date End Date Elli Stewart MD [address] [place] [address] PCP - General Internal Medicine 12/21/10 documented as of this encounter
--- OUTSIDE RECORDS SUMMARY | 2025-01-28 14:30 | XMS_ITS | Encounter Summary ---
Author Organization [facility] Address [address] [place] [address] Care Team Providers Care Probation And Patrol Agent Name Role Phone Elli Stewart MD Primary Care Provider [phone] Encounter Details Date Type Department Care Team (Late st Contact Info) Description 12/12/2005 Outpatient Historical [address] [place] [address] Raúl Wright MD [address] [facility] [address] [place] [address] Social History Tobacco Use Types Packs/Day Years Used Date Smoking Tobacco: Never Assessed Comments Unknown Sex and Gender Information Value Date Recorded Sex Assigned at Not on file Legal 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 NEW PRODUCT TRAINER Gender Identity Not on file Sexual Orientation Not on file documented as of this encounter Plan of Treatment Upcoming Encounters Date Type Department Care Team (Late st Contact Info) Description 02/09/2025 1:40 PM CDT Office Visit [facility] [address] [place] [address] [address] [place] [address] Elli Stewart MD [address] [place] [address] [address] [place] [address] 06/30/2025 9:00 AM NEW PRODUCT TRAINER Office Visit [facility] [address] [place] [address] [address] [place] [address] Elli Stewart MD [address] [place] [address] documented as of this encounter Visit Diagnoses Not on filedocumented in this encounter Care Teams Probation And Patrol Agent Relationship Specialty Start Date End Date Elli Stewart MD [address] [place] [address] PCP - General Internal Medicine 12/21/10 documented as of this encounter
--- OUTSIDE RECORDS SUMMARY | 2025-01-28 14:30 | XMS_ITS | Encounter Summary ---
Author Organization [facility] Address [address] [place] [address] Care Team Providers Care Oceanography Professor Name Role Phone Elli Stewart MD Primary Care Provider [phone] Encounter Details Date Type Department Care Team [...] on file Legal 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 ACCREDITED PHARMACY TECHNICIAN Gender Identity Not on file Sexual Orientation Not on file documented as of this encounter Plan of Treatment Upcoming Encounters Date Type Department Care Team (Late st Contact Info) Description 02/09/2025 1:40 PM CDT Office Visit [address] [place] [address] Elli Stewart MD [address] [place] [address] [place] [address] 06/30/2025 9:00 AM ACCREDITED PHARMACY TECHNICIAN Office Visit [address] [place] [address] Elli Stewart MD [address] [place] [address] [place] [address] documented as of this encounter Procedures [...] Primary documented in this encounter Care Teams Oceanography Professor Relationship Specialty Start Date End Date Elli Stewart MD [address] [facility] [address] [place] [address] PCP - General Internal Medicine 12/21/10 documented as of this encounter
--- OUTSIDE RECORDS SUMMARY | 2025-01-28 14:30 | XMS_ITS | Encounter Summary ---
Author Organization [facility] Address [address] [place] [address] Care Team Providers Care Knot Bumper Name Role Phone Elli Stewart MD Primary Care Provider [phone] Encounter Details Date Type Department Care Team (Late st Contact Info) Description 11/25/2007 Orders Only [address] [place] [address] Raúl Wright MD [address] [facility] [address] [place] [address] Social History Tobacco Use Types Packs/Day Years Used Date Smoking Tobacco: Never Assessed Comments Unknown Sex and Gender Information Value Date Recorded Sex Assigned at Not on file Legal 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 STOCK CHECKERER Gender Identity Not on file Sexual Orientation Not on file documented as of this encounter Plan of Treatment Upcoming Encounters Date Type Department Care Team (Late st Contact Info) Description 02/09/2025 1:40 PM CDT Office Visit [facility] [address] [place] [address] [address] [place] [address] Elli Stewart MD [address] [place] [address] [address] [place] [address] 06/30/2025 9:00 AM STOCK CHECKERER Office Visit [facility] [address] [place] [address] [address] [place] [address] Elli Stewart MD [address] [place] [address] documented as of this encounter Visit Diagnoses Not on filedocumented in this encounter Care Teams Knot Bumper Relationship Specialty Start Date End Date Elli Stewart MD [address] [place] [address] PCP - General Internal Medicine 12/21/10 documented as of this encounter
--- OUTSIDE RECORDS SUMMARY | 2025-01-28 14:30 | XMS_ITS | Encounter Summary ---
Author Organization [facility] Address [address] [place] [address] Care Team Providers Care Weight Training Instructor Name Role Phone Elli Stewart MD Primary Care Provider [phone] Encounter Details Date Type Department Care Team (Late st Contact Info) Description 12/12/2005 Orders Only [facility] - [facility] [address] [facility] [address] [place] [address] Raúl Wright MD [address] [facility] [place] [address] [place] [address] Social History Tobacco Use Types Packs/Day Years Used Date Smoking Tobacco: Never Assessed Comments Unknown Sex and Gender Information Value Date Recorded Sex Assigned at Not on file Legal 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 MOBILE HOME SET UP PERSON Gender Identity Not on file Sexual Orientation Not on file documented as of this encounter Progress Notes * Raúl Wright MD - 04/29/2008 5:35 AM CDT [facility] RAÚL WRIGHT MD [address] [place] [address] December 12, 2005 MICHAEL [address] [place] [address] MICHAEL IBIS has been under our care during the dates below: 12/11/05,12/12/05 May return to work: Sincerely yours, RAÚL WRIGHT MD * Raúl Wright MD - 04/29/2008 5:35 AM CDT [facility] RAÚL WRIGHT MD [address] [place] [address] December 12, 2005 MICHAEL [address] [place] [address] MICHAEL BAUMANN has been under our care [...] NEW PRESCRIPTION, 12/12/2005. LAB ORDERS: Order number: [id number] Test Ordered: NEBULIZER TREATMENT [id number] Order number: [id number] Test Ordered: PULSE OXIMETRY [id number] REPEAT VITAL SIGNS: Electronically Signed by: Raúl Wright MD on Friday, December 21, 2005 documented in this encounter Plan of Treatment Upcoming Encounters Date Type Department Care Team (Late st Contact Info) Description 02/09/2025 1:40 PM CDT [facility] Visit [facility] [address] [place] [address] Elli Stewart MD [address] [place] [address] 06/30/2025 9:00 AM MOBILE HOME SET UP PERSON Office Visit [facility] [address] [place] [address] Elli Stewart MD [address] [facility] [address] [place] [address] documented as of this encounter Visit Diagnoses Not on filedocumented in this encounter Care Teams Weight Training Instructor Relationship Specialty Start Date End Date Elli Stewart MD [address] [place] [address] PCP - General Internal Medicine 12/21/10 documented as of this encounter
--- OUTSIDE RECORDS SUMMARY | 2025-01-28 14:30 | XMS_ITS | Encounter Summary ---
Author Organization [facility] Address [address] [place] [address] Care Team Providers Care Display Mechanic Name Role Phone Elli Stewart MD Primary Care Provider [phone] Encounter Details Date Type Department Care Team (Late st Contact Info) Description 11/11/2005 Orders Only [address] [place] [address] Bridger Gerber MD NO ADDRESS ON FILE Social History Tobacco Use Types Packs/Day Years Used Date Smoking Tobacco: Never Assessed Comments Unknown Sex and Gender Information Value Date Recorded Sex Assigned at Not on file Legal 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 COSTUMED CHARACTER Gender Identity Not on file Sexual Orientation Not on file documented as of this encounter Plan of Treatment Upcoming Encounters Date Type Department Care Team (Late st Contact Info) Description 02/09/2025 1:40 PM CDT Office Visit [address] [place] [address] Elli Stewart MD [address] [place] [address] [address] [place] [address] 06/30/2025 9:00 AM COSTUMED CHARACTER Office Visit [facility] [address] [place] [address] [address] [place] [address] Elli Stewart MD [address] [place] [address] Rd [address] [place] [address] documented as of this encounter Visit Diagnoses Not on filedocumented in this encounter Care Teams Display Mechanic Relationship Specialty Start Date End Date Elli Stewart MD [address] [place] [address] PCP - General Internal Medicine 12/21/10 documented as of this encounter
--- OUTSIDE RECORDS SUMMARY | 2025-01-28 14:30 | XMS_ITS | Clinical Summary ---
Author Organization [facility] Address [address] [place] [address] Care Team Providers Care Civil Engineering Assistant Name Role Phone Elli Stewart MD Primary Care Provider [phone] Source Comments [facility],non-owned Affiliates and Associated Physician Practices is amultiple site organization consisting of ambulatory clinics and hospital sitesin [place], [place], [place] and [place]. This disclosure is being madepursuant to the Care Everywhere program and may not contain all information available regarding this patient. Last updated 18.[facility] Allergies No known active allergies Medications * [...] MARCUS Subscriber ID:Not on file (Home) Address: [address] [place], [place] [address] [address] Payer ID:Not on file Group ID:Not on file Type:Self Pay Address: [facility] Care Teams Civil Engineering Assistant Relationship Specialty Start Date End Date Elli Stewart MD [address] [place] [address] PCP - General 11/07/21
--- OUTSIDE RECORDS SUMMARY | 2025-01-28 14:30 | XMS_ITS | Encounter Summary ---
Author Organization [facility] Address [address] [place] [address] Care Team Providers Care Business Lawyer Name Role Phone Elli Stewart MD Primary Care Provider [phone] Encounter Details Date Type Department Care Team (Late st Contact Info) Description 04/20/2004 Outpatient Historical [address] [place] [address] Raúl Wright MD [address] [facility] [address] [place] [address] Social History Tobacco Use Types Packs/Day Years Used Date Smoking Tobacco: Never Assessed Comments Unknown Sex and Gender Information Value Date Recorded Sex Assigned at Not on file Legal 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 SOLUTIONS ENGINEER Gender Identity Not on file Sexual Orientation Not on file documented as of this encounter Plan of Treatment Upcoming Encounters Date Type Department Care Team (Late st Contact Info) Description 02/09/2025 1:40 PM CDT Office Visit [facility] [address] [place] [address] [address] [place] [address] Elli Stewart MD [address] [place] [address] [address] [place] [address] 06/30/2025 9:00 AM SOLUTIONS ENGINEER Office Visit [facility] [address] [place] [address] [address] [place] [address] Elli Stewart MD [address] [place] [address] documented as of this encounter Visit Diagnoses Not on filedocumented in this encounter Care Teams Business Lawyer Relationship Specialty Start Date End Date Elli Stewart MD [address] [place] [address] PCP - General Internal Medicine 12/21/10 documented as of this encounter
--- OUTSIDE RECORDS SUMMARY | 2025-01-28 14:30 | XMS_ITS | Encounter Summary ---
Author Organization [facility] Address [address] [place] [address] Care Team Providers Care Highway Safety Engineer Name Role Phone Elli Stewart MD Primary Care Provider [phone] Encounter Details Date Type Department Care Team (Late st Contact Info) Description 01/26/2025 Results Follow-Up [address] [place] [address] Elli Stewart MD [address] [place] [address] [address] [place] [address] XR CHEST PA AND LATERAL 2 VW Social History Tobacco Use Types Packs/Day Years Used Date Smoking Tobacco: Former Cigarettes Smokeless Tobacco: Never Alcohol Use Standard Drinks/Week Comments Yes 0 (1 standard drink = 0.6 oz pur e alcohol) Comments No Sex and Gender Information Value Date Recorded Sex Assigned at Not on file Legal 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 SUPERVISOR CEMETERY WORKERS Gender Identity Not on file Sexual Orientation Not on file Occupation Industry Job Start Date Job End Date Not on file Not on file Not on file Not on file documented as of this encounter Plan of Treatment Upcoming Encounters Date Type Department Care Team (Late Contact Info) Description 02/09/2025 1:40 PM CDT Office Visit [address] [place] [address] Elli Stewart MD [address] [place] [address] [address] [place] [address] 06/30/2025 9:00 AM SUPERVISOR CEMETERY WORKERS Office Visit [facility] [place] [facility] [place] [address] [place] [address] Elli Stewart MD [address] [place] [address] documented as of this encounter Visit Diagnoses Not on filedocumented in this encounter Care Teams Highway Safety Engineer Relationship Specialty Start Date End Date Elli Stewart MD [address] [place] [address] PCP - General Internal Medicine 12/21/10 documented as of this encounter
[2025-01-28 14:36] LABS: INR 1.0; Prothrombin Time 13.3 Seconds (11.1-14.7)
[2025-01-28 14:37] LABS: Partial Thromboplastin Time 27.8 Seconds (22.3-36.8)
[2025-01-28 14:38] LABS: Alanine Aminotransferase 36 U/L (6-35); Albumin Level 3.9 g/dL (3.5-5.1); Alkaline Phosphatase 72 U/L (38-126); Anion Gap 8 mmol/L (4-12); Aspartate Amino Transferase 33 U/L (14-36); Bilirubin,Total 0.6 mg/dL (0.2-1.3); Blood Urea Nitrogen 13 mg/dL (7-17); Calcium 9.0 mg/dL (8.4-10.2); Carbon Dioxide 23 mmol/L (22-30); Chloride 106 mmol/L (98-107); Estimated CRCL calculation 99 ml/min; Estimated Glomerular Filt Rate > 60; Glucose 116 mg/dL (65-110); Magnesium 1.8 mg/dL (1.6-2.3); Potassium 3.7 mmol/L (3.4-5.0); Sodium 137 mmol/L (137-145); Total Protein 7.0 g/dL (6.3-8.2)
[2025-01-28 15:32] LABS: pH VBG 7.495 (7.300-7.400)
[2025-01-28 16:28] LABS: NT Pro B Type Natriuretic Pept 271 pg/mL (19.9-100)
--- NOTE | 2025-01-28 16:51 | ED_ITS ---
HPI - General Adult General Chief complaint: Asthma Stated complaint: asthma Time Seen by Provider: 01/28/25 13:38 History of Present Illness HPI narrative: This is a 44-year-old female history of intermittent exercise-induced asthma presenting difficulty breathing. Patient says that she has been having wheezing since January 19. She has been treated with albuterol inhalers, doxycycline and steroids with intermittent improvement. Her breathing got worse this morning so she came to the ED for evaluation. She denies fevers productive cough chest pain abdominal pain urinary symptoms or lower extremity edema. Related Data Home Medications ?Medication ?Instructions ?Recorded ?Confirmed ?Last Taken ?Type carvedilol 12.5 mg tablet 12.5 mg PO BID 10/30/21 12/15/24 11/01/24 History lisinopril 10 mg tablet 10 mg PO DAILY 07/29/24 12/15/24 08/22/24 History Allergies Allergy/AdvReac Type Severity Reaction Status Date / Time No Known Allergies Allergy Unknown Verified 01/28/25 13:44 [facility] Past Medical History Medical History Screening mammogram for breast cancer Smoker Obesity Asthma HTN (hypertension) Surgical History Surgical History S/P laparoscopic hysterectomy 11/01/2024 H/O oophorectomy right H/O unilateral salpingectomy right Family History Family History Other Family history of alcoholism Family history of arthritis Family history of malignant neoplasm Social History Social History Smoking packs per day: 1 Smoking cigarettes per day: 20.0 Years smoked: 18 Smoking pack-years: 18.00 Smoking status: Former smoker Tobacco type: cigarettes Second hand tobacco smoke exposure: Yes Smoking end date: 10/22/23 Additional smoking assessment comments: OFF AND ON 15 YEARS Alcohol intake: never Substance use: never Substance use type: does not use Current Housing: Decline to Answer Concerned About Future Housing: Decline to Answer Difficulty Paying Gas/Electric Bills: Decline to Answer Difficulty Paying for Meds: Decline to Answer Currently Unemployed: Decline to Answer Education: Decline to Answer Difficulty w/ Childcare or Family Care: Decline to Answer Living arrangements: with family Additional living arrangements comments: 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 Head: atraumatic. EYES: EOMI, NOSE: Atraumatic NECK: Trachea midline RESPIRATORY: 2 word dyspnea, expiratory wheezing in all nesbitt, tripoding CARDIOVASCULAR: RRR, no peripheral edema ABDOMINAL: Non-distended nontender MUSCULOSKELETAl: No obvious deformities NEURO: Alert. Moving 4/4 extremities SKIN:: Warm, dry. Normal color PSYCHIATRIC: Normal affect Course Vital Signs Vital signs: Vital Signs Temperature 97.6 F 01/28/25 13:23 Pulse Rate 94 01/28/25 13:23 Respiratory Rate 20 01/28/25 13:23 Blood Pressure 168/110 H 01/28/25 13:23 Pulse Oximetry 97 01/28/25 13:23 Oxygen Delivery Room Air 01/28/25 13:23 Temperature 98.1 F 01/28/25 13:38 Pulse Rate 71 01/28/25 16:40 Respiratory Rate 18 01/28/25 16:40 Blood Pressure 160/98 H 01/28/25 16:40 Pulse Oximetry 97 01/28/25 16:40 Oxygen Delivery Room Air 01/28/25 13:39 Medical Decision Making MDM Narrative Medical decision making narrative: -Course: 44-year-old female presenting with respiratory distress. She is wheezing in all nesbitt. Patient given an hour long breathing treatment magnesium and 10 mg of IV dexamethasone. More extensive was workup was ordered as she has had 9 days of symptoms including BNP D-dimer and CT of the chest. CT showed focal atelectasis in the lingula but no other findings. Patient does not have any symptoms of pneumonia such as fevers or productive cough. Her white count elevated but given her multiple course of steroids it is less concerning. On re-evaluation the patient is significantly improved. She is comfortable going home at this time. Patient is comfortable going home. She has been encouraged to continue her asthma treatment and follow-up with primary care physician. Given return precautions. -DDX includes but is not limited to: Asthma pneumonia, bronchitis, PE, pneumothorax Vital Signs Vital Signs: Vital Signs Temperature 97.6 F 07/11/25 13:23 Pulse Rate 94 01/28/25 13:23 Respiratory Rate 20 01/28/25 13:23 Blood Pressure 168/110 H 01/28/25 13:23 Pulse Oximetry 97 01/28/25 13:23 Oxygen Delivery Room Air 01/28/25 13:23 Temperature 98.1 F 01/28/25 13:38 Pulse Rate 71 01/28/25 16:40 Respiratory Rate 18 01/28/25 16:40 Blood Pressure 160/98 H 01/28/25 16:40 Pulse Oximetry 97 01/28/25 16:40 Oxygen Delivery Room Air 01/28/25 13:39 Lab Data 01/28/25 14:00 01/28/25 14:00 Labs: Lab Results 01/28/25 01/28/25 Range/Units 13:59 14:00 WBC 13.9 H (4.5-10.0) K/mm3 RBC 4.96 (4.2-5.4) M/mm3 Hgb 14.9 (12.0-15.0) g/dL Hct 44.5 (37.0-47.0) % MCV 89.7 (80-100) fl MCH 30.0 (26-34) pg MCHC 33.5 (32-36) g/dl RDW 13.2 (11.5-14.5) % Plt Count 381 H (150-375) k/mm3 MPV 10.1 (7.4-10.4) fl Immature Gran % (Auto) 0.6 H (0-0.5) % Neut % (Auto) 56.7 (45.5-73.1) % Lymph % (Auto) 33.4 (18.3-44.2) % [place] % (Auto) 7.8 (2.6-8.5) % Eos % (Auto) 0.9 (0-4.4) % Baso % (Auto) 0.6 (0.2-1.2) % Lymph # (Auto) 4.65 H (0.9-3.2) K/mm3 [place] # (Auto) 1.1 H (0.1-0.6) K/mm3 Eos # (Auto) 0.1 (0-0.3) K/mm3 Baso # (Auto) 0.1 (0.0-0.1) K/mm3 Abs Immat Gran (auto) 0.08 H (0.00-0.031) K/mm3 Absolute Neuts (auto) 7.9 H (1.3-6.7) K/mm3 Absolute Nucleated RBC 0.000 (0.0-0.012) K/mm3 Nucleated RBC % 0.0 (0.0-0.2) % % Immature Plt Fraction 3.8 (0.9-11.2) % PT 13.3 (11.1-14.7) Seconds INR 1.0 APTT 27.8 (22.3-36.8) Seconds D-Dimer 0.40 (<0.48) ug/mL Sodium 137 (137-145) mmol/L Potassium 3.7 (3.4-5.0) mmol/L Chloride 106 (98-107) mmol/L Carbon Dioxide 23 (22-30) mmol/L Anion Gap 8 (4-12) mmol/L BUN 13 (7-17) mg/dL Creatinine 0.70 (0.7-1.0) mg/dL Estim Creat Clear Calc 99 ml/min Estimated GFR > 60 (59 - ) Glucose 116 H (65-110) mg/dL Calcium 9.0 (8.4-10.2) mg/dL Magnesium 1.8 (1.6-2.3) mg/dL Total Bilirubin 0.6 (0.2-1.3) mg/dL AST 33 (14-36) U/L ALT 36 H (6-35) U/L Alkaline Phosphatase 72 (38-126) U/L NT-Pro-B Natriuret Pep 271 H (19.9-100) pg/mL Total Protein 7.0 (6.3-8.2) g/dL Albumin 3.9 (3.5-5.1) g/dL ABG Data ABG results: 01/28/25 13:59 Puncture Site Not Reportable ABG pH Fur Cutting Machine Operator ABG pCO2 Fur Cutting Machine Operator ABG pO2 Fur Cutting Machine Operator ABG PO2/FiO2 Ratio 2.23 ABG HCO3 Fur Cutting Machine Operator ABG O2 Saturation Fur Cutting Machine Operator ABG O2 Content Not Reportable ABG Base Excess Fur Cutting Machine Operator VBG pH 7.495 H* VBG pCO2 30.1 L* VBG pO2 46.8 H VBG HCO3 22.7 L A-a Gradient Not Reportable Oxyhemoglobin 84.5 L* Total Hemoglobin Fur Cutting Machine Operator O2 Delivery Device Room air O2 Liters/Min Not Reportable FiO2 21 Discharge Plan Discharge Clinical Impression: Asthma Patient Disposition: Home Condition: Stable Instructions: Antibiotic Form, Asthma (ED) Additional Instructions: You were seen emergency department for asthma exacerbation. Continue taking your albuterol every 4 hours as needed. Please follow-up your primary care physician. If you develop worsening shortness of breath fevers or productive cough return to ED re-evaluation Patient Language: Irish Prescriptions: No Action lisinopril 10 mg tablet 10 mg PO DAILY carvedilol 12.5 mg tablet 12.5 mg PO BID Follow-up/Referrals: UNKNOWN,DOCTOR [Primary Care Provider] -
== END 2025-01-28 17:10 | disposition home or self-care (01) ==
PROVIDERS: Emergency Provider Emergency Medicine
DX: J45.909 Unspecified asthma, uncomplicated (principal); I10 Essential (primary) hypertension; Z87.891 Personal history of nicotine dependence; Z90.710 Acquired absence of both cervix and uterus; Z90.79 Acquired absence of other genital organ(s); Z90.721 Acquired absence of ovaries, unilateral; Z79.899 Other long term (current) drug therapy
CPT/HCPCS: 36415; 36600; 71045; 71250; 80053; 82803; 82805; 83735; 83880; 85018; 85025; 85055; 85380; 85610; 85730; 94640; 96365; 96375; 99284; J1100; J3475; J7030

== ENCOUNTER 2025-01-30 11:49 | Emergency (ER) | payer BC, OTHER, SELFPAY ==
[2025-01-30] VITALS (8 sets, daily range): BP systolic 134–156; BP diastolic 78–105; PULSE 69–102; RESP 12–22; TEMP 36.6; O2SAT 97–100
--- NOTE | ~2025-01-30 | XR_ITS ---
Clinical Indication: Chest pain PA and lateral views of the chest: Comparison: 01/28/2025 Findings: The lungs are clear, without evidence of focal consolidation or pleural effusion. Cardiome diastinal silhouette is within normal limits. Bones and soft tissues are unremarkable. Impression: Normal chest. Reviewed, dictated and finalized at location . Impression: Normal chest.
--- OUTSIDE RECORDS SUMMARY | 2025-01-30 11:51 | XMS_ITS | Encounter Summary ---
Author Organization [facility] Address [address] [place] [address] Care Team Providers Care Barrel Polisher Inside Name Role Phone Elli Stewart MD Primary Care Provider [phone] Encounter Details Date Type Department Care Team (Late st Contact Info) Description 12/12/2005 Outpatient Historical [address] [place] [address] Raúl Wright MD [address] [facility] [address] [place] [address] Social History Tobacco Use Types Packs/Day Years Used Date Smoking Tobacco: Never Assessed Comments Unknown Sex and Gender Information Value Date Recorded Sex Assigned at Not on file Legal 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 SPECIALIST Gender Identity Not on file Sexual Orientation Not on file documented as of this encounter Plan of Treatment Upcoming Encounters Date Type Department Care Team (Late st Contact Info) Description 02/09/2025 1:40 PM CDT Office Visit [facility] [address] [place] [address] [address] [place] [address] Elli Stewart MD [address] [place] [address] [address] [place] [address] 06/30/2025 9:00 AM AUTOMOTIVE BRAKE SPECIALIST Office Visit [facility] [address] [place] [address] [address] [place] [address] Elli Stewart MD [address] [place] [address] documented as of this encounter Visit Diagnoses Not on filedocumented in this encounter Care Teams Barrel Polisher Inside Relationship Specialty Start Date End Date Elli Stewart MD [address] [place] [address] PCP - General Internal Medicine 12/21/10 documented as of this encounter
--- OUTSIDE RECORDS SUMMARY | 2025-01-30 11:51 | XMS_ITS | Encounter Summary ---
Author Organization [facility] Address 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 Gender Identity Not on file Sexual Orientation Not on file documented as of this encounter Plan of Treatment Upcoming Encounters Date Type Department Care Team (Late st Contact Info) Description 02/09/2025 1:40 PM CDT Office Visit [facility] [address] [place] [address] [address] [place] [address] Elli Stewart MD [address] [place] [address] [address] [place] [address] 06/30/2025 9:00 AM DISASTER RECOVERY CONSULTANT Office Visit [facility] [address] [place] [address] [address] [place] [address] Elli Stewart MD [address] [place] [address] documented as of this encounter Visit Diagnoses Not on filedocumented in this encounter Care Teams Hairspring Truing Inspector Relationship Specialty Start Date End Date Elli Stewart MD [address] [place] [address] PCP - General Internal Medicine 12/21/10 documented as of this encounter
--- OUTSIDE RECORDS SUMMARY | 2025-01-30 11:51 | XMS_ITS | Encounter Summary ---
Author Organization [facility] Address [address] [address] Care Team Providers Care Inbound Customer Service Representative Name Role Phone Elli Stewart MD Primary Care Provider [phone] Encounter Details Date Type Department Care Team (Late st Contact Info) Description 12/12/2005 Orders Only [facility] Primary Care - [facility] [address] [facility] [address] [place] [address] Raúl Wright MD [address] [facility] [address] [place] [address] Social History Tobacco Use Types Packs/Day Years Used Date Smoking Tobacco: Never Assessed Comments Unknown Sex and Gender Information Value Date Recorded Sex Assigned at Not on file Legal 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 ASSEMBLER Gender Identity Not on file Sexual Orientation Not on file documented as of this encounter Progress Notes * Raúl Wright MD - 04/29/2008 5:35 AM CDT [facility] RAÚL WRIGHT MD [address] [place] [address] December 12, 2005 MICHAEL [address] [place] [address] MICHAEL IBIS has been under our care during the dates below: 12/11/05,12/12/05 May return to work: Sincerely yours, RAÚL WRIGHT MD * Raúl Wright MD - 04/29/2008 5:35 AM CDT [facility] RAÚL WRIGHT MD [address] [place] [address] December 12, 2005 MICHAEL [address] [place] [address] MICHAEL BAUMANN has been under our care [...] NEW PRESCRIPTION, 12/12/2005. LAB ORDERS: Order number: [id number] Test Ordered: NEBULIZER TREATMENT [id number] Order number: [id number] Test Ordered: PULSE OXIMETRY [id number] REPEAT VITAL SIGNS: Electronically Signed by: Raúl Wright MD on Friday, December 21, 2005 documented in this encounter Plan of Treatment Upcoming Encounters Date Type Department Care Team (Late st Contact Info) Description 02/09/2025 1:40 PM CDT Office Visit [facility] [address] [place] [address] Elli Stewart MD [address] [place] [address] 06/30/2025 9:00 AM CAMOUFLAGE ASSEMBLER Office Visit [facility] [address] [place] [address] Elli Stewart MD [address] [facility] [address] [place] [address] documented as of this encounter Visit Diagnoses Not on filedocumented in this encounter Care Teams Inbound Customer Service Representative Relationship Specialty Start Date End Date Elli Stewart MD [address] [place] [address] PCP - General Internal Medicine 12/21/10 documented as of this encounter
--- OUTSIDE RECORDS SUMMARY | 2025-01-30 11:51 | XMS_ITS | Encounter Summary ---
Author Organization [facility] Address [address] [place] [address] Care Team Providers Care Art Studio Teacher Name Role Phone Elli Stewart MD Primary Care Provider [phone] Encounter Details Date Type Department Care Team (Late st Contact Info) Description 11/23/2007 Outpatient Historical [facility] [address] [place] [address] [address] [place] [address] Raúl Wright MD [address] [facility] [address] [place] [address] Routine General Medical Examination at a Health Care Facility; Family History of Diabetes Mellitus Social History Tobacco Use Types Packs/Day Years Used Date Smoking Tobacco: Never Assessed Comments Unknown Sex and Gender Information Value Date Recorded Sex Assigned at Not on file Legal 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 LITERACY COORDINATOR Gender Identity Not on file Sexual Orientation Not on file documented as of this encounter Plan of Treatment Upcoming Encounters Date Type Department Care Team (Late st Contact Info) Description 02/09/2025 1:40 PM CDT Office Visit [facility] [address] [facility] [address] [place] [address] Elli Stewart MD [address] [place] [address] [address] [place] [address] 06/30/2025 9:00 AM LITERACY COORDINATOR Office Visit [facility] [address] [place] [address] Elli Stewart MD [address] [facility] [address] [place] [address] documented as of this encounter [...] CDT) HDL 64(H) 40 - 59 mg/dL [facility] CHOLESTEROL 223(H) 100 - 199 mg/dL [facility] CHOL/HDL RATIO 3.5 2.0 - 5.0 [facility] TRIGLYCERIDE 132 10 - 149 mg/dL [facility] LDL CALCULATED 133(H) <=99 mg/dL [facility] LIPID PANEL COMMENT See Below [facility] Comment: The adult ATP and pediatric NCEP classifications for lipids are available on the [facility] Intranet at: [email or web address] Select: Lab Policies and Procedures,Current Select: Lipid Panel Interpretation Blood specimen (specimen) 11/23/2007 4:28 PM CDT 11/23/2007 4:59 PM CDT us Raúl Wright MD CHEMISTRY ORDERABLES Edited [facility] [address] [place] [address] * (ABNORMAL) CBC WITH DIFFERENTIAL (11/23/2007 4:28 PM CDT) WBC 13.1(H) 4.0 - 9.8 K/uL [facility] MCH 29.9 27.2 - 32.6 pg [facility] PLATELETS 305 140 - 350 K/uL [facility] HEMATOCRIT 42.9 35.5 - 44.0 % [facility] RDW-STDEV 43.1 37.1 - 48.7 fL [facility] RBC 4.65 3.90 - 4.90 M/uL [facility] MCHC 32.4 31.5 - 35.5 % [facility] MPV 11.5 9.3 - 12.4 fL [facility] MCV 92.3 82.0 - 99.0 fL [facility] HEMOGLOBIN 13.9 11.8 - 14.8 g/dL [facility] RDW 12.9 11.5 - 14.5 % [facility] EOSINOPHILS 1 0 - 7 % [facility] EOSINOPHIL ABSOLUTE 0.06 0.00 - 0.70 K/uL [facility] LYMPHOCYTES 35 16 - 45 % [facility] LYMPHOCYTE ABSOLUTE 4.54(H) 0.70 - 4.50 K/uL [facility] BASOPHILS 0 0 - 2 % [facility] BASOPHILS ABSOLUTE 0.05 0.00 - 0.20 K/uL [facility] MONOCYTES 7 3 - 13 % [facility] MONOCYTE ABSOLUTE 0.87 0.10 - 1.30 K/uL [facility] NEUTROPHILS 58 45 - 70 % [facility] NEUTROPHIL ABSOLUTE 7.59(H) 1.90 - 7.00 K/uL [facility] Blood specimen (specimen) 11/23/2007 4:28 PM CDT 11/23/2007 4:58 PM CDT us Raúl Wright MD HEMATOLOGY ORDERABLES Edited Performing Organization Address [facility] de Phone Number INTERFACE SYSTEM Refer to clinic/hospital department [facility] [address] [place] [address] * HEMOGLOBIN A1C (11/23/2007 4:28 PM CDT) GLUCOSE, MEAN BLOOD 129 mg/dL [facility] HEMOGLOBIN A1C 5.8 4.1 - 6.1 % of Hgb [facility] Blood specimen (specimen) 11/23/2007 4:28 PM CDT 11/23/2007 4:59 PM CDT us Raúl Wright MD CHEMISTRY ORDERABLES Final Resul t Performing Organization Address [facility] de Phone Number [facility] [address] [place] [address] * (ABNORMAL) INSULIN LEVEL (11/23/2007 4:28 PM CDT) INSULIN LEVEL 32(H) <17 uIU/mL [facility] Comment: Lab test performed by: [employer] [place] [address] [address] [address] MELODY GHOTRA MD Blood specimen (specimen) 11/23/2007 4:28 PM CDT 11/23/2007 4:59 PM CDT us Raúl Wright MD CHEMISTRY ORDERABLES Final Resul t Performing Organization Address [facility]/ZIP Co de Phone Number [facility] [address], [place] [address] * TSH WITH REFLEX FT4 (11/23/2007 4:28 PM CDT) TSH 1.64 0.27 - 4.20 uU/mL [facility] Blood specimen (specimen) 11/23/2007 4:28 PM CDT 11/23/2007 4:59 PM CDT Raúl Wright MD CHEMISTRY ORDERABLES Final Resul t [facility] [address], [place] [address] * (ABNORMAL) COMPREHENSIVE METABOLIC PANEL (11/23/2007 4:28 PM CDT) Pathologist [facility] POTASSIUM 3.9 3.5 - 4.9 mmol/L [facility] TOTAL PROTEIN 7.4 6.3 - 8.6 g/dL [facility] GLUCOSE 117(H) 65 - 99 mg/dL [facility] AST 21 12 - 32 U/L [facility] BUN 12 6 - 20 mg/dL [facility] CALCIUM 8.7 8.4 - 10.2 mg/dL [facility] ALBUMIN 4.4 3.4 - 4.8 g/dL [facility] CHLORIDE 102 96 - 108 mmol/L [facility] CREATININE 0.77 0.51 - 0.95 mg/dL [facility] ALT 21 0 - 31 U/L [facility] SODIUM 138 135 - 145 mmol/L [facility] ALKALINE PHOSPHATASE 65 35 - 104 U/L [facility] CO2 24 22 - 30 mmol/L [facility] BILIRUBIN TOTAL 0.4 0.2 - 1.0 mg/dL [facility] GFR, >60 >=60 mL/min/1. 7 sq meter [facility] GFR >60 >=60 mL/min/1. 7 sq meter [facility] Comment: Estimated GFR rate interpretative information for both Americans and non- Americans is available on the [facility] Intranet at: [email or web address] Select: Lab Policies and Procedures Select: Reference Ranges - GFR Blood specimen (specimen) 11/23/2007 4:28 PM CDT 11/23/2007 4:59 PM CDT Raúl Wright MD CHEMISTRY ORDERABLES Edited [facility] [address] [place] [address] documented in this encounter Visit Diagnoses Diagnosis Routine general medical examination at a health care facility Family history of diabetes mellitus documented in this encounter Care Teams Art Studio Teacher Relationship Specialty Start Date End Date Elli Stewart MD [address] [place] [address] PCP - General Internal Medicine 12/21/10 documented as of this encounter
--- OUTSIDE RECORDS SUMMARY | 2025-01-30 11:51 | XMS_ITS | Clinical Summary ---
Author Organization [facility] Address [address] [place] [address] Care Team Providers Care Last Sawyer Name Role Phone Elli Stewart MD Primary Care Provider [phone] Source Comments [facility],non-owned Affiliates and Associated Physician Practices is amultiple site organization consisting of ambulatory clinics and hospital sitesin [place], [place], [place] and [place]. This disclosure is being madepursuant to the Care Everywhere program and may not contain all information available regarding this patient. Last updated 18.[facility] Allergies No known active allergies Medications * [...] MARCUS Subscriber ID:Not on file (Home) Address: [address] [place], [place] [address] [place] [address] Payer ID:Not on file Group ID:Not on file Type:Self Pay Address: [facility] Care Teams Last Sawyer Relationship Specialty Start Date End Date Elli Stewart MD [address] [place] [address] PCP - General 11/07/21
--- OUTSIDE RECORDS SUMMARY | 2025-01-30 11:51 | XMS_ITS | Encounter Summary ---
Author Organization [facility] Address [address] [place] [address] Care Team Providers Care Outside Sales Name Role Phone Elli Stewart MD Primary Care Provider [phone] Encounter Details Date Type Department Care Team (Late st Contact Info) Description 08/29/2006 Orders Only [facility] Primary Care - [address] [place] [address] Raúl Wright MD [address] [facility] [address] [place] [address] Social History Tobacco Use Types Packs/Day Years Used Date Smoking Tobacco: Never Assessed Comments Unknown Sex and Gender Information Value Date Recorded Sex Assigned at Not on file Legal 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 OFFAL TRIMMER Gender Identity Not on file Sexual Orientation [...] Description 02/09/2025 1:40 PM CDT Office Visit [address] [place] [phone] Elli Stewart MD [facility] [address] [place] [phone] 06/30/2025 9:00 AM OFFAL TRIMMER Office Visit [address] [place] [phone] Elli Stewart MD [address] [place] [address] [address] [place] [address] documented as of this encounter Visit Diagnoses Not on filedocumented in this encounter Care Teams Outside Sales Relationship Specialty Start Date End Date Elli Stewart MD [address] [facility] [address] [place] [address] PCP - General Internal Medicine 12/21/10 documented as of this encounter
--- OUTSIDE RECORDS SUMMARY | 2025-01-30 11:51 | XMS_ITS | Encounter Summary ---
Author Organization [facility] Address [address] [place] [address] Care Team Providers Care Glycerin Supervisor Name Role Phone Elli Stewart MD Primary Care Provider [phone] Encounter Details Date Type Department Care Team (Late st Contact Info) Description 07/15/2006 Orders Only [facility] Primary Care - [address] [place] [address] Raúl Wright MD [address] [facility] [address] [place] [address] Social History Tobacco Use Types Packs/Day Years Used Date Smoking Tobacco: Never Assessed Comments Unknown Sex and Gender Information Value Date Recorded Sex Assigned at Not on file Legal 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 DIETARY SERVICES DIRECTOR Gender Identity Not on file Sexual Orientation Not on file documented as of this encounter Progress Notes * Raúl Wright MD - 05/04/2008 4:57 AM CDT TIME:10:02 am PATIENT`S HOME PHONE: PATIENT`S WORK PHONE: PATIENT`S INSURANCE: [facility] WHO TOOK THE CALL: Arina Alfredo GENERAL INFORMATION PATIENT STATUS: Established Patient. PCP: dain. ALTERNATIVE PHONE NUMBER: [phone] WHO CALLED: Patient called. CURRENT ALLERGY LIST: [facility] PHARMACY NUMBER: [phone] PROBLEMS: URINATION: Patient complains of frequent urination, [...] Wright MD - 05/04/2008 4:56 AM CDT [facility] RAÚL WRIGHT MD [facility] [place] [address] July 15, 2006 MICHAEL BAUMANN [address] [place] [address] MICHAEL IBIS has been under our care during the dates below: 07/15/06 May return to work: 07/16/06 Sincerely yours, RAÚL WRIGHT MD documented in this encounter Plan of Treatment Upcoming Encounters Date Type Department Care Team (Late st Contact Info) Description 02/09/2025 1:40 PM CDT Office Visit [place] [address] [place] [address] Elli Stewart MD [facility] [address] [place] [phone] 06/30/2025 9:00 AM DIETARY SERVICES DIRECTOR Office Visit [place] [address] [place] [address] Elli Stewart MD [facility] [address] [place] [address] documented as of this encounter Visit Diagnoses Not on filedocumented in this encounter Care Teams Glycerin Supervisor Relationship Specialty Start Date End Date Elli Stewart MD [address] [facility] [address] [place] [address] PCP - General Internal Medicine 12/21/10 documented as of this encounter
--- OUTSIDE RECORDS SUMMARY | 2025-01-30 11:51 | XMS_ITS | Encounter Summary ---
Author Organization [facility] Address [address] [place] [address] Care Team Providers Care Pediatric Psychologist Name Role Phone Elli Stewart MD Primary Care Provider [phone] Encounter Details Date Type Department Care Team (Late st Contact Info) Description 12/26/2005 Outpatient Historical [facility] - [address] [place] [address] Rogers Arnold MD [address] [facility] [address] [phone] Social History Tobacco Use Types Packs/Day Years Used Date Smoking Tobacco: Never Assessed Comments Unknown Sex and Gender Information Value Date Recorded Sex Assigned at Not on file Legal 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 DIRECTOR TOXICOLOGY Gender Identity Not on file Sexual Orientation [...] Description 02/09/2025 1:40 PM CDT Office Visit [address] [place] [phone] Elli Stewart MD [address] [place] [phone] 06/30/2025 9:00 AM DIRECTOR TOXICOLOGY Office Visit [facility] Primary Care - [facility] [address] [place] [phone] Elli Stewart MD [address] [place] [address] documented as of this encounter Visit Diagnoses Not on filedocumented in this encounter Care Teams Pediatric Psychologist Relationship Specialty Start Date End Date Elli Stewart MD [address] [place] [phone] PCP - General Internal Medicine 12/21/10 documented as of this encounter
--- OUTSIDE RECORDS SUMMARY | 2025-01-30 11:51 | XMS_ITS | Clinical Summary ---
Author Organization [facility] Address [address] [place] [address] Care Team Providers Care Casual Shoe Inspector Name Role Phone Elli Stewart MD Primary Care Provider [phone] Allergies Active Allergy Reactions Criticality Noted Date Comments Tramadol Hcl Itching Low 12/09/2018 Medications norgestimate 0.18 mg/0.215 mg/0.25 mg-ethinyl estradioL 25 mcg tablet Aiv-Fk-Xsscebla 0.18 mg/0.215 mg/0.25 mg-25 mcg tablet TK [...] migh t be different from the original. Dock [facility] [place] [...] 01/26/2025 11:59 PM CDT Hospital Encounter [facility] [address] [place] [address] Elli Stewart MD Arrived Discharge Disposition: Home or Self Care 01/26/2025 Results Follow-Up [facility] Primary Care - [address] [place] [address] Elli Stewart MD XR CHEST PA AND LATERAL 2 VW 01/24/2025 3:20 PM CDT Office Visit [facility] [address] [place] [phone] Elli Stewart MD Severe persistent asthma with acute exacerbation (CMS/HCC) (Primary Dx) 01/04/2025 External Device Data STL ABSTRACTION Provider, Abstract 12/29/2024 1:00 PM CDT Office Visit [facility] [address] [place] [phone] Elli Stewart MD 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 (Primary Dx); Prediabetes; Severe obesity (BMI 35.0-39.9) with comorbidity (CMS/HCC); Hypercholesteremia; Family history of ischemic heart disease before age 50 12/09/2024 External Device Data STL ABSTRACTION Provider, Abstract 11/30/[address] [place] [phone] Elli Stewart MD 11/12/2024 Abstract [facility] [address] [place] [phone] Elli Stewart MD 11/02/2024 External Device Data STL ABSTRACTION Provider, Abstract from Last 3 Months Immunizations Immunization Administration Dates Next Due (ADACEL/BOOSTRIX)(10 YR UP) TDAP VACCINE, 0.5ML, IM 11/06/2010 (PFIZER)(12 YR UP) COVID-19 VACCINE - EMERGENCY USE AUTHORIZATION, MRNA, [id number](PF) 30 MCG/0.3 ML IM SUSP 04/20/2021,08/18/2020,07/30/2020,07/09 (PNEUMOVAX [...] Failure Maternal Grandfather Dionte Cancer Maternal Grandmother Lenox Heart Disease Maternal Grandmother [place] Heart Failure Maternal Grandmother [place] Hypertension Maternal Grandmother [place] Blood Clots Mother Andreina Heart Disease Mother [...] Maternal Aunt Maternal Grandfather Dionte Maternal Grandmother Lenox Mother Andreina Paternal Grandfather Flavio Paternal Grandmother Social History Tobacco Use Types Packs/Day Years Used Date Smoking Tobacco: Former Cigarettes Smokeless Tobacco: Never Tobacco Cessation:Counseling Given: No Alcohol Use Standard Drinks/Week Comments Yes 0 (1 standard drink = 0.6 oz pur e alcohol) Comments No Sex and Gender Information Value Date Recorded Sex Assigned at Not on file Legal 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 ECLECTIC DOCTOR Gender Identity Not on file Sexual Orientation [...] Description 02/09/2025 1:40 PM CDT Office Visit [facility] [address] [place] [address] Elli Stewart MD [address] [place] [address] 06/30/2025 9:00 AM ECLECTIC DOCTOR Office Visit [facility] [address] [place] [address] Elli Stewart MD [address] [place] [address] Health Maintenance Due Date Last [...] MAMMO SCREENING BILAT Routine 07/22/2024 9:52 AM ECLECTIC DOCTOR from Last 3 Months or Most Recently Relevant to Health Maintenance Results * XR CHEST PA AND LATERAL 2 VW (01/26/2025 11:05 AM CDT) Anatomical Region Laterality Modality Chest Computed Radiogr aphy 01/26/2025 11:0 5 AM CDT Impressions 01/26/2025 4:06 PM CDT IMPRESSION: 1. No acute cardiopulmonary disease process identified. DICTATION LOCATION: [facility] Narrative 01/26/2025 4:06 PM [...] acute cardiopulmonary disease process identified. DICTATION LOCATION: [facility] us Elli Stewart MD DIAGNOSTIC IMAGING ORDERABLE S Final Result * POC HEMOGLOBIN A1C (12/29/2024 1:00 PM CDT) HGB A1C POC 5.3 4.0 - 6.0 % [facility] KIT LOT NUMBER POC [id number] [facility] KIT EXP DATE POC 02/17/25 [facility] Blood, capillary 12/29/2024 1:00 PM CDT Elli Stewart MD POINT OF CARE TESTING Final Result [facility] CLIA# [id number] [address] [place] [address] * MAMMO SCREENING BILAT (07/22/2024 9:52 AM ECLECTIC DOCTOR) Anatomical Region Laterality Modality Breast Bilateral Mammography Abstract Provider MAMMO ORDERABLES Edited Result - Final from Last 3 Months or Most Recently Relevant to Health Maintenance Insurance [employer] BLUE PREFERRED Advance Directives For more information, please contact: [phone] * Full Code (Latest Code Status on File) Date Activated Date Inactivated Comments 08/01/2011 3:48 PM 08/01/2011 10:02 PM * Full Code Date Activated Date Inactivated Comments 08/01/2011 12:59 PM 08/01/2011 3:48 PM * Full Code Date Activated Date Inactivated Comments 08/01/2011 11:49 AM 08/01/2011 12:59 PM Care Teams Casual Shoe Inspector Relationship Specialty Start Date End Date Elli Stewart MD [address] [address] PCP - General Internal Medicine 12/21/10
--- OUTSIDE RECORDS SUMMARY | 2025-01-30 11:51 | XMS_ITS | Encounter Summary ---
Author Organization [facility] Address [address] [place] [address] Care Team Providers Care Hydraulic Rockbreaker Operator Name Role Phone Elli Stewart MD Primary Care Provider [phone] Encounter Details Date Type Department Care Team (Late st Contact Info) Description 12/26/2005 Orders Only [facility] Primary Care - [facility] [address] [place] [address] [address] [place] [address] Rogers Arnold MD [address] [facility] [address] [address] Social History Tobacco Use Types Packs/Day Years Used Date Smoking Tobacco: Never Assessed Comments Unknown Sex and Gender Information Value Date Recorded Sex Assigned at Not on file Legal 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 MANAGER OF HUMAN RESOURCES Gender Identity Not on file Sexual Orientation Not on file documented as of this encounter Progress Notes * Rogers Arnold MD - 04/29/2008 7:14 AM CDT TEMPERATURE: 97.5??f Oral WEIGHT: 174lbs BLOOD PRESSURE: 128/80 Right Arm Sitting NURSE NAME: Abby Boothe ALLERGIES: No known drug allergies. MEDICATIONS: Patient is taking no medications at present. CHIEF COMPLAINT Here for follow up evaluation. ER visit ([facility]) for chest pain. RC HISTORY: chest pain [...] Description 02/09/2025 1:40 PM CDT Office Visit [address] [place] [address] Elli Stewart MD [address] [place] [address] [place] [address] 06/30/2025 9:00 AM MANAGER OF HUMAN RESOURCES Office Visit [facility] [address] [place] [address] [place] [address] Elli Stewart MD [address] [place] [address] [place] [address] documented as of this encounter Visit Diagnoses Not on filedocumented in this encounter Care Teams Hydraulic Rockbreaker Operator Relationship Specialty Start Date End Date Elli Stewart MD [address] [place] [address] [place] [address] PCP - General Internal Medicine 12/21/10 documented as of this encounter
--- OUTSIDE RECORDS SUMMARY | 2025-01-30 11:51 | XMS_ITS | Encounter Summary ---
Author Organization [facility] Address [address] [place] [address] Care Team Providers Care Demi Chef Name Role Phone Elli Stewatr MD Primary Care Provider [phone] Encounter Details Date Type Department Care Team (Late st Contact Info) Description 08/29/2006 Outpatient Historical [facility] Care - [address] [place] [address] Raúl Wright MD [address] [facility] [address] [place] [address] Social History Tobacco Use Types Packs/Day Years Used Date Smoking Tobacco: Never Assessed Comments Unknown Sex and Gender Information Value Date Recorded Sex Assigned at Not on file Legal 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 NARCOTICS INVESTIGATOR Gender Identity Not on file Sexual Orientation Not on file documented as of this encounter Last Filed Vital Signs Vital Sign Reading Time Taken Comments Blood Pressure 118/68 08/29/2006 11:30 AM NARCOTICS INVESTIGATOR Pulse - - Temperature 36.4 C (97.6 F) 08/29/2006 11:30 AM NARCOTICS INVESTIGATOR Respiratory Rate - - Oxygen Saturation - - Inhaled Oxygen Concentration - - Weight 84.8 kg (187 lb) 08/29/2006 11:30 AM NARCOTICS INVESTIGATOR Height - - Body Mass Index - - documented in this encounter Plan of Treatment Upcoming Encounters Date Type Department Care Team (Late st Contact Info) Description 02/09/2025 1:40 PM CDT Office Visit [facility] - [address] [place] [address] Elli Stewart MD [address] [place] [address] 06/30/2025 9:00 AM NARCOTICS INVESTIGATOR Office Visit [facility] Primary Care - [facility] [address] [place] [address] Elli Stewart MD [address] [place] [address] documented as of this encounter Visit Diagnoses Not on filedocumented in this encounter Care Teams Demi Chef Relationship Specialty Start Date End Date Elli Stewart MD [address] [place] [address] PCP - General Internal Medicine 12/21/10 documented as of this encounter
--- OUTSIDE RECORDS SUMMARY | 2025-01-30 11:51 | XMS_ITS | Encounter Summary ---
Author Organization [facility] Address [address] [place] [address] Care Team Providers Care It Security Consulting Director Name Role Phone Elli Stewart MD Primary Care Provider [phone] Encounter Details Date Type Department Care Team (Late st Contact Info) Description 11/06/2007 Outpatient Historical [address] [place] [address] Raúl Wright MD [address] [facility] [address] [place] [address] Social History Tobacco Use Types Packs/Day Years Used Date Smoking Tobacco: Never Assessed Comments Unknown Sex and Gender Information Value Date Recorded Sex Assigned at Not on file Legal 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 PER DIEM REGISTERED NURSE Gender Identity Not on file Sexual Orientation Not on file documented as of this encounter Plan of Treatment Upcoming Encounters Date Type Department Care Team (Late st Contact Info) Description 02/09/2025 1:40 PM CDT Office Visit [facility] [address] [place] [address] [address] [place] [address] Elli Stewart MD [address] [place] [address] [address] [place] [address] 06/30/2025 9:00 AM PER DIEM REGISTERED NURSE Office Visit [facility] [address] [place] [address] [address] [place] [address] Elli Stewart MD [address] [place] [address] documented as of this encounter Visit Diagnoses Not on filedocumented in this encounter Care Teams It Security Consulting Director Relationship Specialty Start Date End Date Elli Stewart MD [address] [place] [address] PCP - General Internal Medicine 12/21/10 documented as of this encounter
--- OUTSIDE RECORDS SUMMARY | 2025-01-30 11:51 | XMS_ITS | Continuity of Care Document ---
Author Organization [facility] Address [address] [place] [address] [address] [place] [address] Phone Care Team Providers Care Squeegee Finisher Name Role Phone Aydin PT,MPT,ATC, Kyle Unavailable [...] Diagnoses Date Provider Providers Copied on [facility], [place], [place], [id number], [place] tel:[phone] [place] No Information 4 ROMAN Deluna, [place]. [facility], [place], [place], [id number], tel:[phone] [facility] No Information 4 Bharati Gerard. . Referring Provider: Nolan Alamo, [address], [place], [address]. tel:[phone] [address], [place], [place], [id number], [place] tel:[phone] [place] No Information 0- 4 [place]orge Moustapha. . Referring Provider: Nolan Alamo [facility] [address], [place], [address]. tel:[phone] [address], [place], [place], [id number], [place] tel:[phone] [place] No Information 4 [place] Moustapha. . Referring Provider: Nolan Alamo [facility] [address], [place], [address]. tel:[phone] [address], [place], [id number], [place] tel:[phone] [place] No Information 4 [place] Moustapha. . Referring Provider: Nolan Alamo [facility] [address], [place], [address]. tel:[phone], [place], [id number], tel:[phone] [place] No Information 4 [place] Moustapha. . Referring Provider: Nolan Alamo [address], [place], [address]. tel:[phone] [address], [place], [id number], [place] tel:[phone] [place] No Information 3- 4 [place], [place]. Referring Provider: Nolan Alamo [address], [place], [address]. tel:[phone] [address], [place], [id number], [place] tel:[phone] [place] No Information Reid-1 2-202 4 [place] Moustapha. . Referring Provider: Nolan Alamo [address], [place], [address]. tel:[phone], [place], [id number], [place] tel:[phone] [place] No Information Reid-0 4-202 4 [place] Moustapha. . Referring Provider: Nolan Alamo [address], [place], [address]. tel:[phone] [address] [address], [place], [id number], [place] tel:[phone] [place] No Information May-3 0-202 4 Mireyan Dillon. . Referring Provider: Harvinder Gilmore[address], [place], [address]. tel:[phone], [place], [id number], [place] tel:[phone] [place] No Information May-2 9-202 4 [place] Moustapha. . Referring Provider: Harvinder Gilmore[address], [place], [address]. tel:[phone], [place], [id number], [place] tel:[phone] [place] No Information May-2 4-202 4 [place], [place]. Referring Provider: Nolan Alamo [address], [place], [address]. tel:[phone] [address], [place], [id number], [place] tel:[phone] [place] No Information May-2 0-202 4 [place] Moustapha. . Referring Provider: Yessi Gilmore [address], [place], [address]. tel:[phone] [address], [place], [id number], [place] tel:[phone] [place] No Information November- 6-202 4 [place] Moustapha. . Referring Provider: Nolan Alamo [address], [place], [address]. tel:[phone] [address], [place], [id number], [place] tel:[phone] [place] No Information 5- 4 [place] Moustapha. . Referring Provider: Nolan Alamo [facility] [address], [place], [address]. tel:[phone] [address] [address], [place], [place], [id number], tel:[phone] [place] No Information November-1 0-202 4 Perrin Kyle. , [place], [place]. Referring Provider: Nolan Alamo [facility] [address], [place], [address]. tel:[phone], [place], [id number], tel:[phone] [place] No Information November-0 7-202 4 [place] Moustapha. . Referring Provider: Nolan Alamo [address], [place], [address]. tel:[phone] [address], [place], [id number], [place] tel:[phone] [place] No Information Oct-2 3-202 4 Mod[place]in Ted. . Referring Provider: Nolan Alamo [address], [place], [address]. tel:[phone] [address], [place], [id number], [place] tel:[phone] [place] No Information Apr-1 8-202 4 [place] Ted. . Referring Provider: Nolan Alamo [address], [place], [address]. tel:[phone], [place], [place], [id number], tel:[phone] [place] No Information Apr-1 6-202 4 [place] Ted. . Referring Provider: Nolan Alamo [address], [place], [address]. tel:[phone] [address], [place], [id number], [place] tel:[phone] [place] No Information Apr-1 1-202 4 [place]in Ted. . Referring Provider: Harvinder Gilmore[address], [place], [address]. tel:[phone], [id number], [place] tel:[phone] [place] No Information Apr-0 9-202 4 [place] Ted. . Referring Provider: Nolan Alamo [address], [place], [address]. tel:[phone], [id number], [place] tel:[phone] [place] No Information Apr-0 4-202 4 [place]in Ted. . Referring Provider: Nolan Alamo [address], [place], [address]. tel:[phone], [place], [id number], [place] tel:[phone] [place] No Information Sep-2 8-202 4 [place] Ted. . Referring Provider: Harvinder Gilmore[address], [place], [address]. tel:[phone] [facility], [address] [place] [address], [place], [place], [id number], tel:[phone] [place] No Information Sep-2 4 [place]in Ted. . Referring Provider: Nolan Almao, [address], [place], [address]. tel:[phone], [place], [place], [id number], tel:[phone] [place] No Information Sep-2 4 [place]in Ted. . Referring Provider: Nolan Almao, [address], [place], [address]. tel:[phone] Family History Family Member Type Diagnosis Age At Onset No Information Payers Payer name Insurance type Covered democrat ID Pricila albayeni(s) [facility] [id number] [facility] CI [id number] Social History Type Description Quantity Date Captured [...]
--- OUTSIDE RECORDS SUMMARY | 2025-01-30 11:51 | XMS_ITS | Encounter Summary ---
Author Organization [facility] Address [address] [place] [address] Care Team Providers Care Lighting Designer Name Role Phone Elli Stewart MD Primary Care Provider [phone] Encounter Details Date Type Department Care Team (Late st Contact Info) Description 09/08/2008 Outpatient Historical [facility], [address] Raúl Wright MD [address] [facility] [address] [place] [address] [id number] Impaired Fasting Glucose Social History Tobacco Use Types Packs/Day Years Used Date Smoking Tobacco: Every Day Cigarettes Alcohol Use Standard Drinks/Week Comments Not Asked 0 (1 standard drink = 0.6 oz pur e alcohol) Comments No Sex and Gender Information Value Date Recorded Sex Assigned at Not on file Legal 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 SURGERY TEACHER Gender Identity Not on file Sexual Orientation Not on file documented as of this encounter Plan of Treatment Upcoming Encounters Date Type Department Care Team (Late Contact Info) Description 02/09/2025 1:40 PM CDT Office Visit [facility] [address] [facility] [address] [place] [address] Elli Stewart MD [address] [place] [address] [address] [place] [address] 06/30/2025 9:00 AM SURGERY TEACHER Office Visit [facility] [address] [facility] [place] [address] Elli Stewart MD [address] [place] [address] documented as of this encounter Visit Diagnoses Diagnosis Impaired fasting glucose documented in this encounter Care Teams Lighting Designer Relationship Specialty Start Date End Date Elli Stewart MD [address] [place] [address] PCP - General Internal Medicine 12/21/10 documented as of this encounter
--- OUTSIDE RECORDS SUMMARY | 2025-01-30 11:51 | XMS_ITS | Encounter Summary ---
Author Organization [facility] Address [address] [place] [address] Care Team Providers Care Sql Programmer Name Role Phone Elli Stewart MD Primary Care Provider [phone] Encounter Details Date Type Department Care Team (Late st Contact Info) Description 11/06/2007 Outpatient Historical [address] [place] [address] Raúl Wright MD [address] [facility] [address] [place] [address] Social History Tobacco Use Types Packs/Day Years Used Date Smoking Tobacco: Never Assessed Comments Unknown Sex and Gender Information Value Date Recorded Sex Assigned at Not on file Legal 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 ELEMENTARY SCHOOL ART TEACHER Gender Identity Not on file Sexual Orientation Not on file documented as of this encounter Plan of Treatment Upcoming Encounters Date Type Department Care Team (Late st Contact Info) Description 02/09/2025 1:40 PM CDT Office Visit [facility] [address] [place] [address] [address] [place] [address] Elli Stewart MD [address] [place] [address] [address] [place] [address] 06/30/2025 9:00 AM ELEMENTARY SCHOOL ART TEACHER Office Visit [facility] [address] [place] [address] [address] [place] [address] Elli Stewart MD [address] [place] [address] documented as of this encounter Visit Diagnoses Not on filedocumented in this encounter Care Teams Sql Programmer Relationship Specialty Start Date End Date Elli Stewart MD [address] [place] [address] PCP - General Internal Medicine 12/21/10 documented as of this encounter
--- OUTSIDE RECORDS SUMMARY | 2025-01-30 11:51 | XMS_ITS | Encounter Summary ---
Author Organization [facility] Address [address] [place] [address] Care Team Providers Care Business Reporter Name Role Phone Elli Stewart MD Primary Care Provider [phone] Encounter Details Date Type Department Care Team (Late st Contact Info) Description 11/25/2007 Orders Only [address] [place] [address] Raúl Wright MD [address] [facility] [address] [place] [address] Social History Tobacco Use Types Packs/Day Years Used Date Smoking Tobacco: Never Assessed Comments Unknown Sex and Gender Information Value Date Recorded Sex Assigned at Not on file Legal 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 EMT BASIC Gender Identity Not on file Sexual Orientation Not on file documented as of this encounter Plan of Treatment Upcoming Encounters Date Type Department Care Team (Late st Contact Info) Description 02/09/2025 1:40 PM CDT Office Visit [facility] [address] [place] [address] [address] [place] [address] Elli Stewart MD [address] [place] [address] [address] [place] [address] 06/30/2025 9:00 AM EMT BASIC Office Visit [facility] [address] [place] [address] [address] [place] [address] Elli Stewart MD [address] [place] [address] documented as of this encounter Visit Diagnoses Not on filedocumented in this encounter Care Teams Business Reporter Relationship Specialty Start Date End Date Elli Stewart MD [address] [place] [address] PCP - General Internal Medicine 12/21/10 documented as of this encounter
--- NOTE | 2025-01-30 11:52 | ECG_ITS ---
Test Date: 2025-01-30 11:55:38 Measurements Intervals [place] Rate: 68 P: 62 WY: 126 QRS: 73 QRSD: 81 T: 75 QT: 390 QTc: 416 Interpretive Statements SINUS RHYTHM Normal ECG Compared to ECG 10/25/2024 08:13:53 No significant changes Electronically Signed On 01-30-2025 12:01:54 CDT by Stiven Jj M.D.
--- OUTSIDE RECORDS SUMMARY | 2025-01-30 11:52 | XMS_ITS | Encounter Summary ---
Author Organization [facility] Address [address] [place] [address] Care Team Providers Care Stopping Builder Name Role Phone Elli Stewart MD Primary Care Provider [phone] Encounter Details Date Type Department Care Team (Late st Contact Info) Description 01/26/2025 Results Follow-Up [address] [place] [address] Elli Stewart MD [address] [place] [address] [address] [place] [address] XR CHEST PA AND LATERAL 2 VW Social History Tobacco Use Types Packs/Day Years Used Date Smoking Tobacco: Former Cigarettes Smokeless Tobacco: Never Alcohol Use Standard Drinks/Week Comments Yes 0 (1 standard drink = 0.6 oz pur e alcohol) Comments No Sex and Gender Information Value Date Recorded Sex Assigned at Not on file Legal 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 SENIOR SALES MANAGER Gender Identity Not on file Sexual Orientation Not on file Occupation Industry Job Start Date Job End Date Not on file Not on file Not on file Not on file documented as of this encounter Plan of Treatment Upcoming Encounters Date Type Department Care Team (Late Contact Info) Description 02/09/2025 1:40 PM CDT Office Visit [address] [place] [address] Elli Stewart MD [address] [place] [address] [address] [place] [address] 06/30/2025 9:00 AM SENIOR SALES MANAGER Office Visit [facility] Primary Care - [facility] [address] [place] [address] Elli Stewart MD [address] [place] [address] documented as of this encounter Visit Diagnoses Not on filedocumented in this encounter Care Teams Stopping Builder Relationship Specialty Start Date End Date Elli Stewart MD [address] [place] [address] PCP - General Internal Medicine 12/21/10 documented as of this encounter
--- OUTSIDE RECORDS SUMMARY | 2025-01-30 11:52 | XMS_ITS | Encounter Summary ---
Author Organization [facility] Address [address] [place] [address] Care Team Providers Care Leather Softener Name Role Phone Elli Stewart MD Primary Care Provider [phone] Encounter Details Date Type Department Care Team (Latest Contact Info) Description 02/15/2005 Outpatient Historical [facility] Alvarado, Nolan Shi MD NO ADDRESS ON FILE OVARIAN CYST NEC/NOS (Primary Dx) Social History Tobacco Use Types Packs/Day Years Used Date Smoking Tobacco: Never Assessed Comments Unknown Sex and Gender Information Value Date Recorded Sex Assigned at Not on file Legal 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 PHYSICIAN PRACTICE MARKET MANAGER Gender Identity Not on file Sexual Orientation Not on file documented as of this encounter Plan of Treatment Upcoming Encounters Date Type Department Care Team (Late st Contact Info) Description 02/09/2025 1:40 PM CDT Office Visit [address] [place] [address] Elli Stewart MD [facility] [address] [place] [address] 06/30/2025 9:00 AM PHYSICIAN PRACTICE MARKET MANAGER Office Visit [facility] [address] [place] [address] Elli Stewart MD [address] [place] [address] Rd [address] [place] [address] documented as of this encounter Visit Diagnoses Diagnosis Other and unspecified ovarian cyst- Primary documented in this encounter Care Teams Leather Softener Relationship Specialty Start Date End Date Elli Stewart MD [address] [facility] [address] [place] [address] PCP - General Internal Medicine 12/21/10 documented as of this encounter
--- OUTSIDE RECORDS SUMMARY | 2025-01-30 11:52 | XMS_ITS ---
Author Organization [facility] Address [address] [address] Care Team Providers Care Hem Marker Name Role Phone Pat AGUILAR, Elli Primary Care Provider DIOGENES Hirsch Unavailable [phone] Cally AGUILAR, Nolan Unavailable Unavailable Encounters Encounter Location Date Provider Diagnosis [facility] [address] [address] 10/23/2023 DIOGENES AREVALO Plan Of Treatment No Information Progress Notes * Winnie MARCUSDOB: 1 (44 yo F)Acc No.[id number]:10/23/2023 Progress Note Patient: Winnie CHANCE Provider: Jag AREVALO M.D. :1980 A ge:43 Y S ex:Female Date:10/23/2023 [facility] Pcp:Elli Stewart MD Subjective: * Chief Complaints: * * Medical History: Objective: * Vitals: Assessment: Plan: * Treatment: * * Electronic signature of MANUELITO AREVALO MD on 01/30/2025 at 11:52 AM CDT Sign off status: Pending * Provider: Jag AREVALO M.D. Date: 10/23/2023 Generated for Jeremiahi ng/Farachelleg/eTransmitting on: 01/30/2025 11:52 AM CDT
--- OUTSIDE RECORDS SUMMARY | 2025-01-30 11:52 | XMS_ITS | Patient Health Record ---
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
--- OUTSIDE RECORDS SUMMARY | 2025-01-30 11:52 | XMS_ITS | Encounter Summary ---
Author Organization [facility] Address [address] [place] [address] Care Team Providers Care Companion Name Role Phone Elli Stewart MD Primary Care Provider [phone] Encounter Details Date Type Department Care Team (Late st Contact Info) Description 04/20/2004 Outpatient Historical [address] [place] [address] Raúl Wright MD [address] [facility] [address] [place] [address] Social History Tobacco Use Types Packs/Day Years Used Date Smoking Tobacco: Never Assessed Comments Unknown Sex and Gender Information Value Date Recorded Sex Assigned at Not on file Legal 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 RN GYNECOLOGY Gender Identity Not on file Sexual Orientation Not on file documented as of this encounter Plan of Treatment Upcoming Encounters Date Type Department Care Team (Late st Contact Info) Description 02/09/2025 1:40 PM CDT Office Visit [facility] [address] [place] [address] [address] [place] [address] Elli Stewart MD [address] [place] [address] [address] [place] [address] 06/30/2025 9:00 AM RN GYNECOLOGY Office Visit [facility] [address] [place] [address] [address] [place] [address] Elli Stewart MD [address] [place] [address] documented as of this encounter Visit Diagnoses Not on filedocumented in this encounter Care Teams Companion Relationship Specialty Start Date End Date Elli Stewart MD [address] [place] [address] PCP - General Internal Medicine 12/21/10 documented as of this encounter
--- OUTSIDE RECORDS SUMMARY | 2025-01-30 11:52 | XMS_ITS | Encounter Summary ---
Author Organization [facility] Address [address] [place] [address] Care Team Providers Care Fourth Grade Teacher Name Role Phone Elli Stewart MD Primary Care Provider [phone] Encounter Details Date Type Department Care Team (Late st Contact Info) Description 04/20/2004 Outpatient Historical [address] [place] [address] Raúl Wright MD [address] [facility] [address] [place] [address] Social History Tobacco Use Types Packs/Day Years Used Date Smoking Tobacco: Never Assessed Comments Unknown Sex and Gender Information Value Date Recorded Sex Assigned at Not on file Legal 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 RANGE OPERATOR Gender Identity Not on file Sexual Orientation Not on file documented as of this encounter Plan of Treatment Upcoming Encounters Date Type Department Care Team (Late st Contact Info) Description 02/09/2025 1:40 PM CDT Office Visit [facility] [address] [place] [address] [address] [place] [address] Elli Stewart MD [address] [place] [address] [address] [place] [address] 06/30/2025 9:00 AM RANGE OPERATOR Office Visit [facility] [address] [place] [address] [address] [place] [address] Elli Stewart MD [address] [place] [address] documented as of this encounter Visit Diagnoses Not on filedocumented in this encounter Care Teams Fourth Grade Teacher Relationship Specialty Start Date End Date Elli Stewart MD [address] [place] [address] PCP - General Internal Medicine 12/21/10 documented as of this encounter
--- OUTSIDE RECORDS SUMMARY | 2025-01-30 11:52 | XMS_ITS | Encounter Summary ---
Author Organization [facility] Address [address] [place] [address] Care Team Providers Care Software Development Engineer Name Role Phone Elli Stewart MD Primary Care Provider [phone] Encounter Details Date Type Department Care Team [...] on file Legal 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 ABSTRACT MANAGER Gender Identity Not on file Sexual Orientation Not on file documented as of this encounter Plan of Treatment Upcoming Encounters Date Type Department Care Team (Late st Contact Info) Description 02/09/2025 1:40 PM CDT Office Visit [address] [place] [address] Elli Stewart MD [address] [place] [address] [place] [address] 06/30/2025 9:00 AM ABSTRACT MANAGER Office Visit [address] [place] [address] Elli Stewart MD [address] [place] [address] [place] [address] documented as of this encounter Procedures [...] Primary documented in this encounter Care Teams Software Development Engineer Relationship Specialty Start Date End Date Elli Stewart MD [address] [facility] [address] [place] [address] PCP - General Internal Medicine 12/21/10 documented as of this encounter
--- OUTSIDE RECORDS SUMMARY | 2025-01-30 11:52 | XMS_ITS | Encounter Summary ---
Author Organization [facility] Address [address] [place] [address] Care Team Providers Care Evaluator Name Role Phone Elli Stewart MD Primary Care Provider [phone] Encounter Details Date Type Department Care Team (Late st Contact Info) Description 05/30/2005 Outpatient Historical [facility] Care - [address] [place] [address] Raúl Wright MD [address] [facility] [address] [place] [address] Social History Tobacco Use Types Packs/Day Years Used Date Smoking Tobacco: Never Assessed Comments Unknown Sex and Gender Information Value Date Recorded Sex Assigned at Not on file Legal 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 RN TELEPHONE TRIAGE Gender Identity Not on file Sexual Orientation Not on file documented as of this encounter Last Filed Vital Signs Vital Sign Reading Time Taken Comments Blood Pressure 110/80 05/30/2005 9:15 AM RN TELEPHONE TRIAGE Pulse - - Temperature 36.5 C (97.7 F) 05/30/2005 9:15 AM RN TELEPHONE TRIAGE Respiratory Rate - - Oxygen Saturation - - Inhaled Oxygen Concentration - - Weight 77.1 kg (170 lb) 05/30/2005 9:15 AM RN TELEPHONE TRIAGE Height - - Body Mass Index - - documented in this encounter Plan of Treatment Upcoming Encounters Date Type Department Care Team (Late st Contact Info) Description 02/09/2025 1:40 PM CDT [facility] [address] [place] [address] Elli Stewart MD [address] [place] [address] 06/30/2025 9:00 AM RN TELEPHONE TRIAGE Office Visit [facility] Primary Care - [facility] [address] [place] [address] Elli Stewart MD [address] [place] [address] documented as of this encounter Visit Diagnoses Not on filedocumented in this encounter Care Teams Evaluator Relationship Specialty Start Date End Date Elli Stewart MD [address] [place] [address] PCP - General Internal Medicine 12/21/10 documented as of this encounter
--- OUTSIDE RECORDS SUMMARY | 2025-01-30 11:52 | XMS_ITS | Encounter Summary ---
Author Organization [facility] Address [address] [place] [address] Phone Care Team Providers Care Entry Rep Name Role Phone Elli Stewart MD Primary Care Provider [phone] Encounter Details Date Type Department Care Team (Late st Contact Info) Description 11/20/2021 Lab Requisition [facility] [address] [place] [address] Jeni Ramirez APRN, SCREWMAKER AUTOMATIC [address] [place] [address] Encounter for antibody response examination; Encounter for [...] on file Legal Sex Female 7:07 PM NURSING STAFF DEVELOPMENT COORDINATOR Gender Identity Not on file Sexual [...] 2.5 >=1.1 AI 11/20/2021 10:[address] [facility] Blood No Phlebotomy Charged / Unknown 11/20/2021 10:05 AM CDT 11/20/2021 12:[address] [facility] - 11/20/2021 10:44 PM CDT <= 0.8 Negative. No detectable Measles IgG antibody. 0.9 - 1.0 Equivocal >=1.1 Positive Antibody testing was performed by multiplex flow immunoassay on the ABA English platform. us Jeni Ramirez APRN, CNP IMMUNOLOGY ORDERA BLES Final Result [facility] [address] [place] [address], * RUBELLA IMMUNITY IGG (11/20/2021 10:05 AM CDT) [facility] Immune Immune, Invalid 11/20/2021 10:[address] [facility] Blood No Phlebotomy Charged / Unknown 11/20/2021 10:05 AM CDT 11/20/2021 12:[address] [facility] - 11/20/2021 10:44 PM CDT Antibody testing was performed by multiplex flow immunoassay on the ABA English platform. us Jeni Ramirez PROFESSIONAL SECURITY OFFICER, SCREWMAKER AUTOMATIC CHEMISTRY ORDERAB LES Final Result [facility] [address] [place] [address], documented in this encounter Visit Diagnoses Diagnosis [...] Total Score: 0 09/16/19 18 7:00 PM NURSING STAFF DEVELOPMENT COORDINATOR documented as of this encounter Care Teams Entry Rep Relationship Specialty Start Date End Date Elli Stewart MD [address] [facility] [address] [place] [address] PCP - General Internal Medicine 09/16/17 documented as of this encounter
--- OUTSIDE RECORDS SUMMARY | 2025-01-30 11:52 | XMS_ITS | Encounter Summary ---
Author Organization [facility] Address [address] [place] [address] Care Team Providers Care Stain Sprayer Name Role Phone Elli Stewart MD Primary Care Provider [phone] Encounter Details Date Type Department Care Team (Late st Contact Info) Description 11/12/2005 Outpatient Historical [facility] - [address] [place] [address] Raúl Wright MD [address] [facility] [address] [place] [address] Social History Tobacco Use Types Packs/Day Years Used Date Smoking Tobacco: Never Assessed Comments Unknown Sex and Gender Information Value Date Recorded Sex Assigned at Not on file Legal 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 HOME IMPROVEMENT ADVISOR Gender Identity Not on file Sexual Orientation [...] Description 02/09/2025 1:40 PM CDT Office Visit [address] [place] [address] Elli Stewart MD [address] [place] [address] 06/30/2025 9:00 AM HOME IMPROVEMENT ADVISOR Office Visit [facility] Primary Care - [facility] [address] [place] [address] Elli Stewart MD [address] [place] [address] documented as of this encounter Visit Diagnoses Not on filedocumented in this encounter Care Teams Stain Sprayer Relationship Specialty Start Date End Date Elli Stewart MD [address] [place] [address] PCP - General Internal Medicine 12/21/10 documented as of this encounter
--- OUTSIDE RECORDS SUMMARY | 2025-01-30 11:52 | XMS_ITS | Encounter Summary ---
Author Organization [facility] Address [address] [place] [address] Phone Care Team Providers Care Glass Block Installer Name Role Phone Elli Stewart MD Primary Care Provider [phone] Encounter Details Date Type Department Care Team (Late st Contact Info) Description 11/20/2021 Lab Requisition [facility] 1 [place] [address] Jeni Ramirez APRN, SAW TAILER [address] [place] [address] Encounter for screening for other viral diseases; [...] on file Legal Sex Female 7:07 PM NAVIGATING OFFICER Gender Identity Not on file Sexual Orientation [...] 1.4 >=1.1 AI 11/20/2021 10:52 PM CDT [facility] Blood No Phlebotomy Charged / Unknown 11/20/2021 10:05 AM CDT 11/20/2021 12:51 PM CDT Narrative [facility] - 11/20/2021 10:52 PM CDT <= 0.8 Negative. No detectable Mumps IgG antibody. 0.9 - 1.0 Equivocal >=1.1 Positive Antibody testing was performed by multiplex flow immunoassay on the OYE! platform. Jeni Ramirez APRN, CNP IMMUNOLOGY ORDERA BLES Final Result [facility] [address] [place] [address], * HERPES ZOSTER (VARICELLA) IGG (11/20/2021 10:05 AM CDT) VARICELLA ZOSTER IGG 7.2 >=1.1 AI 11/20/2021 10:52 PM CDT [facility] Blood No Phlebotomy Charged / Unknown 11/20/2021 10:05 AM CDT 11/20/2021 12:51 PM CDT Narrative [facility] - 11/20/2021 10:52 PM CDT <= 0.8 Negative. No detectable VZV IgG antibody. 0.9 - 1.0 Equivocal >=1.1 Positive Antibody testing was performed by multiplex flow immunoassay on the OYE! platform. us Jeni Ramirez MEAT APPRENTICE, SAW TAILER IMMUNOLOGY ORDERA BLES Final Result [facility] [address] [place] [address], documented in this encounter Visit Diagnoses Diagnosis [...] Total Score: 0 09/16/19 18 7:00 PM NAVIGATING OFFICER documented as of this encounter Care Teams Glass Block Installer Relationship Specialty Start Date End Date Elli Stewart MD [address] [facility] [address] [place] [address] PCP - General Internal Medicine 09/16/17 documented as of this encounter
--- OUTSIDE RECORDS SUMMARY | 2025-01-30 11:52 | XMS_ITS | Encounter Summary ---
Author Organization [facility] Address [address] [place] [address] Care Team Providers Care Pipeline Controller Name Role Phone Elli Stewart MD Primary Care Provider [phone] Encounter Details Date Type Department Care Team (Late st Contact Info) Description 11/11/2005 Orders Only [address] [place] [address] Bridger Gerber MD NO ADDRESS ON FILE Social History Tobacco Use Types Packs/Day Years Used Date Smoking Tobacco: Never Assessed Comments Unknown Sex and Gender Information Value Date Recorded Sex Assigned at Not on file Legal 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 FOREST RANGER TECHNICIAN Gender Identity Not on file Sexual Orientation Not on file documented as of this encounter Plan of Treatment Upcoming Encounters Date Type Department Care Team (Late st Contact Info) Description 02/09/2025 1:40 PM CDT Office Visit [address] [place] [address] Elli Stewart MD [address] [place] [address] [address] [place] [address] 06/30/2025 9:00 AM FOREST RANGER TECHNICIAN Office Visit [facility] [address] [place] [address] [address] [place] [address] Elli Stewart MD [address] [place] [address] [address] [place] [address] documented as of this encounter Visit Diagnoses Not on filedocumented in this encounter Care Teams Pipeline Controller Relationship Specialty Start Date End Date Elli Stewart MD [address] [place] [address] PCP - General Internal Medicine 12/21/10 documented as of this encounter
--- OUTSIDE RECORDS SUMMARY | 2025-01-30 11:52 | XMS_ITS | Patient Health Record ---
Author Organization [facility] Address [address] [facility] [address] [place], [place] [address] Care Team Providers Care Filling Station Laborer Name Role Phone RENATA AGUILAR, [facility] Primary Care Provider Angelica arenas Kaden Hays Unavailable [phone] ALLERGIES No Known Allergies REASON FOR REFERRAL [...] Problem Leukocytosis, unspecified type (D72.829) Active confirmed 302874458 Problem Polyarthralgia (M25.50) Active confirmed 67198945 Problem Low back pain at multiple sites (M54.50) Active confirmed 439205912 Problem Neck pain (M54.2) Active confirmed 8168 0005 Problem Vitamin D deficiency (E55.9) Active confirmed 35503113 PLAN OF TREATMENT Pending Test Test Name [...] Date Coverage End Date [employer] [address] [address] [place] [phone] [id number] Winnie Marcus Self - patient is the insured 1 [facility] [address] [place] [address] [id number] ALEM MARCUS Spouse - patient is the spouse of the insured 1 MEDICAL (GENERAL) HISTORY Medical History History ICD Code migraine headache tension headaches Ringing in ears sinus problems anxiety swelling of ankles/feet asthma indigestion high blood pressure rapid heartbeat varicose veins chronic cough bloating Surgical History Surgery Date(Month/Year)
--- OUTSIDE RECORDS SUMMARY | 2025-01-30 11:52 | XMS_ITS | Clinical Summary ---
Author Organization [facility] Address [address] [place] [address] Phone Care Team Providers Care Pulmonary Care Nurse Name Role Phone lEli Stewart MD Primary Care Provider [phone] Allergies Active Allergy Reactions Criticality Noted Date [...] 01/21/2025 8:35 AM CDT [facility] [address] [place] [address] Mary Hernandez, PHARMACY DELIVERY DRIVER, RN PROGRESSIVE CARE Bronchitis (Primary Dx) Discharge Disposition: Discharged to home or Selfcare 01/21/2025 Travel from Last 3 Months Immunizations Immunization Administration Dates Next Due Covid-19, Mrna, Lnp-s, Pf, 3 0 Mcg/0.3 Ml Dose ([email or web address]) 07/30/2020,07/09/2020 Influenza Vaccine, Quadrivalent, PF 03/21,05/07/2022,04/18/2019,2017 Influenza,Split [...] on file Legal Sex Female 7:07 PM SENIOR JAVASCRIPT DEVELOPER Gender Identity Not on file Sexual Orientation [...] CAD W BINDU Routine 07/22/2024 7:15 AM SENIOR JAVASCRIPT DEVELOPER Visit for screening mammogram from Last 3 Months or Most Recently Relevant to Health Maintenance Results * TITUS SCREENING BILATERAL DIGITAL W CAD W BINDU (07/22/2024 7:15 AM SENIOR JAVASCRIPT DEVELOPER) Anatomical Region Laterality Modality breast Bilateral Mammography 07/22/2024 7:45 AM SENIOR JAVASCRIPT DEVELOPER Narrative 07/22/2024 3:46 PM SENIOR JAVASCRIPT DEVELOPER - TITUS SCREENING BILATERAL DIGITAL W CAD [...] exam. Electronically signed by: Yoselyn [email or web address]:07/22/2024 13:45:57 Certified Solid Waste Facility Operator(s): LYNETTE Gordon)(M), [facility]: Normal Exam Reading location: [place] [...] exam. Electronically signed by: Yoselyn [email or web address]/[email or web address]:07/22/2024 13:45:57 Certified Solid Waste Facility Operator(s): IVY GordonR)(M), [facility] letter sent: Normal Exam Reading location: [place] Mammogram BI-RADS: Category 1: Negative Elli Stewart MD G MAMMO ORDERABLES Final R esult from Last 3 Months or Most Recently Relevant to Health Maintenance Insurance [facility] [employer] EM[employer] [facility] * Guarantor: [employer] Account Type Relation to Patient Date of Phone Billing Address Institutional Other [address] [place] [address] Care Teams Pulmonary Care Nurse Relationship Specialty Start Date End Date Elli Stewart MD [address] [place] [address] PCP - General Internal Medicine 09/16/17
--- OUTSIDE RECORDS SUMMARY | 2025-01-30 11:52 | XMS_ITS | Encounter Summary ---
Author Organization [facility] Address [address] [place] [address] Care Team Providers Care Tank Car Cleaner Name Role Phone Elli Stewart MD Primary Care Provider [phone] Encounter Details Date Type Department Care Team (Late st Contact Info) Description 05/09/2004 Outpatient Historical [facility] Yanelis Vivar MD [address] [place] [address] [address] [address] LIPOMA NEC (Primary Dx) Social History Tobacco Use Types Packs/Day Years Used Date Smoking Tobacco: Never Assessed Comments Unknown Sex and Gender Information Value Date Recorded Sex Assigned at Not on file Legal 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 INVESTIGATOR INTERNAL REVENUE Gender Identity Not on file Sexual Orientation Not on file documented as of this encounter Plan of Treatment Upcoming Encounters Date Type Department Care Team (Late st Contact Info) Description 02/09/2025 1:40 PM CDT Office Visit [facility] [address] [place] [address] Elli Stewart MD [address] [place] [address] 06/30/2025 9:00 AM INVESTIGATOR INTERNAL REVENUE Office Visit [facility] [address] [place] [address] Elli Stewart MD [address] [place] [address] documented as of this encounter Visit Diagnoses Diagnosis Lipoma of other specified sites- Primary documented in this encounter Care Teams Tank Car Cleaner Relationship Specialty Start Date End Date Elli Stewart MD [address] [place] [address] PCP - General Internal Medicine 12/21/10 documented as of this encounter
--- OUTSIDE RECORDS SUMMARY | 2025-01-30 11:52 | XMS_ITS | Encounter Summary ---
Author Organization [facility] Address [address] [place] [address] Care Team Providers Care Director Of Housing Name Role Phone Elli Stewart MD Primary Care Provider [phone] Encounter Details Date Type Department Care Team (Late st Contact Info) Description 11/12/2005 Orders Only [facility] Primary Care - [address] [place] [address] Raúl Wright MD [address] [facility] [address] [place] [address] Social History Tobacco Use Types Packs/Day Years Used Date Smoking Tobacco: Never Assessed Comments Unknown Sex and Gender Information Value Date Recorded Sex Assigned at Not on file Legal 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 SNOW MAKER Gender Identity Not on file Sexual Orientation Not on file documented as of this encounter Progress Notes * Raúl Wright MD - 04/29/2008 2:33 AM CDT TIME:11:25 am PATIENT`S HOME PHONE: PATIENT`S WORK PHONE: PATIENT`S INSURANCE: [facility] WHO TOOK THE CALL: Minoo Brown M GENERAL INFORMATION PATIENT STATUS: Established Patient. LAST VISIT: 05/30/05 PCP: dain. ALTERNATIVE PHONE NUMBER: [phone] WHO CALLED: Patient`s friend called.[email or web address] PROBLEMS: [...] Description 02/09/2025 1:40 PM CDT Office Visit [facility] [address] [facility] [address] [place] [address] Elli Stewart MD [address] [place] [address] [place] [address] 06/30/2025 9:00 AM SNOW MAKER Office Visit [facility] [address] [facility] [address] [place] [address] Elli Stewart MD [address] [place] [address] [place] [address] documented as of this encounter Visit Diagnoses Not on filedocumented in this encounter Care Teams Director Of Housing Relationship Specialty Start Date End Date Elli Stewart MD [address] [facility] [address] [place] [address] PCP - General Internal Medicine 12/21/10 documented as of this encounter
--- OUTSIDE RECORDS SUMMARY | 2025-01-30 11:52 | XMS_ITS | Encounter Summary ---
Author Organization [facility] Address [address] [place] [address] Care Team Providers Care Membership Assistant Name Role Phone Elli Stewart MD Primary Care Provider [phone] Encounter Details Date Type Department Care Team (Late st Contact Info) Description 05/27/2012 Chart Note [facility] [address] [address] Ariadna Salas Physical Therapist Social History Tobacco Use Types Packs/Day Years Used Date Smoking Tobacco: Former Cigarettes Smokeless Tobacco: Never Alcohol Use Standard Drinks/Week Comments Yes 0 (1 standard drink = 0.6 oz pur e alcohol) Comments No Sex and Gender Information Value Date Recorded Sex Assigned at Not on file Legal 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 JACKERMAN Gender Identity Not on file Sexual Orientation [...] Thank you for this referral. GIANFRANCO [facility], [place] [id number] ERMAN documented in this encounter Plan of Treatment Upcoming Encounters Date Type Department Care Team (Late st Contact Info) Description 02/09/2025 1:40 PM CDT Office Visit [address] [address] Elli Stewart MD [address] [place] [address] 06/30/2025 9:00 AM JACKERMAN Office Visit [address] [address] Elli Stewart MD [address] [place] [address] documented as of this encounter Visit Diagnoses Not on filedocumented in this encounter Care Teams Membership Assistant Relationship Specialty Start Date End Date Elli Stewart MD [address] [place] [address] PCP - General Internal Medicine 12/21/10 documented as of this encounter
--- OUTSIDE RECORDS SUMMARY | 2025-01-30 11:52 | XMS_ITS | Encounter Summary ---
Author Organization [facility] Address [address] [place] [address] Care Team Providers Care Computer Repair Technician Name Role Phone Elli Stewart MD Primary Care Provider [phone] Encounter Details Date Type Department Care Team (Late st Contact Info) Description 12/10/2005 Orders Only [facility] Primary Care - [address] [place] [address] Raúl Wright MD [address] [place] [address] Social History Tobacco Use Types Packs/Day Years Used Date Smoking Tobacco: Never Assessed Comments Unknown Sex and Gender Information Value Date Recorded Sex Assigned at Not on file Legal 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 VISUAL BASIC PROGRAMMER Gender Identity Not on file Sexual Orientation Not on file documented as of this encounter Progress Notes * Raúl Wright MD - 04/29/2008 5:20 AM CDT TIME:11:14 am PATIENT`S HOME PHONE: PATIENT`S WORK PHONE: PATIENT`S INSURANCE: [facility] WHO TOOK THE CALL: Kathrine Bradley M GENERAL INFORMATION PATIENT STATUS: Established Patient. PCP: dain. ALTERNATIVE PHONE NUMBER: [phone] WHO CALLED: Patient called. PHARMACY NUMBER: [phone] PROBLEMS: CONGESTION: Patient complains of sinus congestion, [...] 02/09/2025 1:40 PM CDT Office Visit [address] [place] [phone] Elli Stewart MD [address] [place] [address] [place] [phone] 06/30/2025 9:00 AM VISUAL BASIC PROGRAMMER Office Visit [facility] [address] [place] [address] [place] [phone] Elli Stewart MD [address] [place] [address] [place] [phone] documented as of this encounter Visit Diagnoses Not on filedocumented in this encounter Care Teams Computer Repair Technician Relationship Specialty Start Date End Date Elli Stewart MD [address] [place] [address] [address] [place] [phone] PCP - General Internal Medicine 12/21/10 documented as of this encounter
--- OUTSIDE RECORDS SUMMARY | 2025-01-30 11:52 | XMS_ITS | Encounter Summary ---
Author Organization [facility] Address [address] [place] [address] Care Team Providers Care Big Data Developer Name Role Phone Elli Stewart MD Primary Care Provider [phone] Reason for Visit * Reason Onset Date Comments PEER to PEER 07/04/2023 Encounter Details Date Type Department Care Team (Late st Contact Info) Description 07/04/2023 Telephone [facility] Primary Care - [address] [place] [address] Elli Stewart MD [address] [place] [address] [place] [phone] PEER to PEER Social History Tobacco Use Types Packs/Day Years Used Date Smoking Tobacco: Former Cigarettes Smokeless Tobacco: Never Alcohol Use Standard Drinks/Week Comments Yes 0 (1 standard drink = 0.6 oz pur e alcohol) Comments No Sex and Gender Information Value Date Recorded Sex Assigned at Not on file Legal 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 SPARK PLUG TESTER Gender Identity Not on file Sexual Orientation Not on file Occupation Industry Job Start Date Job End Date Not on file Not on file Not on file Not on file documented as of this encounter Miscellaneous Notes * Telephone Encounter - Kathrine Pate - 07/07/2023 9:10 AM CST Should be ok for CASTING MOLDER to do the PEER to PEER in PCP. Have a message in with Pre Cert to double check. K PLUG TESTER * Telephone Encounter - Elli Stewart MD - 07/04/2023 4:50 PM CST I am sorry I just got this message about a peer to peer Friday late afternoon can CASTING MOLDER do that since I am not going to be here next week MRI lumbar Severe neural foraminal narrowing on the right at L5-S1, likely impinging the exiting L5 nerve. K PLUG TESTER * Telephone Encounter - Rio Butt - 07/04/2023 10:01 AM CST Provider: Elli Stewart MD Next office visit: Visit date not found Caller: [id number] Dept Message: She is getting a MRI on 07/11/23 and her primary coverage approved but the secondary is wanting to do a peer to peer sharing. They only have 3 days to complete the peer to peer sharing. When they call to get schedule please call [phone]. Case number for this issue is - [id number]. Also have faxed clinical paperwork to the office Also sent in basket info as well. Please advise Call-back Number: [phone] K PLUG TESTER documented in this encounter Plan of Treatment Upcoming Encounters Date Type Department Care Team (Late st Contact Info) Description 02/09/2025 1:40 PM CDT Office Visit [address] [place] [phone] Elli Stewart MD [address] [place] [address] [address] [place] [phone] 06/30/2025 9:00 AM SPARK PLUG TESTER Office Visit [facility] [address] [place] [address] [address] [place] [address] Elli Stewart MD [address] [place] [address] [address] [place] [address] documented as of this encounter Visit Diagnoses Not on filedocumented in this encounter Care Teams Big Data Developer Relationship Specialty Start Date End Date Elli Stewart MD [address] [place] [phone] PCP - General Internal Medicine 12/21/10 documented as of this encounter
[2025-01-30 12:06] LABS: Hematocrit 43.8 % (37.0-47.0); Hemoglobin 14.7 g/dL (12.0-15.0); Immature Granulocyte Percent A 0.7 % (0-0.5); Lymphocytes Absolute Auto 5.11 K/mm3 (0.9-3.2); Mean Corpuscular HGB Conc 33.6 g/dl (32-36); Mean Corpuscular Hemoglobin 29.7 pg (26-34); Mean Corpuscular Volume 88.5 fl (80-100); Nucleated Red Blood Cells Absolute Auto 0.000 K/mm3 (0.0-0.012); Nucleated Red Blood Cells Perc 0.0 % (0.0-0.2); Platelet Count Result 413 k/mm3 (150-375); Red Blood Count 4.95 M/mm3 (4.2-5.4); White Blood Count 15.0 K/mm3 (4.5-10.0)
[2025-01-30 12:15] LABS: INR 1.0; Prothrombin Time 12.9 Seconds (11.1-14.7)
[2025-01-30 12:16] LABS: Alanine Aminotransferase 32 U/L (6-35); Albumin Level 3.8 g/dL (3.5-5.1); Alkaline Phosphatase 65 U/L (38-126); Anion Gap 8 mmol/L (4-12); Aspartate Amino Transferase 29 U/L (14-36); Bilirubin,Total 0.6 mg/dL (0.2-1.3); Blood Urea Nitrogen 15 mg/dL (7-17); Calcium 8.9 mg/dL (8.4-10.2); Carbon Dioxide 20 mmol/L (22-30); Chloride 108 mmol/L (98-107); Estimated CRCL calculation 79 ml/min; Estimated Glomerular Filt Rate > 60; Glucose 112 mg/dL (65-110); Lipase 109 U/L (23-300); Partial Thromboplastin Time 25.9 Seconds (22.3-36.8); Potassium 4.1 mmol/L (3.4-5.0); Sodium 136 mmol/L (137-145); Total Protein 6.9 g/dL (6.3-8.2)
[2025-01-30 12:26] LABS: Troponin I < 0.012 ng/mL (0.000-0.034)
--- OUTSIDE RECORDS SUMMARY | 2025-01-30 13:32 | XMS_ITS | Encounter Summary ---
Author Organization [facility] Address [address] [place] [address] Care Team Providers Care Hotel Dining Room Cashier Name Role Phone Elli Stewart MD Primary Care Provider [phone] Encounter Details Date Type Department Care Team (Late st Contact Info) Description 12/26/2005 Outpatient Historical [facility] - [address] [place] [address] Rogers Arnold MD [address] [facility] [address] [phone] Social History Tobacco Use Types Packs/Day Years Used Date Smoking Tobacco: Never Assessed Comments Unknown Sex and Gender Information Value Date Recorded Sex Assigned at Not on file Legal 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 ELEMENTARY ESL TEACHER Gender Identity Not on file Sexual [...] Description 02/09/2025 1:40 PM CDT Office Visit [address] [place] [phone] Elli Stewart MD [address] [place] [phone] 06/30/2025 9:00 AM ELEMENTARY ESL TEACHER Office Visit [facility] [address] [place] [phone] Elli Stewart MD [address] [place] [address] documented as of this encounter Visit Diagnoses Not on filedocumented in this encounter Care Teams Hotel Dining Room Cashier Relationship Specialty Start Date End Date Elli Stewart MD [address] [place] [phone] PCP - General Internal Medicine 12/21/10 documented as of this encounter
--- OUTSIDE RECORDS SUMMARY | 2025-01-30 13:32 | XMS_ITS | Encounter Summary ---
Author Organization [facility] Address [address] [place] [address] Care Team Providers Care Senior Construction Estimator Name Role Phone Elli Stewart MD Primary Care Provider [phone] Encounter Details Date Type Department Care Team (Late st Contact Info) Description 08/29/2006 Orders Only [facility] Primary Care - [address] [place] [address] Raúl Wright MD [address] [facility] [address] [place] [address] Social History Tobacco Use Types Packs/Day Years Used Date Smoking Tobacco: Never Assessed Comments Unknown Sex and Gender Information Value Date Recorded Sex Assigned at Not on file Legal 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 LABORATORY ENGINEER Gender Identity Not on file Sexual [...] Description 02/09/2025 1:40 PM CDT Office Visit [address] [place] [phone] Elli Stewart MD [facility] [address] [place] [phone] 06/30/2025 9:00 AM LABORATORY ENGINEER Office Visit [address] [place] [phone] Elli Stewart MD [address] [place] [address] [address] [place] [address] documented as of this encounter Visit Diagnoses Not on filedocumented in this encounter Care Teams Senior Construction Estimator Relationship Specialty Start Date End Date Elli Stewart MD [address] [facility] [address] [place] [phone] PCP - General Internal Medicine 12/21/10 documented as of this encounter
--- OUTSIDE RECORDS SUMMARY | 2025-01-30 13:32 | XMS_ITS | Encounter Summary ---
Author Organization [facility] Address [address] [place] [address] Care Team Providers Care Retail Marketing Specialist Name Role Phone Elli Stewart MD Primary Care Provider [phone] Encounter Details Date Type Department Care Team (Late st Contact Info) Description 12/26/2005 Orders Only [facility] Primary Care - [facility] [address] [place] [address] [address] [place] [address] Rogers Arnold MD [address] [facility] [address] [address] Social History Tobacco Use Types Packs/Day Years Used Date Smoking Tobacco: Never Assessed Comments Unknown Sex and Gender Information Value Date Recorded Sex Assigned at Not on file Legal 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 SPECIAL PROJECTS COORDINATOR Gender Identity Not on file Sexual [...] Here for follow up evaluation. ER visit ([facility]) for chest pain. RC HISTORY: chest pain [...] Description 02/09/2025 1:40 PM CDT Office Visit [address] [place] [phone] Elli Stewart MD [address] [place] [address] [place] [address] 06/30/2025 9:00 AM SPECIAL PROJECTS COORDINATOR Office Visit [facility] [address] [place] [address] [place] [phone] Elli Stewart MD [address] [place] [address] [place] [address] documented as of this encounter Visit Diagnoses Not on filedocumented in this encounter Care Teams Retail Marketing Specialist Relationship Specialty Start Date End Date Elli Stewart MD [address] [place] [address] [place] [phone] PCP - General Internal Medicine 12/21/10 documented as of this encounter
--- OUTSIDE RECORDS SUMMARY | 2025-01-30 13:32 | XMS_ITS | Encounter Summary ---
Author Organization [facility] Address [address] [place] [address] Care Team Providers Care Php Mysql Web Developer Name Role Phone Elli Stewart MD Primary Care Provider [phone] Encounter Details Date Type Department Care Team (Late st Contact Info) Description 12/12/2005 Outpatient Historical [address] [place] [address] Raúl Wright MD [address] [facility] [address] [place] [address] Social History Tobacco Use Types Packs/Day Years Used Date Smoking Tobacco: Never Assessed Comments Unknown Sex and Gender Information Value Date Recorded Sex Assigned at Not on file Legal 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 BOAT FUELER Gender Identity Not on file Sexual Orientation Not on file documented as of this encounter Plan of Treatment Upcoming Encounters Date Type Department Care Team (Late st Contact Info) Description 02/09/2025 1:40 PM CDT Office Visit [facility] [address] [place] [address] [address] [place] [address] Elli Stewart MD [address] [place] [address] [address] [place] [address] 06/30/2025 9:00 AM BOAT FUELER Office Visit [facility] [address] [place] [address] [address] [place] [address] Elli Stewart MD [address] [place] [address] documented as of this encounter Visit Diagnoses Not on filedocumented in this encounter Care Teams Php Mysql Web Developer Relationship Specialty Start Date End Date Elli Stewart MD [address] [place] [address] PCP - General Internal Medicine 12/21/10 documented as of this encounter
--- OUTSIDE RECORDS SUMMARY | 2025-01-30 13:32 | XMS_ITS | Encounter Summary ---
Author Organization [facility] Address [address] [place] [address] Care Team Providers Care Inspector Water Pollution Control Name Role Phone Elli Stewart MD Primary Care Provider [phone] Encounter Details Date Type Department Care Team (Late st Contact Info) Description 12/12/2005 Outpatient Historical [address] [place] [address] Raúl Wright MD [address] [facility] [address] [place] [address] Social History Tobacco Use Types Packs/Day Years Used Date Smoking Tobacco: Never Assessed Comments Unknown Sex and Gender Information Value Date Recorded Sex Assigned at Not on file Legal 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 DIANETIC COUNSELOR Gender Identity Not on file Sexual Orientation Not on file documented as of this encounter Plan of Treatment Upcoming Encounters Date Type Department Care Team (Late st Contact Info) Description 02/09/2025 1:40 PM CDT Office Visit [facility] [address] [place] [address] [address] [place] [address] Elli Stewart MD [address] [place] [address] [address] [place] [address] 06/30/2025 9:00 AM DIANETIC COUNSELOR Office Visit [facility] [address] [place] [address] [address] [place] [address] Elli Stewart MD [address] [place] [address] documented as of this encounter Visit Diagnoses Not on filedocumented in this encounter Care Teams Inspector Water Pollution Control Relationship Specialty Start Date End Date Elli Stewart MD [address] [place] [address] PCP - General Internal Medicine 12/21/10 documented as of this encounter
--- OUTSIDE RECORDS SUMMARY | 2025-01-30 13:32 | XMS_ITS | Encounter Summary ---
Author Organization [facility] Address [address] [address] [place] [address] Care Team Providers Care 911 Operator Name Role Phone Elli Stewart MD Primary Care Provider [phone] Encounter Details Date Type Department Care Team (Late st Contact Info) Description 08/29/2006 Outpatient Historical [facility] Care - [address] [place] [address] Raúl Wright MD [address] [facility] [address] [place] [address] Social History Tobacco Use Types Packs/Day Years Used Date Smoking Tobacco: Never Assessed Comments Unknown Sex and Gender Information Value Date Recorded Sex Assigned at Not on file Legal 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 FLYING SHEAR OPERATOR Gender Identity Not on file Sexual Orientation Not on file documented as of this encounter Last Filed Vital Signs Vital Sign Reading Time Taken Comments Blood Pressure 118/68 08/29/2006 11:30 AM FLYING SHEAR OPERATOR Pulse - - Temperature 36.4 C (97.6 F) 08/29/2006 11:30 AM FLYING SHEAR OPERATOR Respiratory Rate - - Oxygen Saturation - - Inhaled Oxygen Concentration - - Weight 84.8 kg (187 lb) 08/29/2006 11:30 AM FLYING SHEAR OPERATOR Height - - Body Mass Index - - documented in this encounter Plan of Treatment Upcoming Encounters Date Type Department Care Team (Late st Contact Info) Description 02/09/2025 1:40 PM CDT Office Visit [facility] - [address] [place] [phone] Elli Stewart MD [address] [place] [phone] 06/30/2025 9:00 AM FLYING SHEAR OPERATOR Office Visit [facility] Primary Care - [facility] [address] [place] [phone] Elli Stewart MD [address] [place] [address] documented as of this encounter Visit Diagnoses Not on filedocumented in this encounter Care Teams 911 Operator Relationship Specialty Start Date End Date Elli Stewart MD [address] [place] [phone] PCP - General Internal Medicine 12/21/10 documented as of this encounter
--- OUTSIDE RECORDS SUMMARY | 2025-01-30 13:32 | XMS_ITS | Encounter Summary ---
Author Organization [facility] Address [address] [place] [address] Care Team Providers Care Systems Admin Name Role Phone Elli Stewart MD Primary Care Provider [phone] Encounter Details Date Type Department Care Team (Late st Contact Info) Description 12/12/2005 Orders Only [facility] Primary Care - [facility] [address] [facility] [address] [place] [address] Raúl Wright MD [address] [facility] [address] [place] [address] Social History Tobacco Use Types Packs/Day Years Used Date Smoking Tobacco: Never Assessed Comments Unknown Sex and Gender Information Value Date Recorded Sex Assigned at Not on file Legal 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 BRIM WELT SEWING MACHINE OPERATOR Gender Identity Not on file Sexual Orientation Not on file documented as of this encounter Progress Notes * Raúl Wright MD - 04/29/2008 5:35 AM CDT [facility] RAÚL WRIGHT MD [address] [place] [address] December 12, 2005 MICHAEL BAUMANN [address] [place] [address] MICHAEL IBIS has been under our care during the dates below: 12/11/05,12/12/05 May return to work: Sincerely yours, RAÚL WRIGHT MD * Raúl Wright MD - 04/29/2008 5:35 AM CDT [facility] RAÚL WRIGHT MD [address] [place] [address] December 12, 2005 MICHAEL BAUMANN [address] [place] [address] MICHAEL BAUMANN has been under our care [...] NEW PRESCRIPTION, 12/12/2005. LAB ORDERS: Order number: [id number] Test Ordered: NEBULIZER TREATMENT [id number] Order number: [id number] Test Ordered: PULSE OXIMETRY [id number] REPEAT VITAL SIGNS: Electronically Signed by: Raúl Wright MD on Friday, December 21, 2005 documented in this encounter Plan of Treatment Upcoming Encounters Date Type Department Care Team (Late st Contact Info) Description 02/09/2025 1:40 PM CDT Office Visit [facility] [address] [place] [address] Elli Stewart MD [address] [place] [address] 06/30/2025 9:00 AM BRIM WELT SEWING MACHINE OPERATOR Office Visit [facility] [address] [place] [address] Elli Stewart MD [address] [facility] [address] [place] [address] documented as of this encounter Visit Diagnoses Not on filedocumented in this encounter Care Teams Systems Admin Relationship Specialty Start Date End Date Elli Stewart MD [address] [facility] [address] [place] [address] PCP - General Internal Medicine 12/21/10 documented as of this encounter
--- OUTSIDE RECORDS SUMMARY | 2025-01-30 13:33 | XMS_ITS | Encounter Summary ---
Author Organization [facility] Address [address] [place] [address] Care Team Providers Care Bull Bucker Name Role Phone Elli Stewart MD Primary Care Provider [phone] Encounter Details Date Type Department Care Team (Late st Contact Info) Description 11/12/2005 Orders Only [facility] Primary Care - [address] [place] [address] Raúl Wright MD [address] [facility] [address] [place] [address] Social History Tobacco Use Types Packs/Day Years Used Date Smoking Tobacco: Never Assessed Comments Unknown Sex and Gender Information Value Date Recorded Sex Assigned at Not on file Legal 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 CUSTOMER SERVICE REPRESENTATIVE Gender Identity Not on file Sexual Orientation Not on file documented as of this encounter Progress Notes * Raúl Wright MD - 04/29/2008 2:33 AM CDT TIME:11:25 am PATIENT`S HOME PHONE: PATIENT`S WORK PHONE: PATIENT`S INSURANCE: [facility] WHO TOOK THE CALL: Minoo Brown M GENERAL INFORMATION PATIENT STATUS: Established Patient. LAST VISIT: 05/30/05 PCP: dain. ALTERNATIVE PHONE NUMBER: [phone] WHO CALLED: Patient`s friend called.[email or web address] [email or web address] PROBLEMS: [...] PM CDT Office Visit [facility] [address] [facility] [address] [place] [address] Elli Stewart MD [address] [place] [address] [place] [address] 06/30/2025 9:00 AM CUSTOMER SERVICE REPRESENTATIVE Office Visit [facility] [address] [facility] [address] [place] [address] Elli Stewart MD [address] [place] [address] [place] [address] documented as of this encounter Visit Diagnoses Not on filedocumented in this encounter Care Teams Bull Bucker Relationship Specialty Start Date End Date Elli Stewart MD [address] [facility] [address] [place] [address] PCP - General Internal Medicine 12/21/10 documented as of this encounter
--- OUTSIDE RECORDS SUMMARY | 2025-01-30 13:33 | XMS_ITS | Clinical Summary ---
Author Organization [facility] Address [address] [place] [address] Care Team Providers Care Professional Shopper Name Role Phone Elli Stewart MD Primary Care Provider [phone] Source Comments [facility],non-owned Affiliates and Associated Physician Practices is amultiple site organization consisting of ambulatory clinics and hospital sitesin [place], [place], [place] and [place]. This disclosure is being madepursuant to the Care Everywhere program and may not contain all information available regarding this patient. Last updated 18.[facility] Allergies No known active allergies Medications * [...] MARCUS Subscriber ID:Not on file (Home) Address: [address] [place], [place] [address] [place] [address] Payer ID:Not on file Group ID:Not on file Type:Self Pay Address: [facility] Care Teams Professional Shopper Relationship Specialty Start Date End Date Elli Stewart MD [address] [place] [address] PCP - General 11/07/21
--- OUTSIDE RECORDS SUMMARY | 2025-01-30 13:33 | XMS_ITS | Encounter Summary ---
Author Organization [facility] Address [address] [place] [address] Care Team Providers Care Railroad Signal And Switch Operator Name Role Phone Elli Stewart MD Primary Care Provider [phone] Encounter Details Date Type Department Care Team (Late st Contact Info) Description 12/10/2005 Orders Only [facility] Primary Care - [address] [place] [address] Raúl Wright MD [address] [facility] [address] [place] [address] Social History Tobacco Use Types Packs/Day Years Used Date Smoking Tobacco: Never Assessed Comments Unknown Sex and Gender Information Value Date Recorded Sex Assigned at Not on file Legal 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 NETTING WEAVER Gender Identity Not on file Sexual Orientation Not on file documented as of this encounter Progress Notes * Raúl Wright MD - 04/29/2008 5:20 AM CDT TIME:11:14 am PATIENT`S HOME PHONE: PATIENT`S WORK PHONE: PATIENT`S INSURANCE: [facility] WHO TOOK THE CALL: Kathrine Bradley M GENERAL INFORMATION PATIENT STATUS: Established Patient. PCP: dain. ALTERNATIVE PHONE NUMBER: [phone] WHO CALLED: Patient called. PHARMACY NUMBER: [phone] PROBLEMS: CONGESTION: Patient complains of sinus congestion, [...] Description 02/09/2025 1:40 PM CDT Office Visit [address] [place] [phone] Elli Stewart MD [address] [place] [address] [place] [phone] 06/30/2025 9:00 AM NETTING WEAVER Office Visit [facility] [address] [place] [address] [place] [phone] Elli Stewart MD [address] [place] [address] [place] [phone] documented as of this encounter Visit Diagnoses Not on filedocumented in this encounter Care Teams Railroad Signal And Switch Operator Relationship Specialty Start Date End Date Elli Stewart MD [address] [place] [address] [place] [phone] PCP - General Internal Medicine 12/21/10 documented as of this encounter
--- OUTSIDE RECORDS SUMMARY | 2025-01-30 13:33 | XMS_ITS | Encounter Summary ---
Author Organization [facility] Address [address] [place] [address] Care Team Providers Care Waxer Name Role Phone Elli Stewart MD Primary Care Provider [phone] Encounter Details Date Type Department Care Team (Late st Contact Info) Description 01/26/2025 Results Follow-Up [address] [place] [address] Elli Stewart MD [address] [place] [address] [address] [place] [address] XR CHEST PA AND LATERAL 2 VW Social History Tobacco Use Types Packs/Day Years Used Date Smoking Tobacco: Former Cigarettes Smokeless Tobacco: Never Alcohol Use Standard Drinks/Week Comments Yes 0 (1 standard drink = 0.6 oz pur e alcohol) Comments No Sex and Gender Information Value Date Recorded Sex Assigned at Not on file Legal 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 HAND POTTER Gender Identity Not on file Sexual Orientation Not on file Occupation Industry Job Start Date Job End Date Not on file Not on file Not on file Not on file documented as of this encounter Plan of Treatment Upcoming Encounters Date Type Department Care Team (Late Contact Info) Description 02/09/2025 1:40 PM CDT Office Visit [address] [place] [address] Elli Stewart MD [address] [place] [address] [address] [place] [address] 06/30/2025 9:00 AM HAND POTTER Office Visit [facility] Primary Care - [facility] [address] [place] [address] Elli Stewart MD [address] [place] [address] documented as of this encounter Visit Diagnoses Not on filedocumented in this encounter Care Teams Waxer Relationship Specialty Start Date End Date Elli Stewart MD [address] [place] [address] PCP - General Internal Medicine 12/21/10 documented as of this encounter
--- OUTSIDE RECORDS SUMMARY | 2025-01-30 13:33 | XMS_ITS | Encounter Summary ---
Author Organization [facility] Address [address] [place] [address] Care Team Providers Care Net Mobile Developer Name Role Phone Elli Stewart MD Primary Care Provider [phone] Encounter Details Date Type Department Care Team (Late st Contact Info) Description 04/20/2004 Outpatient Historical [address] [place] [address] Raúl Wright MD [address] [facility] [address] [place] [address] Social History Tobacco Use Types Packs/Day Years Used Date Smoking Tobacco: Never Assessed Comments Unknown Sex and Gender Information Value Date Recorded Sex Assigned at Not on file Legal 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 INSPECTOR METAL CAN Gender Identity Not on file Sexual Orientation Not on file documented as of this encounter Plan of Treatment Upcoming Encounters Date Type Department Care Team (Late st Contact Info) Description 02/09/2025 1:40 PM CDT Office Visit [facility] [address] [place] [address] [address] [place] [address] Elli Stewart MD [address] [place] [address] [address] [place] [address] 06/30/2025 9:00 AM INSPECTOR METAL CAN Office Visit [facility] [address] [place] [address] [address] [place] [address] Elli Stewart MD [address] [place] [address] documented as of this encounter Visit Diagnoses Not on filedocumented in this encounter Care Teams Net Mobile Developer Relationship Specialty Start Date End Date Elli Stewart MD [address] [place] [address] PCP - General Internal Medicine 12/21/10 documented as of this encounter
--- OUTSIDE RECORDS SUMMARY | 2025-01-30 13:33 | XMS_ITS | Encounter Summary ---
Author Organization [facility] Address [address] [place] [address] Care Team Providers Care Psychological Tests Sales Agent Name Role Phone Elli Stewart MD Primary Care Provider [phone] Encounter Details Date Type Department Care Team [...] on file Legal 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 INTEGRATION SOLUTION ARCHITECT Gender Identity Not on file Sexual Orientation Not on file documented as of this encounter Plan of Treatment Upcoming Encounters Date Type Department Care Team (Late st Contact Info) Description 02/09/2025 1:40 PM CDT Office Visit [address] [place] [address] Elli Stewart MD [address] [place] [address] [place] [address] 06/30/2025 9:00 AM INTEGRATION SOLUTION ARCHITECT Office Visit [address] [place] [address] Elli Stewart MD [address] [place] [address] [place] [address] documented as of this encounter Procedures [...] Primary documented in this encounter Care Teams Psychological Tests Sales Agent Relationship Specialty Start Date End Date Elli Stewart MD [address] [facility] [address] [place] [address] PCP - General Internal Medicine 12/21/10 documented as of this encounter
--- OUTSIDE RECORDS SUMMARY | 2025-01-30 13:33 | XMS_ITS | Encounter Summary ---
Author Organization [facility] Address [address] [place] [address] Care Team Providers Care Laborer Egg Producing Farm Name Role Phone Elli Stewart MD Primary Care Provider [phone] Encounter Details Date Type Department Care Team (Late st Contact Info) Description 05/30/2005 Outpatient Historical [facility] Care - [address] [place] [address] Raúl Wright MD [address] [facility] [address] [place] [address] Social History Tobacco Use Types Packs/Day Years Used Date Smoking Tobacco: Never Assessed Comments Unknown Sex and Gender Information Value Date Recorded Sex Assigned at Not on file Legal 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 CPA TAX Gender Identity Not on file Sexual Orientation Not on file documented as of this encounter Last Filed Vital Signs Vital Sign Reading Time Taken Comments Blood Pressure 110/80 05/30/2005 9:15 AM CPA TAX Pulse - - Temperature 36.5 C (97.7 F) 05/30/2005 9:15 AM CPA TAX Respiratory Rate - - Oxygen Saturation - - Inhaled Oxygen Concentration - - Weight 77.1 kg (170 lb) 05/30/2005 9:15 AM CPA TAX Height - - Body Mass Index - - documented in this encounter Plan of Treatment Upcoming Encounters Date Type Department Care Team (Late st Contact Info) Description 02/09/2025 1:40 PM CDT Office Visit [facility] - [address] [place] [phone] Elli Stewart MD [address] [place] [phone] 06/30/2025 9:00 AM CPA TAX Office Visit [facility] Primary Care - [facility] [address] [place] [phone] Elli Stewart MD [address] [place] [address] documented as of this encounter Visit Diagnoses Not on filedocumented in this encounter Care Teams Laborer Egg Producing Farm Relationship Specialty Start Date End Date Elli Stewart MD [address] [place] [phone] PCP - General Internal Medicine 12/21/10 documented as of this encounter
--- OUTSIDE RECORDS SUMMARY | 2025-01-30 13:33 | XMS_ITS | Encounter Summary ---
Author Organization [facility] Address [address] [place] [address] Care Team Providers Care Mechanical Energy Engineer Name Role Phone Elli Stewart MD Primary Care Provider [phone] Reason for Visit * Reason Onset Date Comments PEER to PEER 07/04/2023 Encounter Details Date Type Department Care Team (Late st Contact Info) Description 07/04/2023 Telephone [facility] Primary Care - [address] [place] [address] Elli Stewart MD [address] [place] [address] [place] [address] PEER to PEER Social History Tobacco Use Types Packs/Day Years Used Date Smoking Tobacco: Former Cigarettes Smokeless Tobacco: Never Alcohol Use Standard Drinks/Week Comments Yes 0 (1 standard drink = 0.6 oz pur e alcohol) Comments No Sex and Gender Information Value Date Recorded Sex Assigned at Not on file Legal 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 WIRELINE SUPERVISOR Gender Identity Not on file Sexual Orientation Not on file Occupation Industry Job Start Date Job End Date Not on file Not on file Not on file Not on file documented as of this encounter Miscellaneous Notes * Telephone Encounter - Kathrine Pate - 07/07/2023 9:10 AM CST Should be ok for RN PEDIATRIC ICU to do the PEER to PEER in PCP. Have a message in with Pre Cert to double check. LINE SUPERVISOR * Telephone Encounter - Elli Stewart MD - 07/04/2023 4:50 PM CST I am sorry I just got this message about a peer to peer Friday late afternoon can RN PEDIATRIC ICU do that since I am not going to be here next week MRI lumbar Severe neural foraminal narrowing on the right at L5-S1, likely impinging the exiting L5 nerve. LINE SUPERVISOR * Telephone Encounter - Rio Butt - 07/04/2023 10:01 AM CST Provider: Elli Stewart MD Next office visit: Visit date not found Caller: [facility] Dept Message: She is getting a MRI on 07/11/23 and her primary coverage approved but the secondary is wanting to do a peer to peer sharing. They only have 3 days to complete the peer to peer sharing. When they call to get schedule please call [phone]. Case number for this issue is - [id number]. Also have faxed clinical paperwork to the office Also sent in basket info as well. Please advise Call-back Number: [phone] LINE SUPERVISOR documented in this encounter Plan of Treatment Upcoming Encounters Date Type Department Care Team (Late st Contact Info) Description 02/09/2025 1:40 PM CDT Office Visit [address] [place] [address] Elli Stewart MD [address] [place] [address] Rd [address] [place] [address] 06/30/2025 9:00 AM WIRELINE SUPERVISOR Office Visit [facility] [address] [place] [address] [address] [place] [address] Elli Stewart MD [address] [place] [address] [address] [place] [address] documented as of this encounter Visit Diagnoses Not on filedocumented in this encounter Care Teams Mechanical Energy Engineer Relationship Specialty Start Date End Date Elli Stewart MD [address] [place] [address] PCP - General Internal Medicine 12/21/10 documented as of this encounter
--- OUTSIDE RECORDS SUMMARY | 2025-01-30 13:33 | XMS_ITS | Clinical Summary ---
Author Organization [facility] Address [address] [place] [address] Phone Care Team Providers Care Direct Care Professional Name Role Phone Elli Stewart MD Primary Care Provider [phone] Allergies Active Allergy Reactions Criticality Noted Date [...] 01/21/2025 8:35 AM CDT [facility] [address] [place] [address] Mary Hernandez, SHAPER SETTER, SOLE POLISHER Bronchitis (Primary Dx) Discharge Disposition: Discharged to home or Selfcare 01/21/2025 Travel from Last 3 Months Immunizations Immunization Administration Dates Next Due Covid-19, Mrna, Lnp-s, Pf, 3 0 Mcg/0.3 Ml Dose ([facility]) 07/30/2020,07/09/2020 Influenza Vaccine, Quadrivalent, PF 03/21,05/07/2022,04/18/2019,2017 Influenza,Split [...] on file Legal Sex Female 7:07 PM AUTOMOBILE CLUB INFORMATION CLERK Gender Identity Not on file Sexual [...] CAD W BINDU Routine 07/22/2024 7:15 AM AUTOMOBILE CLUB INFORMATION CLERK Visit for screening mammogram from Last 3 Months or Most Recently Relevant to Health Maintenance Results * TITUS SCREENING BILATERAL DIGITAL W CAD W BINDU (07/22/2024 7:15 AM AUTOMOBILE CLUB INFORMATION CLERK) Anatomical Region Laterality Modality breast Bilateral Mammography 07/22/2024 7:45 AM AUTOMOBILE CLUB INFORMATION CLERK Narrative 07/22/2024 3:46 PM AUTOMOBILE CLUB INFORMATION CLERK - TITUS SCREENING BILATERAL DIGITAL W CAD [...] exam. Electronically signed by: Yoselyn [email or web address]/penrad:07/22/2024 13:45:57 Sales & Service Associate(s): LYNETTE Gordon)(M), [facility] sent: Normal Exam Reading location: [place] [...] exam. Electronically signed by: Yoselyn mcconnell/penrad:07/22/2024 13:45:57 Sales & Service Associate(s): IVY GordonR)(M), [facility] letter sent: Normal Exam Reading location: [place] Mammogram BI-RADS: Category 1: Negative Elli Stewart MD G MAMMO ORDERABLES Final R esult from Last 3 Months or Most Recently Relevant to Health Maintenance Insurance [facility] [employer] [facility] * Guarantor: [employer] [facility] Account Type Relation to Patient Date of Phone Billing Address Institutional Other [address] [place] [address] Care Teams Direct Care Professional Relationship Specialty Start Date End Date Elli Stewart MD [address] [place] [address] PCP - General Internal Medicine 09/16/17
--- OUTSIDE RECORDS SUMMARY | 2025-01-30 13:33 | XMS_ITS | Continuity of Care Document ---
Author Organization [facility] Address [address] [place] [address] [address] [place] [address] Phone Care Team Providers Care Manufacturing Job Titles Name Role Phone Aydin PT,MPT,ATC, Kyle Unavailable [...] Diagnoses Date Provider Providers Copied on Encounter [facility], [place], [place], [id number], [place] tel:[phone] Xero No Information 4 ROMAN Deluna, [place]. [facility], [place], [place], [id number], tel:[phone] Xero No Information 4 Bharati Gerard. . Referring Provider: Nolan Alamo, [address], [place], [address]. tel:[phone] [address], [place], [place], [id number], [place] tel:[phone] Marvell No Information 0- 4 [place] Moustapha. . Referring Provider: Nolan Alamo [facility][note 2] [address], [place], [address]. tel:[phone] [address], [place], [id number], [place] tel:[phone] Marvell No Information 4 [place] Moustapha. . Referring Provider: Nolan Alamo [facility][note 2] [address], [place], [address]. tel:[phone] [address], [place], [id number], [place] tel:[phone] Marvell No Information 4 [place] Moustapha. . Referring Provider: Nolan Alamo [facility][note 2] [address], [place], [address]. tel:[phone], [place], [place], [id number], tel:[phone] Marvell No Information 4 [place] Moustapha. . Referring Provider: Nolan Alamo [address], [place], [address]. tel:[phone], [place], [place], [id number], [place] tel:[phone] Marvell No Information 3- 4 [place], [place], [place]. Referring Provider: Nolan Alamo [address], [place], [address]. tel:[phone] [address], [place], [place], [id number], [place] tel:[phone] Marvell No Information Reid-1 2-202 4 [place] Moustapha. . Referring Provider: Nolan Alamo [address], [place], [address]. tel:[phone], [place], [id number], [place] tel:[phone] Marvell No Information Reid-0 4-202 4 [place] Moustapha. . Referring Provider: Nolan Alamo [address], [place], [address]. tel:[phone] [address] [address], [place], [place], [id number], [place] tel:[phone] Marvell No Information May-3 0-202 4 Mireyan Dillon. . Referring Provider: Harvinder Gilmore[address], [place], [address]. tel:[phone], [place], [id number], [place] tel:[phone] Marvell No Information May-2 9-202 4 [place] Moustapha. . Referring Provider: Harvinder Gilmore[address], [place], [address]. tel:[phone], [place], [id number], [place] tel:[phone] Marvell No Information May-2 4-202 4 [place]. Referring Provider: Nolan Alamo [address], [place], [address]. tel:[phone] [address], [place], [id number], [place] tel:[phone] Marvell No Information May-2 0-202 4 [place] Moustapha. . Referring Provider: Yessi Gilmore [address], [place], [address]. tel:[phone] [address], [place], [id number], [place] tel:[phone] Marvell No Information November- 6-202 4 [place] Moustapha. . Referring Provider: Nolan Alamo [address], [place], [address]. tel:[phone] [address], [place], [id number], [place] tel:[phone] Marvell No Information 5- 4 [place] Moustapha. . Referring Provider: Nolan Alamo [facility][note 2] [address], [place], [address]. tel:[phone] [address] [address], [place], [place], [id number], tel:[phone] Marvell No Information November-1 0-202 4 Perrin Kyle. , [place], [place]. Referring Provider: Nolan Alamo [facility][note 2] [address], [place], [address]. tel:[phone], [place], [id number], tel:[phone] Marvell No Information November-0 7-202 4 [place] Moustapha. . Referring Provider: Nolan Alamo [address], [place], [address]. tel:[phone] [address], [place], [id number], [place] tel:[phone] Marvell No Information Oct-2 3-202 4 [place]in Ted. . Referring Provider: Nolan Alamo [address], [place], [address]. tel:[phone] [address], [place], [id number], [place] tel:[phone] Marvell No Information Apr-1 8-202 4 [place] Ted. . Referring Provider: Nolan Alamo [address], [place], [address]. tel:[phone], [place], [id number], tel:[phone] Marvell No Information Apr-1 6-202 4 [place] Ted. . Referring Provider: Nolan Alamo [address], [place], [address]. tel:[phone] [address], [place], [id number], [place] tel:[phone] Marvell No Information Apr-1 1-202 4 [place] Ted. . Referring Provider: Harvinder Gilmore[address], [place], [address]. tel:[phone], [id number], [place] tel:[phone] Marvell No Information Apr-0 9-202 4 [place] Ted. . Referring Provider: Nolan Alamo [address], [place], [address]. tel:[phone], [id number], [place] tel:[phone] Marvell No Information Apr-0 4-202 4 [place] Ted. . Referring Provider: Nolan Alamo [address], [place], [address]. tel:[phone], [place], [place], [id number], [place] tel:[phone] Marvell No Information Sep-2 8-202 4 [place] Ted. . Referring Provider: Harvinder Gilmore[address], [place], [address]. tel:[phone] [facility], [address] [place] [address], [place], [place], [id number], tel:[phone] Marvell No Information Sep-2 4 [place] Ted. . Referring Provider: Nolan Alamo, [address], [place], [address]. tel:[phone], [place], [place], [id number], tel:[phone] Marvell No Information Sep-2 4 [place] Ted. . Referring Provider: Nolan Alamo, [address], [place], [address]. tel:[phone] Family History Family Member Type Diagnosis Age At Onset No Information Payers Payer name Insurance type Covered constitution party ID Pricila albayeni(s) [facility] [id number] [facility] CI [id number] Social History Type Description Quantity Date Captured [...]
--- OUTSIDE RECORDS SUMMARY | 2025-01-30 13:33 | XMS_ITS | Encounter Summary ---
Author Organization [facility] Address [address] [place] [address] Care Team Providers Care Grape Picker Name Role Phone Elli [place] MD Primary Care Provider [phone] Encounter Details Date Type Department Care Team (Late st Contact Info) Description 07/15/2006 Orders Only [facility] Primary Care - [address] [place] [address] Raúl [place] MD [address] [facility] [address] [place] [address] Social History Tobacco Use Types Packs/Day Years Used Date Smoking Tobacco: Never Assessed Comments Unknown Sex and Gender Information Value Date Recorded Sex Assigned at Not on file Legal 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 PASTING MACHINE OFFBEARER Gender Identity Not on file Sexual Orientation Not on file documented as of this encounter Progress Notes * Raúl [place] MD - 05/04/2008 4:57 AM CDT TIME:10:02 am PATIENT`S HOME PHONE: PATIENT`S WORK PHONE: PATIENT`S INSURANCE: [facility] WHO TOOK THE CALL: Arina Alfredo GENERAL INFORMATION PATIENT STATUS: Established Patient. PCP: dain. ALTERNATIVE PHONE NUMBER: [phone] WHO CALLED: Patient called. CURRENT ALLERGY LIST: [facility] NUMBER: [phone] PROBLEMS: URINATION: Patient complains of frequent urination, painful urination. The symptoms began approximately 3 days ago. very little at a time SECTION 1: REQUESTED ACTION riana 07/15/06 at 10:04 am: MEDICATION REQUEST: Patient [...] [place] MD - 05/04/2008 4:56 AM CDT [facility] RA[facility]L [place] MD [facility] [address] July 15, 2006 MICHAEL BAUMANN [address] [place] [id number] MICHAEL IBIS has been under our care during the dates below: 07/15/06 May return to work: 07/16/06 Sincerely yours, RAÚL [place] MD documented in this encounter Plan of Treatment Upcoming Encounters Date Type Department Care Team (Late st Contact Info) Description 02/09/2025 1:40 PM CDT Office Visit [place] [address] [place] [address] Elli [place] MD [facility] [address] [place] [phone] 06/30/2025 9:00 AM PASTING MACHINE OFFBEARER Office Visit [place] [address] [address] [place] [address] Elli [place] MD [facility] [address] [place] [address] documented as of this encounter Visit Diagnoses Not on filedocumented in this encounter Care Teams Grape Picker Relationship Specialty Start Date End Date Elli [place] MD [address] [facility] [address] [place] [address] PCP - General Internal Medicine 12/21/10 documented as of this encounter
--- OUTSIDE RECORDS SUMMARY | 2025-01-30 13:33 | XMS_ITS | Encounter Summary ---
Author Organization [facility] Address [address] [place] [address] Care Team Providers Care Distillery Miller Name Role Phone Elli Stewart MD Primary Care Provider [phone] Encounter Details Date Type Department Care Team (Late st Contact Info) Description 11/11/2005 Orders Only [address] [place] [address] Bridger Gerber MD NO ADDRESS ON FILE Social History Tobacco Use Types Packs/Day Years Used Date Smoking Tobacco: Never Assessed Comments Unknown Sex and Gender Information Value Date Recorded Sex Assigned at Not on file Legal 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 AERONAUTICAL PROJECT ENGINEER Gender Identity Not on file Sexual Orientation Not on file documented as of this encounter Plan of Treatment Upcoming Encounters Date Type Department Care Team (Late st Contact Info) Description 02/09/2025 1:40 PM CDT Office Visit [address] [place] [address] Elli [place] MD [address] [place] [address] [address] [place] [address] 06/30/2025 9:00 AM AERONAUTICAL PROJECT ENGINEER Office Visit [facility] [address] [place] [address] [address] [place] [address] Elli [place] MD [address] [place] [address] Rd [address] [place] [address] documented as of this encounter Visit Diagnoses Not on filedocumented in this encounter Care Teams Distillery Miller Relationship Specialty Start Date End Date Elli [place] MD [address] [place] [address] PCP - General Internal Medicine 12/21/10 documented as of this encounter
--- OUTSIDE RECORDS SUMMARY | 2025-01-30 13:33 | XMS_ITS | Clinical Summary ---
Author Organization [facility] Address [address] [place] [address] Care Team Providers Care Circulating Process Inspector Name Role Phone Elli [place] MD Primary Care Provider [phone] Allergies Active Allergy Reactions Criticality Noted Date Comments Tramadol Hcl Itching Low 12/09/2018 Medications norgestimate 0.18 mg/0.215 mg/0.25 mg-ethinyl estradioL 25 mcg tablet Xfy-Ok-Sidymqlu 0.18 mg/0.215 mg/0.25 mg-25 mcg tablet TK [...] migh t be different from the original. Aviation Safety Inspector [facility] Problem Noted Date Diagnosed Date Family history [...] - 01/26/2025 11:59 PM CDT Hospital Encounter [facility] [address] [place] [address] Elli [place] MD Arrived Discharge Disposition: Home or Self Care 01/26/2025 Results Follow-Up [facility] Primary Care - [address] [place] [address] Elli Stewart MD XR CHEST PA AND LATERAL 2 VW 01/24/2025 3:20 PM CDT Office Visit [facility] [address] [place] [phone] Elli Stewart MD Severe persistent asthma with acute exacerbation (CMS/HCC) (Primary Dx) 01/04/2025 External Device Data STL ABSTRACTION Provider, Abstract 12/29/2024 1:00 PM CDT Office Visit [facility] [address] [place] [phone] Elli [place] MD 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 (Primary Dx); Prediabetes; Severe obesity (BMI 35.0-39.9) with comorbidity (CMS/HCC); Hypercholesteremia; Family history of ischemic heart disease before age 50 12/09/2024 External Device Data STL ABSTRACTION Provider, Abstract 11/30/[address] [place] [phone] Elli Stewart MD 11/12/2024 Abstract [facility] [address] [place] [phone] Elli Stewart MD 11/02/2024 External Device Data STL ABSTRACTION Provider, Abstract from Last 3 Months Immunizations Immunization Administration Dates Next Due (ADACEL/BOOSTRIX)(10 YR UP) TDAP VACCINE, 0.5ML, IM 11/06/2010 (PFIZER)(12 YR UP) COVID-19 VACCINE - EMERGENCY USE AUTHORIZATION, MRNA, [id number](PF) 30 MCG/0.3 ML IM SUSP 04/20/2021,08/18/2020,07/30/2020,07/09 (PNEUMOVAX [...] Failure Maternal Grandfather Dionte Cancer Maternal Grandmother [place] Heart Disease Maternal Grandmother [place] Heart Failure Maternal Grandmother [place] Hypertension Maternal Grandmother [place] Blood Clots Mother Andreina Heart Disease Mother [...] Maternal Aunt Maternal Grandfather Dionte Maternal Grandmother [place] Mother Andreina Paternal Grandfather Flavio Paternal Grandmother Social History Tobacco Use Types Packs/Day Years Used Date Smoking Tobacco: Former Cigarettes Smokeless Tobacco: Never Tobacco Cessation:Counseling Given: No Alcohol Use Standard Drinks/Week Comments Yes 0 (1 standard drink = 0.6 oz pur e alcohol) Comments No Sex and Gender Information Value Date Recorded Sex Assigned at Not on file Legal 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 TECHNICAL SUPPORT ANALYST Gender Identity Not on file Sexual [...] [facility] [address] [place] [address] Elli Stewart MD [address] [place] [address] 06/30/2025 9:00 AM TECHNICAL SUPPORT ANALYST Office Visit [facility] [address] [place] [address] Elli Stewart MD [address] [place] [address] Health Maintenance Due Date Last [...] MAMMO SCREENING BILAT Routine 07/22/2024 9:52 AM TECHNICAL SUPPORT ANALYST from Last 3 Months or Most Recently Relevant to Health Maintenance Results * XR CHEST PA AND LATERAL 2 VW (01/26/2025 11:05 AM CDT) Anatomical Region Laterality Modality Chest Computed Radiogr aphy 01/26/2025 11:0 5 AM CDT Impressions 01/26/2025 4:06 PM CDT IMPRESSION: 1. No acute cardiopulmonary disease process identified. DICTATION LOCATION: [facility] Ciara Brianna Rosa Narrative 01/26/2025 4:06 PM [...] acute cardiopulmonary disease process identified. DICTATION LOCATION: [facility] Brianna Rosa us Elli Stewart MD DIAGNOSTIC IMAGING ORDERABLE S Final Result * POC HEMOGLOBIN A1C (12/29/2024 1:00 PM CDT) HGB A1C POC 5.3 4.0 - 6.0 % [facility] KIT LOT NUMBER POC [id number] [facility] KIT EXP DATE POC 02/17/25 [facility] Blood, capillary 12/29/2024 1:00 PM CDT Elli Stewart MD POINT OF CARE TESTING Final Result [facility] CLIA# [id number] [address] [place] [address] * MAMMO SCREENING BILAT (07/22/2024 9:52 AM TECHNICAL SUPPORT ANALYST) Anatomical Region Laterality Modality Breast Bilateral Mammography Abstract Provider MAMMO ORDERABLES Edited Result - Final from Last 3 Months or Most Recently Relevant to Health Maintenance Insurance BC[employer] BLUE PREFERRED Advance Directives For more information, please contact: [phone] * Full Code (Latest Code Status on File) Date Activated Date Inactivated Comments 08/01/2011 3:48 PM 08/01/2011 10:02 PM * Full Code Date Activated Date Inactivated Comments 08/01/2011 12:59 PM 08/01/2011 3:48 PM * Full Code Date Activated Date Inactivated Comments 08/01/2011 11:49 AM 08/01/2011 12:59 PM Care Teams Circulating Process Inspector Relationship Specialty Start Date End Date Elli Stewart MD [address] [address] PCP - General Internal Medicine 12/21/10
--- OUTSIDE RECORDS SUMMARY | 2025-01-30 13:33 | XMS_ITS | Encounter Summary ---
Author Organization [facility] Address [address] [place] [address] Care Team Providers Care Platform Supervisor Name Role Phone Elli Stewart MD Primary Care Provider [phone] Encounter Details Date Type Department Care Team (Late st Contact Info) Description 11/23/2007 Outpatient Historical [facility] [address] [place] [address] [address] [place] [address] Raúl [place] MD [address] [facility] [address] [place] [address] Routine General Medical Examination at a Health Care Facility; Family History of Diabetes Mellitus Social History Tobacco Use Types Packs/Day Years Used Date Smoking Tobacco: Never Assessed Comments Unknown Sex and Gender Information Value Date Recorded Sex Assigned at Not on file Legal 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 DRAW HAND Gender Identity Not on file Sexual Orientation Not on file documented as of this encounter Plan of Treatment Upcoming Encounters Date Type Department Care Team (Late st Contact Info) Description 02/09/2025 1:40 PM CDT Office Visit [facility] [address] [place] [address] Elli [place] MD [address] [place] [address] [address] [place] [address] 06/30/2025 9:00 AM DRAW HAND Office Visit [facility] [address] [place] [address] Elli [place] MD [address] [place] [address] documented as of this encounter [...] - 59 mg/dL [facility] CHOLESTEROL 223(H) 100 - 199 mg/dL [facility] CHOL/HDL RATIO 3.5 2.0 - 5.0 [facility] TRIGLYCERIDE 132 10 - 149 mg/dL [facility] LDL CALCULATED 133(H) <=99 mg/dL [facility] LIPID PANEL COMMENT See Below [facility] Comment: The adult ATP and pediatric NCEP classifications for lipids are available on the [facility] Intranet at: [email or web address] Select: Lab Policies and Procedures,Current Select: Lipid Panel Interpretation Blood specimen (specimen) 11/23/2007 4:28 PM CDT 11/23/2007 4:59 PM CDT us Raúl [place] MD CHEMISTRY ORDERABLES Edited [facility] [address] [place] [address] * (ABNORMAL) CBC WITH DIFFERENTIAL (11/23/2007 4:28 PM CDT) WBC 13.1(H) 4.0 - 9.8 K/uL [facility] MCH 29.9 27.2 - 32.6 pg [facility] PLATELETS 305 140 - 350 K/uL [facility] HEMATOCRIT 42.9 35.5 - 44.0 % [facility] RDW-STDEV 43.1 37.1 - 48.7 fL [facility] RBC 4.65 3.90 - 4.90 M/uL [facility] MCHC 32.4 31.5 - 35.5 % [facility] MPV 11.5 9.3 - 12.4 fL [facility] MCV 92.3 82.0 - 99.0 fL [facility] HEMOGLOBIN 13.9 11.8 - 14.8 g/dL [facility] RDW 12.9 11.5 - 14.5 % [facility] EOSINOPHILS 1 0 - 7 % [facility] EOSINOPHIL ABSOLUTE 0.06 0.00 - 0.70 K/uL [facility] LYMPHOCYTES 35 16 - 45 % [facility] LYMPHOCYTE ABSOLUTE 4.54(H) 0.70 - 4.50 K/uL [facility] BASOPHILS 0 0 - 2 % [facility] BASOPHILS ABSOLUTE 0.05 0.00 - 0.20 K/uL [facility] MONOCYTES 7 3 - 13 % [facility] MONOCYTE ABSOLUTE 0.87 0.10 - 1.30 K/uL [facility] NEUTROPHILS 58 45 - 70 % [facility] NEUTROPHIL ABSOLUTE 7.59(H) 1.90 - 7.00 K/uL [facility] Blood specimen (specimen) 11/23/2007 4:28 PM CDT 11/23/2007 4:58 PM CDT us Raúl [place] MD HEMATOLOGY ORDERABLES Edited Performing Organization Address [facility] de Phone Number INTERFACE SYSTEM Refer to clinic/hospital department [facility] [address] [place] [address] * HEMOGLOBIN A1C (11/23/2007 4:28 PM CDT) GLUCOSE, MEAN BLOOD 129 mg/dL [facility] HEMOGLOBIN A1C 5.8 4.1 - 6.1 % of Hgb [facility] Blood specimen (specimen) 11/23/2007 4:28 PM CDT 11/23/2007 4:59 PM CDT us Raúl [place] MD CHEMISTRY ORDERABLES Final Resul t Performing Organization Address [facility] de Phone Number [facility] [address] [place] [address] * (ABNORMAL) INSULIN LEVEL (11/23/2007 4:28 PM CDT) INSULIN LEVEL 32(H) <17 uIU/mL [facility] Comment: Lab test performed by: [employer] [place] [address] [phone] MELODY GHOTRA MD Blood specimen (specimen) 11/23/2007 4:28 PM CDT 11/23/2007 4:59 PM CDT us Raúl [place] MD CHEMISTRY ORDERABLES Final Resul t Performing Organization Address [facility]/ZIP Co de Phone Number [facility] [address], [place] [address] * TSH WITH REFLEX FT4 (11/23/2007 4:28 PM CDT) TSH 1.64 0.27 - 4.20 uU/mL [facility] Blood specimen (specimen) 11/23/2007 4:28 PM CDT 11/23/2007 4:59 PM CDT Raúl [place] MD CHEMISTRY ORDERABLES Final Resul t [facility] [address], [place] [address] * (ABNORMAL) COMPREHENSIVE METABOLIC PANEL (11/23/2007 4:28 PM CDT) Pathologist [facility] POTASSIUM 3.9 3.5 - 4.9 mmol/L [facility] TOTAL PROTEIN 7.4 6.3 - 8.6 g/dL [facility] GLUCOSE 117(H) 65 - 99 mg/dL [facility] AST 21 12 - 32 U/L [facility] BUN 12 6 - 20 mg/dL [facility] CALCIUM 8.7 8.4 - 10.2 mg/dL [facility] ALBUMIN 4.4 3.4 - 4.8 g/dL [facility] CHLORIDE 102 96 - 108 mmol/L [facility] CREATININE 0.77 0.51 - 0.95 mg/dL [facility] ALT 21 0 - 31 U/L [facility] SODIUM 138 135 - 145 mmol/L [facility] ALKALINE PHOSPHATASE 65 35 - 104 U/L [facility] CO2 24 22 - 30 mmol/L [facility] BILIRUBIN TOTAL 0.4 0.2 - 1.0 mg/dL [facility] GFR, >60 >=60 mL/min/1. 7 sq meter [facility] GFR >60 >=60 mL/min/1. 7 sq meter [facility] Comment: Estimated GFR rate interpretative information for both Americans and non- Americans is available on the [facility] Intranet at: [email or web address] Select: Lab Policies and Procedures Select: Reference Ranges - GFR Blood specimen (specimen) 11/23/2007 4:28 PM CDT 11/23/2007 4:59 PM CDT Raúl [place] MD CHEMISTRY ORDERABLES Edited [facility] [address] [place] [place] [address] documented in this encounter Visit Diagnoses Diagnosis Routine general medical examination at a health care facility Family history of diabetes mellitus documented in this encounter Care Teams Platform Supervisor Relationship Specialty Start Date End Date Elli Stewart MD [address] [place] [address] PCP - General Internal Medicine 12/21/10 documented as of this encounter
--- OUTSIDE RECORDS SUMMARY | 2025-01-30 13:33 | XMS_ITS | Encounter Summary ---
Author Organization [facility] Address [address] [place] [address] Care Team Providers Care Director Manufacturing Engineering Name Role Phone Elli Stewart MD Primary Care Provider [phone] Encounter Details Date Type Department Care Team (Late st Contact Info) Description 11/06/2007 Outpatient Historical [address] [place] [address] Raúl [place] MD [address] [facility] [address] [place] [address] Social History Tobacco Use Types Packs/Day Years Used Date Smoking Tobacco: Never Assessed Comments Unknown Sex and Gender Information Value Date Recorded Sex Assigned at Not on file Legal 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 SHAREPOINT SPECIALIST Gender Identity Not on file Sexual Orientation Not on file documented as of this encounter Plan of Treatment Upcoming Encounters Date Type Department Care Team (Late st Contact Info) Description 02/09/2025 1:40 PM CDT Office Visit [facility] [address] [place] [address] [address] [place] [address] Elli Stewart MD [address] [place] [address] [address] [place] [address] 06/30/2025 9:00 AM SHAREPOINT SPECIALIST Office Visit [facility] [address] [place] [address] [address] [place] [address] Elli Stewart MD [address] [place] [address] documented as of this encounter Visit Diagnoses Not on filedocumented in this encounter Care Teams Director Manufacturing Engineering Relationship Specialty Start Date End Date Elli Stewart MD [address] [place] [address] PCP - General Internal Medicine 12/21/10 documented as of this encounter
--- OUTSIDE RECORDS SUMMARY | 2025-01-30 13:33 | XMS_ITS | Encounter Summary ---
Author Organization [facility] Address [address] [place] [address] Care Team Providers Care Electrical Timing Device Calibrator Name Role Phone Elli Stewart MD Primary Care Provider [phone] Encounter Details Date Type Department Care Team (Late st Contact Info) Description 05/27/2012 Chart Note [facility] [address] [address] Ariadna Salas Physical Therapist Social History Tobacco Use Types Packs/Day Years Used Date Smoking Tobacco: Former Cigarettes Smokeless Tobacco: Never Alcohol Use Standard Drinks/Week Comments Yes 0 (1 standard drink = 0.6 oz pur e alcohol) Comments No Sex and Gender Information Value Date Recorded Sex Assigned at Not on file Legal 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 METAL STAMPING MACHINE OPERATOR Gender Identity Not on file [...] Thank you for this referral. GIANFRANCO [facility], [place] [id number] L STAMPING MACHINE OPERATOR documented in this encounter Plan of Treatment Upcoming Encounters Date Type Department Care Team (Late st Contact Info) Description 02/09/2025 1:40 PM CDT Office Visit [address] [address] Elli [place] MD [address] [place] [address] 06/30/2025 9:00 AM METAL STAMPING MACHINE OPERATOR Office Visit [address] [address] Elli Stewart MD [address] [place] [address] documented as of this encounter Visit Diagnoses Not on filedocumented in this encounter Care Teams Electrical Timing Device Calibrator Relationship Specialty Start Date End Date Elli Stewart MD [address] [place] [address] PCP - General Internal Medicine 12/21/10 documented as of this encounter
--- OUTSIDE RECORDS SUMMARY | 2025-01-30 13:33 | XMS_ITS | Encounter Summary ---
Author Organization [facility] Address [address] [place] [address] Care Team Providers Care Medical Device Sales Name Role Phone Elli Stewart MD Primary Care Provider [phone] Encounter Details Date Type Department Care Team (Late st Contact Info) Description 04/20/2004 Outpatient Historical [address] [place] [address] Raúl [place] MD [address] [facility] [address] [place] [address] Social History Tobacco Use Types Packs/Day Years Used Date Smoking Tobacco: Never Assessed Comments Unknown Sex and Gender Information Value Date Recorded Sex Assigned at Not on file Legal 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 JUKEBOX OPERATOR Gender Identity Not on file Sexual Orientation Not on file documented as of this encounter Plan of Treatment Upcoming Encounters Date Type Department Care Team (Late st Contact Info) Description 02/09/2025 1:40 PM CDT Office Visit [facility] [address] [place] [address] [address] [place] [address] Elli [place] MD [address] [place] [address] [address] [place] [address] 06/30/2025 9:00 AM JUKEBOX OPERATOR Office Visit [facility] [address] [place] [address] [address] [place] [address] Elli Stewart MD [address] [place] [address] documented as of this encounter Visit Diagnoses Not on filedocumented in this encounter Care Teams Medical Device Sales Relationship Specialty Start Date End Date Elli [place] MD [address] [place] [address] PCP - General Internal Medicine 12/21/10 documented as of this encounter
--- OUTSIDE RECORDS SUMMARY | 2025-01-30 13:33 | XMS_ITS | Encounter Summary ---
Author Organization [facility] Address [address] [place] [address] Care Team Providers Care Sas Bi Developer Name Role Phone Elli Stewart MD Primary Care Provider [phone] Encounter Details Date Type Department Care Team (Late st Contact Info) Description 11/12/2005 Outpatient Historical [facility] - [address] [place] [address] Raúl Wright MD [address] [facility] [address] [place] [address] Social History Tobacco Use Types Packs/Day Years Used Date Smoking Tobacco: Never Assessed Comments Unknown Sex and Gender Information Value Date Recorded Sex Assigned at Not on file Legal 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 SAFETY SITTER Gender Identity Not on file Sexual Orientation [...] 02/09/2025 1:40 PM CDT Office Visit [address] [place] [address] Elli Stewart MD [address] [place] [phone] 06/30/2025 9:00 AM SAFETY SITTER Office Visit [facility] [address] [place] [phone] Elli Stewart MD [address] [place] [address] documented as of this encounter Visit Diagnoses Not on filedocumented in this encounter Care Teams Sas Bi Developer Relationship Specialty Start Date End Date Elli Stewart MD [address] [place] [phone] PCP - General Internal Medicine 12/21/10 documented as of this encounter
--- OUTSIDE RECORDS SUMMARY | 2025-01-30 13:33 | XMS_ITS | Encounter Summary ---
Author Organization [facility] Address [address] [place] [address] Care Team Providers Care Rip Sawyer Name Role Phone Elli Stewart MD Primary Care Provider [phone] Encounter Details Date Type Department Care Team (Late st Contact Info) Description 11/06/2007 Outpatient Historical [address] [place] [address] Raúl Wright MD [address] [facility] [address] [place] [address] Social History Tobacco Use Types Packs/Day Years Used Date Smoking Tobacco: Never Assessed Comments Unknown Sex and Gender Information Value Date Recorded Sex Assigned at Not on file Legal 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 EDGE STITCHER Gender Identity Not on file Sexual Orientation Not on file documented as of this encounter Plan of Treatment Upcoming Encounters Date Type Department Care Team (Late st Contact Info) Description 02/09/2025 1:40 PM CDT Office Visit [facility] [address] [place] [address] [address] [place] [address] Elli Stewart MD [address] [place] [address] [address] [place] [address] 06/30/2025 9:00 AM EDGE STITCHER Office Visit [facility] [address] [place] [address] [address] [place] [address] Elli Stewart MD [address] [place] [address] documented as of this encounter Visit Diagnoses Not on filedocumented in this encounter Care Teams Rip Sawyer Relationship Specialty Start Date End Date Elli Stewart MD [address] [place] [address] PCP - General Internal Medicine 12/21/10 documented as of this encounter
--- OUTSIDE RECORDS SUMMARY | 2025-01-30 13:33 | XMS_ITS | Encounter Summary ---
Author Organization [facility] Address [address] [place] [address] Care Team Providers Care Liquid Waste Treatment Plant Operator Name Role Phone Elli Stewart MD Primary Care Provider [phone] Encounter Details Date Type Department Care Team (Late st Contact Info) Description 05/09/2004 Outpatient Historical [facility] Yanelis Vivar MD [address] [place] [address] [address] [address] LIPOMA NEC (Primary Dx) Social History Tobacco Use Types Packs/Day Years Used Date Smoking Tobacco: Never Assessed Comments Unknown Sex and Gender Information Value Date Recorded Sex Assigned at Not on file Legal 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 WELL SITE DRILLING ENGINEER Gender Identity Not on file Sexual Orientation Not on file documented as of this encounter Plan of Treatment Upcoming Encounters Date Type Department Care Team (Late st Contact Info) Description 02/09/2025 1:40 PM CDT Office Visit [facility] [address] [place] [address] Elli Stewart MD [address] [place] [address] 06/30/2025 9:00 AM WELL SITE DRILLING ENGINEER Office Visit [facility] [address] [place] [address] Elli Stewart MD [address] [place] [address] documented as of this encounter Visit Diagnoses Diagnosis Lipoma of other specified sites- Primary documented in this encounter Care Teams Liquid Waste Treatment Plant Operator Relationship Specialty Start Date End Date Elli Stewart MD [address] [place] [address] PCP - General Internal Medicine 12/21/10 documented as of this encounter
--- OUTSIDE RECORDS SUMMARY | 2025-01-30 13:33 | XMS_ITS | Encounter Summary ---
Author Organization [facility] Address [address] [place] [address] Phone Care Team Providers Care Supervisor Painting Name Role Phone Elli Stewart MD Primary Care Provider [phone] Encounter Details Date Type Department Care Team (Late st Contact Info) Description 11/20/[facility]21 [facility] [address] [place] [address] Jeni Ramirez APRN, SERVICE PROVIDER #[address] [place] [address] Encounter for screening for other viral diseases; [...] on file Legal Sex Female 7:07 PM SHIRT IRONER SUPERVISOR Gender Identity Not on file Sexual [...] 1.4 >=1.1 AI 11/20/2021 10:52 PM CDT [facility] Blood No Phlebotomy Charged / Unknown 11/20/2021 10:05 AM CDT 11/20/2021 12:51 PM CDT Narrative [facility] - 11/20/2021 10:52 PM CDT <= 0.8 Negative. No detectable Mumps IgG antibody. 0.9 - 1.0 Equivocal >=1.1 Positive Antibody testing was performed by multiplex flow immunoassay on the PanOpt[employer] platform. Jeni Ramirez APRN, CNP IMMUNOLOGY ORDERA BLES Final Result [facility] [address] [place] [address], * HERPES ZOSTER (VARICELLA) IGG (11/20/2021 10:05 AM CDT) VARICELLA ZOSTER IGG 7.2 >=1.1 AI 11/20/2021 10:52 PM CDT [facility] Blood No Phlebotomy Charged / Unknown 11/20/2021 10:05 AM CDT 11/20/2021 12:51 PM CDT Narrative [facility] - 11/20/2021 10:52 PM CDT <= 0.8 Negative. No detectable VZV IgG antibody. 0.9 - 1.0 Equivocal >=1.1 Positive Antibody testing was performed by multiplex flow immunoassay on the PanOpt[employer] platform. us Jeni Ramirez MILK DRIER, SERVICE PROVIDER IMMUNOLOGY ORDERA BLES Final Result [facility] [address] [place] [address], documented in this encounter Visit Diagnoses Diagnosis [...] Total Score: 0 09/16/19 18 7:00 PM SHIRT IRONER SUPERVISOR documented as of this encounter Care Teams Supervisor Painting Relationship Specialty Start Date End Date Elli Stewart MD [address] [facility] [address] [place] [address] PCP - General Internal Medicine 09/16/17 documented as of this encounter
--- OUTSIDE RECORDS SUMMARY | 2025-01-30 13:33 | XMS_ITS | Encounter Summary ---
Author Organization [facility] Address [address] [place] [address] Care Team Providers Care Oil Field Pumper Name Role Phone Elli Stewart MD Primary Care Provider [phone] Encounter Details Date Type Department Care Team (Late st Contact Info) Description 11/25/2007 Orders Only [address] [place] [address] Raúl Wright MD [address] [facility] [address] [place] [address] Social History Tobacco Use Types Packs/Day Years Used Date Smoking Tobacco: Never Assessed Comments Unknown Sex and Gender Information Value Date Recorded Sex Assigned at Not on file Legal 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 SALES ASSOCIATE CASHIER Gender Identity Not on file Sexual Orientation Not on file documented as of this encounter Plan of Treatment Upcoming Encounters Date Type Department Care Team (Late st Contact Info) Description 02/09/2025 1:40 PM CDT Office Visit [facility] [address] [place] [address] [address] [place] [address] Elil Stewart MD [address] [place] [address] [address] [place] [address] 06/30/2025 9:00 AM SALES ASSOCIATE CASHIER Office Visit [facility] [address] [place] [address] [address] [place] [address] Elli Stewart MD [address] [place] [address] documented as of this encounter Visit Diagnoses Not on filedocumented in this encounter Care Teams Oil Field Pumper Relationship Specialty Start Date End Date Elli Stewart MD [address] [place] [address] PCP - General Internal Medicine 12/21/10 documented as of this encounter
--- OUTSIDE RECORDS SUMMARY | 2025-01-30 13:33 | XMS_ITS | Encounter Summary ---
Author Organization [facility] Address [address] 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 No detectable Measles IgG antibody. 0.9 - 1.0 Equivocal >=1.1 Positive Antibody testing was performed by multiplex flow immunoassay on the Lemon platform. us Jeni Ramirez APRN, CNP IMMUNOLOGY ORDERA BLES Final Result [facility] [address] [place] [address], * RUBELLA IMMUNITY IGG (11/20/2021 10:05 AM CDT) [facility] Immune Immune, Invalid 11/20/2021 10:44 PM CDT [facility] Blood No Phlebotomy Charged / Unknown 11/20/2021 10:05 AM CDT 11/20/2021 12:49 PM CDT Narrative [facility] - 11/20/2021 10:44 PM CDT Antibody testing was performed by multiplex flow immunoassay on the Lemon platform. us Jeni Ramirez MEDICARE BILLER, ADMINISTRATIVE UNDERWRITER CHEMISTRY ORDERAB LES Final Result [facility] [address] [place] [address], documented in this encounter Visit Diagnoses Diagnosis [...] Total Score: 0 09/16/19 18 7:00 PM AIRCRAFT STRUCTURAL FITTER documented as of this encounter Care Teams Hospital Security Officer Relationship Specialty Start Date End Date Elli Stewart MD [address] [facility] [address] [place] [address] PCP - General Internal Medicine 09/16/17 documented as of this encounter
--- OUTSIDE RECORDS SUMMARY | 2025-01-30 13:33 | XMS_ITS | Encounter Summary ---
Author Organization [facility] Address [address] [place] [address] Care Team Providers Care Security Control Center Operator Name Role Phone Elli Stewart MD Primary Care Provider [phone] Encounter Details Date Type Department Care Team (Latest Contact Info) Description 02/15/2005 Outpatient Historical [facility] Alvar[place], Nolan Shi MD NO ADDRESS ON FILE OVARIAN CYST NEC/NOS (Primary Dx) Social History Tobacco Use Types Packs/Day Years Used Date Smoking Tobacco: Never Assessed Comments Unknown Sex and Gender Information Value Date Recorded Sex Assigned at Not on file Legal 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 Gender Identity Not on file Sexual Orientation Not on file documented as of this encounter Plan of Treatment Upcoming Encounters Date Type Department Care Team (Late st Contact Info) Description 02/09/2025 1:40 PM CDT Office Visit [address] [place] [address] Elli Stewart MD [facility] [address] [place] [address] 06/30/2025 9:[address] Office Visit [facility] [address] [address] [place] [address] Elli Stewart MD [address] [place] [address] Rd [address] [place] [address] documented as of this encounter Visit Diagnoses Diagnosis Other and unspecified ovarian cyst- Primary documented in this encounter Care Teams Security Control Center Operator Relationship Specialty Start Date End Date Elli Stewart MD [address] [facility] [address] [place] [address] PCP - General Internal Medicine 12/21/10 documented as of this encounter
--- OUTSIDE RECORDS SUMMARY | 2025-01-30 13:33 | XMS_ITS | Encounter Summary ---
Author Organization [facility] Address [address] [place] [address] Care Team Providers Care Space Buyer Name Role Phone Elli Stewart MD Primary Care Provider [phone] Encounter Details Date Type Department Care Team (Late st Contact Info) Description 09/08/2008 Outpatient Historical [facility], [address] Raúl Wright MD [address] [facility] [address] [place] [address] [id number] Impaired Fasting Glucose Social History Tobacco Use Types Packs/Day Years Used Date Smoking Tobacco: Every Day Cigarettes Alcohol Use Standard Drinks/Week Comments Not Asked 0 (1 standard drink = 0.6 oz pur e alcohol) Comments No Sex and Gender Information Value Date Recorded Sex Assigned at Not on file 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 Gender Identity Not on file Sexual Orientation Not on file documented as of this encounter Plan of Treatment Upcoming Encounters Date Type Department Care Team (Late Contact Info) Description 02/09/2025 1:40 PM CDT Office Visit [facility] [address] [facility] [address] [place] [address] Elli Stewart MD [address] [place] [address] [address] [place] [address] 06/30/2025 9:00 AM COUNTY AUDITOR Office Visit [facility] [address] [facility] [address] [place] [address] Elli Stewart MD [address] [place] [address] documented as of this encounter Visit Diagnoses Diagnosis Impaired fasting glucose documented in this encounter Care Teams Space Buyer Relationship Specialty Start Date End Date Elli Stewart MD [address] [place] [address] PCP - General Internal Medicine 12/21/10 documented as of this encounter
[2025-01-30] MEDS: ALBUTEROL SULFATE NEB 2.5 MG/3 ML INH 15 MG INHALATION (13:37)
[2025-01-30] MEDS: IPRATROPIUM BR 0.02% INH SOLN 0.5 MG/2.5 ML VIAL 1.5 MG INHALATION (13:37)
--- NOTE | 2025-01-30 14:44 | ED_ITS ---
HPI - General Adult General Chief complaint: Asthma Stated complaint: asthma Time Seen by Provider: 01/30/25 13:11 History of Present Illness HPI narrative: Patient is a 44-year-old female who presents ER where shortness of breath. She has been having issues with her breathing over the last 2 weeks. She had been on a Medrol Dosepak. She was recently here couple days ago for her long breathing treatment and Decadron injection. She had negative PE study. No chest pain just wheezing and dyspnea. No productive cough or fever. Related Data Home Medications ?Medication ?Instructions ?Recorded ?Confirmed ?Last Taken ?Type carvedilol 12.5 mg tablet 12.5 mg PO BID 10/30/21 12/15/24 11/01/24 History lisinopril 10 mg tablet 10 mg PO DAILY 07/29/24 12/15/24 08/22/24 History Allergies Allergy/AdvReac Type Severity Reaction Status Date / Time No Known Allergies Allergy Unknown Verified 01/30/25 14:18 Review of Systems 2 Review of Systems: All systems reviewed & are unremarkable except as noted in HPI and below Constitutional: Constitutional: Reports no additional constitutional complaints ENT: Reports system reviewed and no additional complaints, except as documented Cardiovascular: Cardiovascular: Reports no additional cardiovascular complaints Respiratory: Respiratory: Reports no additional respiratory complaints Gastrointestinal: Gastrointestinal: Reports no additional gastrointestinal complaints Neurologic: Reports system reviewed and no additional complaints, except as documented [facility] Past Medical History Medical History Screening mammogram for breast cancer Smoker Obesity Asthma HTN (hypertension) Surgical History Surgical History S/P laparoscopic hysterectomy 11/01/2024 H/O oophorectomy right H/O unilateral salpingectomy right Family History Family History Other Family history of alcoholism Family history of arthritis Family history of malignant neoplasm Social History Social History Smoking packs per day: 1 Smoking cigarettes per day: 20.0 Years smoked: 18 Smoking pack-years: 18.00 Smoking status: Former smoker Tobacco type: cigarettes Second hand tobacco smoke exposure: Yes Smoking end date: 10/22/23 Additional smoking assessment comments: OFF AND ON 15 YEARS Alcohol intake: never Substance use: never Substance use type: does not use Current Housing: Decline to Answer Concerned About Future Housing: Decline to Answer Difficulty Paying Gas/Electric Bills: Decline to Answer Difficulty Paying for Meds: Decline to Answer Currently Unemployed: Decline to Answer Education: Decline to Answer Difficulty w/ Childcare or Family Care: Decline to Answer Living arrangements: with family Additional living arrangements comments: 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 HEAD: Normocephalic, atraumatic. ENT: Mucous membranes moist. CHEST: Diffuse wheezing with decreased lung sounds. No respiratory distress. HEART: Regular rate and rhythm. Normal peripheral pulses. ABDOMEN: Soft, nontender, nondistended. EXTREMITIES: Normal range of motion. No edema. SKIN: Warm, dry, no rash. NEURO: Alert and oriented x3. PSYCH: Normal mood and affect. Course Course Emergency Course: Patient resting comfortably. Informed of results. Breathing markedly improved after 2 hour long nebulizer treatments. Discharge with steroid burst and atrovent. Vital Signs Vital signs: Vital Signs Temperature 97.8 F 01/30/25 11:50 Pulse Rate 74 01/30/25 11:50 Respiratory Rate 22 H 01/30/25 11:50 Blood Pressure 152/95 H 01/30/25 11:50 Pulse Oximetry 100 01/30/25 11:50 Oxygen Delivery Room Air 01/30/25 11:50 Temperature 97.8 F 01/30/25 11:50 Pulse Rate 88 01/30/25 16:35 Respiratory Rate 16 01/30/25 16:35 Blood Pressure 140/84 01/30/25 16:35 Pulse Oximetry 98 01/30/25 16:35 Oxygen Delivery Room Air 01/30/25 11:50 Medical Decision Making Vital Signs Vital Signs: Vital Signs Temperature 97.8 F 01/30/25 11:50 Pulse Rate 74 01/30/25 11:50 Respiratory Rate 22 H 01/30/25 11:50 Blood Pressure 152/95 H 01/30/25 11:50 Pulse Oximetry 100 01/30/25 11:50 Oxygen Delivery Room Air 01/30/25 11:50 Temperature 97.8 F 01/30/25 11:50 Pulse Rate 88 01/30/25 16:35 Respiratory Rate 16 01/30/25 16:35 Blood Pressure 140/84 01/30/25 16:35 Pulse Oximetry 98 01/30/25 16:35 Oxygen Delivery Room Air 01/30/25 11:50 Lab Data 01/30/25 11:59 01/30/25 11:59 Labs: Lab Results 01/30/25 01/30/25 Range/Units 11:59 15:11 WBC 15.0 H (4.5-10.0) K/mm3 RBC 4.95 (4.2-5.4) M/mm3 Hgb 14.7 (12.0-15.0) g/dL Hct 43.8 (37.0-47.0) % MCV 88.5 (80-100) fl MCH 29.7 (26-34) pg MCHC 33.6 (32-36) g/dl RDW 13.5 (11.5-14.5) % Plt Count 413 H (150-375) k/mm3 MPV 10.1 (7.4-10.4) fl Immature Gran % (Auto) 0.7 H (0-0.5) % Neut % (Auto) 56.8 (45.5-73.1) % Lymph % (Auto) 34.0 (18.3-44.2) % [place] % (Auto) 7.7 (2.6-8.5) % Eos % (Auto) 0.5 (0-4.4) % Baso % (Auto) 0.3 (0.2-1.2) % Lymph # (Auto) 5.11 H (0.9-3.2) K/mm3 [place] # (Auto) 1.2 H (0.1-0.6) K/mm3 Eos # (Auto) 0.1 (0-0.3) K/mm3 Baso # (Auto) 0.1 (0.0-0.1) K/mm3 Abs Immat Gran (auto) 0.11 H (0.00-0.031) K/mm3 Absolute Neuts (auto) 8.5 H (1.3-6.7) K/mm3 Absolute Nucleated RBC 0.000 (0.0-0.012) K/mm3 Nucleated RBC % 0.0 (0.0-0.2) % PT 12.9 (11.1-14.7) Seconds INR 1.0 APTT 25.9 (22.3-36.8) Seconds Sodium 136 L (137-145) mmol/L Potassium 4.1 (3.4-5.0) mmol/L Chloride 108 H (98-107) mmol/L Carbon Dioxide 20 L (22-30) mmol/L Anion Gap 8 (4-12) mmol/L BUN 15 (7-17) mg/dL Creatinine 0.89 (0.7-1.0) mg/dL Estim Creat Clear Calc 79 ml/min Estimated GFR > 60 (59 - ) Glucose 112 H (65-110) mg/dL Calcium 8.9 (8.4-10.2) mg/dL Total Bilirubin 0.6 (0.2-1.3) mg/dL AST 29 (14-36) U/L ALT 32 (6-35) U/L Alkaline Phosphatase 65 (38-126) U/L Troponin I < 0.012 < 0.012 (0.000-0.034) ng/mL Total Protein 6.9 (6.3-8.2) g/dL Albumin 3.8 (3.5-5.1) g/dL Lipase 109 (23-300) U/L Imaging Data Radiologist's impression: ITS Impressions Chest X-Ray 01/30/25 12:20 Impression: Normal chest. ECG Data EKG #1: ECG completion date: 01/30/25 ECG completion time: 15:12 EKG Interpretation: normal rate (62), sinus rhythm, non-specific ST changes, normal QRS and NL axis Discharge Plan Discharge Clinical Impression: Bronchitis Patient Disposition: Home Condition: Stable Instructions: Bronchospasm (ED) Additional Instructions: Please return to the emergency department if you develop severe and persistent chest pain, difficulty breathing, dizziness, leg swelling or if you are coughing up blood as these can be signs of a medical emergency. Please call your doctor for a follow up appointment to determine the need for further testing. Patient Language: [place] Prescriptions: New ipratropium-albuterol 0.5 mg-3 mg(2.5 mg base)/3 mL solution for nebulization 3 ml inhalation QID PRN (Reason: shortness of breath) Qty: 90 0RF prednisone 50 mg tablet 50 mg PO DAILY Qty: 7 0RF No Action lisinopril 10 mg tablet 10 mg PO DAILY carvedilol 12.5 mg tablet 12.5 mg PO BID Follow-up/Referrals: UNKNOWN,DOCTOR [Primary Care Provider] - 1 Week
--- NOTE | 2025-01-30 15:05 | ECG_ITS ---
Test Date: 2025-01-30 15:12:03 Measurements Intervals [place] Rate: 62 P: 33 [place]: 133 QRS: 51 QRSD: 79 T: 50 QT: 396 QTc: 404 Interpretive Statements SINUS RHYTHM Compared to ECG 01/30/2025 11:55:38 No significant changes Electronically Signed On 01-31-2025 15:51:02 CDT by Alpesh Cutler M.D.
[2025-01-30] MEDS: ALBUTEROL SULFATE NEB 2.5 MG/3 ML INH 10 MG INHALATION (15:29)
[2025-01-30 15:45] LABS: Troponin I < 0.012 ng/mL (0.000-0.034)
== END 2025-01-30 18:05 | disposition home or self-care (01) ==
PROVIDERS: Emergency Provider Emergency Medicine
DX: J45.909 Unspecified asthma, uncomplicated (principal); I10 Essential (primary) hypertension; Z90.710 Acquired absence of both cervix and uterus; Z90.721 Acquired absence of ovaries, unilateral; Z90.79 Acquired absence of other genital organ(s); Z79.899 Other long term (current) drug therapy
CPT/HCPCS: 36415; 71046; 80053; 83690; 84484; 85025; 85610; 85730; 93005; 96374; 99284; J2919